=== PATIENT | female | born 1975 | race Caucasian/White ===

== ENCOUNTER 2019-11-21 20:00 | Emergency (ER) | payer SELFPAY ==
[2019-11-21 20:05] VITALS: BP 121/94; PULSE 134; RESP 18; TEMP 36.9; O2SAT 95; BMI 20.7
== END 2019-11-22 00:15 | disposition left against medical advice (07) ==
PROVIDERS: Emergency Provider Nurse Practitioner Family; PCP Family Medicine
DX: Z53.21 Procedure and treatment not carried out due to patient leaving prior to being seen by health care provider (principal)
CPT/HCPCS: 99281

== ENCOUNTER 2019-11-25 12:57 | Emergency (ER) | payer SELFPAY ==
[2019-11-25 13:01] VITALS: BP 118/94; PULSE 113; RESP 20; TEMP 36.5; O2SAT 97; BMI 21.9
--- NOTE | 2019-11-25 13:22 | PC.NURSE ---
Patient reports that Monday night she began to get pain. Patient states that she is having some pain under her left arm. Patient reports that she has had some tingling and pain down to her hands. Patient states she is having similar symptoms in her right arm but no as bad.
--- NOTE | 2019-11-25 13:31 | ED_ITS ---
HPI - Extremity Problem General: Chief complaint: Extremity Problem,Nontraumatic Stated complaint: Arm and hand pain Time Seen by Provider: 11/25/19 13:24 History of Present Illness: HPI Narrative: Patient comes in today for complaints of left arm tightness and pain. Patient has had previous episodes with the last episode being about 2 years ago. At that time patient had a very low potassium and she is concerned about that today. Patient also reports some swelling in the trapezius area as compared to the opposite, right, side. Review of Systems General: Reports: 10 or more systems reviewed and unremarkable except in HPI and below Musc: Reports: muscle cramps PFSH ED PFSH: Statuses (acute, chronic, etc) shown below reflect problem list status as previously entered and may not be historically accurate Social History Smoking and tobacco status: former smoker Physical Exam Const: COMMON NORMALS: no apparent distress and oriented x3 GENERAL APPEARANCE: cooperative HENMT: COMMON NORMALS: normocephalic, external ears normal, EAC's normal, TM's normal bilaterally and external nose normal HEAD & SCALP: normal to inspect ion and normocephalic FACE & SINUS: normal facial exam NOSE: external nose normal GENERAL EAR: hearing not grossly impaired EXTERNAL EAR: Yes external ears normal EXTERNAL AUDITORY CANAL: EAC's normal TYMPANIC MEMBRANE: TM's normal bilaterally MOUTH: oral and palatal mucosa normal THROAT: posterior oropharynx normal Eye: COMMON NORMALS: PERRL and EOMs intact bilaterally PUPIL: Yes PERRL Neck/C-Spine: COMMON NORMALS: full ROM and no lymphadenopathy Lymph: LYMPHATIC: no lymphedema noted Chest: COMMONS NORMALS: inspection of chest normal and palpation of chest normal Resp: COMMON NORMALS: normal respiratory effort and clear to auscultation bilaterally AUSCULTATION: clear to auscultation bilaterally Cardio: COMMON NORMALS: regular rate and regular rhythm RATE: regular rate RHYTHM: regular rhythm GI: COMMON NORMALS: normal to inspection, nondistended, normoactive bowel sounds and non-tender : COMMON NORMALS: Yes no CVA tenderness BLADDER/KIDNEY EXAM: Yes no CVA tenderness Back/Pelvis: COMMON NORMALS: no CVA tenderness and thoracic and lumbar spine normal to inspection Extremity: COMMON NORMALS: normal to inspection GENERAL: No edema Neuro: COMMON NORMALS: oriented x3, moves all extremities and no focal motor deficits Psych: COMMON NORMALS: mental status grossly normal and cooperative Skin: COMMON NORMALS: no rashes or lesions noted GENERAL SKIN EXAM: no rashes or lesions noted Course Vital Signs: Vital signs: Vital Signs Temperature 97.7 F 11/25/19 13:01 Pulse Rate 113 H 11/25/19 13:01 Respiratory Rate 20 H 11/25/19 13:01 Blood Pressure 118/94 11/25/19 13:01 Pulse Oximetry 97 11/25/19 13:01 MDM - Extremity (Nontraumatic) MDM Narrative: Medical decision making narrative: Patient comes in today for complaints of tenderness and tightness to the right shoulder radiating down to her arm and hand. Patient reports that she had problems with this for the last 2 years but is worsened over the last 2 weeks. Patient appears well. Exam notes no swelling or redness to lower extremities. Pulses are intact. Vital signs are stable. Differential diagnosis includes thoracic outlet syndrome, myofascial strain, cervical radiculopathy. Reviewed exam with patient recommended treatment with Tylenol and ibuprofen and muscle relaxer. Patient was recommended to follow-up with primary care for referral for physical therapy. Patient reported understanding of care plan. Lab Data: Labs: Lab Results 11/25/19 Range/Units 13:48 Sodium 137 (136-145) mmol/L Potassium 4.3 (3.5-5.1) mmol/L Chloride 99 (98-107) mmol/L Carbon Dioxide 26 (22-29) mmol/L Anion Gap 16.3 (5-19) BUN 8 (6-20) mg/dL Creatinine 0.5 (0.5-0.9) mg/dL GFR Calculation 134.0 H (90-130) mL/min Glucose 104 (74-109) mg/dL Calcium 10.3 H (8.6-10.0) mg/Dl Discharge Plan Discharge Patient Disposition: Home, Self-Care Clinical Impression: Myofascial pain on left side Condition: Stable Prescriptions: New tizanidine 4 mg tablet 2 mg PO Q6H PRN (Reason: muscle spasticity and pain) Qty: 14 RF: 0 Discharge Orders: Discharge Order (Routine); Ordered 11/25/19 Ordered By: Ran Diaz Referrals: Ramin Hodges DO [Primary Care Provider] - Discharge Diet: Usual diet Discharge Activity: Resume usual activity Patient Instructions: Thoracic Outlet Syndrome (ED) Activity Restrictions/Additional Instructions: Activity as tolerated Gentle stretching and range of motion exercise Follow-up with primary care for further treatment and referral to PT Coding Level of Care Code ED Electrical Contacts Adjuster for Jazmyn Jc Exam Problem Focused
[2019-11-25 14:15] LABS: Anion Gap 16.3 (5-19); Blood Urea Nitrogen 8 mg/dL (6-20); Calcium 10.3 mg/Dl (8.6-10.0); Carbon Dioxide 26 mmol/L (22-29); Chloride 99 mmol/L (98-107); Glucose 104 mg/dL (74-109); Potassium 4.3 mmol/L (3.5-5.1); Sodium 137 mmol/L (136-145)
[2019-11-25 14:34] VITALS: BP 118/93; PULSE 100; RESP 18; O2SAT 96
== END 2019-11-25 14:35 | disposition home or self-care (01) ==
PROVIDERS: Emergency Provider Nurse Practitioner Family; PCP Family Medicine
DX: M79.18 Myalgia, other site (principal); Z87.891 Personal history of nicotine dependence
CPT/HCPCS: 36415; 80048; 99281

== ENCOUNTER 2019-12-28 17:30 | Emergency (ER) | payer SELFPAY ==
[2019-12-28 17:51] VITALS: BP 105/63; PULSE 127; RESP 20; TEMP 36.8; O2SAT 97; BMI 20.7
[2019-12-28 18:31] LABS: Basophils # 0.2 10^3/uL (0.0-0.1); Basophils % 1.6 %; Eosinophils # 0.2 10^3/uL (0.0-0.8); Eosinophils % 1.5 %; Hematocrit 48.9 % (37.0-47.0); Lymphocytes # 2.4 10^3/uL (0.8-4.8); Lymphocytes % 23.9 %; Mean Corpuscular HGB Conc 32.7 g/dL (30.0-36.0); Mean Corpuscular Hemoglobin 35.2 pg (28.0-34.0); Mean Corpuscular Volume 107.7 fL (81-99); Mean Platelet Volume 9.8 fL (7.4-10.4); Monocytes # 0.7 10^3/uL (0.2-0.9); Monocytes % 7.4 %; Neutrophils # 6.5 10^3/uL (1.8-7.7); Neutrophils % 65.3 %; Nucleated Red Blood Cells % 0 %; Platelet Count 344 10^3/cmm (130-400); Red Blood Count 4.54 10^6/uL (4.1-5.3); Red Cell Distribution Width 11.7 % (12.1-15.1); White Blood Count 9.9 10^3/uL (4.0-10.0)
[2019-12-28 18:43] LABS: Alanine Aminotransferase 28 U/L (0-33); Albumin Level 4.1 g/dL (3.5-5.2); Alkaline Phosphatase 148 IU/L (35-105); Anion Gap 18.7 (5-19); Aspartate Amino Transferase 60 U/L (0-32); Blood Urea Nitrogen 7 mg/dL (6-20); Calcium 10.1 mg/dL (8.5-10.5); Carbon Dioxide 28 mmol/L (22-29); Chloride 99 mmol/L (98-107); Globulin 3.8 g/dL (1.3-4.6); Glucose 111 mg/dL (65-115); Lipase 38 U/L (13-60); Potassium 3.7 mmol/L (3.5-5.1); Sodium 142 mmol/L (136-145); Total Bilirubin 0.4 mg/dL (0.15-1.2); Total Protein 7.9 g/dL (6.6-8.7)
[2019-12-28 19:32] VITALS: BP 111/62; PULSE 122; RESP 20; TEMP 36.9; O2SAT 96
--- NOTE | 2019-12-28 19:36 | ED_ITS ---
HPI - General Adult General: Chief complaint: Abdominal Pain Stated complaint: FEVER, N/V Time Seen by Provider: 12/28/19 19:13 History of Present Illness: HPI narrative: Patient complains about nausea and vomiting for 1 day 1/2 days. Also complains about sinus pressure. Does not have any abdominal pain. Patient has sinus problems also. MD complaint: .ge Onset (ago): day(s) Associated symptoms: Reports nausea, vomiting and other (Sinus pressure); Deny chest pain, dyspnea, headache(s) or rash Review of Systems Const: Denies: fever, chills or body aches Eyes: Denies: change in vision or blurry vision ENMT: Reports: nasal congestion; Denies: throat pain Card: Denies: chest pain or shortness of breath on exertion Resp: Denies: shortness of breath, productive cough or non-productive cough GI: Reports: nausea and vomiting Musc: Denies: extremity pain Skin/Breast: Denies: rash Neuro: Denies: headache Psych: Denies: anxiety or depression [place]/Lymph: Denies: easy bruising PFSH ED PFSH: Social History Smoking and tobacco status: current some day smoker Physical Exam Const: COMMON NORMALS: no apparent distress, average body habitus and oriented x3 HENMT: COMMON NORMALS: normocephalic HEAD & SCALP: normal to inspection and normocephalic FACE & SINUS: normal facial exam Eye: COMMON NORMALS: conjunctivae normal GENERAL EYE: normal appearance of both eyes CONJUNCTIVA: Yes conjunctivae normal Neck/C-Spine: COMMON NORMALS: no JVD Chest: COMMONS NORMALS: inspection of chest normal Resp: COMMON NORMALS: normal respiratory effort and clear to auscultation bilaterally AUSCULTATION: clear to auscultation bilaterally Cardio: COMMON NORMALS: no JVD, regular rate and regular rhythm RATE: regular rate RHYTHM: regular rhythm GI: COMMON NORMALS: normal to inspection, nondistended, normoactive bowel sounds Extremity: COMMON NORMALS: normal to inspection and full ROM Neuro: COMMON NORMALS: oriented x3 Course Vital Signs: Vital signs: Vital Signs Temperature 98.5 F 12/28/19 19:32 Pulse Rate 122 H 12/28/19 19:32 Respiratory Rate 20 H 12/28/19 19:32 Blood Pressure 111/62 12/28/19 19:32 Pulse Oximetry 96 12/28/19 19:32 MDM - General Adult MDM Narrative: Medical decision making narrative: States she never did have abdominal pain just had some nausea and vomiting which has improved now. Says her sinuses are what is bothering her now. Lab Data: Labs: Lab Results 12/28/19 12/28/19 12/28/19 Range/Units 18:23 18:23 19:15 WBC 9.9 (4.0-10.0) 10^3/ uL RBC 4.54 (4.1-5.3) 10^6/u L Hgb 16.0 H (11.5-15.3) g/dL Hct 48.9 H (37.0-47.0) % MCV 107.7 H (81-99) fL MCH 35.2 H (28.0-34.0) pg MCHC 32.7 (30.0-36.0) g/dL RDW 11.7 L (12.1-15.1) % Plt Count 344 (130-400) 10^3/c mm MPV 9.8 (7.4-10.4) fL Neut % (Auto) 65.3 % Lymph % (Auto) 23.9 % Phelps % (Auto) 7.4 % Eos % (Auto) 1.5 % Baso % (Auto) 1.6 % Neut # (Auto) 6.5 (1.8-7.7) 10^3/u L Lymph # (Auto) 2.4 (0.8-4.8) 10^3/u L Phelps # (Auto) 0.7 (0.2-0.9) 10^3/u L Eos # (Auto) 0.2 (0.0-0.8) 10^3/u L Baso # (Auto) 0.2 H (0.0-0.1) 10^3/u L Nucleated RBC % (a uto) 0 % Nucleated RBCs # 0.0 /100WBC Sodium 142 (136-145) mmol/L Potassium 3.7 (3.5-5.1) mmol/L Chloride 99 (98-107) mmol/L Carbon Dioxide 28 (22-29) mmol/L Anion Gap 18.7 (5-19) BUN 7 (6-20) mg/dL Creatinine 0.5 (0.5-0.9) mg/dL GFR Calculation 134.0 H (90-130) mL/min Glucose 111 (65-115) mg/dL Calcium 10.1 (8.5-10.5) mg/dL Total Bilirubin 0.4 (0.15-1.2) mg/dL AST 60 H (0-32) U/L ALT 28 (0-33) U/L Alkaline Phosphata se 148 H (35-105) IU/L Total Protein 7.9 (6.6-8.7) g/dL Albumin 4.1 (3.5-5.2) g/dL Globulin 3.8 (1.3-4.6) g/dL Lipase 38 (13-60) U/L Urine Color (Yellow) Urine Appearance (CLEAR) Urine pH (5-7) Ur Specific Gravit y (1.005-1.030) Urine Protein (Negative) Urine Glucose (UA) (Normal) Urine Ketones (Negative) Urine Occult Blood (Negative) Urine Nitrate (Negative) Urine Bilirubin (NEGATIVE) Urine Urobilinogen (Negative) mg/dL Ur Leukocyte Lisa ase (Negative) Urine RBC (0-2) /hpf Urine WBC (0-5) /hpf Ur Squamous Epith Cells (0-5) Urine Bacteria (NONE) Urine Mucus Influenza Type A A g Negative (Negative) POC Influenza B Ag Negative (Negative) Group A Strep Rapi d (Negative) 12/28/19 12/28/19 Range/Units 19:15 19:25 WBC (4.0-10.0) 10^3/ uL RBC (4.1-5.3) 10^6/u L Hgb (11.5-15.3) g/dL Hct (37.0-47.0) % MCV (81-99) fL MCH (28.0-34.0) pg MCHC (30.0-36.0) g/dL RDW (12.1-15.1) % Plt Count (130-400) 10^3/c mm MPV (7.4-10.4) fL Neut % (Auto) % Lymph % (Auto) % Phelps % (Auto) % Eos % (Auto) % Baso % (Auto) % Neut # (Auto) (1.8-7.7) 10^3/u L Lymph # (Auto) (0.8-4.8) 10^3/u L Phelps # (Auto) (0.2-0.9) 10^3/u L Eos # (Auto) (0.0-0.8) 10^3/u L Baso # (Auto) (0.0-0.1) 10^3/u L Nucleated RBC % (a uto) % Nucleated RBCs # /100WBC Sodium (136-145) mmol/L Potassium (3.5-5.1) mmol/L Chloride (98-107) mmol/L Carbon Dioxide (22-29) mmol/L Anion Gap (5-19) BUN (6-20) mg/dL Creatinine (0.5-0.9) mg/dL GFR Calculation (90-130) mL/min Glucose (65-115) mg/dL Calcium (8.5-10.5) mg/dL Total Bilirubin (0.15-1.2) mg/dL AST (0-32) U/L ALT (0-33) U/L Alkaline Phosphata se (35-105) IU/L Total Protein (6.6-8.7) g/dL Albumin (3.5-5.2) g/dL Globulin (1.3-4.6) g/dL Lipase (13-60) U/L Urine Color Yellow (Yellow) Urine Appearance Sl hazy (CLEAR) Urine pH 7 (5-7) Ur Specific Gravit y 1.005 (1.005-1.030) Urine Protein Neg (Negative) Urine Glucose (UA) Norm (Normal) Urine Ketones Negative (Negative) Urine Occult Blood Neg (Negative) Urine Nitrate Negative (Negative) Urine Bilirubin 1+ H (NEGATIVE) Urine Urobilinogen 4 H (Negative) mg/dL Ur Leukocyte Lisa ase Negative (Negative) Urine RBC Rare (0-2) /hpf Urine WBC 0-4 H (0-5) /hpf Ur Squamous Epith Cells 5-10 H (0-5) Urine Bacteria Trace (NONE) Urine Mucus 1+ Influenza Type A A g (Negative) POC Influenza B Ag (Negative) Group A Strep Rapi d Negative (Negative) Discharge Plan Discharge Patient Disposition: Home, Self-Care Clinical Impression: Gastroenteritis Sinusitis Qualifiers: Sinusitis location: maxillary Chronicity: acute Recurrence: non-recurrent Qualified Code(s): J01.00 - Acute maxillary sinusitis, unspecified Condition: Stable Prescriptions: New amoxicillin 500 mg tablet 500 mg PO TID 10 Days Qty: 30 RF: 0 Zofran 4 mg tablet 4 mg PO Q8H PRN (Reason: nausea and vomiting) 2 Days Qty: 7 RF: 0 No Action tizanidine 4 mg tablet 2 mg PO Q6H PRN (Reason: muscle spasticity and pain) Qty: 14 RF: 0 Discharge Orders: Discharge Order (Routine); Ordered 12/28/19 Ordered By: Nicolás Dominique Referrals: Ramin Hodges DO [Primary Care Provider] - Discharge Diet: Advance as tolerated Discharge Activity: Increase activity as tolerated Patient Instructions: Gastroenteritis (ED) Activity Restrictions/Additional Instructions: Follow-up with medical provider as directed. Take medications as prescribed. Return to the ER or your medical provider if condition worsens. Please read and understand discharge instructions. If any questions ask please. Lindsey fritz. Coding Level of Care Code ED Packing House Supervisor for Jazmyn Fwfransisco Exam Comprehensive
[2019-12-28 19:55] LABS: Rapid Strep A Test Negative (Negative)
[2019-12-28 19:58] LABS: Blood Urine Neg (Negative); Glucose Urine UA Norm (Normal); Ketones Urine Negative (Negative); Protein Urine Neg (Negative); Specific Gravity, Urine 1.005 (1.005-1.030); Urine Appearance SL Hazy (CLEAR); Urine Color Yellow (Yellow); pH Urine 7 (5-7)
[2019-12-28 19:59] LABS: Add Urine Microscopic? YES; Bilirubin Urine 1+ (NEGATIVE); Leukocyte Esterase Urine Negative (Negative); Nitrate Urine Negative (Negative); Urobilinogen Urine 4 mg/dL (Negative)
[2019-12-28 20:01] LABS: Bacteria Urine TRACE; Mucus Urine 1+; RBC Urine RARE /hpf (0-2); WBC Urine 0-4 /hpf (0-5)
[2019-12-28 20:02] LABS: Add Urine Culture? No
[2019-12-28 20:07] LABS: Influenza A by IFA Negative (Negative); Influenza B by IFA Negative (Negative)
[2019-12-28] MEDS: amoxicillin 500 mg Capsule PO (20:28)
[2019-12-28] MEDS: ondansetron 4 MG Tablet PO (20:29)
[2019-12-28 20:31] VITALS: BP 105/63; PULSE 130; RESP 16; TEMP 36.7; O2SAT 97
== END 2019-12-28 20:31 | disposition home or self-care (01) ==
PROVIDERS: Emergency Provider Nurse Practitioner Family; PCP Family Medicine
DX: K52.9 Noninfective gastroenteritis and colitis, unspecified (principal); J32.9 Chronic sinusitis, unspecified; F17.200 Nicotine dependence, unspecified, uncomplicated
CPT/HCPCS: 80053; 81001; 83690; 85025; 87081; 87804; 87880; 99283; Q0162

== ENCOUNTER 2020-03-07 18:07 | Emergency (ER) | payer SELFPAY ==
[2020-03-07 18:12] VITALS: BP 137/112; PULSE 124; RESP 17; TEMP 36.2; O2SAT 98; BMI 21.9
--- NOTE | 2020-03-07 18:12 | W.ED.ANIMALB ---
HPI - Animal Bite General: Chief Complaint: Animal Bite Stated Complaint: dog bite Time Seen by Provider: 03/07/20 18:12 Source: patient Mode of arrival: ambulatory Limitations: no limitations History of Present Illness: HPI narrative: Patient comes in today with injuries from being bitten by a dog last night. Patient has an abrasion to the left abdominal wall and an abrasion to her left thumb. Patient appears well. Patient appears in no acute distress. Patient states that she had gone to her neighbor's house who owns the dog and was going to give them some close that she had wanted to donate to them due to them being poor. When the door open the dog jumped at her and bit her. Patient was not wanting to report to the police but told her that we would have to notify the police just by law it was recommended. Patient reported understanding. Patient cannot recall her last tetanus shot. Dog is a healthy well care for dog that will be able to be monitored for 10 days. Review of Systems General: Reports: 10 or more systems reviewed and unremarkable except in HPI and below Skin/Breast: Reports: other (abrasions) PFS ED PFSH: Social History Smoking and tobacco status: current some day smoker Alcohol intake: current Alcohol intake frequency: few times a month History of recent travel: No Physical Exam Const: COMMON NORMALS: no apparent distress and oriented x3 GENERAL APPEARANCE: cooperative HENMT: COMMON NORMALS: normocephalic, TM's normal bilaterally and external nose normal HEAD & SCALP: normal to inspection and normocephalic NOSE: external nose normal TYMPANIC MEMBRANE: TM's normal bilaterally MOUTH: oral and palatal mucosa normal THROAT: posterior oropharynx normal Eye: GENERAL EYE: normal appearance of both eyes Neck/C-Spine: COMMON NORMALS: full ROM Lymph: LYMPHATIC: no lymphadenopathy noted Chest: COMMONS NORMALS: inspection of chest normal Resp: COMMON NORMALS: normal respiratory effort EFFORT & INSPECTION: Yes able to speak in complete sentences Cardio: COMMON NORMALS: regular rate and regular rhythm RATE: regular rate RHYTHM: regular rhythm GI: COMMON NORMALS: non-tender : COMMON NORMALS: Yes no CVA tenderness BLADDER/KIDNEY EXAM: Yes no CVA tenderness Back/Pelvis: COMMON NORMALS: no CVA tenderness and thoracic and lumbar spine normal to inspection Extremity: COMMON NORMALS: normal to inspection Neuro: COMMON NORMALS: oriented x3 and moves all extremities Psych: COMMON NORMALS: mental status grossly normal and cooperative Skin: COMMON NORMALS: no rashes or lesions noted NARRATIVE SKIN EXAM: Abrasion to the left thumb distal part. And the left flank area. Minimal ecchymosis is noted. No deep lacerations were noted. GENERAL SKIN EXAM: no rashes or lesions noted Course Vital Signs: Vital signs: Vital Signs Temperature 97.1 F L 03/07/20 18:12 Pulse Rate 124 H 03/07/20 18:12 Respiratory Rate 17 03/07/20 18:12 Blood Pressure 137/112 03/07/20 18:12 Pulse Oximetry 98 03/07/20 18:12 MDM - Animal Bite MDM Narrative: Medical decision making narrative: Patient comes in for evaluation of a dog bite that occurred last evening. Exam noted a ecchymotic abrasion to the left flank that was approximately 3 cm diameter. Patient also had a distal thumb injury with a small blood-filled vesicle. Patient had normal range of motion of extremities. No signs of serious injury or illness was noted. Vital signs were normal. Reviewed exam with patient recommended treatment with antibiotic and tetanus shot for immunization. Patient reported understanding of care plan and need for follow-up. I had talked to Dr. Montoya the advertising statistical clerk at [facility] regarding this patient, and he did not know the dog that had attacked her as he had been contacted earlier regarding another incident and could not share any further information regarding the past. Patient was informed that law enforcement would have to be contacted regarding the animal patient was very upset regarding this due to concern for the animal. I reassured reassured patient that the dog should be fine as it would just need to be monitored to ensure it did not have rabies. Patient reported understanding. Discharge Plan Discharge Patient Disposition: Home, Self-Care Clinical Impression: Bite by animal Condition: Stable Prescriptions: New Augmentin 875-125 mg tablet 1 tab PO BID Qty: 14 RF: 0 No Action diclofenac potassium 25 mg capsule 25 mg PO .Bedtime Qty: 30 RF: 1 tizanidine 4 mg tablet 2 mg PO Q6H PRN (Reason: muscle spasticity and pain) Qty: 14 RF: 0 Discharge Orders: Discharge Order (Routine); Ordered 03/07/20 Ordered By: Ran Diaz Referrals: Whit Painter FNP [Primary Care Provider] - Discharge Diet: Usual diet Discharge Activity: Increase activity as tolerated Patient Instructions: Animal Bite (ED) Activity Restrictions/Additional Instructions: Call the neighbor by phone and instruct them to monitor the dog for 10 days. If the dog is to become ill it should be taken to the vet for further monitoring and testing as needed. Take antibiotics as directed. Drink plenty of fluids with antibiotic. Use Tylenol and ibuprofen as needed for pain. Follow-up with primary care in 1 week. Return to the ER for worsening symptoms or high fever. Coding Level of Care Code ED Earth Auger Operator for Olegg Fwd Exam Comprehensive
[2020-03-07] MEDS: amoxicillin-clav 875-125 mg Tablet 1 TAB PO (18:42)
[2020-03-07] MEDS: tetanus-dipt-pertussis 0.5 mL SDV IM (18:43)
[2020-03-07 18:57] VITALS: PULSE 110; RESP 20; O2SAT 98
== END 2020-03-07 18:58 | disposition home or self-care (01) ==
PROVIDERS: Emergency Provider Nurse Practitioner Family; PCP Nurse Practitioner
DX: S30.871A Other superficial bite of abdominal wall, initial encounter (principal); S60.372A Other superficial bite of left thumb, initial encounter; W54.0XXA Bitten by dog, initial encounter; F17.210 Nicotine dependence, cigarettes, uncomplicated; Z23 Encounter for immunization
CPT/HCPCS: 12345; 90471; 90715; 99281; 99283

== ENCOUNTER 2020-06-11 19:25 | Emergency (ER) | payer SELFPAY ==
[2020-06-11 19:34] VITALS: BP 115/60; PULSE 105; RESP 18; TEMP 36.6; O2SAT 97; BMI 20.7
--- NOTE | 2020-06-11 19:38 | XRR_ITS ---
PROCEDURE INFORMATION: Exam: XR Chest, 1 View Exam date and time: 06/11/2020 9:04 PM Age: 45 years old Clinical indication: Chest pain; Type not specified; Additional info: [id number] TECHNIQUE: Imaging protocol: XR of the chest Views: 1 view. COMPARISON: CR Chest 1 [place] [id number] 09/20/2019 2:19 AM FINDINGS: Lungs: Unremarkable. No consolidation. Pleural space: Unremarkable. No pleural effusion. No pneumothorax. Heart/Mediastinum: Unremarkable. No cardiomegaly. Bones/joints: Unremarkable. XR/XR chest 1V portable [id number] IMPRESSION: No acute findings.
--- NOTE | 2020-06-11 19:39 | ECG_ITS ---
[facility] Test Date: 2020-06-11 Pat Name: Kalpana Godwin Department: Room: Gender: Female Instructor Bridge: : 1975 Requested By: Armando Bernard Order Number: [id number] Lauri MD: Bridger Valentino M.D. Measurements Intervals [place] Rate: 94 P: 52 [place]: 166 QRS: 20 QRSD: 68 T: 25 QT: 355 QTc: 445 Interpretive Statements SINUS RHYTHM LOW QRS VOLTAGE IN PRECORDIAL LEADS [QRS DEFLECTION < 1.0 mV IN CHEST LEADS] Compared to ECG 09/20/2019 02:24:31 Sinus tachycardia no longer present Electronically Signed On 06-12-2020 16:02:58 CDT by Bridger Valentino M.D. [id number]
[2020-06-11 20:03] LABS: Basophils # 0.2 10^3/uL (0.0-0.1); Eosinophils # 0.3 10^3/uL (0.0-0.8); Eosinophils % 3.7 %; Hematocrit 41.6 % (37.0-47.0); Hemoglobin 13.6 g/dL (11.5-15.3); Lymphocytes # 3.4 10^3/uL (0.8-4.8); Mean Corpuscular HGB Conc 32.7 g/dL (30.0-36.0); Mean Corpuscular Hemoglobin 35.5 pg (28.0-34.0); Mean Corpuscular Volume 108.6 fL (81-99); Mean Platelet Volume 9.9 fL (7.4-10.4); Monocytes # 0.8 10^3/uL (0.2-0.9); Monocytes % 9.3 %; Neutrophils # 4.22 10^3/uL (1.8-7.7); Neutrophils % 46.8 %; Nucleated Red Blood Cells % 0 %; Platelet Count 196 10^3/cmm (130-400); Red Blood Count 3.83 10^6/uL (4.1-5.3); Red Cell Distribution Width 11.4 % (12.1-15.1)
[2020-06-11 20:22] LABS: Troponin(5th) Baseline 6 ng/L (0-10)
[2020-06-11 20:28] LABS: Alanine Aminotransferase 74 U/L (0-33); Albumin Level 4.5 g/dL (3.5-5.2); Alkaline Phosphatase 180 IU/L (35-105); Aspartate Amino Transferase 237 U/L (0-32); Blood Urea Nitrogen 4 mg/dL (6-20); Calcium 9.3 mg/dL (8.5-10.5); Carbon Dioxide 25 mmol/L (22-29); Chloride 105 mmol/L (98-107); Globulin 2.6 g/dL (1.3-4.6); Glomerular Filtration Rate 133.4 mL/min (90-130); Glucose 98 mg/dL (65-115); NT Pro B Type Natriuretic Pept 37 pg/mL (0-125); Osmolality Calculated 292 mOsm/kg (285-295); Sodium 143 mmol/L (136-145); Total Bilirubin 0.4 mg/dL (0.15-1.2); Total Protein 7.1 g/dL (6.6-8.7)
[2020-06-11 21:29] LABS: Alcohol Level 267 mg/dL (0-10)
[2020-06-11] MEDS: acetaminophen 500 mg Tablet 1000 MG PO (21:43)
[2020-06-11] MEDS: ibuprofen 600 mg Tablet PO (21:43)
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
[2020-06-11 21:45] VITALS: BP 122/86; PULSE 96; RESP 18; O2SAT 98
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
--- NOTE | 2020-06-11 21:51 | PC.NURSE ---
PT BREATHING IS NONLABORED. RATE AND RYTHYM ARE WNL.
== END 2020-06-11 22:27 | disposition home or self-care (01) ==
PROVIDERS: Emergency Medicine; Emergency Provider Emergency Medicine; PCP Nurse Practitioner
DX: S22.39XA Fracture of one rib, unspecified side, initial encounter for closed fracture (principal); X58.XXXA Exposure to other specified factors, initial encounter; F17.210 Nicotine dependence, cigarettes, uncomplicated
CPT/HCPCS: 12345; 71045; 80053; 80307; 83880; 84484; 85025; 93005; 99281; 99284

== ENCOUNTER 2020-06-21 16:57 | Emergency (ER) | payer SELFPAY ==
--- NOTE | 2020-06-21 17:00 | XRR_ITS ---
PROCEDURE INFORMATION: Exam: XR Chest, 2 Views Exam date and time: 06/21/2020 5:33 PM Age: 45 years old Clinical indication: Patient HX: PT states left sided pain/swelling; Additional info: Cp TECHNIQUE: Imaging protocol: XR of the chest Views: 2 views. COMPARISON: CR XR chest 1V portable [id number] 06/11/2020 8:52 PM FINDINGS: Lungs: Unremarkable. No consolidation. Pleural space: Unremarkable. No pleural effusion. No pneumothorax. Heart/Mediastinum: Unremarkable. No cardiomegaly. Bones/joints: Unremarkable. XR/XR chest 2V* [id number] IMPRESSION: No acute findings.
[2020-06-21 17:35] VITALS: BP 122/84; PULSE 107; RESP 14; TEMP 37.1; O2SAT 96; BMI 20.1
== END 2020-06-21 20:24 | disposition left against medical advice (07) ==
PROVIDERS: Emergency Provider Emergency Medicine; PCP Nurse Practitioner
DX: Z53.21 Procedure and treatment not carried out due to patient leaving prior to being seen by health care provider (principal)
CPT/HCPCS: 71046; 99281

== ENCOUNTER 2020-06-21 21:25 | Emergency (ER) | payer SELFPAY ==
[2020-06-21 21:37] VITALS: BP 124/72; PULSE 112; RESP 14; TEMP 36.2; O2SAT 96; BMI 20.7
[2020-06-21] MEDS: methylPREDNISolone (DEPO) 80 MG/ML INJ 1 mL IM (22:01)
[2020-06-21 22:06] VITALS: BP 118/72; PULSE 72; RESP 16; TEMP 36.3; O2SAT 100
--- NOTE | 2020-06-21 22:07 | PC.NURSE ---
Patient's CC of Left sided rib pain. Patient ambulatory by self, with no devices.
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
== END 2020-06-21 22:11 | disposition home or self-care (01) ==
PROVIDERS: Emergency Provider Nurse Practitioner Family; PCP Nurse Practitioner
DX: S23.41XA Sprain of ribs, initial encounter (principal); F17.210 Nicotine dependence, cigarettes, uncomplicated; X58.XXXA Exposure to other specified factors, initial encounter
CPT/HCPCS: 12345; 96372; 99281; 99283; J1040

== ENCOUNTER 2020-07-14 15:43 | Emergency (ER) | payer SELFPAY ==
[2020-07-14 15:50] VITALS: BP 125/85; PULSE 120; RESP 18; TEMP 37.1; O2SAT 94; BMI 20.7
--- NOTE | 2020-07-14 17:12 | XRR_ITS ---
PROCEDURE INFORMATION: Exam: XR Nasal Bones, Minimum of 3 Views, Complete Exam date and time: 07/14/2020 5:36 PM Age: 45 years old Clinical indication: Injury or trauma; Initial encounter; Blunt trauma (contusions or hematomas); Injury date: 07/11/20; Patient HX: Fall; Dog pushed over. C/O pain and bruising nose TECHNIQUE: Imaging protocol: XR of the nasal bones, minimum of 3 views. Complete exam. COMPARISON: No relevant prior studies available. FINDINGS: Sinuses: Well aerated. No opacification. Bones/joints: No fracture. Soft tissues: Unremarkable. XR/XR nasal bones min 3V [id number] IMPRESSION: Unremarkable.
--- NOTE | 2020-07-14 17:12 | XRR_ITS ---
PROCEDURE INFORMATION: Exam: XR Chest, 1 View Exam date and time: 07/14/2020 5:32 PM Age: 45 years old Clinical indication: Dyspnea; Patient HX: C/O nose injury , fever, cough and sore throat. PT is concerned about being exposed to covid. Bruised nose from dog hitting her in face. TECHNIQUE: Imaging protocol: XR of the chest Views: 1 view. COMPARISON: CR XR chest 2V* [id number] 06/21/2020 5:30 PM FINDINGS: Lungs: Unremarkable. No consolidation. Lordotic positioning. Pleural space: Unremarkable. No pleural effusion. No pneumothorax. Heart/Mediastinum: Unremarkable. No cardiomegaly. Bones/joints: Unremarkable. XR/XR chest 1V portable [id number] IMPRESSION: No acute findings.
--- NOTE | 2020-07-14 17:36 | W.ED.GENADLT ---
HPI - General Adult General: Chief complaint: General Medical Stated complaint: covid symptoms Time Seen by Provider: 07/14/20 17:04 Source: patient Mode of arrival: ambulatory Limitations: no limitations History of Present Illness: HPI narrative: Kalpana is a nice 45-year-old female who comes in complaining of nose injury, fever, cough and sore throat. The patient is specifically concerned about being exposed to COVID-19. She states she is been around 2 people that have had the infection and she wants to be tested. Patient also states her dog hit her in the face and she has a bruised nose. She is requesting x-rays of this as well. Associated symptoms: Reports dyspnea; Deny chest pain, headache(s), nausea, rash, palpitations, syncope or vomiting Review of Systems Const: Denies: fever(s) Eyes: Denies: change in vision or blurry vision ENMT: Denies: throat pain or hoarseness Card: Denies: chest pain, palpitations, syncope, pre-syncope or dyspnea on exertion Resp: Reports: dyspnea and non-productive cough; Denies: productive cough GI: Denies: abdominal pain, nausea, vomiting or diarrhea : Denies: flank pain, dysuria, urinary frequency or urinary urgency Musc: Denies: neck pain, back pain or extremity pain Skin/Breast: Denies: rash or pruritus Neuro: Denies: headache(s), numbness in extremities, weakness in extremities or dizziness [facility] ED PFSH: Medical History Gastroenteritis Social History Smoking and tobacco status: current some day smoker Alcohol intake: current Alcohol intake frequency: 3 or more drinks per day Substance/Drug Use: never History of recent travel: No Physical Exam Const: COMMON NORMALS: no acute distress, patient oriented x3, no limitations, healthy appearing and well nourished GENERAL APPEARANCE: cooperative, well kempt and well developed HENMT: COMMON NORMALS: normocephalic, atraumatic, external ears normal, EAC's normal and Normal external nose present HEAD & SCALP: normal to inspection, normocephalic and atraumatic FACE & SINUS: normal facial exam and face symmetric NOSE: Normal external nose present and Normal nares present EXTERNAL EAR: Yes external ears normal EXTERNAL AUDITORY CANAL: EAC's normal MOUTH: Normal oral and palatal mucosa present, lip normal and tongue normal Eye: COMMON NORMALS: Equal, round and reactive pupils present and conjunctivae normal GENERAL EYE: appearance normal, both eyes and all related structures ALIGNMENT: Yes alignment normal PERIORBITAL: periorbital findings normal EYELID: eyelids normal CONJUNCTIVA: Yes conjunctivae normal SCLERA: sclerae normal PUPIL: Yes Equal, round and reactive pupils present Neck/C-Spine: COMMON NORMALS: full ROM, no lymphadenopathy, supple, no meningeal signs and no JVD GENERAL: Yes normal visual inspection and Yes trachea midline Chest: COMMONS NORMALS: normal inspection of the chest and normal palpation of entire chest wall Resp: COMMON NORMALS: normal respiratory effort, No retractions, No use of accessory muscles and clear to auscultation bilaterally EFFORT & INSPECTION: Yes able to speak in complete sentences and Yes symmetric chest movement AUSCULTATION: clear to auscultation bilaterally, no crackles, no rales, no rhonchi and no wheezes Cardio: COMMON NORMALS: no JVD, regular rate, regular rhythm, S1 normal heart sound present and S2 normal heart sound present RATE: regular rate RHYTHM: regular rhythm HEART SOUNDS: S1 normal heart sound present, S2 normal heart sound present, no click, no gallops, no murmurs, no rubs and abnormal split S2 GI: COMMON NORMALS: Soft to palpation and No hepatosplenomegaly present PALPATION: Yes Soft to palpation, No Tenderness to palpation present (GI), No Guarding due to palpation present (GI), No Rigid due to palpation, Yes No hepatosplenomegaly present, No Hernia present, No Palpable mass present and No Pulsatile mass present : COMMON NORMALS: Yes no CVA tenderness BLADDER/KIDNEY EXAM: Yes no CVA tenderness EXTERNAL FEMALE EXAM: No Hernia present Back/Pelvis: COMMON NORMALS: no CVA tenderness, thoracic and lumbar spine normal to inspection, no thoracic nor lumbar tenderness and thoraco-lumbar ROM normal Extremity: COMMON NORMALS: normal to inspection, full ROM, capillary refill normal, no joint enlargement, no clubbing, cyanosis or edema and no calf tenderness Neuro: COMMON NORMALS: patient oriented x3, CN's II-XII intact bilaterally, moves all extremities, no focal motor deficits and no sensory deficits noted MENINGEAL SIGNS: Yes no meningeal signs SPEECH: speech normal Psych: COMMON NORMALS: mental status grossly normal, Normal thought process present, cooperative, normal affect, speech normal and activity/motor behavior normal APPEARANCE: Yes well kempt SPEECH: Yes normal speech THOUGHT PROCESS: Normal thought process present Skin: COMMON NORMALS: no rashes or lesions noted, turgor normal, no jaundice, no petechiae and no mottling GENERAL SKIN EXAM: no rashes or lesions noted and turgor normal Course Vital Signs: Vital signs: Vital Signs Temperature 98.7 F 07/14/20 15:50 Pulse Rate 99 07/14/20 19:34 Respiratory Rate 14 07/14/20 19:34 Blood Pressure 125/85 07/14/20 15:50 Pulse Oximetry 99 07/14/20 19:34 MDM - General Adult MDM Narrative: Medical decision making narrative: Kalpana is a nice 45-year-old female who comes in with multiple complaints. Chest x-ray and facial bone x-rays are unremarkable. Patient is changed her mind about wanting any further work-up done except for her COVID test. We have informed her will take approximately 2 days to get the results. She is aware. Her heart rate is improved. She denies any chest pain or shortness of breath. Patient understands she is leaving against my advice but at this time she would like to be discharged. The patient is intoxicated by lab but clinically she shows no sign of impairment. She clearly has the capacity to make decision to leave without the results of all her lab work. 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 Lab Data: Labs: Lab Results 07/14/20 07/14/20 07/14/20 Range/Units 18:28 18:28 18:28 WBC 6.3 (4.0-10.0) 10^3/ uL RBC 4.14 (4.1-5.3) 10^6/u L Hgb 15.0 (11.5-15.3) g/dL Hct 44.8 (37.0-47.0) % MCV 108.2 H (81-99) fL MCH 36.2 H (28.0-34.0) pg MCHC 33.5 (30.0-36.0) g/dL RDW 12.2 (12.1-15.1) % Plt Count 176 (130-400) 10^3/c mm MPV 9.6 (7.4-10.4) fL Neut % (Auto) 56.1 % Lymph % (Auto) 32.3 % Lynn % (Auto) 8.6 % Eos % (Auto) 0.6 % Baso % (Auto) 2.1 % Neut # (Auto) 3.54 (1.8-7.7) 10^3/u L Lymph # (Auto) 2.0 (0.8-4.8) 10^3/u L Lynn # (Auto) 0.5 (0.2-0.9) 10^3/u L Eos # (Auto) 0.0 (0.0-0.8) 10^3/u L Baso # (Auto) 0.1 (0.0-0.1) 10^3/u L Nucleated RBC % (a uto) 0 % Nucleated RBCs # 0.0 /100WBC Sodium 140 (136-145) mmol/L Potassium 5.2 H (3.5-5.1) mmol/L Chloride 100 (98-107) mmol/L Carbon Dioxide 28 (22-29) mmol/L Anion Gap 17.2 (5-19) BUN 4 L (6-20) mg/dL Creatinine 0.5 (0.5-0.9) mg/dL GFR Calculation 133.4 H (90-130) mL/min Glucose 90 (65-115) mg/dL Calculated Osmolal ity 285 (285-295) mOsm/k g Calcium 9.6 (8.5-10.5) mg/dL Magnesium 1.9 (1.7-2.3) mg/dL Total Bilirubin 1.0 (0.15-1.2) mg/dL AST 471 H (0-32) U/L ALT 103 H (0-33) U/L Alkaline Phosphata se 279 H (35-105) IU/L Total Protein 7.9 (6.6-8.7) g/dL Albumin 4.6 (3.5-5.2) g/dL Globulin 3.3 (1.3-4.6) g/dL Lipase 78 H (13-60) U/L HCG, Qual Negative (Negative) Ethyl Alcohol 262 H (0-10) mg/dL Imaging Data^: CXR: Attestation: I personally reviewed and interpreted this imaging study as follows: My impression: No acute cardiopulmonary findings. Nasal bones: Attestation: I personally reviewed and interpreted this imaging study as follows: My impression: No acute fractures or dislocations. Discharge Plan Discharge Patient Disposition: Home Clinical Impression: Acute viral syndrome Condition: Stable Prescriptions: No Action diclofenac potassium 25 mg capsule 25 mg PO .Bedtime Qty: 30 RF: 1 Augmentin 875-125 mg tablet 1 tab PO BID Qty: 14 RF: 0 tizanidine 4 mg tablet 2 mg PO Q6H PRN (Reason: muscle spasticity and pain) Qty: 14 RF: 0 Daypro 600 mg tablet 649 mg PO BID Qty: 14 RF: 0 Discharge Orders: Discharge Order (Routine); Ordered 07/14/20 Ordered By: Hailee Martinez Referrals: Whit Painter FNP [Primary Care Provider] - 1-3 days Discharge Diet: Advance as tolerated Discharge Activity: Increase activity as tolerated Patient Instructions: Upper Respiratory Infection (ED), Contusion in Adults (ED), Viral Syndrome (ED) Activity Restrictions/Additional Instructions: Please return to the ER immediately for any of the signs or symptoms listed on your discharge instruction sheets, worsening/changing of your symptoms, you are not getting better as quickly as expected, or for ANY other cause or concerns. If you change your mind and want further evaluation and care performed here please return to the ER at any time for recheck. We will notify you of your covert test results as soon as they are available. You're leaving AGAINST MEDICAL ADVICE and are at risk for or severe permanent disability by doing so. You are more than welcome to return at any time for recheck and for further evaluation and care suture change you change your mind. Stand Alone Forms: Against Medical Advice Discharge Date/Time: 07/14/20 19:37 Coding Level of Care Code ED Rim Turning Machine Operator for Jazmyn Fwfransisco Exam Comprehensive
[2020-07-14 18:36] LABS: Basophils # 0.1 10^3/uL (0.0-0.1); Basophils % 2.1 %; Eosinophils % 0.6 %; Hematocrit 44.8 % (37.0-47.0); Lymphocytes % 32.3 %; Mean Corpuscular HGB Conc 33.5 g/dL (30.0-36.0); Mean Corpuscular Hemoglobin 36.2 pg (28.0-34.0); Mean Corpuscular Volume 108.2 fL (81-99); Mean Platelet Volume 9.6 fL (7.4-10.4); Monocytes # 0.5 10^3/uL (0.2-0.9); Monocytes % 8.6 %; Neutrophils # 3.54 10^3/uL (1.8-7.7); Neutrophils % 56.1 %; Nucleated Red Blood Cells % 0 %; Platelet Count 176 10^3/cmm (130-400); Red Blood Count 4.14 10^6/uL (4.1-5.3); Red Cell Distribution Width 12.2 % (12.1-15.1); White Blood Count 6.3 10^3/uL (4.0-10.0)
[2020-07-14 18:53] LABS: Alanine Aminotransferase 103 U/L (0-33); Albumin Level 4.6 g/dL (3.5-5.2); Alcohol Level 262 mg/dL (0-10); Alkaline Phosphatase 279 IU/L (35-105); Anion Gap 17.2 (5-19); Aspartate Amino Transferase 471 U/L (0-32); Blood Urea Nitrogen 4 mg/dL (6-20); Calcium 9.6 mg/dL (8.5-10.5); Carbon Dioxide 28 mmol/L (22-29); Chloride 100 mmol/L (98-107); Globulin 3.3 g/dL (1.3-4.6); Glomerular Filtration Rate 133.4 mL/min (90-130); Glucose 90 mg/dL (65-115); Lipase 78 U/L (13-60); Magnesium 1.9 mg/dL (1.7-2.3); Osmolality Calculated 285 mOsm/kg (285-295); Potassium 5.2 mmol/L (3.5-5.1); Sodium 140 mmol/L (136-145); Total Protein 7.9 g/dL (6.6-8.7)
[2020-07-14 18:56] LABS: HCG, Serum Qual Negative (Negative)
[2020-07-14 19:34] VITALS: PULSE 99; RESP 14; O2SAT 99
[2020-07-16 15:47] LABS: Quest SARS-CoV-2 RNA NOT DETECTED (NOT DETECTED)
--- NOTE | 2020-07-16 16:11 | PC.NURSE ---
Pt contacted and notified of negative COVID test.
== END 2020-07-14 19:37 | disposition home or self-care (01) ==
PROVIDERS: Emergency Provider Emergency Medicine; PCP Nurse Practitioner
DX: B34.9 Viral infection, unspecified (principal); F17.210 Nicotine dependence, cigarettes, uncomplicated
CPT/HCPCS: 12345; 70160; 71045; 80053; 80307; 83690; 83735; 84703; 85025; 87040; 87077; 87635; 99281; 99283

== ENCOUNTER 2020-09-07 11:29 | Outpatient (RCR) | payer SELFPAY | END 2020-09-12 23:59 | disposition home or self-care (01) | LOC: SPT 11:29 | PROVIDERS: PCP Family Medicine Adult Medicine; Visit Provider Family Medicine Adult Medicine | DX: S33.5XXD Sprain of ligaments of lumbar spine, subsequent encounter (principal); X58.XXXD Exposure to other specified factors, subsequent encounter; G56.03 Carpal tunnel syndrome, bilateral upper limbs; M62.838 Other muscle spasm | CPT/HCPCS: 97110; 97162 ==

== ENCOUNTER 2020-09-13 06:00 | Outpatient (RCR) | payer SELFPAY | END 2020-10-12 23:59 | disposition home or self-care (01) | LOC: SPT 06:00 | PROVIDERS: PCP Family Medicine Adult Medicine; Visit Provider Family Medicine Adult Medicine | DX: S33.5XXD Sprain of ligaments of lumbar spine, subsequent encounter (principal); X58.XXXD Exposure to other specified factors, subsequent encounter; M62.838 Other muscle spasm; G56.03 Carpal tunnel syndrome, bilateral upper limbs | CPT/HCPCS: 97110 ==

== ENCOUNTER 2020-10-15 19:24 | Inpatient (IN) | payer SELFPAY ==
[2020-10-15 19:48] VITALS: BP 116/84; PULSE 106; RESP 18; TEMP 36.4; O2SAT 94; BMI 20.1
--- NOTE | 2020-10-15 19:56 | ECG_ITS ---
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 Measurements Intervals Jackson Rate: 97 P: 48 LA: 140 QRS: 14 QRSD: 83 T: 23 QT: 365 QTc: 466 Interpretive Statements SINUS RHYTHM LOW QRS VOLTAGE IN PRECORDIAL LEADS [QRS DEFLECTION < 1.0 mV IN CHEST LEADS] Compared to ECG 06/11/2020 20:45:14 No significant changes Electronically Signed On 10-16-2020 19:12:33 [employer] MIDDLEWARE DEVELOPER by Charla Meyer M.D. [id number]
--- NOTE | 2020-10-15 20:21 | ED_ITS ---
HPI - Psych General: Chief Complaint: Psychiatric Symptoms Stated Complaint: wants psych assesment Time Seen by Provider: 10/15/20 19:56 Source: patient Mode of arrival: ambulatory Limitations: no limitations History of Present Illness: HPI Narrative: Kalpana is a very nice 45-year-old female who comes in with a complaints of suicidal ideation. Patient appears intoxicated. She states that she will kill herself anyway she has to and she is considered multiple ways. Her who is with her states that she has a history of suicide attempt in the past. States the patient can get like this sometimes when she is had too much to drink. Patient denies any attempts at suicide up to this point. Review of Systems General: Reports: ROS unobtainable due to medical condition (Patient not cooperative) PFSH ED PFSH: Medical History Alcoholism /alcohol abuse Anxiety and depression Breast abscess Elevated ETOH level Elevated liver enzymes Gastroenteritis History of tibial fracture Left ankle pain Lumbar back sprain Family History Other CAD (coronary artery disease) Cancer Social History Smoking and tobacco status: current every day smoker cigarettes Packs smoked per day: 0.10 Alcohol intake: current Alcohol intake frequency: 3 or more drinks per day Alcohol type: wine Current occupational status: unemployed and student History of recent travel: No Physical Exam Const: COMMON NORMALS: no acute distress, patient oriented x3, no limitations and alert GENERAL APPEARANCE: cooperative HENMT: COMMON NORMALS: normocephalic, atraumatic, external ears normal, EAC's normal and Normal external nose present HEAD & SCALP: normal to inspection, normocephalic and atraumatic FACE & SINUS: normal facial exam and face symmetric NOSE: Normal external nose present and Normal nares present EXTERNAL EAR: Yes external ears normal EXTERNAL AUDITORY CANAL: EAC's normal MOUTH: Normal oral and palatal mucosa present, lip normal and tongue normal Eye: COMMON NORMALS: Equal, round and reactive pupils present and conjunctivae normal GENERAL EYE: appearance normal, both eyes and all related structures ALIGNMENT: Yes alignment normal PERIORBITAL: periorbital findings normal EYELID: eyelids normal CONJUNCTIVA: Yes conjunctivae normal SCLERA: sclerae normal PUPIL: Yes Equal, round and reactive pupils present Neck/C-Spine: COMMON NORMALS: full ROM, no lymphadenopathy, supple, no meningeal signs and no JVD GENERAL: Yes normal visual inspection and Yes trachea midline Chest: COMMONS NORMALS: normal inspection of the chest and normal palpation of entire chest wall Resp: COMMON NORMALS: normal respiratory effort, No retractions, No use of accessory muscles and clear to auscultation bilaterally EFFORT & INSPECTION: Yes able to speak in complete sentences and Yes symmetric chest movement AUSCULTATION: clear to auscultation bilaterally, no crackles, no rales, no rhonchi and no wheezes Cardio: COMMON NORMALS: no JVD, regular rate, regular rhythm, S1 normal heart sound present and S2 normal heart sound present RATE: regular rate RHYTHM: regular rhythm HEART SOUNDS: S1 normal heart sound present, S2 normal heart sound present, no click, no gallops, no murmurs and no rubs GI: COMMON NORMALS: Soft to palpation and No hepatosplenomegaly present PALPATION: Yes Soft to palpation, No Tenderness to palpation present (GI), No Guarding due to palpation present (GI), No Rigid due to palpation, Yes No hepatosplenomegaly present, No Hernia present, No Palpable mass present and No Pulsatile mass present : COMMON NORMALS: Yes no CVA tenderness BLADDER/KIDNEY EXAM: Yes no CVA tenderness EXTERNAL FEMALE EXAM: No Hernia present Back/Pelvis: COMMON NORMALS: no CVA tenderness, thoracic and lumbar spine normal to inspection, no thoracic nor lumbar tenderness and thoraco-lumbar ROM normal Extremity: COMMON NORMALS: normal to inspection, full ROM, capillary refill normal, no joint enlargement, no clubbing, cyanosis or edema and no calf tenderness Neuro: COMMON NORMALS: patient oriented x3, CN's II-XII intact bilaterally, moves all extremities, no focal motor deficits and no sensory deficits noted SENSORIUM/ORIENTATION: Yes alert MENINGEAL SIGNS: Yes no meningeal signs SPEECH: speech normal Psych: APPEARANCE: Yes disheveled ATTITUDE: Yes Belligerent attititude/behavior present and Yes agitated ACTIVITY/MOTOR BEHAVIOR: Yes fidgeting SPEECH: Yes slurred MOOD & AFFECT: Yes apathetic and Yes tearful THOUGHT CONTENT: Yes Suicidality present Skin: COMMON NORMALS: no rashes or lesions noted, turgor normal, no jaundice, no petechiae and no mottling GENERAL SKIN EXAM: no rashes or lesions noted and turgor normal MDM - Psych MDM Narrative: Medical decision making narrative: 2024 -the case was reviewed with Dr. Meng who agrees to accept the patient in the neuropsychiatric unit. 2127 -patient's blood alcohol level is 422 but even after 2 mg of Haldol she is ambulatory and can walk to and from the bathroom without any ataxia or sign of impairment. Lab Data: Attestation: I reviewed the patient's lab results. Labs: Lab Results 10/15/20 10/15/20 10/15/20 Range/Units 20:14 20:14 20:14 WBC 6.5 (4.0-10.0) 10^3/ uL RBC 3.94 L (4.1-5.3) 10^6/u L Hgb 13.8 (11.5-15.3) g/dL Hct 41.4 (37.0-47.0) % MCV 105.1 H (81-99) fL MCH 35.0 H (28.0-34.0) pg MCHC 33.3 (30.0-36.0) g/dL RDW 12.9 (12.1-15.1) % Plt Count 280 (130-400) 10^3/c mm MPV 10.1 (7.4-10.4) fL Neut % (Auto) 47.7 % Lymph % (Auto) 35.0 % Addison % (Auto) 12.2 % Eos % (Auto) 1.5 % Baso % (Auto) 3.3 % Neut # (Auto) 3.08 (1.8-7.7) 10^3/u L Lymph # (Auto) 2.3 (0.8-4.8) 10^3/u L Addison # (Auto) 0.8 (0.2-0.9) 10^3/u L Eos # (Auto) 0.1 (0.0-0.8) 10^3/u L Baso # (Auto) 0.2 H (0.0-0.1) 10^3/u L Nucleated RBC % (a uto) 0 % Nucleated RBCs # 0.0 /100WBC Sodium 145 (136-145) mmol/L Potassium 3.6 (3.5-5.1) mmol/L Chloride 104 (98-107) mmol/L Carbon Dioxide 30 H (22-29) mmol/L Anion Gap 14.6 (5-19) BUN 7 (6-20) mg/dL Creatinine 0.5 (0.5-0.9) mg/dL GFR Calculation 133.4 H (90-130) mL/min Glucose 119 H (65-115) mg/dL Calculated Osmolal ity 299 H (285-295) mOsm/k g Calcium 9.1 (8.5-10.5) mg/dL Total Bilirubin 0.3 (0.15-1.2) mg/dL AST 206 H (0-32) U/L ALT 67 H (0-33) U/L Alkaline Phosphata se 188 H (35-105) IU/L Total Protein 7.0 (6.6-8.7) g/dL Albumin 4.5 (3.5-5.2) g/dL Globulin 2.5 (1.3-4.6) g/dL TSH 0.82 (0.27-4.20) uIU/ mL HCG, Qual (Negative) Salicylates < 0.3 L (3-10) mg/dL Acetaminophen < 5.0 L (10-30) ug/mL Phenytoin 0.8 L (10-20) ug/mL Carbamazepine 2.0 L (4.0-12.0) ug/mL Appleby 0.1 L (0.6-1.2) mmol/L Ethyl Alcohol 422 H* (0-10) mg/dL 10/15/20 Range/Units 20:14 WBC (4.0-10.0) 10^3/ uL RBC (4.1-5.3) 10^6/u L Hgb (11.5-15.3) g/dL Hct (37.0-47.0) % MCV (81-99) fL MCH (28.0-34.0) pg MCHC (30.0-36.0) g/dL RDW (12.1-15.1) % Plt Count (130-400) 10^3/c mm MPV (7.4-10.4) fL Neut % (Auto) % Lymph % (Auto) % Addison % (Auto) % Eos % (Auto) % Baso % (Auto) % Neut # (Auto) (1.8-7.7) 10^3/u L Lymph # (Auto) (0.8-4.8) 10^3/u L Addison # (Auto) (0.2-0.9) 10^3/u L Eos # (Auto) (0.0-0.8) 10^3/u L Baso # (Auto) (0.0-0.1) 10^3/u L Nucleated RBC % (a uto) % Nucleated RBCs # /100WBC Sodium (136-145) mmol/L Potassium (3.5-5.1) mmol/L Chloride (98-107) mmol/L Carbon Dioxide (22-29) mmol/L Anion Gap (5-19) BUN (6-20) mg/dL Creatinine (0.5-0.9) mg/dL GFR Calculation (90-130) mL/min Glucose (65-115) mg/dL Calculated Osmolal ity (285-295) mOsm/k g Calcium (8.5-10.5) mg/dL Total Bilirubin (0.15-1.2) mg/dL AST (0-32) U/L ALT (0-33) U/L Alkaline Phosphata se (35-105) IU/L Total Protein (6.6-8.7) g/dL Albumin (3.5-5.2) g/dL Globulin (1.3-4.6) g/dL TSH (0.27-4.20) uIU/ mL HCG, Qual Negative (Negative) Salicylates (3-10) mg/dL Acetaminophen (10-30) ug/mL Phenytoin (10-20) ug/mL Carbamazepine (4.0-12.0) ug/mL Appleby (0.6-1.2) mmol/L Ethyl Alcohol (0-10) mg/dL EKG Data^: EKG 1: Attestation: I personally reviewed and interpreted this EKG as follows: EKG interpretation date: 10/15/20 EKG interpretation time: 20:26 Interpretation: Normal sinus rhythm at 97 beats a minute, no blocks, normal intervals, no acute ST-T wave changes. Discharge Plan Discharge Patient Disposition: Admitted As Inpatient Admit Provider: Aman Meng Clinical Impression: Suicidal ideation Condition: Stable Coding Level of Care Code ED Industrial Maintenance Instructor for Chg Fwd Exam Comprehensive
[2020-10-15] MEDS: haloperidol inj 5 mg/mL INJ 1 mL 2 MG IM (20:24)
[2020-10-15 20:30] VITALS: RESP 19
[2020-10-15 20:35] LABS: HCG, Serum Qual Negative (Negative)
[2020-10-15 20:43] LABS: Lithium 0.1 mmol/L (0.6-1.2); Phenytoin Dilantin 0.8 ug/mL (10-20)
[2020-10-15 20:56] LABS: Alanine Aminotransferase 67 U/L (0-33); Albumin Level 4.5 g/dL (3.5-5.2); Alkaline Phosphatase 188 IU/L (35-105); Anion Gap 14.6 (5-19); Aspartate Amino Transferase 206 U/L (0-32); Blood Urea Nitrogen 7 mg/dL (6-20); Calcium 9.1 mg/dL (8.5-10.5); Carbon Dioxide 30 mmol/L (22-29); Chloride 104 mmol/L (98-107); Globulin 2.5 g/dL (1.3-4.6); Glomerular Filtration Rate 133.4 mL/min (90-130); Glucose 119 mg/dL (65-115); Osmolality Calculated 299 mOsm/kg (285-295); Potassium 3.6 mmol/L (3.5-5.1); Sodium 145 mmol/L (136-145); Thyroid Stimulating Hormone 0.82 uIU/mL (0.27-4.20); Total Bilirubin 0.3 mg/dL (0.15-1.2)
[2020-10-15 20:59] LABS: Add Urine Microscopic? NO
[2020-10-15 21:02] LABS: Acetaminophen < 5.0 ug/mL (10-30); Basophils # 0.2 10^3/uL (0.0-0.1); Basophils % 3.3 %; Eosinophils # 0.1 10^3/uL (0.0-0.8); Eosinophils % 1.5 %; Hematocrit 41.4 % (37.0-47.0); Hemoglobin 13.8 g/dL (11.5-15.3); Lymphocytes # 2.3 10^3/uL (0.8-4.8); Mean Corpuscular HGB Conc 33.3 g/dL (30.0-36.0); Mean Corpuscular Volume 105.1 fL (81-99); Mean Platelet Volume 10.1 fL (7.4-10.4); Monocytes # 0.8 10^3/uL (0.2-0.9); Monocytes % 12.2 %; Neutrophils # 3.08 10^3/uL (1.8-7.7); Neutrophils % 47.7 %; Nucleated Red Blood Cells % 0 %; Platelet Count 280 10^3/cmm (130-400); Red Blood Count 3.94 10^6/uL (4.1-5.3); Red Cell Distribution Width 12.9 % (12.1-15.1); Salicylate < 0.3 mg/dL (3-10); White Blood Count 6.5 10^3/uL (4.0-10.0)
[2020-10-15 21:03] LABS: Alcohol Level 422 mg/dL (0-10)
[2020-10-15 21:13] LABS: Bilirubin Urine Neg (Negative); Blood Urine Neg (Negative); Glucose Urine UA Norm (Normal); Ketones Urine Negative (Negative); Leukocyte Esterase Urine Negative (Negative); Nitrate Urine Negative (Negative); Protein Urine Neg (Negative); Sulfosalicylic Acid Urine Negative (Negative); Urine Appearance Clear (CLEAR); Urine Color Yellow (Yellow); Urobilinogen Urine Norm (Negative); pH Urine 8 (5-7)
[2020-10-15 21:57] VITALS: BP 87/56; PULSE 95; RESP 14; O2SAT 93
[2020-10-15 22:11] VITALS: BP 95/68; PULSE 114; RESP 16; TEMP 37.1; O2SAT 95
[2020-10-15 23:14] LABS: Amphetamines Screen Urine Negative (Negative); Barbiturates Screen Urine Negative (Negative); Benzodiazepines Screen Urine Negative (Negative); Cocaine Screen Urine Negative (Negative); Opiate Screen Urine Negative (Negative); PCP Screen Urine Negative (Negative); THC Screen Urine Negative (Negative)
--- NOTE | 2020-10-15 23:16 | PC.NURSE ---
admission assessment Pt is calm on admit. She received 2mg PO haldol in the ED. Pt BAL 422 and physician called. Placed on CIWA. Pt denies SI/HI, Denies AH/VH. Pt reports drinking since age 22 and continues to drink daily approximately 2 bottles of white wine. She becomes angry and aggressive when she drinks. Pt says she has tried to stop and did go to [facility] once 6 years ago. Pt is in bed resting. She reports feeling anxious and having chronic insomnia which is the reason she gives for her drinking.
[2020-10-15] MEDS: trazodone 50 mg Tablet PO (23:30)
[2020-10-15] MEDS: hyDROXYzine 25 mg Capsule 50 MG PO (23:30)
[2020-10-16 06:00] VITALS: BP 90/66; PULSE 80; RESP 16; TEMP 36.4; O2SAT 97
[2020-10-16] MEDS: multivitamin therapeutic Tablet 1 TAB PO (08:05)
[2020-10-16] MEDS: folic acid 1 mg Tablet PO (08:05)
[2020-10-16] MEDS: thiamine 100 mg Tablet PO (08:05)
[2020-10-16] MEDS: ondansetron 4 MG Tablet PO (13:18)
[2020-10-16] MEDS: LORazepam 2 mg Tablet PO (13:21)
[2020-10-16 14:00] VITALS: BP 118/83; PULSE 88; RESP 20; TEMP 37.7; O2SAT 94
--- NOTE | 2020-10-16 16:50 | PC.RESP ---
Smoking Cessation information sent to patient.
--- NOTE | 2020-10-16 19:29 | PC.NURSE ---
CiWA 7 Pt sleeping now. Reports mild headache, no perspiration, moderately sensitive to light and sound, reports feeling tremor but not visible to development writer.
--- NOTE | 2020-10-16 19:46 | PC.NURSE ---
PM assessment Pt is resting in her room. She has some mild withdrawl s/s. CIWA scored at the beginning of shift of 7. She continues to rest in her room.
--- NOTE | 2020-10-16 20:05 | PM.NHP ---
Providers/Chief Complaint Admitting Physician: Aman Meng MD Primary Care Provider: Gavin Yadav MD Chief Complaint: wants psych assesment HPI NPU History of Present Illness Kalpana Godwin is a 45 year old female who presented to the emergency department with the following report: Chief Complaint: Psychiatric Symptoms Stated Complaint: wants psych assesment Time Seen by Provider: 10/15/20 19:56 Source: patient Mode of arrival: ambulatory Limitations: no limitations History of Present Illness: HPI Narrative: Kalpana is a very nice 45-year-old female who comes in with a complaints of suicidal ideation. Patient appears intoxicated. She states that she will kill herself anyway she has to and she is considered multiple ways. Her who is with her states that she has a history of suicide attempt in the past. States the patient can get like this sometimes when she is had too much to drink. Patient denies any attempts at suicide up to this point. She was admitted to the neuropsychiatric unit for definitive treatment of those issues. Today she presents quite tired per her report and struggling with her withdrawal. She presents with a blood alcohol level of 422 as a limited historian. In my exploration of her notes here identified that her first hospitalization was in 2010 and her blood alcohol was 487. She acknowledges that part of her reason for being here is alcohol but the other reason is for being depressed and tired of living this way. We reviewed her 11/18/2015 [facility] outpatient evaluation and she identified that it did represent sound historical information regarding her life. Given her limited ability to provide historical data today, an excerpt is included below. She was unwilling to have a discussion of possible medication interventions today. Per her 11/18/2015 [facility] outpatient eval: [facility] Psychiatric Evaluation Time in: 1110 Time out: 12:00 Identifying Data/Chief Complaint: I need something to help me go to sleep at night and something to get me up in the morning. History of Present Illness: Kalpana is a 40-year-old female. She states she had a miscarriage this past summer. The baby would have been due in February. She states her boyfriend wanted to get in February but she could not him because of the memory of the anniversary of when the baby was to be born. She reports she is drinking multiple nights out of the week. She is drinking to excess. She is adamant and repeats multiple times she does not utilize any street drugs. She has misused hydrocodone she had available secondary to it being prescription during her miscarriage. She states she is working on a daily basis at their [employer] business. She complains of feeling worthless, not sleeping, no ambition. She states she cries easily and is easily fatigued. She is having bad dreams and difficulty concentrating. She has a sense of being anxious, a sense of inferiority, difficulty with work. She complains of frequent nausea Past Psychiatric History: She reports no previous psychiatric treatment and/or signs or symptoms. She is a poor historian. She denies suicide attempts or gestures. Medications: Currently none Substance Abuse History: Drinking alcohol to excess three nights a week and denies other substance abuse. Some misuse of the pain medication recently Medical History: Recent miscarriage. Allergies: No known drug allergies Family History: Positive for cancer and dementia. Positive for multi-substance abuse. Negative for suicide Psychosocial History: She states she grew up with her mother and a stepfather. She has two brothers and one stepbrother. She states she gets along well with her parents. They are in a family business together. She states her stepfather is a retired [employer]. She describes her household as stable. Education: Attended trade school. Performance at grade level. High school diploma. 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 HEENT: Patient denies any vision changes, or difficulty swallowing. Cardiovascular: The patient denies chest pain, irregular heartbeat, or shortness of breath. Respirations: patient denies having a cough or difficulty breathing. She smokes approximately a pack of cigarettes a day Gastrointestinal: The patient denies abdominal pain, nausea, or vomiting. Musculoskeletal: The patient denies any musculoskeletal pain or difficulty with strength. Neurological: Patient denies seizures, dizziness, fainting, Endocrine: Denies any difficulty with heat or cold intolerance. Skin: The patient denies any rashes or easy bruising. Physical Exam: Vital signs are within normal limits. Weight 236 pounds Adequate grooming. Patient's appearance is consistent with age. Muscle strength and tone are normal. Gait and station are steady. Pupils are equal and reactive to light and accommodation. Respirations are nonlabored. Skin color is pallor Mental Status Exam The patient is alert and oriented to time, place, and person. Hygiene is good. Sensorium is clear. Speech is of a regular rate, rhythm, and volume. It is positive for push. Eye contact is appropriate. No psychomotor difficulties, Mood is observed as labile. She moved from tears to laughter to whispering. Many sentences are started and the thought is not completed Thought process is circular and ruminating. She gets stuck on trying to make sure I believe she has never done any street drugs. She returns to this theme numerous times. This evidently represents bad versus okay. She states she has never done street drugs. Visual hallucinations are denied. Auditory hallucinations are denied. No current delusional thinking is evident. Denies suicidal or homicidal thoughts. Passive wishes for are occasionally present Memory is intact for recent and remote events. Comportment is one of immediate intimacy Fund of knowledge is adequate. Insight and judgment are limited. Mood is self described as so upset and I am drinking too much. This is seen as atypical of normal self. Does not believe people are following her or trying to hurt her Does not have a sense of special power, such as an ability to read others minds. Radio's are are not reporting or referring to her Does believe she worries excessively about things in her life. Does find it hard to control her worrying. Specific objects, places, sensations are not identified as needing to be avoided because of precipitating severe, and/or anxiety She interrupts frequently. She does not complete thoughts. She has a poorly developed sense of self. She is excessively self-critical. She moved towards intense intimacy and trust almost immediately during the interview. She shows a great deal of emotional lability with frequent mood changes. She is highly anxious and worries about the potential for future negative possibilities. She has a sense of being hopeless and has difficulty recovering from such moods. She is pessimistic about the future. She has a pervasive sense of shame. She states she has not made a suicide attempt or gesture. Her history was done so incompletely I do not place a great deal of trust in the initial assessment. Personality: difficulty in interpersonal relationships. Often unsure of own self image, personal goals, Need to receive frequent recognition, attention and approval. Meds NPU Home Medications Medication Instructions Recorded Confirmed Last Taken Type No Known Home Medications 10/15/20 10/15/20 Unknown History Allergies Allergy/AdvReac Type Severity Reaction Status Date / Time No Known Allergies Allergy Verified 10/15/20 20:15 PFSH NPU PFSH: Medical History Alcoholism /alcohol abuse Anxiety and depression Breast abscess Elevated ETOH level Elevated liver enzymes Gastroenteritis History of tibial fracture Left ankle pain Lumbar back sprain Family History Other CAD (coronary artery disease) Cancer Social History Smoking and tobacco status: current every day smoker cigarettes Packs smoked per day: 0.10 Alcohol intake: current Alcohol intake frequency: 3 or more drinks per day Alcohol type: wine Current occupational status: unemployed and student History of recent travel: No Mental Status Exam MSE Comments: This is an underweight white female in hospital scrubs with limited grooming and eye contact. No abnormal movements except for significant psychomotor retardation. Mostly uncooperative with exam in mild distress. Speech was limited and decreased rate and volume. Mood described as depressed, affect subdued. Thought process organized. Thought content: Patient denied homicidal ideation but did endorse suicidal ideation, there were no delusions reported or noted, she denied any auditory or visual hallucinations. Attention and concentration were impaired and memory was limited but none were formally tested. She was not alert, but arousable and oriented x3. Insight and judgment are impaired, impulse control is impaired. Vitals/I&O/Wt Last Vital Signs Temp 99.5 F 10/16/20 20:08 Pulse 74 10/16/20 20:08 Resp 15 10/16/20 20:08 BP 118/81 10/16/20 20:08 Pulse Ox 92 10/16/20 20:08 Weight last 48 hrs Weight 49.895 kg Data NPU : 10/15/20 20:14 10/15/20 20:14 A&P Assessment and plan (1) Suicidal ideation: Status: Acute (2) Anxiety and depression: Status: Acute (3) Left ankle pain: Status: Acute (4) Alcoholism /alcohol abuse: Status: Acute (5) Lumbar back sprain: Status: Acute (6) Breast abscess: Status: Acute (7) Other muscle spasm: Status: Acute (8) Carpal tunnel syndrome, bilateral: Status: Acute Additional A&P Information This is a 45-year-old white female with a long history of mental health and addiction issues who presents with active addiction specifically alcohol intoxication and withdrawal currently in active withdrawal. 1. Continue current medication. We will consider medication options in the morning. 2. Continue every 15 minute checks for safety. 3. Continue CIWA protocol. 4. Encourage individual, group and milieu therapy. 5. We will encourage sober living treatments at the highest level of care to which she is willing to commit. Involuntary Hold Information 96 Hour Hold: 96 Hour Involuntary Admission: Yes 96 Hour Hold Ending Date: 10/21/20 96 Hour Hold Ending Time: 20:42 Attestations NPU Medical Necessity Statement*: Inpatient hospitalization is medically necessary and the clinically appropriate intervention at this time. We will monitor medications and make changes as indicated. She will be in the hospital for over 2 midnights. Likely length of stay 4 to 6 days. Coding Level of Care Code Acute Methods Examiner for [facility] Diagnoses Suicidal ideation R45.851 Anxiety and depression F41.9; F32.9 Left ankle pain M25.572 Alcoholism /alcohol abuse F10.20 Lumbar back sprain S33.5XXA Breast abscess N61.1 Other muscle spasm M62.838 Carpal tunnel syndrome, bilateral G56.03
[2020-10-16 20:08] VITALS: BP 118/81; PULSE 74; RESP 15; TEMP 37.5; O2SAT 92
--- NOTE | 2020-10-17 01:04 | PC.NURSE ---
Slept all shift Pt has been sleeping all shift. She is aroused easily by touch. She continues to sleep without complaint. She did not get up for snack. Will continue to monitor this patient as she was admitted yesterday with a BAL of 422.
[2020-10-17 06:00] VITALS: BP 125/86; PULSE 80; RESP 18; TEMP 36.8; O2SAT 91
[2020-10-17] MEDS: hyDROXYzine 25 mg Capsule 50 MG PO ×3 (06:27→19:22)
--- NOTE | 2020-10-17 06:28 | PC.NURSE ---
PRN VISTARIL ADMINISTERED VISTARIL 50 MG PO PER PT C/O INCREASING ANXIETY. WILL MONITOR FOR MEDICATION EFFECTIVENESS.
[2020-10-17] MEDS: multivitamin therapeutic Tablet 1 TAB PO (08:23)
[2020-10-17] MEDS: thiamine 100 mg Tablet PO (08:24)
[2020-10-17] MEDS: folic acid 1 mg Tablet PO (08:24)
--- NOTE | 2020-10-17 12:14 | P.PN_ITS ---
Subjective NPU Subjective: Interval history: Kalpana presents today being interactive for the first time by this science writer's take. She actually was up and got a shower. She does not seem to be interested in rehab but more having the attitude that she has gone through this before and that she knows what to do. That she just needs to get a plan that involves sobriety and stick with it. She seemed resistant to the idea of rehab and when discussing possible medication interventions the only thing that she could to come up with was Xanax. She identifies that she is sleeping too much but at this point she is eating a little better. Mental Status Exam MSE Comments: This is an underweight white female in hospital scrubs with limited grooming and eye contact. No abnormal movements except for improving significant psychomotor retardation. Mostly uncooperative with exam in no acute distress. Speech was more spontaneous, but decreased rate and volume. Mood described as a little better, affect brighter. Thought process organized. Thought content: Patient denied homicidal ideation but did endorse resolving suicidal ideation, there were no delusions reported or noted, she denied any auditory or visual hallucinations. Attention and concentration were improving and memory was improving but none were formally tested. She was alert and oriented x3. Insight and judgment are limited, impulse control is impaired. Vitals/I&O/Wt Last Vital Signs Temp 98.1 F 10/17/20 19:30 Pulse 121 H 10/17/20 19:30 Resp 17 10/17/20 19:30 BP 109/78 10/17/20 19:30 Pulse Ox 95 10/17/20 19:30 Data NPU : 10/15/20 20:14 10/15/20 20:14 A&P Additional A&P Information (1) Suicidal ideation: (2) Anxiety and depression: (3) Left ankle pain: (4) Alcoholism /alcohol abuse: (5) Lumbar back sprain: (6) Breast abscess: (7) Other muscle spasm: (8) Carpal tunnel syndrome, bilateral: This is a 45-year-old white female with a long history of mental health and addiction issues who presents with active addiction specifically alcohol intoxication and withdrawal currently in active withdrawal. 1. Continue current medication. At this point not seeming to be open to nonhabit-forming medications 2. Continue every 15 minute checks for safety. 3. Continue CIWA protocol. 4. Encourage individual, group and milieu therapy. 5. We will encourage sober living treatments at the highest level of care to which she is willing to commit. Involuntary Hold Information 96 Hour Hold: 96 Hour Involuntary Admission: Yes 96 Hour Hold Ending Date: 10/21/20 96 Hour Hold Ending Time: 20:42 Attestations NPU Medical Necessity Statement*: Inpatient hospitalization is medically necessary and the clinically appropriate intervention at this time. We will monitor medications and make changes as indicated. Likely length of stay 3-5 days. Coding Level of Care Code Acute Clinical Rehabilitation Liaison for Jazmyn Jc
[2020-10-17] MEDS: nicotine 2 mg Gum BUCCAL ×2 (12:37→17:26)
[2020-10-17] MEDS: loperamide 2 mg Capsule PO (13:08)
[2020-10-17 13:47] VITALS: BP 118/90; PULSE 129; RESP 18; TEMP 36.3; O2SAT 97
[2020-10-17] MEDS: blistex lip oint 7 gm Tube 1 APPLIC TOPICAL (19:22)
[2020-10-17] MEDS: ondansetron 4 MG Tablet PO (19:22)
[2020-10-17 19:30] VITALS: BP 109/78; PULSE 121; RESP 17; TEMP 36.7; O2SAT 95
--- NOTE | 2020-10-17 19:42 | PC.NURSE ---
PRN ZOFRAN & VISTARIL ADMINISTERED VISTARIL 50MG PO FOR PT C/O OF INCREASING ANXIETY & ZOFRAN 4 MG FOR PT C/O NAUSEA. WILL MONITOR FOR MEDICATION EFFECTIVENESS.
[2020-10-17] MEDS: trazodone 50 mg Tablet PO (20:15)
--- NOTE | 2020-10-17 20:21 | PC.NURSE ---
PRN TRAZODONE ADMINISTERED TRAZODONE 50MG PO PER PT REQUEST FOR SLEEP AID. WILL MONITOR FOR MEDICATION EFFECTIVENESS.
[2020-10-17] MEDS: LORazepam 2 mg Tablet PO (22:12)
--- NOTE | 2020-10-17 22:22 | PC.NURSE ---
CIWA ADMINISTERED ATIVAN 2 MG PO PER CIWA PROTOCOL. CIWA SCORE 11. WILL MONITOR FOR MEDICATION EFFECTIVENESS.
[2020-10-18 06:00] VITALS: BP 97/68; PULSE 94; RESP 15; TEMP 36.5; O2SAT 90
[2020-10-18] MEDS: hyDROXYzine 25 mg Capsule 50 MG PO ×3 (09:00→20:40)
[2020-10-18] MEDS: thiamine 100 mg Tablet PO (09:00)
--- NOTE | 2020-10-18 09:00 | PC.NURSE ---
vistaril/anxiety Patient reports on rounds increased anxiety. PRN Vistaril given at this time. Will monitor for effectiveness of this medication.
[2020-10-18] MEDS: folic acid 1 mg Tablet PO (09:01)
[2020-10-18] MEDS: multivitamin therapeutic Tablet 1 TAB PO (09:01)
--- NOTE | 2020-10-18 10:00 | PC.NURSE ---
Anxiety/Vistaril follow up Patient resting in bed with eyes closed. No visible signs of distress or anxiety.
[2020-10-18] MEDS: OLANZapine 5 mg ODT PO (11:59)
--- NOTE | 2020-10-18 12:01 | PC.NURSE ---
Anxiety/Zyprexa Patient to nurses station and reports increased anxiety and slight agitation. Slight tremors noted to her hands. Patient give Zyprexa Zydis 5mg at this time. Will monitor for effectiveness of this medication.
[2020-10-18] MEDS: nicotine 21 mg Patch 1 PATCH TRANSDERMA (12:12)
[2020-10-18 14:00] VITALS: BP 105/79; PULSE 84; RESP 18; TEMP 36.9
--- NOTE | 2020-10-18 16:23 | PM.NPN ---
Subjective NPU Subjective: Interval history: Kalpana is presenting today reporting that she slept a bit better. She was engaging for the first conversation and really giving some collateral information about her circumstances. She endorses that she has struggled with anxiety and some depression. She reports that Xanax has been an effective agent for her in the past but we discussed the risks inherent in Xanax in an individual with her proclivities. She discussed her home life and some of the struggles that her and her have had which have challenged her anxiety. She reports being in school and the stress that has been coming with that. We discussed the risk benefits and alternatives of initiating BuSpar and she understood and agreed to proceed as documented in this note Mental Status Exam MSE Comments: This is an underweight white female in hospital scrubs with appropriate grooming and eye contact. No abnormal movements. Cooperative with exam in no acute distress. Speech was more spontaneous, but decreased rate and normal volume. Mood described as anxious but better, affect brighter. Thought process organized. Thought content: Patient denied suicidal or homicidal ideation, there were no delusions reported or noted, she denied any auditory or visual hallucinations. Attention and concentration were improving and memory was intact but none were formally tested. She was alert and oriented x3. Insight and judgment are fair, impulse control is impaired. Vitals/I&O/Wt Last Vital Signs Temp 98.4 F 10/18/20 14:00 Pulse 84 10/18/20 14:00 Resp 18 10/18/20 14:00 BP 105/79 10/18/20 14:00 Pulse Ox 90 10/18/20 06:00 Weight last 48 hrs Weight 49.895 kg Data NPU : 10/15/20 20:14 10/15/20 20:14 A&P Additional A&P Information (1) Suicidal ideation: (2) Anxiety and depression: (3) Left ankle pain: (4) Alcoholism /alcohol abuse: (5) Lumbar back sprain: (6) Breast abscess: (7) Other muscle spasm: (8) Carpal tunnel syndrome, bilateral: This is a 45-year-old white female with a long history of mental health and addiction issues who presents with active addiction specifically alcohol intoxication and withdrawal currently in active withdrawal. 1. Continue current medication. We will start BuSpar 15 mg p.o. twice daily and continue as needed sleep medications 2. Continue every 15 minute checks for safety. 3. Continue CIWA protocol. 4. Encourage individual, group and milieu therapy. 5. We will encourage sober living treatments at the highest level of care to which she is willing to commit. We will work with treatment team tomorrow to explore availability with possible discharge tomorrow. Involuntary Hold Information 96 Hour Hold: 96 Hour Involuntary Admission: Yes 96 Hour Hold Ending Date: 10/21/20 96 Hour Hold Ending Time: 20:42 Attestations NPU Medical Necessity Statement*: Inpatient hospitalization is medically necessary and the clinically appropriate intervention at this time. We will monitor medications and make changes as indicated. Likely length of stay 1-4 days. Coding Level of Care Code Acute Medical Coordinator Pesticide Use for Jazmyn Jc
[2020-10-18 19:52] VITALS: BP 122/88; PULSE 88; RESP 17; TEMP 38.1; O2SAT 94
[2020-10-18] MEDS: trazodone 50 mg Tablet PO (20:39)
[2020-10-18] MEDS: acetaminophen 325 mg Tablet 650 MG PO (20:39)
[2020-10-18] MEDS: ondansetron 4 MG Tablet PO (20:58)
--- NOTE | 2020-10-18 22:35 | PC.NURSE ---
PM ASSESSMENT-- HAS DONE WELL, UP AD YEIMI, SAYS SOME NAUSEA. TOOK PM MEDS WITH NO PROBLEMS.
[2020-10-19 06:00] VITALS: BP 95/71; PULSE 81; RESP 14; TEMP 36.2; O2SAT 94
[2020-10-19] MEDS: hyDROXYzine 25 mg Capsule 50 MG PO ×2 (06:26→12:49)
[2020-10-19] MEDS: thiamine 100 mg Tablet PO (08:40)
[2020-10-19] MEDS: multivitamin therapeutic Tablet 1 TAB PO (08:40)
[2020-10-19] MEDS: folic acid 1 mg Tablet PO (08:40)
[2020-10-19] MEDS: nicotine 21 mg Patch 1 PATCH TRANSDERMA (12:17)
--- NOTE | 2020-10-19 12:48 | PM.NDC ---
Diagnoses at Discharge Discharge Diagnosis (1) Suicidal ideation: Status: Resolved (2) Anxiety and depression: Status: Acute (3) Left ankle pain: Status: Acute (4) Alcoholism /alcohol abuse: Status: Acute (5) Lumbar back sprain: Status: Acute (6) Breast abscess: Status: Acute (7) Other muscle spasm: Status: Acute (8) Carpal tunnel syndrome, bilateral: Status: Acute Reason for Visit Reason for Visit: wants psych assesment Brief History: History of Present Illness Kalpana Godwin is a 45 year old female who presented to the emergency department with the following report: Chief Complaint: Psychiatric Symptoms Stated Complaint: wants psych assesment Time Seen by Provider: 10/15/20 19:56 Source: patient Mode of arrival: ambulatory Limitations: no limitations History of Present Illness: HPI Narrative: Kalpana is a very nice 45-year-old female who comes in with a complaints of suicidal ideation. Patient appears intoxicated. She states that she will kill herself anyway she has to and she is considered multiple ways. Her who is with her states that she has a history of suicide attempt in the past. States the patient can get like this sometimes when she is had too much to drink. Patient denies any attempts at suicide up to this point. She was admitted to the neuropsychiatric unit for definitive treatment of those issues. Today she presents quite tired per her report and struggling with her withdrawal. She presents with a blood alcohol level of 422 as a limited historian. In my exploration of her notes here identified that her first hospitalization was in 2010 and her blood alcohol was 487. She acknowledges that part of her reason for being here is alcohol but the other reason is for being depressed and tired of living this way. We reviewed her 11/18/2015 [facility] outpatient evaluation and she identified that it did represent sound historical information regarding her life. Given her limited ability to provide historical data today, an excerpt is included below. She was unwilling to have a discussion of possible medication interventions today. Per her 11/18/2015 [facility] outpatient eval: [facility] Psychiatric Evaluation Time in: 1110 Time out: 12:00 Identifying Data/Chief Complaint: I need something to help me go to sleep at night and something to get me up in the morning. History of Present Illness: Kalpana is a 40-year-old female. She states she had a miscarriage this past summer. The baby would have been due in February. She states her boyfriend wanted to get in February but she could not him because of the memory of the anniversary of when the baby was to be born. She reports she is drinking multiple nights out of the week. She is drinking to excess. She is adamant and repeats multiple times she does not utilize any street drugs. She has misused hydrocodone she had available secondary to it being prescription during her miscarriage. She states she is working on a daily basis at their [employer]. She complains of feeling worthless, not sleeping, no ambition. She states she cries easily and is easily fatigued. She is having bad dreams and difficulty concentrating. She has a sense of being anxious, a sense of inferiority, difficulty with work. She complains of frequent nausea Past Psychiatric History: She reports no previous psychiatric treatment and/or signs or symptoms. She is a poor historian. She denies suicide attempts or gestures. Medications: Currently none Substance Abuse History: Drinking alcohol to excess three nights a week and denies other substance abuse. Some misuse of the pain medication recently Medical History: Recent miscarriage. Allergies: No known drug allergies Family History: Positive for cancer and dementia. Positive for multi-substance abuse. Negative for suicide Psychosocial History: She states she grew up with her mother and a stepfather. She has two brothers and one stepbrother. She states she gets along well with her parents. They are in a family business together. She states her stepfather is a retired [place] [employer]. She describes her household as stable. Education: Attended trade school. Performance at grade level. High school diploma. 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 HEENT: Patient denies any vision changes, or difficulty swallowing. Cardiovascular: The patient denies chest pain, irregular heartbeat, or shortness of breath. Respirations: patient denies having a cough or difficulty breathing. She smokes approximately a pack of cigarettes a day Gastrointestinal: The patient denies abdominal pain, nausea, or vomiting. Musculoskeletal: The patient denies any musculoskeletal pain or difficulty with strength. Neurological: Patient denies seizures, dizziness, fainting, Endocrine: Denies any difficulty with heat or cold intolerance. Skin: The patient denies any rashes or easy bruising. Physical Exam: Vital signs are within normal limits. Weight 236 pounds Adequate grooming. Patient's appearance is consistent with age. Muscle strength and tone are normal. Gait and station are steady. Pupils are equal and reactive to light and accommodation. Respirations are nonlabored. Skin color is pallor Mental Status Exam The patient is alert and oriented to time, place, and person. Hygiene is good. Sensorium is clear. Speech is of a regular rate, rhythm, and volume. It is positive for push. Eye contact is appropriate. No psychomotor difficulties, Mood is observed as labile. She moved from tears to laughter to whispering. Many sentences are started and the thought is not completed Thought process is circular and ruminating. She gets stuck on trying to make sure I believe she has never done any street drugs. She returns to this theme numerous times. This evidently represents bad versus okay. She states she has never done street drugs. Visual hallucinations are denied. Auditory hallucinations are denied. No current delusional thinking is evident. Denies suicidal or homicidal thoughts. Passive wishes for are occasionally present Memory is intact for recent and remote events. Comportment is one of immediate intimacy Fund of knowledge is adequate. Insight and judgment are limited. Mood is self described as so upset and I am drinking too much. This is seen as atypical of normal self. Does not believe people are following her or trying to hurt her Does not have a sense of special power, such as an ability to read others minds. Radio's are are not reporting or referring to her Does believe she worries excessively about things in her life. Does find it hard to control her worrying. Specific objects, places, sensations are not identified as needing to be avoided because of precipitating severe, and/or anxiety She interrupts frequently. She does not complete thoughts. She has a poorly developed sense of self. She is excessively self-critical. She moved towards intense intimacy and trust almost immediately during the interview. She shows a great deal of emotional lability with frequent mood changes. She is highly anxious and worries about the potential for future negative possibilities. She has a sense of being hopeless and has difficulty recovering from such moods. She is pessimistic about the future. She has a pervasive sense of shame. She states she has not made a suicide attempt or gesture. Her history was done so incompletely I do not place a great deal of trust in the initial assessment. Personality: difficulty in interpersonal relationships. Often unsure of own self image, personal goals, Need to receive frequent recognition, attention and approval. Hospital Course Hospital Course When he presented to the emergency room with intoxication and significant difficulties with alcohol. She was endorsing lethality and an inability to contract for safety. She was admitted to the neuropsychiatric unit for definitive treatment of those issues. On the unit she slowly acclimated to the individual, group and milieu therapies provided. We started her on BuSpar for anxiety as well as assisted in her withdrawal. She was able to contract for safety prior to discharge. During The hospitalization, the patient had routine laboratory studies which were within normal limits except for a few outliers. Additionally there was a general medical evaluation, which was also within normal limits revealed no processes. Discharge summary: At the time of discharge the patient was absent lethality, there was no psychosis reported or noted. Mood and anxiety were well managed. The patient endorsed the plan to avoid all drugs of abuse and follow-up with the recommendations of the treatment team. The patient was evaluated and deemed to be absent credible lethality, and had achieved the maximum benefit from an inpatient hospitalization, so she was discharged. Involuntary Hold Information 96 Hour Hold: 96 Hour Involuntary Admission: Yes 96 Hour Hold Ending Date: 10/21/20 96 Hour Hold Ending Time: 20:42 Mental Status Exam MSE Comments: This is an underweight white female in hospital scrubs with appropriate grooming and eye contact. No abnormal movements. Cooperative with exam in no acute distress. Speech was more spontaneous, but decreased rate and normal volume. Mood described as anxious but better, affect brighter. Thought process organized. Thought content: Patient denied suicidal or homicidal ideation, there were no delusions reported or noted, she denied any auditory or visual hallucinations. Attention and concentration were improving and memory was intact but none were formally tested. She was alert and oriented x3. Insight and judgment are fair, impulse control is impaired. Discharge Data Vitals: Last Vital Signs Temp 97.2 F L 10/19/20 06:00 Pulse 81 10/19/20 06:00 Resp 14 10/19/20 06:00 BP 95/71 10/19/20 06:00 Pulse Ox 94 10/19/20 06:00 Discharge Plan Discharge Patient Disposition: Home Condition: Stable Prescriptions: New trazodone 50 mg Tablet 50 mg PO BEDTIME PRN (Reason: Sleep) 30 Days Qty: 30 RF: 1 folic acid 1 mg Tablet 1 mg PO DAILY 30 Days Qty: 30 RF: 1 buspirone 15 mg Tablet 15 mg PO BID 30 Days Qty: 60 RF: 1 Vitamin B-1 (mononitrate) 100 mg Tablet 100 mg PO DAILY 30 Days Qty: 30 RF: 1 hydroxyzine pamoate 25 mg Capsule 50 mg PO Q6H PRN (Reason: Anxiety) 30 Days Qty: 180 RF: 1 Continued No Known Home Medications RF: 0 Discharge Orders: Discharge Order (Routine); Ordered 10/19/20 Ordered By: Aman Meng Referrals: [facility] [Outside] (Follow up for an initial assessment. ) [facility] [Outside] - 4-7 days (If interested, [facility] is a resource for inpatient and outpatient substance abuse treatment.) Gavin Yadav MD [Primary Care Provider] - Discharge Diet: Regular Discharge Activity: Resume usual activity Patient Instructions: Buspirone (By mouth), Trazodone (By mouth), Thiamine (Vitamin B-1) (By mouth), Folic Acid (By mouth), Hydroxyzine Pamoate (By mouth), Anxiety (DC) Discharge Attestations NPU Time Spent in Discharge Care*: less than 30 min Specific Discharge Activities: Specific discharge activities: educating patient, discussing with disability case manager/social workers/dc planners, documenting/other paperwork and evaluating patient/reviewing data Coding Level of Care Code Acute [employer] for [facility] Fwd Diagnoses Suicidal ideation R45.851 Anxiety and depression F41.9; F32.9 Left ankle pain M25.572 Alcoholism /alcohol abuse F10.20 Lumbar back sprain S33.5XXA Breast abscess N61.1 Other muscle spasm M62.838 Carpal tunnel syndrome, bilateral G56.03
[2020-10-19 13:04] VITALS: BP 95/71; PULSE 81; RESP 14; TEMP 36.2; O2SAT 94
== END 2020-10-19 14:00 | disposition home or self-care (01) | DRG 880 ==
LOC: ER 20:39 → NP 21:19
PROVIDERS: Admitting Provider Psychiatry & Neurology Psychiatry; Emergency Provider Emergency Medicine; PCP Family Medicine Adult Medicine; Visit Provider Psychiatry & Neurology Psychiatry
DX: F41.8 Other specified anxiety disorders (principal); R45.851 Suicidal ideations; G56.03 Carpal tunnel syndrome, bilateral upper limbs; N61.1 Abscess of the breast and nipple; S33.5XXA Sprain of ligaments of lumbar spine, initial encounter; X58.XXXA Exposure to other specified factors, initial encounter; M25.572 Pain in left ankle and joints of left foot
CPT/HCPCS: 12345; 36415; 80053; 80156; 80178; 80185; 80306; 80307; 81003; 84443; 84703; 85025; 93005; 99284; J1630; Q0162

== ENCOUNTER 2020-11-17 12:47 | Outpatient (CLI) | payer SELFPAY ==
--- NOTE | 2020-11-17 13:00 | MM_ITS ---
WS: [id number] DIAGNOSTIC BILATERAL DIGITAL MAMMOGRAM WITH CAD LEFT breast ultrasound, limited HISTORY: Breast Abscess LT Breast COMPARISON: 02/19/2018 TECHNIQUE: Bilateral craniocaudad, mediolateral oblique, and mediolateral views are submitted. Spot c ompression LEFT CC. Computer aided detection utilized. Breast composition: There are scattered areas of fibroglandular density. No masses or distortion. The re is no abnormality in the LEFT subareolar region. LEFT breast ultrasound, limited. Hypoechoic soft tissue mass posterior to the nipple corresponds to the palpable abnormality. This mas s measures 0.8 x 1.0 x 0.4 cm. There is some peripheral increased vascularity. Margins are very sligh tly lobulated. MM/[place] [id number] IMPRESSION: BI-RADS: 4-Suspicious Finding-Biopsy Should Be Considered FOLLOW UP: Biopsy Recommended Ultrasound-guided biopsy recommended of the mass posterior to the LEFT nipple. Patient did provide additional history of a prior nipple piercing. This may be a granulomatous mastitis. Nevertheless, biopsy should be obtained to exclude ne oplasm.
--- NOTE | 2020-11-17 13:22 | US_ITS ---
WS: [id number] DIAGNOSTIC BILATERAL DIGITAL MAMMOGRAM WITH CAD LEFT breast ultrasound, limited HISTORY: Breast Abscess LT Breast COMPARISON: 02/19/2018 TECHNIQUE: Bilateral craniocaudad, mediolateral oblique, and mediolateral views are submitted. Spot c ompression LEFT CC. Computer aided detection utilized. Breast composition: There are scattered areas of fibroglandular density. No masses or distortion. The re is no abnormality in the LEFT subareolar region. LEFT breast ultrasound, limited. Hypoechoic soft tissue mass posterior to the nipple corresponds to the palpable abnormality. This mas s measures 0.8 x 1.0 x 0.4 cm. There is some peripheral increased vascularity. Margins are very sligh tly lobulated. US/US breast LT limited* [id number] IMPRESSION: BI-RADS: 4-Suspicious Finding-Biopsy Should Be Considered FOLLOW UP: Biopsy Recommended Ultrasound-guided biopsy recommended of the mass posterior to the LEFT nipple. Patient did provide additional history of a prior nipple piercing. This may be a granulomatous mastitis. Nevertheless, biopsy should be obtained to exclude ne oplasm.
== END 2020-11-17 12:48 | disposition home or self-care (01) ==
LOC: RADSHAW 12:49
PROVIDERS: PCP Family Medicine Adult Medicine; Visit Provider Family Medicine Adult Medicine
DX: N61.1 Abscess of the breast and nipple (principal)
CPT/HCPCS: 76642; 77066; 77067

== ENCOUNTER 2020-11-27 12:16 | Outpatient (CLI) | payer SELFPAY ==
--- NOTE | 2020-11-27 13:00 | US_ITS ---
WS: [id number] ULTRASOUND-GUIDED LEFT BREAST BIOPSY CLINICAL INFORMATION: R92.8 - Other abnormal and inconclusive findings on diagnostic imaging of breas t COMPARISON: None. FINDINGS: The procedure including risks, benefits, and complications were discussed with the patient who agreed to proceed. Using sterile technique patient was prepped and draped in the usual sterile fashion. Aft er 1% lidocaine utilizing real-time ultrasound guidance 5 14-gauge cores were obtained of the left br east lesion posterior to the nipple. Subsequently a titanium clip was placed in the biopsy cavity. No immediate complications. PATHOLOGY DEMONSTRATES : -Acute mastitis with mixed dense inflammatory infiltrate, predominantly neutrophils in breast tissue. -Duct ectasia surrounded by chronic inflammatory infiltrates, predominantly plasma cells. -No malignancy identified. US/[place] [id number] IMPRESSION: 1. Uncomplicated ultrasound-guided left breast biopsy. 2. The pathology demonstrates mastitis and inflammatory changes. No malignancy identified. BI-RADS: 2-Benign FOLLOW UP: 6 Month Follow-up RECOMMEND 6 MONTH LEFT BREAST DIAGNOSTIC MAMMOGRAPHY WITH ULTRASOUND POSTBIOPSY
== END 2020-11-27 12:17 | disposition home or self-care (01) ==
PROVIDERS: PCP Family Medicine Adult Medicine; Visit Provider Family Medicine
DX: R92.8 Other abnormal and inconclusive findings on diagnostic imaging of breast (principal); N61.0 Mastitis without abscess; N60.42 Mammary duct ectasia of left breast
CPT/HCPCS: 19083; 88305

== ENCOUNTER 2021-03-19 19:17 | Inpatient (IN) | payer SELFPAY ==
[2021-03-19] VITALS (9 sets, daily range): BP systolic 83–109; BP diastolic 41–78; PULSE 82–106; RESP 16–18; TEMP 38.1; O2SAT 94–100; BMI 21.1
[2021-03-19] MEDS: HYDROmorphone 1 mg/mL INJ 1 mL IVP (19:59)
[2021-03-19] MEDS: LORazepam 2 mg/mL INJ 1 mL 0.5 MG IVP (20:00)
[2021-03-19 20:18] LABS: Basophils # 0.2 10^3/uL (0.0-0.1); Basophils % 1.7 %; Eosinophils # 0.3 10^3/uL (0.0-0.8); Hemoglobin 13.2 g/dL (11.5-15.3); Lymphocytes # 2.6 10^3/uL (0.8-4.8); Lymphocytes % 28.5 %; Mean Corpuscular HGB Conc 33.8 g/dL (30.0-36.0); Mean Corpuscular Hemoglobin 36.2 pg (28.0-34.0); Mean Corpuscular Volume 106.8 fL (81-99); Mean Platelet Volume 10.1 fL (7.4-10.4); Monocytes # 0.9 10^3/uL (0.2-0.9); Monocytes % 9.7 %; Neutrophils # 5.22 10^3/uL (1.8-7.7); Neutrophils % 56.9 %; Nucleated Red Blood Cells % 0 %; Platelet Count 303 10^3/cmm (130-400); Red Blood Count 3.65 10^6/uL (4.1-5.3); Red Cell Distribution Width 11.2 % (12.1-15.1); White Blood Count 9.2 10^3/uL (4.0-10.0)
[2021-03-19] MEDS: sodium chloride 0.9% 1,000 ML 999 ML IV (20:26)
[2021-03-19] MEDS: vancomycin 1,000 MG in sodium chloride 0.9% 250 ML 250 MG IV (20:26)
[2021-03-19 20:27] LABS: HCG, Serum Qual Negative (Negative)
[2021-03-19 20:32] LABS: Lactate (Lactic Acid level) 2.3 mmol/L (0.5-2.2)
[2021-03-19 20:33] LABS: Add Urine Microscopic? NO; Charge for UA Resulting for Rev
[2021-03-19 20:33] LABS: Alanine Aminotransferase 13 U/L (0-33); Alkaline Phosphatase 212 IU/L (35-105); Anion Gap 19.3 (5-19); Aspartate Amino Transferase 75 U/L (0-32); Blood Urea Nitrogen 2 mg/dL (6-20); Calcium 8.8 mg/dL (8.5-10.5); Carbon Dioxide 22 mmol/L (22-29); Chloride 96 mmol/L (98-107); Glomerular Filtration Rate 172.6 mL/min (90-130); Glucose 85 mg/dL (65-115); Osmolality Calculated 271 mOsm/kg (285-295); Potassium 4.3 mmol/L (3.5-5.1); Sodium 133 mmol/L (136-145); Total Bilirubin 0.5 mg/dL (0.15-1.2)
[2021-03-19 20:36] LABS: Bilirubin Urine Neg (Negative); Blood Urine Neg (Negative); Glucose Urine UA Norm (Normal); Ketones Urine Negative (Negative); Leukocyte Esterase Urine Negative (Negative); Nitrate Urine Negative (Negative); Protein Urine Neg (Negative); Specific Gravity, Urine 1.005 (1.005-1.030); Urine Appearance Clear (CLEAR); Urine Color Straw (Yellow); Urobilinogen Urine Norm (Negative); pH Urine 5 (5-7)
[2021-03-19] MEDS: acetaminophen 500 mg Tablet 1000 MG PO (20:45)
--- NOTE | 2021-03-19 20:46 | CTR_ITS ---
PROCEDURE INFORMATION: Exam: CT Chest With Contrast; Diagnostic Exam date and time: 03/19/2021 8:50 PM Age: 45 years old Clinical indication: Pain; Other: Left breast; Additional info: Left breast abscess TECHNIQUE: Imaging protocol: Diagnostic computed tomography of the chest with contrast. Radiation optimization: All CT scans at this facility use at least one of these dose optimization techniques: automated exposure control; mA and/or kV adjustment per patient size (includes targeted exams where dose is matched to clinical indication); or iterative reconstruction. Contrast material: OMNI 300; Contrast volume: 75 ml; Contrast route: INTRAVENOUS (IV); COMPARISON: CR XR chest 1V portable [id number] 07/14/2020 5:17 PM RADIATION DOSE METRICS: Total DLP (mGy-cm): 318.6 FINDINGS: Lungs: Unremarkable. No consolidation. No masses. Pleural spaces: Unremarkable. No pneumothorax. No pleural effusion. Heart: Unremarkable. No cardiomegaly. No pericardial effusion. Mediastinal space: Large hiatal hernia. Aorta: Unremarkable. No aortic aneurysm. Lymph nodes: Unremarkable. No enlarged lymph nodes. Liver: Hepatic steatosis. Bones/joints: Unremarkable. No acute fracture. Soft tissues: Focal ulceration in the skin of the left breast adjacent to the nipple. Skin thickening changes and subcutaneous soft tissue edema changes are present. No peripherally enhancing soft tissue fluid collection. CT/CT chest w con* [id number] IMPRESSION: 1. Soft tissue inflammatory changes with skin thickening and a focal skin defect/ulceration in the left breast. Nonspecific findings. Infection or malignancy could have this appearance. 2. No acute intrathoracic findings. 3. Large hiatal hernia. 4. Hepatic steatosis. Radiation Dose CTDIVOL = (mGy): DLP = 318.6 (mGy-cm)
--- NOTE | 2021-03-19 20:55 | PC.NURSE ---
patient to ct
[2021-03-19] MEDS: iohexol 300 mg/mL 100 mL Btl IV (21:03)
--- NOTE | 2021-03-19 22:31 | ED_ITS ---
HPI - Skin/Abscess/Foreign Bdy General: Chief complaint: Skin/Abscess/Foreign Body Stated complaint: POST OP/POSS LEFT BREAST INFECTION Time Seen by Provider: 03/19/21 19:35 History of Present Illness: HPI narrative: The patient is a 45-year-old female who comes to the ER complaining of left breast tenderness. She has been suffering from this for over a week now and 5 days ago she presented to the ER with erythema and an abscess was drained in her left nipple with a wick placed. She was started on Bactrim twice a day then. 3 days later she visited a primary care physician's office and again it was drained and packed. She says it was severely tender and she was screaming in pain during the entire procedure and that she does not believe lidocaine works. She says the wick has become dry and is no longer draining. She is febrile on arrival 100.6 and tachycardic. MD complaint: abscess/boil Onset (ago): day(s) (7) Severity: moderate Severity scale (1-10): 10 Quality: sharp Relieving factors: none Exacerbating factors: palpation Context: recent antibiotic Associated symptoms: Reports fever(s) Review of Systems General: Reports: 10 or more systems reviewed and unremarkable except in HPI and below Const: Reports: fever(s) Eyes: Denies: change in vision, blurry vision or eye redness ENMT: Denies: throat pain, swelling of lips/tongue, ear or mastoid pain or nasal congestion Card: Denies: chest pain, palpitations, irregular heart rhythm, edema, dyspnea on exertion or orthopnea Resp: Denies: dyspnea, productive cough or non-productive cough GI: Denies: abdominal pain, diarrhea or GI cramping : Denies: flank pain, difficulty voiding, urinary frequency or urinary urgency Musc: Denies: neck pain, back pain, extremity pain, joint pain, joint redness, limited range of motion or muscle weakness Skin/Breast: Reports: erythema; Denies: rash, pruritus, skin pain or skin tenderness Neuro: Denies: headache(s), numbness in extremities, weakness in extremities, sensory changes, difficulty walking, dizziness, confusion or Slurred speech present Psych: Denies: anxiety or depression Endo: Denies: polyuria All/Imm: Denies: urticaria, throat swelling or tongue swelling PFSH ED PFSH: Medical History (Updated 03/19/21 @ 22:53 by Raphael Moy MD) Alcoholism /alcohol abuse Anxiety and depression Breast abscess Elevated ETOH level Elevated liver enzymes Gastroenteritis History of tibial fracture Left ankle pain Lumbar back sprain Surgical History (Updated 03/17/21 @ 15:58 by Gavin Yadav MD) Status post incision and drainage Family History Other CAD (coronary artery disease) Cancer Social History Smoking and tobacco status: current every day smoker cigarettes Packs smoked per day: 0.10 Alcohol intake: current Alcohol intake frequency: 3 or more drinks per day Alcohol type: wine Current occupational status: unemployed and student History of recent travel: No Physical Exam Const: COMMON NORMALS: no acute distress, average body habitus, patient oriented x3, alert and well nourished GENERAL APPEARANCE: cooperative, well kempt, well developed, in distress (From pain) and anxious ORIENTATION/CONSCIOUSNESS: Yes awake, Yes oriented to person, Yes oriented to place and Yes oriented to time OTHER: She is febrile 100.6 HENMT: COMMON NORMALS: normocephalic, external ears normal and Normal external nose present HEAD & SCALP: normal to inspection and normocephalic NOSE: Normal external nose present EXTERNAL EAR: Yes external ears normal MOUTH: Normal oral and palatal mucosa present THROAT: posterior oropharynx normal Eye: COMMON NORMALS: Equal, round and reactive pupils present and EOMs intact bilaterally GENERAL EYE: appearance normal, both eyes and all related structures PUPIL: Yes Equal, round and reactive pupils present Neck/C-Spine: COMMON NORMALS: full ROM, no lymphadenopathy, no meningeal signs and no JVD GENERAL: Yes normal visual inspection Lymph: LYMPHATIC: no lymphadenopathy noted Chest: COMMONS NORMALS: normal inspection of the chest and normal palpation of entire chest wall Resp: COMMON NORMALS: normal respiratory effort, No retractions, No use of accessory muscles, clear to auscultation bilaterally and percussion normal EFFORT & INSPECTION: Yes able to speak in complete sentences AUSCULTATION: clear to auscultation bilaterally PERCUSSION: percussion normal Cardio: COMMON NORMALS: no JVD, regular rate, regular rhythm, S1 normal heart sound present, S2 normal heart sound present and Peripheral pulses 2+ throughout RATE: regular rate RHYTHM: regular rhythm HEART SOUNDS: S1 normal heart sound present and S2 normal heart sound present PERIPHERAL PULSES: Peripheral pulses 2+ throughout GI: COMMON NORMALS: Normal to inspection, nondistended, normoactive bowel sounds present, Soft to palpation, non-tender and no masses INSPECTION: Yes normal to inspection PALPATION: Yes Soft to palpation : COMMON NORMALS: Yes no CVA tenderness BLADDER/KIDNEY EXAM: Yes no CVA tenderness Back/Pelvis: COMMON NORMALS: no CVA tenderness, thoracic and lumbar spine normal to inspection, no thoracic nor lumbar tenderness and thoraco-lumbar ROM normal Extremity: COMMON NORMALS: normal to inspection, full ROM, capillary refill normal, no joint enlargement and no pedal edema GENERAL: Yes normal exam except as noted Neuro: COMMON NORMALS: patient oriented x3, CN's II-XII intact bilaterally, moves all extremities, no focal motor deficits, no sensory deficits noted and gait normal SENSORIUM/ORIENTATION: Yes alert, Yes oriented to person, Yes oriented to place and Yes oriented to time MENINGEAL SIGNS: Yes no meningeal signs Psych: COMMON NORMALS: mental status grossly normal, Normal thought process present, cooperative, normal affect and speech normal APPEARANCE: Yes well kempt ATTITUDE: Yes calm SPEECH: Yes normal speech THOUGHT PROCESS: Normal thought process present Skin: COMMON NORMALS: no rashes or lesions noted NARRATIVE SKIN EXAM: 10 cm area of cellulitis to her left breast with area that has been drained and packed multiple times. I removed the packing and there is purulent drainage there. No significant fluctuance felt however her tenderness is severe which limits the exam. GENERAL SKIN EXAM: no rashes or lesions noted Course Vital Signs: Vital signs: Vital Signs Temperature 100.6 F H 03/19/21 19:20 Pulse Rate 91 03/19/21 22:07 Respiratory Rate 16 03/19/21 22:07 Blood Pressure 104/74 03/19/21 22:07 Pulse Oximetry 97 03/19/21 22:07 MDM - Skin/Abscess/Foreign Bdy MDM Narrative: Medical decision making narrative: The patient came in febrile, tachycardic and continues to have a cellulitis of the left breast. She gets a diagnosis of sepsis for this. She was started on IV vancomycin and given a liter of fluids as well as pain control. She has failed having it drained twice. CT shows no abscess collection. Will admit for IV antibiotics. Dr. Hooker accepts for admission. Lab Data: Labs: Lab Results 03/19/21 03/19/21 03/19/21 Range/Units 20:03 20:03 20:03 WBC 9.2 (4.0-10.0) 10^3/ uL RBC 3.65 L (4.1-5.3) 10^6/u L Hgb 13.2 (11.5-15.3) g/dL Hct 39.0 (37.0-47.0) % MCV 106.8 H (81-99) fL MCH 36.2 H (28.0-34.0) pg MCHC 33.8 (30.0-36.0) g/dL RDW 11.2 L (12.1-15.1) % Plt Count 303 (130-400) 10^3/c mm MPV 10.1 (7.4-10.4) fL Neut % (Auto) 56.9 % Lymph % (Auto) 28.5 % [place] % (Auto) 9.7 % Eos % (Auto) 3.0 % Baso % (Auto) 1.7 % Neut # (Auto) 5.22 (1.8-7.7) 10^3/u L Lymph # (Auto) 2.6 (0.8-4.8) 10^3/u L [place] # (Auto) 0.9 (0.2-0.9) 10^3/u L Eos # (Auto) 0.3 (0.0-0.8) 10^3/u L Baso # (Auto) 0.2 H (0.0-0.1) 10^3/u L Nucleated RBC % (a uto) 0 % Nucleated RBCs # 0.0 /100WBC Sodium 133 L (136-145) mmol/L Potassium 4.3 (3.5-5.1) mmol/L Chloride 96 L (98-107) mmol/L Carbon Dioxide 22 (22-29) mmol/L Anion Gap 19.3 H (5-19) BUN 2 L (6-20) mg/dL Creatinine 0.4 L (0.5-0.9) mg/dL GFR Calculation 172.6 H (90-130) mL/min Glucose 85 (65-115) mg/dL Calculated Osmolal ity 271 L (285-295) mOsm/k g Lactate 2.3 H (0.5-2.2) mmol/L Calcium 8.8 (8.5-10.5) mg/dL Total Bilirubin 0.5 (0.15-1.2) mg/dL AST 75 H (0-32) U/L ALT 13 (0-33) U/L Alkaline Phosphata se 212 H (35-105) IU/L Total Protein 7.0 (6.6-8.7) g/dL Albumin 4.0 (3.5-5.2) g/dL Globulin 3.0 (1.3-4.6) g/dL HCG, Qual (Negative) Urine Color (Yellow) Urine Appearance (CLEAR) Urine pH (5-7) Ur Specific Gravit y (1.005-1.030) Urine Protein (Negative) Urine Glucose (UA) (Normal) Urine Ketones (Negative) Urine Blood (Negative) Urine Nitrate (Negative) Urine Bilirubin (Negative) Urine Urobilinogen (Negative) mg/dL Ur Leukocyte Lisa ase (Negative) 03/19/21 03/19/21 Range/Units 20:03 20:21 WBC (4.0-10.0) 10^3/ uL RBC (4.1-5.3) 10^6/u L Hgb (11.5-15.3) g/dL Hct (37.0-47.0) % MCV (81-99) fL MCH (28.0-34.0) pg MCHC (30.0-36.0) g/dL RDW (12.1-15.1) % Plt Count (130-400) 10^3/c mm MPV (7.4-10.4) fL Neut % (Auto) % Lymph % (Auto) % [place] % (Auto) % Eos % (Auto) % Baso % (Auto) % Neut # (Auto) (1.8-7.7) 10^3/u L Lymph # (Auto) (0.8-4.8) 10^3/u L [place] # (Auto) (0.2-0.9) 10^3/u L Eos # (Auto) (0.0-0.8) 10^3/u L Baso # (Auto) (0.0-0.1) 10^3/u L Nucleated RBC % (a uto) % Nucleated RBCs # /100WBC Sodium (136-145) mmol/L Potassium (3.5-5.1) mmol/L Chloride (98-107) mmol/L Carbon Dioxide (22-29) mmol/L Anion Gap (5-19) BUN (6-20) mg/dL Creatinine (0.5-0.9) mg/dL GFR Calculation (90-130) mL/min Glucose (65-115) mg/dL Calculated Osmolal ity (285-295) mOsm/k g Lactate (0.5-2.2) mmol/L Calcium (8.5-10.5) mg/dL Total Bilirubin (0.15-1.2) mg/dL AST (0-32) U/L ALT (0-33) U/L Alkaline Phosphata se (35-105) IU/L Total Protein (6.6-8.7) g/dL Albumin (3.5-5.2) g/dL Globulin (1.3-4.6) g/dL HCG, Qual Negative (Negative) Urine Color Straw (Yellow) Urine Appearance Clear (CLEAR) Urine pH 5 (5-7) Ur Specific Gravit y 1.005 (1.005-1.030) Urine Protein Neg (Negative) Urine Glucose (UA) Norm (Normal) Urine Ketones Negative (Negative) Urine Blood Neg (Negative) Urine Nitrate Negative (Negative) Urine Bilirubin Neg (Negative) Urine Urobilinogen Norm (Negative) mg/dL Ur Leukocyte Lisa ase Negative (Negative) Discharge Plan Discharge Patient Disposition: Admitted As Inpatient Clinical Impression: Sepsis, Cellulitis Condition: Stable Coding Level of Care Code ED Armature [employer] Winder for Jazmyn Jc
--- NOTE | 2021-03-19 22:53 | PM.HP ---
Providers/Chief Complaint Primary Care Provider: Gavin Yadav MD Chief Complaint: POST OP/POSS LEFT BREAST INFECTION History of Present Illness Kalpana Godwin is a 45 year old female who presented today with chief complaint of left breast pain. Patient is stating that since last August she has been dealing with left breast nodule. In October 2020 she had biopsy done as well which was benign, she was in her usual state of health until Monday when she started noticing redness with pain, she was seen at urgent care, initially was prescribed Bactrim on Monday, on Monday she went back to urgent care because of worsening of her symptoms, abscess was found which was drained, a dry dressing was left in the wound, pus was drained. She has not noticed any purulent drainage since then. Today she presented to the hospital because of worsening of pain and redness. She is stating that this morning she was experiencing excruciating pain and skin color was purple which has changed to red by the time she arrived in the ER. Diagnostics in the ER revealed sepsis with tachypnea and tachycardia and high lactic acid, she was given vancomycin in the ER along fluids blood cultures have been requested I have requested wound culture as well, low-grade temperature 100.6 CT chest did not reveal any abscess or local fluid collection it showed ulceration and cellulitis of left breast, patient does endorse to drinking beer sometimes more than 6 in a day, never had any withdrawal symptoms Review of Systems Const: Reports: fever(s), chills, body aches and fatigue Eyes: Denies: change in vision ENMT: Denies: throat pain Card: Denies: chest pain Resp: Denies: dyspnea GI: Denies: abdominal pain : Denies: flank pain Musc: Denies: neck pain Skin/Breast: Reports: rash, erythema, skin pain, skin tenderness, skin swelling, new lesions, surgical incision, breast tenderness and breast pain; Denies: changing lesions Neuro: Denies: headache(s) Psych: Denies: anxiety Endo: Denies: polyuria [place]/Lymph: Denies: easy bruising All/Imm: Denies: urticaria Medications/Allergies Home Medications Medication Instructions Recorded Confirmed Last Taken Type sulfamethoxazole 800 1 tab PO BID 7 Days #14 tab 03/14/21 03/19/21 03/19/21 Rx mg-trimethoprim 160 mg tablet tramadol 50 mg tablet 50 mg PO Q6H PRN #20 tab 03/17/21 03/19/21 03/19/21 Rx Allergies Allergy/AdvReac Type Severity Reaction Status Date / Time No Known Allergies Allergy Verified 03/17/21 13:52 PFSH Acute PFSH: Medical History Alcoholism /alcohol abuse Anxiety and depression Breast abscess Elevated ETOH level Elevated liver enzymes Gastroenteritis History of tibial fracture Left ankle pain Lumbar back sprain Surgical History Status post incision and drainage Family History Other CAD (coronary artery disease) Cancer Social History Smoking and tobacco status: current every day smoker cigarettes Packs smoked per day: 0.10 Alcohol intake: current Alcohol intake frequency: 3 or more drinks per day Alcohol type: wine Current occupational status: unemployed and student History of recent travel: No Vitals/I&O/Wt Last Vital Signs Temp 100.6 F H 03/19/21 19:20 Pulse 91 03/19/21 22:07 Resp 16 03/19/21 22:07 BP 104/74 03/19/21 22:07 Pulse Ox 97 03/19/21 22:07 03/19/21 03/19/21 03/19/21 06:59 14:59 22:59 Intake Total 250 / 250 Balance 250 / 250 Weight last 48 hrs Weight 50.802 kg Physical Exam Narrative: EXAM NARRATIVE: Young female Mother is at the bedside Low-grade temperature, soft systolic blood pressure 97 mmHg S1, S2 sinus rhythm Abdomen soft Low symmetry no edema gangrene ulcer Left breast redness around the nipple, tender, indurated, bloody discharge at the incision site no active purulent drainage Axillary lymph node nontender Patient does appear very anxious Bilateral conjunctival hyperemia Lower extremity no edema gangrene ulcer No neurological deficits EOMI, PERRLA Data : 03/19/21 20:03 03/19/21 20:03 Micro: Microbiology 03/19/21 22:15 Blood Culture - Preliminary Blood SPECIMEN COLLECTED 03/19/21 20:03 Blood Culture - Preliminary Blood SPECIMEN COLLECTED A&P Assessment and plan (1) Sepsis: Status: Acute (2) Cellulitis: Status: Acute (3) Status post incision and drainage: Status: Acute (4) Mastalgia in female: Status: Acute (5) Anxiety and depression: Status: Acute (6) Alcoholism /alcohol abuse: Status: Acute Additional A&P Information Sepsis secondary to cellulitis of left breast Status post incision and drainage of breast abscess on Monday Low-grade fever, tachypnea tachycardia and high lactic acid met sepsis criteria We will start her on vancomycin and Zosyn request blood culture, wound culture start her on maintenance fluid Would use morphine with senna S CT scan did not show localized fluid collection or recurrent abscess formation Patient is stating previous biopsy that was done in October 2020 was benign Alcohol abuse: Continue on thiamine and folic acid, check drug screen Denying IV drug abuse No active withdrawal Full code Cardiac diet DVT prophylaxis Lovenox Attestations Medical Necessity Statement*: Anticipating stay in the hospital cross more than 2 midnights for management of sepsis, left breast cellulitis recent drainage of abscess Time Spent in Patient Care: (>than 50% of time spent in counselling and/or direct pt care on unit). 40mins Coding Level of Care Code Acute Composition Molder for g Fwd Diagnoses Sepsis A41.9 Cellulitis L03.90 Status post incision and drainage Z98.890 Mastalgia in female N64.4 Anxiety and depression F41.9; F32.9 Alcoholism /alcohol abuse F10.20
[2021-03-20] VITALS (13 sets, daily range): BP systolic 87–103; BP diastolic 57–72; PULSE 75–95; RESP 16–23; TEMP 36.4–37.4; O2SAT 92–96
[2021-03-20] MEDS: sodium chloride 0.9% 1,000 ML 75 ML IV ×2 (01:19→14:38)
[2021-03-20] MEDS: morphine IR 15 mg Tablet PO ×2 (01:20→08:55)
[2021-03-20] MEDS: LORazepam 0.5 mg Tablet PO ×2 (01:20→12:43)
[2021-03-20] MEDS: piperacillin-tazobactam 3.375 GM in sodium chloride 0.9% (plus) 50 ML IV ×3 (02:38→17:33)
[2021-03-20 05:54] LABS: Basophils # 0.1 10^3/uL (0.0-0.1); Basophils % 2.2 %; Eosinophils # 0.2 10^3/uL (0.0-0.8); Eosinophils % 4.8 %; Hematocrit 35.2 % (37.0-47.0); Hemoglobin 11.4 g/dL (11.5-15.3); Lymphocytes # 1.6 10^3/uL (0.8-4.8); Lymphocytes % 31.7 %; Mean Corpuscular HGB Conc 32.4 g/dL (30.0-36.0); Mean Corpuscular Hemoglobin 35.7 pg (28.0-34.0); Mean Corpuscular Volume 110.3 fL (81-99); Monocytes # 0.7 10^3/uL (0.2-0.9); Monocytes % 13.9 %; Neutrophils # 2.38 10^3/uL (1.8-7.7); Neutrophils % 47.2 %; Nucleated Red Blood Cells % 0 %; Platelet Count 250 10^3/cmm (130-400); Red Blood Count 3.19 10^6/uL (4.1-5.3); Red Cell Distribution Width 11.3 % (12.1-15.1)
[2021-03-20] MEDS: vancomycin 1,000 MG in sodium chloride 0.9% 250 ML 250 MG IV ×2 (05:57→12:44)
[2021-03-20 06:19] LABS: Anion Gap 12.9 (5-19); Blood Urea Nitrogen 3 mg/dL (6-20); Calcium 7.8 mg/dL (8.5-10.5); Carbon Dioxide 23 mmol/L (22-29); Chloride 105 mmol/L (98-107); Glomerular Filtration Rate 172.6 mL/min (90-130); Glucose 73 mg/dL (65-115); Osmolality Calculated 279 mOsm/kg (285-295); Potassium 3.9 mmol/L (3.5-5.1); Sodium 137 mmol/L (136-145)
[2021-03-20] MEDS: folic acid 1 mg Tablet PO (08:54)
[2021-03-20] MEDS: sennosides-docusate Tablet 1 TAB PO (08:54)
[2021-03-20] MEDS: thiamine 100 mg Tablet PO (08:56)
--- NOTE | 2021-03-20 09:00 | USR_ITS ---
PROCEDURE INFORMATION: Exam: US Left Breast Limited; Cellulitis or Abscess Evaluation Exam date and time: 03/20/2021 11:44 AM Age: 45 years old Clinical indication: Mass, lump, or swelling; Patient HX: Post incision and drainage of left breast abscess on 03-17-2021 TECHNIQUE: Imaging protocol: Left breast ultrasound. Exam limited to the quadrant(s) of clinical concern. Exam focused on the evaluation of cellulitis or abscess. Exam is an emergent request and a non-BIRADS study. COMPARISON: [place] [id number] 11/27/2020 1:06 PM FINDINGS: Breasts: There is mild subcutaneous edema in the periareolar and retroareolar region. No discrete localized fluid collection or abscess cavity is identified. US/US breast LT complete [id number] IMPRESSION: There is subcutaneous edema in the periareolar and retroareolar region but no discrete fluid collection or abscess cavity is seen.
[2021-03-20 09:53] LABS: Alcohol Level 12 mg/dL (0-10); C Reactive Protein 18.7 mg/L (0.0-4.9)
--- NOTE | 2021-03-20 10:50 | PC.CHAP ---
Pastoral Care Encounter/Spiritual Assessment Type of Contact [] Declined general repair mechanic visit [] Patient/Family/Request visit [] Outpatient visit [] Follow-up visit [] Physician referral [] Code/Alert [XX] Routine visit [] Staff referral [] Actively dying [XX] Patient sleeping [] Family support [] [] Out of room [] Palliative care [] [] Receiving care in room [] Pre-surgical visit [] Trauma [] Long length of stay [] ICU visit [] Other: Relational/Emotional Strength [] Patient feels connected with others/family/visitors/staff [] Distress [] Loneliness/isolation [] Abandonment Spirituality of Patient [] Person of [place] [] Attends Yazidi of their [place] [] Believes in Prayer [] Reads Bible or Muslim materials [] There are Spiritual issues to be addressed Fine Unhairer Interventions [] Prayer [] Active listening [] Non-anxious presence [] Spiritual/emotional support [] Crisis/trauma care [] Spiritual counseling [] Bereavement support [] Provided bereavement packet [] Provided Bible/devotional materials [] Provided toy/stuffed animal, coloring book to patient or family member [] Provided Communion [] Anointing/Wishram [] Salvation [] Completed spiritual assessment [] Other: Impact on Illness or Injury [] Angry [] Fearful [] Anxious [] Often cries [] Exhaustion [] Unable to work [] Unable to attend adventist [] Unable to walk/stand [] Unable to read [] Unable to drive [] Unable to eat/drink [] Unable to sleep [] Unable to be with family [] Patient intubated [] Other: Summary: Fine Unhairer attempted two visits but pt sleeping both times. Time spent with patient
[2021-03-20 10:55] LABS: Erythrocyte Sedimentation Rate 21 mm/hr (0-15)
--- NOTE | 2021-03-20 12:18 | PM.PN ---
Subjective Subjective: Interval history: Patient was seen this morning, she tells me that she had some fevers overnight, but she is feeling better, no nausea, no vomiting, no new rashes, she is tells me that she has had frequent areas of abscesses infections in the left breast, she recently had a mammogram with suspicious findings, requiring a biopsy which showed a benign, but since Monday she had an abscess, which was draining continue to have drainage from the site, resulting in surrounding tenderness and pain, and fevers Vitals/I&O/Wt Last Vital Signs Temp 98.8 F 03/20/21 11:50 Pulse 89 03/20/21 11:50 Resp 18 03/20/21 11:50 BP 99/68 03/20/21 11:50 Pulse Ox 95 03/20/21 11:50 03/19/21 03/20/21 03/20/21 22:59 06:59 14:59 Intake Total 250 / 250 1150 / 1400 730 / 730 Balance 250 / 250 1150 / 1400 730 / 730 Weight last 48 hrs Weight 50.802 kg Physical Exam Const: COMMON NORMALS: no acute distress and patient oriented x3 Neck/C-Spine: COMMON NORMALS: no JVD Resp: COMMON NORMALS: normal respiratory effort, No retractions, No use of accessory muscles and clear to auscultation bilaterally AUSCULTATION: clear to auscultation bilaterally Cardio: COMMON NORMALS: no JVD, regular rate, regular rhythm, S1 normal heart sound present and S2 normal heart sound present RATE: regular rate RHYTHM: regular rhythm HEART SOUNDS: S1 normal heart sound present and S2 normal heart sound present GI: COMMON NORMALS: Normal to inspection, nondistended, normoactive bowel sounds present, Soft to palpation, non-tender and No hepatosplenomegaly present PALPATION: Yes Soft to palpation and Yes No hepatosplenomegaly present Extremity: COMMON NORMALS: no pedal edema Neuro: COMMON NORMALS: patient oriented x3 Psych: COMMON NORMALS: mental status grossly normal Skin: NARRATIVE SKIN EXAM: Left breast, area of erythema around 2:00 to 7 o'clock position, extending laterally, with tenderness, no active discharge Data : 03/20/21 04:50 03/20/21 04:50 Micro: Microbiology 03/20/21 06:00 Gram Stain - Final Breast - #1 03/19/21 22:15 Blood Culture - Preliminary Blood SPECIMEN COLLECTED 03/19/21 20:03 Blood Culture - Preliminary Blood SPECIMEN COLLECTED A&P Assessment and plan (1) Sepsis: Status: Acute (2) Cellulitis: Status: Acute (3) Status post incision and drainage: Status: Acute (4) Mastalgia in female: Status: Acute (5) Anxiety and depression: Status: Acute (6) Alcoholism /alcohol abuse: Status: Acute Additional A&P Information Sepsis secondary to cellulitis of left breast Status post incision and drainage of breast abscess on Monday Low-grade fever, tachypnea tachycardia and high lactic acid met sepsis criteria Pro-Barrett, CRP, ESR relatively unremarkable Continue vancomycin and Zosyn, follow cultures, continue fluids Morphine for pain CT scan did not show localized fluid collection or recurrent abscess formation But will order breast ultrasound Patient is stating previous biopsy that was done in October 2020 was benign Alcohol abuse: Alcohol levels 12 Continue on thiamine and folic acid, check drug screen Denying IV drug abuse No active withdrawal Full code Cardiac diet DVT prophylaxis Lovenox Attestations Medical Necessity Statement*: Patient requires hospitalization for sepsis, with cellulitis of left breast, abscess, requiring IV antibiotics Coding Level of Care Code Acute Reconciliation Accountant for [facility] Diagnoses Sepsis A41.9 Cellulitis L03.90 Status post incision and drainage Z98.890 Mastalgia in female N64.4 Anxiety and depression F41.9; F32.9 Alcoholism /alcohol abuse F10.20
[2021-03-20] MEDS: morphine 4 mg/mL SDV 1 mL 1 MG IVP ×2 (12:43→17:33)
[2021-03-20 20:51] LABS: Vancomycin Trough 21.3 ug/mL (10-15)
[2021-03-20] MEDS: ketorolac 30 mg/mL INJ 15 MG IVP (20:53)
[2021-03-20] MEDS: ibuprofen 200 mg Tablet 400 MG PO (20:54)
[2021-03-20] MEDS: enoxaparin 40 mg/0.4 mL Syringe SUBCUT (23:45)
[2021-03-21] MEDS: ketorolac 30 mg/mL INJ 15 MG IVP ×2 (02:01→09:52)
[2021-03-21] MEDS: vancomycin 1,000 MG in sodium chloride 0.9% 250 ML 250 MG IV (02:01)
[2021-03-21] MEDS: sodium chloride 0.9% 1,000 ML 75 ML IV (02:04)
[2021-03-21] MEDS: piperacillin-tazobactam 3.375 GM in sodium chloride 0.9% (plus) 50 ML IV ×2 (03:25→10:00)
[2021-03-21 04:15] VITALS: BP 134/87; PULSE 64; RESP 20; TEMP 36.7; O2SAT 93
[2021-03-21 04:43] LABS: Basophils # 0.1 10^3/uL (0.0-0.1); Basophils % 1.9 %; Eosinophils # 0.3 10^3/uL (0.0-0.8); Eosinophils % 6.2 %; Hematocrit 37.9 % (37.0-47.0); Hemoglobin 12.3 g/dL (11.5-15.3); Lymphocytes # 1.6 10^3/uL (0.8-4.8); Lymphocytes % 31.7 %; Mean Corpuscular HGB Conc 32.5 g/dL (30.0-36.0); Mean Corpuscular Hemoglobin 36.1 pg (28.0-34.0); Mean Corpuscular Volume 111.1 fL (81-99); Mean Platelet Volume 9.7 fL (7.4-10.4); Monocytes # 0.6 10^3/uL (0.2-0.9); Monocytes % 12.1 %; Neutrophils # 2.46 10^3/uL (1.8-7.7); Neutrophils % 47.9 %; Nucleated Red Blood Cells % 0 %; Platelet Count 215 10^3/cmm (130-400); Red Blood Count 3.41 10^6/uL (4.1-5.3); Red Cell Distribution Width 11.2 % (12.1-15.1); White Blood Count 5.1 10^3/uL (4.0-10.0)
[2021-03-21 05:18] LABS: Alanine Aminotransferase 18 U/L (0-33); Albumin Level 3.1 g/dL (3.5-5.2); Alkaline Phosphatase 192 IU/L (35-105); Anion Gap 12.6 (5-19); Aspartate Amino Transferase 65 U/L (0-32); Blood Urea Nitrogen 4 mg/dL (6-20); Calcium 8.1 mg/dL (8.5-10.5); Carbon Dioxide 23 mmol/L (22-29); Chloride 109 mmol/L (98-107); Globulin 2.6 g/dL (1.3-4.6); Glomerular Filtration Rate 240.6 mL/min (90-130); Glucose 85 mg/dL (65-115); Magnesium 1.6 mg/dL (1.7-2.3); Osmolality Calculated 288 mOsm/kg (285-295); Phosphorus 3.3 mg/dL (2.5-4.5); Potassium 3.6 mmol/L (3.5-5.1); Sodium 141 mmol/L (136-145); Total Bilirubin 0.8 mg/dL (0.15-1.2); Total Protein 5.7 g/dL (6.6-8.7)
[2021-03-21 07:21] VITALS: BP 114/72; PULSE 81; RESP 12; TEMP 36.9; O2SAT 95
[2021-03-21] MEDS: folic acid 1 mg Tablet PO (09:51)
[2021-03-21] MEDS: thiamine 100 mg Tablet PO (09:51)
[2021-03-21] MEDS: sennosides-docusate Tablet 1 TAB PO (09:51)
--- NOTE | 2021-03-21 09:51 | DCPLANNER ---
Per Rounding, pt to be d/c'd today with p.o. meds.
--- NOTE | 2021-03-21 10:55 | P.DS_ITS ---
Discharge Providers Date of Admission: 03/19/21 23:31 Date of Discharge: March 21, 2021 Attending Provider at Admission: Justin Hooker MD Attending Provider at Discharge: Boubacar Alvarez MD Primary Care Provider: Gavin Yadav MD Diagnoses at Discharge Discharge Diagnosis (1) Sepsis: Status: Acute (2) Cellulitis: Status: Acute (3) Status post incision and drainage: Status: Acute (4) Mastalgia in female: Status: Acute (5) Anxiety and depression: Status: Acute (6) Alcoholism /alcohol abuse: Status: Acute Reason for Visit Reason for Visit: POST OP/POSS LEFT BREAST INFECTION Hospital Course Hospital Course This is a 45-year-old female with a past medical history of alcoholism, history of left breast nodule status post biopsy with benign findings, who presents to [facility] for left breast pain and redness, status post incision and drainage of an abscess, with failure of antibiotic treatment Patient was admitted to [facility], for sepsis secondary to cellulitis of left breast, received broad-spectrum antibiotic therapy, and clinically monitored, ultrasound of the breast and CT scan of the breast did not show clinically significant underlying abscess, patient clinically improved, remained afebrile, area of cellulitis significantly improved. Discharged on 2 weeks of doxycycline and Augmentin, with topical clindamycin to be used as needed, patient was advised to keep the area clean and dry, change dressing tw ice daily, daily cleaning, follow-up with general surgery in 2 weeks if she continues to develop an abscess in that location. For pain control discharged on Ultram to be used sparingly for pain, do not mix with alcohol, advised of the adverse side effects. For alcohol abuse, she was monitored with [facility] as inpatient, no significant episodes of alcohol withdrawal, advised abstain from alcohol and discharge Physical Exam Const: COMMON NORMALS: no acute distress and patient oriented x3 GENERAL APPEARANCE: cooperative and comfortable Eye: COMMON NORMALS: Equal, round and reactive pupils present and EOMs intact bilaterally GENERAL EYE: appearance normal, both eyes and all related structures PUPIL: Yes Equal, round and reactive pupils present Neck/C-Spine: COMMON NORMALS: full ROM, no JVD and Thyroid normal THYROID: Thyroid normal Lymph: LYMPHATIC: no lymphadenopathy noted Resp: COMMON NORMALS: normal respiratory effort, No retractions, No use of accessory muscles and clear to auscultation bilaterally AUSCULTATION: clear to auscultation bilaterally Cardio: COMMON NORMALS: no JVD, regular rate, regular rhythm, S1 normal heart sound present, S2 normal heart sound present, No gallops present (Cardio), No clicks present (Cardio) and No murmurs present (Cardio) RATE: regular rate RHYTHM: regular rhythm HEART SOUNDS: S1 normal heart sound present and S2 normal heart sound present GI: COMMON NORMALS: Normal to inspection, nondistended, normoactive bowel sounds present, Soft to palpation, non-tender and No hepatosplenomegaly present PALPATION: Yes Soft to palpation and Yes No hepatosplenomegaly present Extremity: COMMON NORMALS: no pedal edema Neuro: COMMON NORMALS: patient oriented x3, CN's II-XII intact bilaterally, moves all extremities and no focal motor deficits Psych: COMMON NORMALS: mental status grossly normal, Normal thought process present and cooperative THOUGHT PROCESS: Normal thought process present Skin: NARRATIVE SKIN EXAM: Left breast, area of erythema, swelling, tender significant improved, no significant drainage Discharge Data Data Completed and Pending: Completed Studies During Hospitalization Category Date Time Status CT chest w con* [id number] Urgent Cat Scan 03/19/21 20:46 Completed [place] breast [place] comp lete [id number] Routine Ultrasound 03/20/21 09:00 Completed Pending at discharge Category Date Time Status Blood Culture Sta t Lab 03/19/21 22:15 Results Complete Blood Co unt w/Auto AM LABS Lab 03/22/21 04:00 Ordered Complete Blood Co unt w/Auto AM LABS Lab 03/23/21 04:00 Ordered Comprehensive Met abolic Panel AM LA BS Lab 03/22/21 04:00 Ordered Comprehensive Met abolic Panel AM LA BS Lab 03/23/21 04:00 Ordered Magnesium AM LABS Lab 03/22/21 04:00 Ordered Magnesium AM LABS Lab 03/23/21 04:00 Ordered Phosphorus AM LAB S Lab 03/22/21 04:00 Ordered Phosphorus AM LAB S Lab 03/23/21 04:00 Ordered Wound Culture and Gram Stain Stat Lab 03/20/21 06:00 Results Labs from last 24 hours 03/21/21 03/21/21 03/20/21 04:26 04:26 20:11 WBC 5.1 RBC 3.41 L Hgb 12.3 Hct 37.9 MCV 111.1 H MCH 36.1 H MCHC 32.5 RDW 11.2 L Plt Count 215 MPV 9.7 Neut % (Auto) 47.9 Lymph % (Auto) 31.7 [place] % (Auto) 12.1 Eos % (Auto) 6.2 Baso % (Auto) 1.9 Neut # (Auto) 2.46 Lymph # (Auto) 1.6 [place] # (Auto) 0.6 Eos # (Auto) 0.3 Baso # (Auto) 0.1 Nucleated RBC % (a uto) 0 Nucleated RBCs # 0.0 ESR Sodium 141 Potassium 3.6 Chloride 109 H Carbon Dioxide 23 Anion Gap 12.6 BUN 4 L Creatinine 0.3 L GFR Calculation 240.6 H Glucose 85 Calculated Osmolal ity 288 Lactate Calcium 8.1 L Phosphorus 3.3 Magnesium 1.6 L Total Bilirubin 0.8 AST 65 H ALT 18 Alkaline Phosphata se 192 H Total Protein 5.7 L Albumin 3.1 L Globulin 2.6 Vancomycin Trough 21.3 H 03/20/21 03/20/21 10:38 04:50 WBC RBC Hgb Hct MCV MCH MCHC RDW Plt Count MPV Neut % (Auto) Lymph % (Auto) [place] % (Auto) Eos % (Auto) Baso % (Auto) Neut # (Auto) Lymph # (Auto) [place] # (Auto) Eos # (Auto) Baso # (Auto) Nucleated RBC % (a uto) Nucleated RBCs # ESR 21 H Sodium Potassium Chloride Carbon Dioxide Anion Gap BUN Creatinine GFR Calculation Glucose Calculated Osmolal ity Lactate 2.0 Calcium Phosphorus Magnesium Total Bilirubin AST ALT Alkaline Phosphata se Total Protein Albumin Globulin Vancomycin Trough Vitals: Last Vital Signs Temp 98.5 F 03/21/21 07:21 Pulse 81 03/21/21 07:21 Resp 12 03/21/21 07:21 BP 114/72 03/21/21 07:21 Pulse Ox 95 03/21/21 07:21 Discharge Plan Discharge Patient Disposition: Home Condition: Stable Prescriptions: New doxycycline hyclate 100 mg capsule 100 mg PO Q12H 13 Days Qty: 26 RF: 0 Augmentin 875-125 mg tablet 1 tab PO BID 13 Days Qty: 26 RF: 0 tramadol 50 mg tablet 50 mg PO Q12H 7 Days Qty: 14 RF: 0 clindamycin phosphate 1 % lotion 1 applic topical DAILY PRN (Reason: cellulitis) 14 Days Qty: 60 RF: 0 folic acid 1 mg Tablet 1 mg PO DAILY 30 Days Qty: 30 RF: 0 Vitamin B-1 (mononitrate) 100 mg Tablet 100 mg PO DAILY 30 Days Qty: 30 RF: 0 Discontinued sulfamethoxazole-trimethoprim [Bactrim DS] 800-160 mg tablet 1 tab PO BID 7 Days Qty: 14 RF: 0 tramadol 50 mg tablet 50 mg PO Q6H PRN (Reason: pain) Qty: 20 RF: 0 Discharge Orders: Discharge Order (Routine); Ordered 03/21/21 Ordered By: Boubacar Alvarez Referrals: Gavin Yadav MD [Primary Care Provider] - Marcelo Ralph MD [Physician] - 2 weeks Discharge Diet: Advance as tolerated Discharge Activity: Resume usual activity Patient Instructions: Cellulitis (DC), Sepsis (DC), Opioid Safety Activity Restrictions/Additional Instructions: -Please take antibiotics for the next 13 days -Follow-up with general surgery in 2 weeks -If of recurrent fevers, or redness around breast go the emergency room -Please abstain from alcohol consumption -Do not use tramadol and alcohol together, as mixing these medications is associate with increased risk of adverse side effects, including but not limited to increased risk of , significant morbidity and mortality, respiratory depression, do not drive or operate heavy machinery while taking tramadol Discharge Attestations Time Spent in Discharge Care*: less than 30 min Quality Metrics Clinical Quality Measures During this hospital stay, did patient experience: None Coding Level of Care Code Acute Chg FW DC note Diagnoses Sepsis A41.9 Cellulitis L03.90 Status post incision and drainage Z98.890 Mastalgia in female N64.4 Anxiety and depression F41.9; F32.9 Alcoholism /alcohol abuse F10.20
[2021-03-21 10:56] VITALS: BP 114/72; PULSE 81; RESP 12; TEMP 36.9; O2SAT 95
[2021-03-21 11:16] VITALS: BP 103/68; PULSE 78; RESP 12; TEMP 36.8; O2SAT 96
== END 2021-03-21 12:55 | disposition home or self-care (01) | DRG 872 ==
LOC: ER 22:53 → MEDSURG 03-20 00:45
PROVIDERS: Admitting Provider Internal Medicine; Emergency Provider Family Medicine; PCP Family Medicine Adult Medicine; Visit Provider Family Medicine
DX: A41.9 Sepsis, unspecified organism (principal); N61.1 Abscess of the breast and nipple; Z98.890 Other specified postprocedural states; N64.4 Mastodynia; F41.8 Other specified anxiety disorders; F10.20 Alcohol dependence, uncomplicated; F17.210 Nicotine dependence, cigarettes, uncomplicated
CPT/HCPCS: 36415; 71260; 76641; 80048; 80053; 80202; 80307; 81003; 83605; 83735; 84100; 84145; 84703; 85025; 85651; 86140; 87040; 87070; 87075; 87205; 96365; 96372; 96375; 99285; J1170; J1650; J1885; J2060; J2270; J2543; J3370; J7030; J7050; Q9967

== ENCOUNTER 2021-03-21 18:29 | Emergency (ER) | payer SELFPAY ==
[2021-03-21 18:36] VITALS: BP 123/84; PULSE 110; RESP 18; TEMP 37.1; O2SAT 95
--- NOTE | 2021-03-21 20:11 | W.ED.WOUNDLC ---
HPI - Wound/Laceration General: Chief Complaint: Wound/Laceration Stated Complaint: wound leaking Time Seen by Provider: 03/21/21 19:29 History of Present Illness: HPI narrative: 45-year-old female with a history of a left breast abscess that was drained, treated for cellulitis as an inpatient, and discharged earlier today. She removed her bandage upon her arrival home, and found it to be draining a bit of serosanguineous fluid. Her breast was also still red when she took her bandage off, and there was some hardness there. This worried her, so she came back to the emergency department. No continued fever she did fill her antibiotics today. She says that she has pain. 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 Onset (ago): day(s) Location: other (breast) Place: home Patient tetanus UTD: Yes Associated symptoms: Reports pain; Denies fever(s), nausea, numbness or vomiting Review of Systems Const: Denies: fever(s) Card: Denies: chest pain Resp: Denies: dyspnea GI: Denies: nausea or vomiting [facility] ED PFSH: Medical History Alcoholism /alcohol abuse Anxiety and depression Breast abscess Elevated ETOH level Elevated liver enzymes Gastroenteritis History of tibial fracture Left ankle pain Lumbar back sprain Surgical History Status post incision and drainage Family History Other CAD (coronary artery disease) Cancer Social History Smoking and tobacco status: current every day smoker cigarettes Packs smoked per day: 0.10 Alcohol intake: current Alcohol intake frequency: 3 or more drinks per day Alcohol type: wine Current occupational status: unemployed and student History of recent travel: No Physical Exam Const: GENERAL APPEARANCE: not ill appearing ORIENTATION/CONSCIOUSNESS: Yes oriented to person, Yes oriented to place and Yes oriented to time HENMT: COMMON NORMALS: normocephalic HEAD & SCALP: normocephalic FACE & SINUS: normal facial exam NOSE: No nasal discharge present Eye: COMMON NORMALS: Equal, round and reactive pupils present, EOMs intact bilaterally and conjunctivae normal EYELID: eyelids normal CONJUNCTIVA: Yes conjunctivae normal PUPIL: Yes Equal, round and reactive pupils present Neck/C-Spine: GENERAL: No tracheal deviation Chest: COMMONS NORMALS: normal inspection of the chest Resp: EFFORT & INSPECTION: No tachypneic, No respiratory distress and No retractions AUSCULTATION: no rhonchi, no wheezes and lung sounds not diminished Cardio: PERIPHERAL PULSES: radial pulses present GI: INSPECTION: No abdominal distension Neuro: SENSORIUM/ORIENTATION: Yes oriented to person, Yes oriented to place and Yes oriented to time Skin: NARRATIVE SKIN EXAM: Exam of the left breast reveals a small incision at about the 1 o'clock position superior to the areola. There is minimal drainage there is mild erythema surrounding. There is mild induration. There is no streaking. There is no axillary lymphadenopathy palpable. It is not overly warm to touch. It is tender to touch. Course Vital Signs: Vital signs: Vital Signs Temperature 98.7 F 03/21/21 18:36 Pulse Rate 110 H 03/21/21 18:36 Respiratory Rate 18 03/21/21 18:36 Blood Pressure 123/84 03/21/21 18:36 Pulse Oximetry 95 03/21/21 18:36 MDM - Wound/Laceration MDM Narrative: Medical decision making narrative: 45-year-old patient worried because she had some serious sanguinous drainage from an I&D site. She was counseled and told that this will continue to happen and is not a bad thing. She was also counseled that the hardness she was feeling is induration and not abscess. There is no fluctuance. She will continue doxycycline and amoxicillin. She asks for something else for pain. She will be given a topical anti-inflammatory. Discharge Plan Discharge Patient Disposition: Home Clinical Impression: Cellulitis Qualifiers: Site of cellulitis: trunk Site of cellulitis of trunk: unspecified site Qualified Code(s): L03.319 - Cellulitis of trunk, unspecified Condition: Stable Prescriptions: New Voltaren 1 % gel 2 g topical QID Qty: 100 RF: 0 No Action doxycycline hyclate 100 mg capsule 100 mg PO Q12H 13 Days Qty: 26 RF: 0 Augmentin 875-125 mg tablet 1 tab PO BID 13 Days Qty: 26 RF: 0 tramadol 50 mg tablet 50 mg PO Q12H 7 Days Qty: 14 RF: 0 clindamycin phosphate 1 % lotion 1 applic topical DAILY PRN (Reason: cellulitis) 14 Days Qty: 60 RF: 0 folic acid 1 mg Tablet 1 mg PO DAILY 30 Days Qty: 30 RF: 0 Vitamin B-1 (mononitrate) 100 mg Tablet 100 mg PO DAILY 30 Days Qty: 30 RF: 0 Discharge Orders: Discharge ED (Routine); Ordered 03/21/21 Ordered By: Osvaldo Lazo Referrals: Gavin Yadav MD [Primary Care Provider] - 1-3 days (As scheduled) Patient Instructions: Cellulitis (ED) Activity Restrictions/Additional Instructions: Return for worsening redness with streaking despite 2-3 doses of antibiotics, fever greater than 100 despite 2-3 doses of antibiotics, any other concerning symptoms. Use the topical pain reliever as needed. Do not cover the incision site with it. Stand Alone Forms: Work/School Release Coding Level of Care Code ED Major Sales Associate for Chg Fwd Exam Comprehensive
--- NOTE | 2021-03-21 20:15 | PC.NURSE ---
Patient wound on left breast covered with a telfa dressing and taped to secure.
[2021-03-21 20:53] VITALS: BP 128/76; PULSE 98; RESP 18; TEMP 37.1; O2SAT 95
--- NOTE | 2021-03-22 09:39 | PC.RESP ---
SMOKING CESSATION INFORMATION SENT TO PATIENT'
== END 2021-03-21 20:53 | disposition home or self-care (01) ==
PROVIDERS: Emergency Provider Emergency Medicine; PCP Family Medicine Adult Medicine
DX: L03.319 Cellulitis of trunk, unspecified (principal); F17.210 Nicotine dependence, cigarettes, uncomplicated
CPT/HCPCS: 99282

== ENCOUNTER 2021-04-09 22:36 | Emergency (ER) | payer MEDICAID, SELFPAY ==
[2021-04-09 22:42] VITALS: BP 141/105; PULSE 114; RESP 18; TEMP 37.1; O2SAT 96; BMI 20.8
--- NOTE | 2021-04-10 01:33 | ED_ITS ---
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 She complains that she has a vein that is now visible in the left breast and she has a lump underneath the nipple area areola area and that there is some redness. Onset (ago): hour(s) Location: other (Left breast) Associated symptoms: Reports no associated symptoms; Denies chills, fever(s), nausea or vomiting Review of Systems Const: Denies: fever(s), chills or body aches Eyes: Denies: change in vision or blurry vision ENMT: Denies: throat pain or nasal congestion Card: Denies: chest pain or dyspnea on exertion Resp: Denies: dyspnea, productive cough or non-productive cough GI: Denies: abdominal pain, nausea or vomiting Musc: Denies: extremity pain Skin/Breast: Reports: other (Redness and tenderness to the left breast times hours to 1 or 2 days.); Denies: rash Neuro: Denies: headache(s) Psych: Denies: anxiety or depression [place]/Lymph: Denies: easy bruising PFSH ED PFSH: Medical History (Updated 04/09/21 @ 22:57 by HOUSTON Velez) Adjustment insomnia Alcoholism /alcohol abuse Anxiety and depression Breast abscess Elevated ETOH level Elevated liver enzymes Gastroenteritis History of tibial fracture Left ankle pain Lumbar back sprain Surgical History (Updated 03/22/21 @ 00:01 by ) Status post incision and drainage Family History Other CAD (coronary artery disease) Cancer Social History Smoking and tobacco status: current every day smoker cigarettes Packs smoked per day: 0.10 Alcohol intake: current Alcohol intake frequency: 3 or more drinks per day Alc ohol type: wine Current occupational status: unemployed and student History of recent travel: No Physical Exam Const: COMMON NORMALS: no acute distress Psych: COMMON NORMALS: mental status grossly normal Skin: OTHER: Mother is in the room with me as I did the exam. Patient's left breast has an area of firmness under the bedside half dollar underneath the areola consistent with last provider's description of the area. She has mild redness to the surface of the skin above the nipple. Consistent with skin irritation. She does have mammillary veins that are consistent with normal type veins. There is no deep erythema drainage or drainage from the nipple noted. No lymphadenopathy noted to the area in either arm. Course Vital Signs: Vital signs: Vital Signs Temperature 98.7 F 04/09/21 22:42 Pulse Rate 114 H 04/09/21 22:42 Respiratory Rate 18 04/09/21 22:42 Blood Pressure 141/105 04/09/21 22:42 Pulse Oximetry 96 04/09/21 22:42 MDM - Wound/Laceration MDM Narrative: Medical decision making narrative: She was instructed to use moist heat to help dissipate the area of firmness in her nipple.. She can take creams and medication that she has at home. She is to follow-up with her primary care provider. Discharge Plan Discharge Patient Disposition: Home Clinical Impression: Breast tenderness in female Condition: Stable Prescriptions: No Action trazodone 100 mg tablet 100 mg PO .hs Qty: 30 RF: 0 folic acid 1 mg Tablet 1 mg PO DAILY 30 Days Qty: 30 RF: 0 Vitamin B-1 (mononitrate) 100 mg Tablet 100 mg PO DAILY 30 Days Qty: 30 RF: 0 Voltaren 1 % gel 2 g topical QID Qty: 100 RF: 0 Discharge Orders: Discharge ED (Routine); Ordered 04/09/21 Ordered By: Curtis Dominique Referrals: Gavin Yadav MD [Primary Care Provider] - Discharge Diet: Usual diet Discharge Activity: Resume usual activity Activity Restrictions/Additional Instructions: Follow-up your primary care provider as needed. Can apply moist heat to area that is tender. 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
== END 2021-04-09 23:06 | disposition home or self-care (01) ==
PROVIDERS: Emergency Provider Nurse Practitioner Family; PCP Family Medicine Adult Medicine
DX: N64.4 Mastodynia (principal); F17.210 Nicotine dependence, cigarettes, uncomplicated
CPT/HCPCS: 99282

== ENCOUNTER 2021-10-05 12:01 | Emergency (ER) | payer MEDICAID, SELFPAY ==
[2021-10-05 12:13] VITALS: BP 120/66; PULSE 113; RESP 18; TEMP 36.4; O2SAT 94; BMI 21.9
[2021-10-05 12:25] VITALS: BP 120/56; PULSE 104; RESP 16; O2SAT 97
--- NOTE | 2021-10-05 12:46 | ED_ITS ---
HPI - Epistaxis General: Chief complaint: Epistaxis Stated complaint: BLOODY NOSE Time Seen by Provider: 10/05/21 12:36 Source: patient Mode of arrival: ambulatory Limitations: no limitations History of Present Illness: HPI Narrative: Patient is a 46-year-old female presents to ED today with a complaint of a nosebleed. Patient tells me she has had sinus congestion over the past 2 to 3 days. She states she was working today and lifting. She states when she bent over she had a gush of blood from her nares thus prompting her ED visit. Nosebleed upon arrival has subsided. No recent injury/trauma. MD complaint: epistaxis Location: bilateral nostril Onset (ago): minute(s) Duration: now resolved Associated symptoms: Reports no associated symptoms; Deny fever(s), headache(s), sinus pain or vomiting Treatment prior to arrival: nose pinching Review of Systems Const: Denies: fever(s), chills, body aches, fatigue or malaise Eyes: Denies: change in vision, blurry vision, photophobia, floaters or seeing flashes ENMT: Reports: nasal congestion; Denies: throat pain, odynophagia, ear or mastoid pain, ear discharge, post nasal drip or sinus pain Card: Denies: chest pain Resp: Denies: dyspnea GI: Denies: nausea or vomiting Musc: Denies: neck pain Skin/Breast: Denies: rash Neuro: Denies: headache(s) PFS ED PFSH: Medical History (Updated 10/05/21 @ 13:31 by ALESSIO Montgomery) Abnormal mammogram of left breast Adjustment insomnia Alcoholism /alcohol abuse Anxiety and depression Breast abscess Cyclical mastalgia Elevated ETOH level Elevated liver enzymes Gastroenteritis History of actinic keratosis History of psoriasis History of tibial fracture Left ankle pain Lumbar back sprain Psychiatric care Surgical History Status post incision and drainage Family History Other CAD (coronary artery disease) Cancer Social History Smoking and tobacco status: current some day smoker cigarettes Packs smoked per day: 0.10 Alcohol intake: current Alcohol intake frequency: 3 or more drinks per day Alcohol type: wine Current occupational status: unemployed and student History of recent travel: No Physical Exam Const: COMMON NORMALS: no acute distress, average body habitus, patient oriented x3, no limitations, healthy appearing, alert and well nourished HENMT: COMMON NORMALS: normocephalic, atraumatic, hearing grossly normal bilaterally, external ears normal, EAC's normal, TM's normal bilaterally, Normal external nose present, Normal nasal mucous membranes and turbinates present, moist oral mucous membranes, oropharynx normal and gingiva normal HEAD & SCALP: normal to inspection, normocephalic and atraumatic FACE & SINUS: normal facial exam NOSE: Normal external nose present, Normal nasal mucous membranes and turbinates present and Other nasal findings present (clot to R nare-removed; dried blood to bilateral nares) EXTERNAL EAR: Yes external ears normal EXTERNAL AUDITORY CANAL: EAC's normal TYMPANIC MEMBRANE: TM's normal bilaterally Eye: GENERAL EYE: appearance normal, both eyes and all related structures Neck/C-Spine: COMMON NORMALS: full ROM, no lymphadenopathy and no meningeal signs Neuro: COMMON NORMALS: patient oriented x3 SENSORIUM/ORIENTATION: Yes alert MENINGEAL SIGNS: Yes no meningeal signs Course Vital Signs: Vital signs: Vital Signs Temperature 97.6 F 10/05/21 12:13 Pulse Rate 104 H 10/05/21 12:25 Respiratory Rate 16 10/05/21 12:25 Blood Pressure 120/56 10/05/21 12:25 Pulse Oximetry 97 10/05/21 12:25 MDM - Epistaxis MDM Narrative: Medical decision making narrative: Afrin applied to bilateral nares and patient monitored for 15-20 mins without any return of bleeding. She will be allowed discharge with return to ED precautions. Discharge Plan Discharge Patient Disposition: Home Clinical Impression: Acute posterior epistaxis Condition: Stable Prescriptions: No Action triamcinolone acetonide 0.025 % cream 1 applic topical DAILY Qty: 80 RF: 0 trazodone 100 mg tablet 100 mg PO .hs Qty: 30 RF: 0 cefadroxil 1 gram tablet 1,000 mg PO BID 7 Days Qty: 14 RF: 3 Voltaren 1 % gel 2 g topical QID Qty: 100 RF: 0 Discharge Orders: Discharge ED (Routine); Ordered 10/05/21 Ordered By: Sachi Guadalupe Referrals: Gavin Yadav MD [Primary Care Provider] - Patient Instructions: Epistaxis - Adult Coding Level of Care Code ED Folder Seamer Automatic for Jazmyn Jc
[2021-10-05] MEDS: oxymetazoline 0.05% Nasal Spray 15 mL 2 SPRAY NOSTRIL-B (13:01)
== END 2021-10-05 13:38 | disposition home or self-care (01) ==
PROVIDERS: Emergency Provider Physician Assistant; PCP Family Medicine Adult Medicine
DX: R04.0 Epistaxis (principal); F17.210 Nicotine dependence, cigarettes, uncomplicated
CPT/HCPCS: 99283

== ENCOUNTER 2021-10-27 12:50 | Outpatient (CLI) | payer MEDICAID, SELFPAY ==
--- NOTE | 2021-10-27 13:00 | MM_ITS ---
WS: [id number] BILATERAL DIGITAL DIAGNOSTIC MAMMOGRAM MAMMOGRAPHY WITH CAD CLINICAL INFORMATION: R92.8 - Other abnormal and inconclusive findings on diagn... HISTORY: History of mastitis and abscess COMPARISON: 03/20/2021 and 11/17/2020. TECHNIQUE: Bilateral CC, MLO, and ML views. 8 FINDINGS: Scattered fibroglandular densities bilaterally. Biopsy marker subareolar left breast. Breast parenchy ma otherwise unchanged. No suspicious focal mass, asymmetry, calcifications, or architectural distortion. ULTRASOUND BREAST LEFT TECHNIQUE: Ultrasound left breast focused area of concern. CLINICAL INFORMATION: R92.8 - Other abnormal and inconclusive findings on diagn... FINDINGS: Ultrasound left breast at the nipple. No evidence of underlying drainable abscess or fluid collection today. Underlying dense parenchymal tissue. No other significant findings. MM/[place] [id number] IMPRESSION: BI-RADS: 2-Benign FOLLOW UP: 1 Year Follow-up Recommend return to annual screening mammography.
--- NOTE | 2021-10-27 13:30 | US_ITS ---
WS: [id number] BILATERAL DIGITAL DIAGNOSTIC MAMMOGRAM MAMMOGRAPHY WITH CAD CLINICAL INFORMATION: R92.8 - Other abnormal and inconclusive findings on diagn... HISTORY: History of mastitis and abscess COMPARISON: 03/20/2021 and 11/17/2020. TECHNIQUE: Bilateral CC, MLO, and ML views. 8 FINDINGS: Scattered fibroglandular densities bilaterally. Biopsy marker subareolar left breast. Breast parenchy ma otherwise unchanged. No suspicious focal mass, asymmetry, calcifications, or architectural distortion. ULTRASOUND BREAST LEFT TECHNIQUE: Ultrasound left breast focused area of concern. CLINICAL INFORMATION: R92.8 - Other abnormal and inconclusive findings on diagn... FINDINGS: Ultrasound left breast at the nipple. No evidence of underlying drainable abscess or fluid collection today. Underlying dense parenchymal tissue. No other significant findings. US/US breast LT limited* [id number] IMPRESSION: BI-RADS: 2-Benign FOLLOW UP: 1 Year Follow-up Recommend return to annual screening mammography.
== END 2021-10-27 12:51 | disposition home or self-care (01) ==
LOC: RADSHAW 12:53
PROVIDERS: PCP Family Medicine Adult Medicine; Visit Provider Surgery
DX: R92.8 Other abnormal and inconclusive findings on diagnostic imaging of breast (principal)
CPT/HCPCS: 76642; 77066

== ENCOUNTER → 2021-12-29 13:24 | Outpatient (BNVA) | payer MEDICAID, SELFPAY | PROVIDERS: PCP Family Medicine Adult Medicine; Visit Provider Nurse Practitioner Psychiatric/Mental Health | DX: F31.81 Bipolar II disorder (principal); Z03.89 Encounter for observation for other suspected diseases and conditions ruled out; F10.20 Alcohol dependence, uncomplicated; F17.210 Nicotine dependence, cigarettes, uncomplicated | CPT/HCPCS: 90792 ==

== ENCOUNTER → 2022-01-04 11:26 | Outpatient (BNVA) | payer MEDICAID, SELFPAY | PROVIDERS: PCP Family Medicine Adult Medicine; Visit Provider Nurse Practitioner Psychiatric/Mental Health | DX: Z03.89 Encounter for observation for other suspected diseases and conditions ruled out (principal) | CPT/HCPCS: 80053 ==

== ENCOUNTER 2022-01-19 06:00 | Outpatient (RCR) | payer MEDICAID, SELFPAY | END 2022-02-10 23:59 | disposition home or self-care (01) | LOC: SPT 06:00 | PROVIDERS: PCP Family Medicine Adult Medicine; Referring Provider Nurse Practitioner; Visit Provider Nurse Practitioner | DX: M25.511 Pain in right shoulder (principal); M25.512 Pain in left shoulder; G89.29 Other chronic pain | CPT/HCPCS: 97161 ==

== ENCOUNTER 2022-01-21 11:44 | Emergency (ER) | payer MEDICAID, SELFPAY ==
[2022-01-21 11:58] VITALS: BP 110/75; PULSE 88; RESP 17; TEMP 37.2; O2SAT 98; BMI 19.8
--- NOTE | 2022-01-21 12:00 | CT_ITS ---
WS: [id number] CT HEAD NONCONTRAST HISTORY: fall TECHNIQUE: Contiguous axial imaging performed through the brain in 2.5 mm imaging. Bone and soft tiss ue windows. Sagittal and coronal reformats reviewed. All CT scans at [facility] use at least one of these dose optimization techniques: automated exposure control; mA and/or kV adjustment per pa tient size (includes targeted exams where dose is matched to clinical indication); or iterative recon struction. DLP: 627.92 mGy.cm COMPARISON: None available. No acute intracranial hemorrhage, midline shift or mass effect. No atrophy or prior infarcts or herniation. Minimal small vessel ischemic disease and mild atrophy of the frontal lobes. Ventricles: Normal size with no hydrocephalus. Mild asymmetry of the ventricles is a normal variant. Similar to the prior study. Paranasal sinuses: As visualized are clear. Mastoid air cells: Well pneumatized. Calvarium and scalp: Skull is intact with no soft tissue edema or swelling. CT/CT head wo con* [id number] IMPRESSION: 1. No acute intracranial hemorrhage or edema. 2. No fracture. 3. Mild atrophy and chronic microvascular ischemic disease.
--- NOTE | 2022-01-21 12:00 | ECG_ITS ---
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 Measurements Intervals [place] Rate: 89 P: 49 NC: 157 QRS: 24 QRSD: 76 T: 12 QT: 360 QTc: 439 Interpretive Statements SINUS RHYTHM LOW QRS VOLTAGE IN PRECORDIAL LEADS [QRS DEFLECTION < 1.0 mV IN CHEST LEADS] Compared to ECG 10/15/2020 20:26:30 No significant changes Electronically Signed On 01-23-2022 15:49:15 CDT by Venkat Benedict M.D. [email or web address]
--- NOTE | 2022-01-21 12:00 | CT_ITS ---
WS: [id number] CT FACIAL BONES HISTORY: fall TECHNIQUE: Images obtained from the supraorbital location through the mandible. Soft tissue and bone windows are reviewed. Coronal and sagittal reformats have also been submitted. DLP: 1820.[address] scans at [facility] use at least one of these dose optimization techniques: automated e xposure control; mA and/or kV adjustment per patient size (includes targeted exams where dose is matc hed to clinical indication); or iterative reconstruction. COMPARISON: 09/20/2019 Study limited by motion artifact. No zygomatic fracture or nasal bone fracture identified. Subtle fra ctures with be missed with this amount of motion. No air-fluid levels within the sinuses. The mandibl e and maxilla appear intact. Pterygoid plates are normal. Visualized upper cervical spine is normal. Mandibular condyles are intact. CT/CT facial bones wo con* [id number] IMPRESSION: 1. Quality of this examination is compromised by patient motion. 2. No facial bone fractures are identified.
--- NOTE | 2022-01-21 12:00 | CT_ITS ---
WS: [id number] CT CERVICAL SPINE HISTORY: fall TECHNIQUE: Contiguous 2.5 mm axial imaging performed through the entire cervical spine. Sagittal and coronal reformats also performed. All CT scans at [facility] use at least one of these dose o ptimization techniques: automated exposure control; mA and/or kV adjustment per patient size (include s targeted exams where dose is matched to clinical indication); or iterative reconstruction. DLP: 238.19 mGy.cm COMPARISON: 03/09/2018 Straightening and reversal the normal cervical lordosis centered in the mid to lower cervical spine. Moderate degenerative disc space narrowing and osteophytosis at C5-6 and C6-7. Facet joints are yan lly aligned. The lateral masses are aligned and the odontoid is intact. Craniocervical junction is no rmal. No fractures are identified. Mild foraminal narrowing at C4-5, C5-6 and C6-7. Visualized soft t issues are negative. Lung apices are clear. CT/CT cervical spin wo con* [id number] IMPRESSION: 1. No acute cervical spine fracture. 2. Degenerative reversal the normal lordosis. Similar to the prior study with disc space narrowing.
--- NOTE | 2022-01-21 12:23 | W.ED.GENADLT ---
HPI - General Adult General: Chief complaint: Fall Stated complaint: ETOH/ FALL/ AMS Time Seen by Provider: 01/21/22 11:47 History of Present Illness: Patient is a 46-year-old female who reports to drinking alcohol yesterday night and woke up this AM at 5:00 and had a mechanical fall while walking around the house. Earlier this morning around 5am, patient tells me that she was asleep on the ground when her woke her up and brought her to the emergency room. Patient has a cut on her lips but denies on arrival if that she has a cut in the back of her head patient is GCS 15 AOx3 daily disinhibited. Patient reports mild midline cervical nekc tenderness to palpation. Patient has no other focal complaints including chest pain, shortness breath, palpitation or lightheadedness prior to the episode of fall. Onset:5 am Duration:once Location:home Severity:moderate Associated symptoms: Reports rash (+R lower chin cut); Deny chest pain, dyspnea, nausea, palpitations or vomiting Review of Systems Const: Denies: fever(s) or chills Eyes: Denies: change in vision ENMT: Denies: mouth pain Card: Denies: chest pain or palpitations Resp: Denies: dyspnea or non-productive cough GI: Denies: abdominal pain, nausea, vomiting or diarrhea : Denies: dysuria Musc: Denies: extremity pain Skin/Breast: Reports: rash (+R lower chin cut) Neuro: Reports: other (+headache); Denies: weakness in extremities Psych: Reports: other (Normal mood) [place]/Lymph: Denies: easy bruising PFSH ED PFSH: Medical History Abnormal mammogram of left breast Alcohol use disorder, severe, dependence Anxiety and depression Bipolar II disorder Mixed episodes with anxious distress Breast abscess Elevated ETOH level Elevated liver enzymes Gastroenteritis History of actinic keratosis History of psoriasis History of tibial fracture Left ankle pain Lumbar back sprain Neck and shoulder pain Nicotine dependence, cigarettes, uncomplicated Psychiatric care Surgical History Status post incision and drainage Family History Other CAD (coronary artery disease) Cancer Social History Smoking and tobacco status: never smoked Alcohol intake: current Alcohol intake frequency: 3 or more drinks per day Alcohol type: wine Current occupational status: unemployed and student History of recent travel: No Physical Exam Const: COMMON NORMALS: alert HENMT: COMMON NORMALS: atraumatic HEAD & SCALP: atraumatic MOUTH: moist mucous membranes not abnormal Eye: COMMON NORMALS: EOMs intact bilaterally and conjunctivae normal CONJUNCTIVA: Yes conjunctivae normal Neck/C-Spine: COMMON NORMALS: full ROM and supple Resp: COMMON NORMALS: normal respiratory effort and clear to auscultation bilaterally AUSCULTATION: clear to auscultation bilaterally Cardio: COMMON NORMALS: regular rate RATE: regular rate GI: COMMON NORMALS: Soft to palpation and non-tender PALPATION: Yes Soft to palpation Extremity: COMMON NORMALS: full ROM Neuro: SENSORIUM/ORIENTATION: Yes alert MOTOR EXAM: No Abnormal motor strength present and Other motor observations present (no focal motor deficits) OTHER: GCS 15, moving all extremities, answering questions appropriately Psych: COMMON NORMALS: speech normal SPEECH: Yes normal speech MOOD & AFFECT: Yes euthymic mood Skin: NARRATIVE SKIN EXAM: +R chin laceration measuring 0.5cm in diameter Procedures Laceration Laceration 1: Site: face Side (If applicable): right Size (cm): 0.5 Description: linear and clean Depth: simple, single layer Skin layer closed with: other (dermabond) Course Vital Signs: Vital signs: Vital Signs Temperature 98.9 F 01/21/22 11:58 Pulse Rate 88 01/21/22 11:58 Respiratory Rate 17 01/21/22 11:58 Blood Pressure 110/75 01/21/22 11:58 Pulse Oximetry 98 01/21/22 11:58 MDM - General Adult Medical Decision Making 86-year-old female who presents the emergency room after episode mechanical fall. On arrival, she is slightly disinhibited but is AAO x3 answering all questions appropriately. Patient has a mild 0.5 cm chin laceration. Laceration was cleaned and closed with Dermabond. Patient received tetanus. CT brain CT head, CT chest negative for any acute finding. Patient denied having any chest pain shortness of breath or palpitation or lightheadedness prior to the episode of fall. Do suspect ACS, PE, acute bleeding, or other causes of the fall. Troponin/EKG wnl. I have given patient follow up with our case managers to be seen by PCP for management of headache and fall. Patient aware of a call from our case managers to schedule for appointment(s) and verbalizes understanding of the importance of following up. Rx: tylenol PRN pain Disposition: Discharge. Patient counseled regarding diagnostic impression, treatment plan. Patient given ED strict return precautions to return for continuation, worsening, or development of new symptoms. Instructed to f/u w/ PCP regarding symptoms today. Patient verbalized understanding. Lab Data : 01/21/22 12:11 01/21/22 12:11 Radiology Impressions Cervical Spine CT 01/21/22 12:00 IMPRESSION: 1. No acute cervical spine fracture. 2. Degenerative reversal the normal lordosis. Similar to the prior study with disc space narrowing. Face CT 01/21/22 12:00 IMPRESSION: 1. Quality of this examination is compromised by patient motion. 2. No facial bone fractures are identified. Head CT 01/21/22 12:00 IMPRESSION: 1. No acute intracranial hemorrhage or edema. 2. No fracture. 3. Mild atrophy and chronic microvascular ischemic disease. Laboratory Results WBC 8.3 10^3/uL (4.0-10.0) 01/21/22 12:11 RBC 4.64 10^6/uL (4.1-5.3) 01/21/22 12:11 Hgb 14.2 g/dL (11.5-15.3) 01/21/22 12:11 Hct 44.6 % (37.0-47.0) 01/21/22 12:11 MCV 96.1 fl (81-99) 01/21/22 12:11 MCH 30.6 pg (28.0-34.0) 01/21/22 12:11 MCHC 31.8 g/dL (30.0-36.0) 01/21/22 12:11 RDW 13.0 % (12.1-15.1) 01/21/22 12:11 Plt Count 409 10^3/cmm (130-400) H 01/21/22 12:11 MPV 10.4 fL (7.4-10.4) 01/21/22 12:11 Neut % (Auto) 43.6 % 01/21/22 12:11 Lymph % (Auto) 45.4 % 01/21/22 12:11 [place] % (Auto) 7.6 % 01/21/22 12:11 Eos % (Auto) 1.4 % 01/21/22 12:11 Baso % (Auto) 1.9 % 01/21/22 12:11 Neut # (Auto) 3.62 10^3/uL (1.8-7.7) 01/21/22 12:11 Lymph # (Auto) 3.8 10^3/uL (0.8-4.8) 01/21/22 12:11 [place] # (Auto) 0.6 10^3/uL (0.2-0.9) 01/21/22 12:11 Eos # (Auto) 0.1 10^3/uL (0.0-0.8) 01/21/22 12:11 Baso # (Auto) 0.2 10^3/uL (0.0-0.1) H 01/21/22 12:11 Nucleated RBC % (auto) 0 % 01/21/22 12:11 Nucleated RBCs # 0.0 /100WBC 01/21/22 12:11 Sodium 150 mmol/L (136-145) H 01/21/22 12:11 Potassium 3.8 mmol/L (3.5-5.1) 01/21/22 12:11 Chloride 108 mmol/L (98-107) H 01/21/22 12:11 Carbon Dioxide 28 mmol/L (22-29) 01/21/22 12:11 Anion Gap 17.8 (5-19) 01/21/22 12:11 BUN 12 mg/dL (6-20) 01/21/22 12:11 Creatinine 0.5 mg/dL (0.5-0.9) 01/21/22 12:11 GFR Calculation 132.8 mL/min (90-130) H 01/21/22 12:11 Glucose 107 mg/dL (65-115) 01/21/22 12:11 Calculated Osmolality 310 mOsm/kg (285-295) H 01/21/22 12:11 Calcium 9.7 mg/dL (8.5-10.5) 01/21/22 12:11 Troponin T Baseline 6 ng/L (0-10) 01/21/22 12:11 Imaging Data Other Imaging: Radiologist's impression: [address] [place] [address] CT Scan Report Signed Patient: Kalpana Godwin Unit #: [id number] : 1975 Age/Sex: 46 / F ADM Date: 01/21/22 Loc: ER Room/Bed: Attending Dr: Ordering Provider/Ordering MD: Mary Dejesus MD Date of Service: 01/21/22 Procedure(s): CT head wo con* [id number] Accession Number(s): [id number] Report Number: [id number] WS: [id number] CT HEAD NONCONTRAST HISTORY: fall TECHNIQUE: Contiguous axial imaging performed through the brain in 2.5 mm imaging. Bone and soft tissue windows. Sagittal and coronal reformats reviewed.? All CT scans at [facility] use at least one of these dose optimization techniques: automated exposure control; mA and/or kV adjustment per patient size (includes targeted exams where dose is matched to clinical indication); or iterative reconstruction. DLP: 627.92 mGy.cm COMPARISON: None available. No acute intracranial hemorrhage, midline shift or mass effect. No atrophy or prior infarcts or herniation. ? Minimal small vessel ischemic disease and mild atrophy of the frontal lobes. Ventricles:? Normal size with no hydrocephalus. Mild asymmetry of the ventricles is a normal variant. Similar to the prior study. Paranasal sinuses: As visualized are clear. Mastoid air cells: Well pneumatized. Calvarium and scalp: Skull is intact with no soft tissue edema or swelling. CT/CT head wo con* [id number] IMPRESSION: ? 1.? No acute intracranial hemorrhage or edema. 2.? No fracture. 3.? Mild atrophy and chronic microvascular ischemic disease. ? Dictated By: Karla Chapman DO Signed By: Karla Chapman DO Signed Date/Time: 01/21/22 1254 DD/ [address] [place] [address] CT Scan Report Signed Patient: Kalpana Godwin Unit #: [id number] : 1975 Age/Sex: 46 / F ADM Date: 01/21/22 Loc: ER Room/Bed: Attending Dr: Ordering Provider/Ordering MD: Mary Dejesus MD Date of Service: 01/21/22 Procedure(s): CT facial bones wo con* [id number] Accession Number(s): [id number] Report Number: [id number] WS: [id number] CT FACIAL BONES HISTORY: fall TECHNIQUE: Images obtained from the supraorbital location through the mandible. Soft tissue and bone windows are reviewed. Coronal and sagittal reformats have also been submitted. DLP: 1820.[address] scans at [facility] use at least one of these dose optimization techniques: automated exposure control; mA and/or kV adjustment per patient size (includes targeted exams where dose is matched to clinical indication); or iterative reconstruction. COMPARISON: 09/20/2019 Study limited by motion artifact. No zygomatic fracture or nasal bone fracture identified. Subtle fractures with be missed with this amount of motion. No air-fluid levels within the sinuses. The mandible and maxilla appear intact. Pterygoid plates are normal. Visualized upper cervical spine is normal. Mandibular condyles are intact. CT/CT facial bones wo con* [id number] IMPRESSION: ? 1.? Quality of this examination is compromised by patient motion. 2.? No facial bone fractures are identified. ? ? ? Dictated By: Karla Chapman DO Signed By: Karla Chapman DO Signed Date/Time: 01/21/22 1313 DD/ [address] [address] [address] Scan Report Signed Patient: Kalpana Godwin Unit #: [id number] : 1975 Age/Sex: 46 / F ADM Date: 01/21/22 Loc: ER Room/Bed: Attending Dr: Ordering Provider/Ordering MD: Mary Dejesus MD Date of Service: 01/21/22 Procedure(s): CT cervical spin wo con* [id number] Accession Number(s): [id number] Report Number: [id number] WS: [id number] CT CERVICAL SPINE HISTORY: fall TECHNIQUE: Contiguous 2.5 mm axial imaging performed through the entire cervical spine. Sagittal and coronal reformats also performed.? All CT scans at [facility] use at least one of these dose optimization techniques: automated exposure control; mA and/or kV adjustment per patient size (includes targeted exams where dose is matched to clinical indication); or iterative reconstruction. DLP: 238.19 mGy.cm COMPARISON: 03/09/2018 Straightening and reversal the normal cervical lordosis centered in the mid to lower cervical spine. Moderate degenerative disc space narrowing and osteophytosis at C5-6 and C6-7. Facet joints are normally aligned. The lateral masses are aligned and the odontoid is intact. Craniocervical junction is normal. No fractures are identified. Mild foraminal narrowing at C4-5, C5-6 and C6-7. Visualized soft tissues are negative. Lung apices are clear. CT/CT cervical spin wo con* [id number] IMPRESSION: ? 1.? No acute cervical spine fracture. 2.? Degenerative reversal the normal lordosis. Similar to the prior study with disc space narrowing. ? Dictated By: Karla Chapman DO Signed By: Karla Chapman DO Signed Date/Time: 01/21/22 1304 DD/ 1254 Discharge Plan Discharge Patient Disposition: Home Clinical Impression: Fall, Headache, Concussion Condition: Stable Prescriptions: New acetaminophen 500 mg tablet 500 mg PO Q6H PRN (Reason: pain) 5 Days Qty: 20 0RF No Action Otezla 30 mg tablet 30 mg PO BID 0RF bupropion HCl [Wellbutrin SR] 150 mg tablet sustained-release 12 hr 150 mg PO QAM Qty: 30 2RF Tylenol Ex Str Rapid Release 500 mg Tablet 1,000 mg PO Q6H PRN (Reason: Pain) 0RF naltrexone 50 mg tablet 50 mg PO QAM 0RF Discharge Orders: Discharge ED (Routine); Ordered 01/21/22 Ordered By: Mary Dejesus Referrals: Gavin Yadav MD [Primary Care Provider] - Discharge Diet: Advance as tolerated Discharge Activity: Increase activity as tolerated Patient Instructions: Concussion (ED), Abuse of Alcohol (ED), Fall Prevention (ED) Activity Restrictions/Additional Instructions: Please come back to the emergency room if you need help, have any hallucinations, or you have any depression or have thoughts about hurting yourself or other people. Come back to the emergency room you have new or concerning complaints. Coding Level of Care Code ED Title Manager for Jazmyn Fwfransisco Exam Comprehensive
[2022-01-21] MEDS: acetaminophen 500 mg Tablet 1000 MG PO (12:43)
[2022-01-21] MEDS: tetanus-dipt-pertussis 0.5 mL SDV IM (13:28)
[2022-01-21 14:13] LABS: Basophils # 0.2 10^3/uL (0.0-0.1); Basophils % 1.9 %; Eosinophils # 0.1 10^3/uL (0.0-0.8); Eosinophils % 1.4 %; Hematocrit 44.6 % (37.0-47.0); Hemoglobin 14.2 g/dL (11.5-15.3); Lymphocytes # 3.8 10^3/uL (0.8-4.8); Lymphocytes % 45.4 %; Mean Corpuscular HGB Conc 31.8 g/dL (30.0-36.0); Mean Corpuscular Hemoglobin 30.6 pg (28.0-34.0); Mean Corpuscular Volume 96.1 fl (81-99); Mean Platelet Volume 10.4 fL (7.4-10.4); Monocytes # 0.6 10^3/uL (0.2-0.9); Monocytes % 7.6 %; Neutrophils # 3.62 10^3/uL (1.8-7.7); Neutrophils % 43.6 %; Nucleated Red Blood Cells % 0 %; Platelet Count 409 10^3/cmm (130-400); Red Blood Count 4.64 10^6/uL (4.1-5.3); White Blood Count 8.3 10^3/uL (4.0-10.0)
[2022-01-21 14:33] LABS: Anion Gap 17.8 (5-19); Blood Urea Nitrogen 12 mg/dL (6-20); Calcium 9.7 mg/dL (8.5-10.5); Carbon Dioxide 28 mmol/L (22-29); Chloride 108 mmol/L (98-107); Glomerular Filtration Rate 132.8 mL/min (90-130); Glucose 107 mg/dL (65-115); Osmolality Calculated 310 mOsm/kg (285-295); Potassium 3.8 mmol/L (3.5-5.1); Sodium 150 mmol/L (136-145)
[2022-01-21 14:34] LABS: Troponin(5th) Baseline 6 ng/L (0-10)
--- NOTE | 2022-02-02 12:47 | DCPLANNER ---
mortgage operations manager had message to speak with patient about getting established with a primary care physician. mortgage operations manager unable to speak with patient or leave a voicemail at this time.
== END 2022-01-21 14:50 | disposition home or self-care (01) ==
PROVIDERS: Emergency Provider Emergency Medicine; PCP Family Medicine Adult Medicine
DX: S06.0X9A Concussion with loss of consciousness of unspecified duration, initial encounter (principal); S01.81XA Laceration without foreign body of other part of head, initial encounter; W19.XXXA Unspecified fall, initial encounter; F10.20 Alcohol dependence, uncomplicated
CPT/HCPCS: 12011; 70450; 70486; 72125; 80048; 84484; 85025; 90471; 90715; 93005; 99283

== ENCOUNTER → 2022-02-02 07:43 | Outpatient (BNVA) | payer MEDICAID, SELFPAY | PROVIDERS: PCP Family Medicine Adult Medicine; Visit Provider Nurse Practitioner Psychiatric/Mental Health | DX: F31.81 Bipolar II disorder (principal); F17.210 Nicotine dependence, cigarettes, uncomplicated; F10.20 Alcohol dependence, uncomplicated | CPT/HCPCS: 99214 ==

== ENCOUNTER 2022-02-28 15:17 | Emergency (ER) | payer MEDICAID, SELFPAY ==
[2022-02-28 15:46] VITALS: BP 107/76; PULSE 101; RESP 18; TEMP 37.3; O2SAT 98; BMI 17.9
--- NOTE | 2022-02-28 17:09 | ED_ITS ---
HPI - General Adult General: Chief complaint: General Medical Stated complaint: issue with left breast Time Seen by Provider: 02/28/22 16:02 History of Present Illness: 46-year-old female comes in today with an area of left breast tenderness. Patient reports that this episode started last week and she had taken a short course of cefadroxil that was prescribed by infectious disease Dr. Burton. Patient had ran out of the antibiotic last week and had recurrence of the tenderness in area of redness to the breast. Patient was unable to get a refill over the weekend due to the holiday. Patient was able to get it filled today and took 1 dose prior to coming to the ER. Patient has a history of recurrent cellulitis to the breast, alcohol use disorder, bipolar disorder. Patient had a biopsy of this breast in the past which showed chronic inflammation of the ducts of the breast, and cellulitis. Patient reports her last episode occurred about 6 months ago. Patient denies any nausea or vomiting. Patient reports a history of sepsis. Associated symptoms: Deny chest pain or dyspnea Review of Systems General: Reports: 10 or more systems reviewed and unremarkable except in HPI and below Const: Reports: fever(s) Card: Denies: chest pain Resp: Denies: dyspnea Skin/Breast: Reports: erythema PFSH ED PFSH: Medical History Abnormal mammogram of left breast Alcohol use disorder, severe, dependence Anxiety and depression Bipolar II disorder Mixed episodes with anxious distress Breast abscess Elevated ETOH level Elevated liver enzymes Gastroenteritis History of actinic keratosis History of psoriasis History of tibial fracture Left ankle pain Lumbar back sprain Neck and shoulder pain Nicotine dependence, cigarettes, uncomplicated Psychiatric care Surgical History Status post incision and drainage Family History Other CAD (coronary artery disease) Cancer Social History Smoking and tobacco status: never smoked Alcohol intake: current Alcohol intake frequency: 3 or more drinks per day Alcohol type: wine Current occupational status: unemployed and student History of recent travel: No Physical Exam Const: COMMON NORMALS: alert HENMT: COMMON NORMALS: atraumatic HEAD & SCALP: atraumatic Neck/C-Spine: COMMON NORMALS: full ROM Chest: BREAST/AXILLA PALPATION: Yes normal palpation of the axillae and Yes abnormal palpation of the breast (Urinalysis at the 2 o'clock position in the areola left breast) NIPPLE/AREOLA: Yes areola abnormal (1 cm nodule 2 o'clock position left breast) Areola abnormal details: tenderness Resp: COMMON NORMALS: normal respiratory effort Cardio: COMMON NORMALS: regular rate RATE: regular rate Extremity: COMMON NORMALS: normal to inspection Neuro: SENSORIUM/ORIENTATION: Yes alert Skin: GENERAL SKIN EXAM: erythema (3 cm area of redness to the left breast at the areola) Course 2 Vital Signs: Vital signs: Vital Signs Temperature 98 F 02/28/22 17:18 Pulse Rate 95 02/28/22 17:18 Respiratory Rate 16 02/28/22 17:18 Blood Pressure 107/76 02/28/22 15:46 Pulse Oximetry 97 02/28/22 17:18 MDM - General Adult Medical Decision Making Patient comes in today for concerns of redness to the left breast. Patient has a history of recurrent cellulitis to this breast. On exam abdomen soft nontender. Vital signs are normal. Patient does have a 3 cm area of erythema at the 2 o'clock position of the left breast, minimal induration, 1 cm nodule palpated. Differential diagnosis includes mastitis, cellulitis, occlusion of the breast duct. Patient had taken 1 dose of cefadroxil. We will go ahead and give 1 g of Rocephin IM. Patient is scheduled to follow-up with Dr. Yadav in the morning. I encourage patient use Tylenol and ibuprofen for pain and fever. No signs of serious illness was noted. Patient agreed with plan. Discharge Plan Discharge Patient Disposition: Home Clinical Impression: Mastitis, left, acute, Occlusion, breast duct Condition: Stable Prescriptions: No Action Otezla 30 mg tablet 30 mg PO BID 0RF cephalexin 750 mg capsule See Rx Instructions .ROUTE .COMPLEX Qty: 28 0RF Dose Instruction: TAKE 1 CAPSULE BY MOUTH TWICE DAILY FOR 14 DAYS Rx Instructions: TAKE 1 CAPSULE BY MOUTH TWICE DAILY FOR 14 DAYS Tylenol Ex Str Rapid Release 500 mg Tablet 1,000 mg PO Q6H PRN (Reason: Pain) 0RF Discharge Orders: Discharge ED (Routine); Ordered 02/28/22 Ordered By: Ran Diaz Referrals: Gavin Yadav MD [Primary Care Provider] - Discharge Diet: Usual diet Discharge Activity: Increase activity as tolerated Patient Instructions: Mastitis (ED) Activity Restrictions/Additional Instructions: Continue with antibiotic as directed. Drink plenty of water with antibiotic. Keep appointment with Dr. Yadav for tomorrow at 10:00. Use acetaminophen and ibuprofen for pain and fever. Return to ER for worsening symptoms. Coding Level of Care Code ED Estimator Lumber for Jazmyn Jc
[2022-02-28 17:18] VITALS: PULSE 95; RESP 16; TEMP 36.6; O2SAT 97
[2022-02-28] MEDS: cefTRIAXone 1,000 MG in lidocaine 1% 2.1 ML 2.1 MG IM (17:29)
[2022-02-28 17:40] VITALS: BP 97/69; PULSE 94; RESP 16; TEMP 36.6; O2SAT 98
== END 2022-02-28 17:41 | disposition home or self-care (01) ==
PROVIDERS: Emergency Provider Nurse Practitioner Family; PCP Family Medicine Adult Medicine
DX: N61.0 Mastitis without abscess (principal); N64.89 Other specified disorders of breast
CPT/HCPCS: 96372; 99283; J0696

== ENCOUNTER → 2022-03-08 07:23 | Outpatient (BNVA) | payer MEDICAID, SELFPAY | PROVIDERS: PCP Family Medicine Adult Medicine; Visit Provider Nurse Practitioner Psychiatric/Mental Health | DX: F31.81 Bipolar II disorder (principal); F17.210 Nicotine dependence, cigarettes, uncomplicated; F10.20 Alcohol dependence, uncomplicated | CPT/HCPCS: 99214 ==

== ENCOUNTER → 2022-03-21 09:27 | Outpatient (BNVA) | payer MEDICAID, SELFPAY | PROVIDERS: PCP Family Medicine Adult Medicine; Visit Provider Surgery | DX: N61.0 Mastitis without abscess (principal); N60.19 Diffuse cystic mastopathy of unspecified breast | CPT/HCPCS: 99213 ==

== ENCOUNTER → 2022-04-12 07:22 | Outpatient (BNVA) | payer MEDICAID, SELFPAY | PROVIDERS: PCP Family Medicine Adult Medicine; Visit Provider Nurse Practitioner Psychiatric/Mental Health | DX: F31.81 Bipolar II disorder (principal); F10.20 Alcohol dependence, uncomplicated; F17.210 Nicotine dependence, cigarettes, uncomplicated | CPT/HCPCS: 99214 ==

== ENCOUNTER 2022-04-20 10:06 | Outpatient (CLI) | payer MEDICAID, SELFPAY ==
--- NOTE | 2022-04-20 10:31 | US_ITS ---
WS: [email or web address] ULTRASOUND BREAST LEFT TECHNIQUE: Ultrasound left breast focused area of concern. CLINICAL INFORMATION: breast infection COMPARISON: October 27, 2021 FINDINGS: Ultrasound LEFT breast at the 2:00 position 1 cm from the nipple in the area of concern. There is a s mall sliver of fluid in the area of concern just deep to the skin. This does not appear drainable. Sm all amount of internal debris. Small fluid collection measures 2.0 x 0.1 x 1.3 CM. US/US breast LT limited* [id number] IMPRESSION: Small sliver of subcutaneous fluid just deep to the skin in the area of concern measuring 2.0 x 0.1 x 1.3 cm. This does not appear drainable. Recommend interval follow-up after antibiotic treatment to ensure resolution an d exclude developing abscess.
--- NOTE | 2022-04-20 10:31 | MM_ITS ---
WS: [email or web address] VIEWS: MLO, CC, and ML views both breasts. 3D digital tomosynthesis is also included in this exam. Comparison made with prior exam of 12/27/2016, 02/19/2018, 11/17/2020, 10/27/2021,. Findings: There was no sign of mass, architectural distortion or suspicious calcification in either breast. Sc attered fibroglandular densities MM/[place] [id number] Impression: BI-RADS: 2-Benign FOLLOW-UP: 1 Year Follow-up This mammogram was also analyzed by the Computer Aided Detection System R2 Imag e Oil Dispatcher.
== END 2022-04-20 10:07 | disposition home or self-care (01) ==
PROVIDERS: PCP Family Medicine Adult Medicine; Visit Provider Surgery
DX: N61.0 Mastitis without abscess (principal)
CPT/HCPCS: 76642; 77062

== ENCOUNTER → 2022-05-31 07:44 | Outpatient (BNVA) | payer MEDICAID, SELFPAY | PROVIDERS: PCP Family Medicine Adult Medicine; Visit Provider Specialist | DX: G56.03 Carpal tunnel syndrome, bilateral upper limbs (principal) | CPT/HCPCS: 95910; 95912 ==

== ENCOUNTER 2022-07-14 12:37 | Observation (INO) | payer MEDICAID, SELFPAY ==
[2022-07-14] VITALS (39 sets, daily range): BP systolic 88–141; BP diastolic 56–97; PULSE 80–121; RESP 12–28; TEMP 36.5–36.9; O2SAT 92–100
--- NOTE | 2022-07-14 13:00 | PC.NURSE ---
PT PLACED ON CONTINUOUS NIBP, SPO2, AND CM
[2022-07-14 13:07] LABS: Glucose Point of Care 95 mg/dL (70-110)
--- NOTE | 2022-07-14 13:08 | CT_ITS ---
WS: [id number] CT HEAD NONCONTRAST HISTORY: ams TECHNIQUE: Contiguous axial imaging performed through the brain in 2.5 mm imaging. Bone and soft tiss ue windows. Sagittal and coronal reformats reviewed. All CT scans at [facility] use at least one of these dose optimization techniques: automated exposure control; mA and/or kV adjustment per pa tient size (includes targeted exams where dose is matched to clinical indication); or iterative recon struction. DLP: 731.78 mGy.cm COMPARISON: 10/31/2017 and 01/21/2021 No acute intracranial hemorrhage, midline shift or mass effect. Very mild atrophy and small vessel ischemic disease. No interval change. Ventricles: Normal size with no hydrocephalus. Paranasal sinuses: As visualized are clear. Mastoid air cells: Well pneumatized. Calvarium and scalp: Skull is intact with no soft tissue edema or swelling. CT/CT head wo con* [id number] IMPRESSION: Stable noncontrast head CT. No acute intracranial hemorrhage or edema.
--- NOTE | 2022-07-14 13:08 | XR_ITS ---
WS: [id number] Exam: XR chest 1V portable [id number] Date/Time of Exam: 07/14/2022 1:22 PM Reason For Exam: ams Comparison 07/14/2020. The lungs are clear and hyperinflated. Normal cardiomediastinal silhouette. No pleural effusions. Mod erate-sized hiatal hernia noted. Bony structures are intact. Old single right rib fracture noted. XR/XR chest 1V portable [id number] IMPRESSION: 1. No acute cardiopulmonary finding. Pulmonary hyperinflation. 2. Moderate size hiatal hernia.
[2022-07-14] MEDS: midazolam 1 mg/mL INJ 2 mL 2 MG IVP (13:31)
[2022-07-14] MEDS: sodium chloride 0.9% 1,000 ML 999 ML IV ×2 (13:41→22:26)
[2022-07-14 13:49] LABS: Basophils # 0.1 10^3/uL (0.0-0.1); Basophils % 1.3 %; Eosinophils # 0.2 10^3/uL (0.0-0.8); Eosinophils % 2.2 %; Hematocrit 41.4 % (37.0-47.0); Hemoglobin 13.7 g/dL (11.5-15.3); Lymphocytes # 1.6 10^3/uL (0.8-4.8); Lymphocytes % 23.7 %; Mean Corpuscular HGB Conc 33.1 g/dL (30.0-36.0); Mean Corpuscular Hemoglobin 31.8 pg (28.0-34.0); Mean Corpuscular Volume 96.1 fl (81-99); Mean Platelet Volume 10.2 fL (7.4-10.4); Monocytes # 0.6 10^3/uL (0.2-0.9); Monocytes % 9.1 %; Neutrophils % 63.6 %; Nucleated Red Blood Cells % 0 %; Platelet Count 246 10^3/cmm (130-400); Red Blood Count 4.31 10^6/uL (4.1-5.3); Red Cell Distribution Width 11.2 % (12.1-15.1); White Blood Count 6.9 10^3/uL (4.0-10.0)
--- NOTE | 2022-07-14 13:51 | PC.NURSE ---
PT FAMILY STATES SHE STARTED ACTING DIFFERENT AT ABOUT 9:00 THIS MORNING. STATES PT HAD A FALL AND HIT HER HEAD ON THE DRESSER. STATES PT IS A RECOVERING ALCOHOLIC. PT HAS GARBLED AND SLURRED SPEECH WITH FLIGHT OF IDEAS. PT IS ABLE TO STATE PLACE BUT CANNOT STATE MONTH OR YEAR. STATES PT HAS BEEN ON MANY DIFFERENT MEDICATIONS FROM [facility] THROUGHOUT THE PAST FEW MONTHS.
--- NOTE | 2022-07-14 13:51 | PC.NURSE ---
ORDER FOR 500MG THIAMINE VERIFIED WITH DR. MCKEON
--- NOTE | 2022-07-14 13:59 | W.ED.GENADLT ---
HPI - General Adult General: Chief complaint: Altered Mental Status Stated complaint: AMS Time Seen by Provider: 07/14/22 13:07 History of Present Illness: Patient is a 47-year-old female with a history of prior alcohol abuse, bipolar 2 disorder, anxiety who presents emergency room acute onset altered mental status, auditory hallucination and visual hallucinations since 9:00am. Patient was seen normal this morning by family. However shortly around 9:00 patient became confused and altered. Patient was yelling incoherent statements since stating that she is hearing voices and seeing things. Family became concerned and patient was brought to the emergency room. On arrival, patient is agitated and moving all extremities. Patient required 4 mg of IM Versed for sedation to calm down. Patient continues to have pressured speech. Rest of history limited. Per family, patient has not had any recent alcohol intake. Family does not think patient acutely OD on any medicine. Per medication reconciliation, patient has had multiple buprenorphine scripts filled recently on 06/20, 06/27, 07/11, and 07/12. Family denies any cough, fever, runny nose, sore throat, chest pain, shortness rectal abdominal pain, diarrhea melena or hematochezia. Patient also denies any complaints recently from the patient. Onset: 9am Duration:ongoing Location:home Severity:moderate/severe Associated symptoms: Deny chest pain, dyspnea, nausea, rash, palpitations or vomiting Review of Systems Const: Denies: fever(s) or chills Eyes: Denies: change in vision ENMT: Denies: mouth pain Card: Denies: chest pain or palpitations Resp: Denies: dyspnea or non-productive cough GI: Denies: abdominal pain, nausea, vomiting or diarrhea : Denies: dysuria Musc: Denies: extremity pain Skin/Breast: Denies: rash or new lesions Neuro: Reports: other (+altered mental status, confusion) Psych: Reports: mood swings, visual hallucinations and auditory hallucinations Israel/Lymph: Denies: easy bruising PFSH ED PFSH: Medical History Abnormal mammogram of left breast Alcohol use disorder, severe, dependence Anxiety and depression Bipolar II disorder Mixed episodes with anxious distress Breast abscess Cellulitis of left breast Elevated ETOH level Elevated liver enzymes Gastroenteritis History of actinic keratosis History of psoriasis History of tibial fracture Left ankle pain Lumbar back sprain Neck and shoulder pain Psychiatric care Upper and lower extremity pain Surgical History Status post incision and drainage Family History Other CAD (coronary artery disease) Cancer Social History Smoking and tobacco status: never smoked Alcohol intake: current Alcohol intake frequency: 3 or more drinks per day Alcohol type: wine Current occupational status: unemployed and student History of recent travel: No Physical Exam Const: COMMON NORMALS: alert HENMT: COMMON NORMALS: atraumatic HEAD & SCALP: atraumatic MOUTH: moist mucous membranes not abnormal Eye: COMMON NORMALS: EOMs intact bilaterally and conjunctivae normal CONJUNCTIVA: Yes conjunctivae normal OTHER: +nystagmus b/l Neck/C-Spine: COMMON NORMALS: full ROM and supple Resp: COMMON NORMALS: normal respiratory effort and clear to auscultation bilaterally AUSCULTATION: clear to auscultation bilaterally Cardio: RATE: tachycardic GI: COMMON NORMALS: Soft to palpation and non-tender PALPATION: Yes Soft to palpation OTHER: No focal TTP. NO guarding rebound, guarding, rigidity. No CVA tenderness to percussion. Neg Parker/Neg McBurney's point tenderness, no suprabupic tenderness to palpation. Extremity: COMMON NORMALS: full ROM OTHER: +No clonus in extremities +No rigidity with passive range of motion in all extremities Neuro: SENSORIUM/ORIENTATION: Yes alert OTHER: + Moving all extremities, sensation intact in all extremities, patient is unable to follow command, intermittent blurting and yelling, patient is agitated, neuro exam limited Psych: MOOD & AFFECT: Yes irritable and Yes Labile affect present Course Vital Signs: Vital signs: Vital Signs Temperature 98.5 F 07/14/22 12:53 Pulse Rate 115 H 07/14/22 12:53 Respiratory Rate 16 07/14/22 12:53 Blood Pressure 137/91 07/14/22 12:53 Pulse Oximetry 100 07/14/22 12:53 Oxygen Delivery Me thod 07/14/22 12:53 [facility] - General Adult Medical Decision Making Patient is a 47-year-old female with a history of prior alcohol abuse, bipolar 2 disorder, anxiety who presents emergency room acute onset altered mental status, auditory hallucination and visual hallucinations since 9:00am. Physical exam, patient is noted be tachycardic to the low 100s. Patient is also found to have bilateral nystagmus. Patient has no signs of lipid rigidity or clonus in the lower extremity. Patient does not appear to be flushed. Patient received IM Versed and shortly after became more cooperative and calm. Patient continues to have intermittent episodes of yelling and agitation. Patient reports hearing voices and seeing things. CT head is negative for any acute finding. Rest of labs unremarkable. Salicylate 1.3 today. EKG did not show any signs of sodium channel blockade QTC prolongation, or QRS widening. CT head is clear. Patient received vancomycin, cefepime and acyclovir. Patient has had multiple ibuprofen refills this month but I suspect that the patient may have bupropion toxicity. Patient does not exhibit acute seizure hypotension currently. At the present time, I have considered herpes encephalitis for auditory hallucination. However at this time, symptoms as well as recent medication changes are likely medication related. We will continue patient on acyclovir. Per discussion with Dr. House, he will order MRI tomorrow for further evaluation of temporal lobe enhancement. In addition, I discussed it with Dr. Donohue who recommended observing patient under medicine team first prior to transfer patient to the inpatient psych unit. Disposition: admission Lab Data : 07/14/22 13:42 07/14/22 13:42 Radiology Impressions Chest X-Ray 07/14/22 13:08 IMPRESSION: 1. No acute cardiopulmonary finding. Pulmonary hyperinflation. 2. Moderate size hiatal hernia. Head CT 07/14/22 13:08 IMPRESSION: Stable noncontrast head CT. No acute intracranial hemorrhage or edema. Laboratory Results WBC 6.9 10^3/uL (4.0-10.0) 07/14/22 13:42 RBC 4.31 10^6/uL (4.1-5.3) 07/14/22 13:42 Hgb 13.7 g/dL (11.5-15.3) 07/14/22 13:42 Hct 41.4 % (37.0-47.0) 07/14/22 13:42 MCV 96.1 fl (81-99) 07/14/22 13:42 MCH 31.8 pg (28.0-34.0) 07/14/22 13:42 MCHC 33.1 g/dL (30.0-36.0) 07/14/22 13:42 RDW 11.2 % (12.1-15.1) L 07/14/22 13:42 Plt Count 246 10^3/cmm (130-400) 07/14/22 13:42 MPV 10.2 fL (7.4-10.4) 07/14/22 13:42 Neut % (Auto) 63.6 % 07/14/22 13:42 Lymph % (Auto) 23.7 % 07/14/22 13:42 Sandoval % (Auto) 9.1 % 07/14/22 13:42 Eos % (Auto) 2.2 % 07/14/22 13:42 Baso % (Auto) 1.3 % 07/14/22 13:42 Neut # (Auto) 4.40 10^3/uL (1.8-7.7) 07/14/22 13:42 Lymph # (Auto) 1.6 10^3/uL (0.8-4.8) 07/14/22 13:42 Sandoval # (Auto) 0.6 10^3/uL (0.2-0.9) 07/14/22 13:42 Eos # (Auto) 0.2 10^3/uL (0.0-0.8) 07/14/22 13:42 Baso # (Auto) 0.1 10^3/uL (0.0-0.1) 07/14/22 13:42 Nucleated RBC % (auto) 0 % 07/14/22 13:42 Nucleated RBCs # 0.0 /100WBC 07/14/22 13:42 Sodium 135 mmol/L (136-145) L 07/14/22 13:42 Potassium 4.0 mmol/L (3.5-5.1) 07/14/22 13:42 Chloride 99 mmol/L (98-107) 07/14/22 13:42 Carbon Dioxide 25 mmol/L (22-29) 07/14/22 13:42 Anion Gap 15.0 (5-19) 07/14/22 13:42 BUN 10 mg/dL (6-20) 07/14/22 13:42 Creatinine 0.7 mg/dL (0.5-0.9) 07/14/22 13:42 GFR Calculation 89.7 mL/min (90-130) L 07/14/22 13:42 Glucose 84 mg/dL (65-115) 07/14/22 13:42 POC Glucose 95 mg/dL (70-110) 07/14/22 13:04 Calculated Osmolality 278 mOsm/kg (285-295) L 07/14/22 13:42 Lactate 0.9 mmol/L (0.5-2.2) 07/14/22 13:42 Calcium 10.2 mg/dL (8.5-10.5) 07/14/22 13:42 Total Bilirubin 0.4 mg/dL (0.15-1.2) 07/14/22 13:42 AST 44 U/L (0-32) H 07/14/22 13:42 ALT 58 U/L (0-33) H 07/14/22 13:42 Alkaline Phosphatase 108 U/L (35-105) H 07/14/22 13:42 Troponin T Baseline 6 ng/L (0-10) 07/14/22 13:42 Total Protein 6.9 g/dL (6.6-8.7) 07/14/22 13:42 Albumin 4.3 g/dL (3.5-5.2) 07/14/22 13:42 Globulin 2.6 g/dL (1.3-4.6) 07/14/22 13:42 Lipase 21 U/L (13-60) 07/14/22 13:42 TSH 1.98 uIU/mL (0.27-4.20) 07/14/22 13:42 Free T4 1.08 ng/dL (0.82-1.77) 07/14/22 13:42 HCG, Qual Negative (Negative) 07/14/22 13:42 Salicylates 1.3 mg/dL (3-10) L 07/14/22 13:42 Acetaminophen < 5.0 ug/mL (10-30) L 07/14/22 13:42 Imaging Data Other Imaging: Radiologist's impression: [address] [address] [address] Scan Report Signed Patient: Kalpana Godwin Unit #: [id number] : 1975 Age/Sex: 47 / F ADM Date: 07/14/22 Loc: ER Room/Bed: Attending Dr: Ordering Provider/Ordering MD: Mary Dejesus MD Date of Service: 07/14/22 Procedure(s): CT head wo con* [id number] Accession Number(s): [id number] Report Number: [id number] WS: [id number] CT HEAD NONCONTRAST HISTORY: ams TECHNIQUE: Contiguous axial imaging performed through the brain in 2.5 mm imaging. Bone and soft tissue windows. Sagittal and coronal reformats reviewed.? All CT scans at [facility] use at least one of these dose optimization techniques: automated exposure control; mA and/or kV adjustment per patient size (includes targeted exams where dose is matched to clinical indication); or iterative reconstruction. DLP: 731.78 mGy.cm COMPARISON: 10/31/2017 and 01/21/2021 No acute intracranial hemorrhage, midline shift or mass effect. Very mild atrophy and small vessel ischemic disease. No interval change. Ventricles:? Normal size with no hydrocephalus. Paranasal sinuses: As visualized are clear. Mastoid air cells: Well pneumatized. Calvarium and scalp: Skull is intact with no soft tissue edema or swelling. CT/CT head wo con* [id number] IMPRESSION: ? Stable noncontrast head CT. No acute intracranial hemorrhage or edema. ? Dictated By: Karla Chapman DO Signed By: Karla Chapman DO Signed Date/Time: 07/14/22 1430 DD/ 1419 [facility] [address] [facility] [place] [address] XRay Report Signed Patient: Kalpana Godwin Unit #: [id number] : 1975 Age/Sex: 47 / F ADM Date: 07/14/22 Loc: ER Room/Bed: Attending Dr: Ordering Provider/Ordering MD: Mary Dejesus MD Date of Service: 07/14/22 Procedure(s): XR chest 1V portable [id number] Accession Number(s): [id number] Report Number: [id number] WS: [id number] Exam: XR chest 1V portable [id number] Date/Time of Exam: 07/14/2022 1:22 PM Reason For Exam: ams Comparison 07/14/2020. The lungs are clear and hyperinflated. Normal cardiomediastinal silhouette. No pleural effusions. Moderate-sized hiatal hernia noted. Bony structures are intact. Old single right rib fracture noted. XR/XR chest 1V portable [id number] IMPRESSION: 1. No acute cardiopulmonary finding. Pulmonary hyperinflation. 2. Moderate size hiatal hernia. ? Dictated By: Mitch Duran DO Signed By: Mitch Duran DO Signed Date/Time: 07/14/221427 DD/ 25 Discharge Plan Discharge Patient Disposition: Admitted As Inpatient Admit Provider: Alex Patterson Clinical Impression: Altered mental status, Auditory hallucinations, Hallucination, visual Condition: Stable Coding Level of Care Code ED Group Director for Chg Fwd Exam Comprehensive
[2022-07-14 14:02] LABS: HCG, Serum Qual Negative (Negative)
[2022-07-14 14:07] LABS: Lactate (Lactic Acid level) 0.9 mmol/L (0.5-2.2)
[2022-07-14 14:16] LABS: Troponin(5th) Baseline 6 ng/L (0-10)
[2022-07-14 14:26] LABS: Alanine Aminotransferase 58 U/L (0-33); Albumin Level 4.3 g/dL (3.5-5.2); Alkaline Phosphatase 108 U/L (35-105); Aspartate Amino Transferase 44 U/L (0-32); Blood Urea Nitrogen 10 mg/dL (6-20); Calcium 10.2 mg/dL (8.5-10.5); Carbon Dioxide 25 mmol/L (22-29); Chloride 99 mmol/L (98-107); Free T4 Free Thyroxine 1.08 ng/dL (0.82-1.77); Globulin 2.6 g/dL (1.3-4.6); Glomerular Filtration Rate 89.7 mL/min (90-130); Glucose 84 mg/dL (65-115); Lipase 21 U/L (13-60); Osmolality Calculated 278 mOsm/kg (285-295); Salicylate 1.3 mg/dL (3-10); Sodium 135 mmol/L (136-145); Thyroid Stimulating Hormone 1.98 uIU/mL (0.27-4.20); Total Bilirubin 0.4 mg/dL (0.15-1.2); Total Protein 6.9 g/dL (6.6-8.7)
[2022-07-14 14:27] LABS: Acetaminophen < 5.0 ug/mL (10-30)
--- NOTE | 2022-07-14 14:29 | ECG_ITS ---
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 Measurements Intervals [place] Rate: 102 P: 47 MI: 179 QRS: -1 QRSD: 82 T: -4 QT: 339 QTc: 442 Interpretive Statements SINUS TACHYCARDIA LOW QRS VOLTAGE IN PRECORDIAL LEADS [QRS DEFLECTION < 1.0 mV IN CHEST LEADS] PROBABLE ANTERIOR MYOCARDIAL INFARCTION , PROBABLY OLD [35 ms Q WAVE IN V3/V4] INFERIOR MYOCARDIAL INFARCTION , OF INDETERMINATE AGE [40+ ms Q WAVE AND/OR ST/T ABNORMALITY IN II/aVF] Compared to ECG 01/21/2022 11:54:05 Myocardial infarct finding now present Sinus rhythm no longer present Electronically Signed On 07-15-2022 15:36:42 CDT by Charla Meyer M.D. [id number]
[2022-07-14] MEDS: acyclovir 1,000 MG in sodium chloride 0.9% (100 ml) 100 ML 120 MG IV (14:45)
--- NOTE | 2022-07-14 14:50 | PC.PHAR ---
PT AND FAMILY UNABLE TO VERIFY WHAT MEDICATIONS LAST TAKEN AND WHEN- CONTACTED PT PHARMACY [facility] [place] TO VERIFY LAST FILLED AND PICKED UP- PT PRESCRIBED BUPROPION XL 300MG 30DS 07/12/22, BUPROPION SR 150MG 30DS 07/11/22, BUPROPION XL 150MG 30DS 06/27/22 AND BUPROPION SR 200MG BID(WAS CLOSED OUT/ CANCELLED BUT ALREADY PICKED UP BY PT) 30DS 06/20/22 ALL HAVE BEEN FILLED AND PICKED UP ACCORDING TO MIKAYLA MOORE AT [facility] IN [place] -
[2022-07-14] MEDS: cefepime 1,000 MG in sodium chloride 0.9% (plus) 50 ML 100 MG IV (15:51)
[2022-07-14] MEDS: vancomycin 1,000 MG in sodium chloride 0.9% 250 ML 250 MG IV (16:36)
[2022-07-14 16:40] LABS: Alcohol Level < 10 mg/dL (0-10)
[2022-07-14 16:43] LABS: Troponin 5 2HR Delta 0 ABS# (0-10)
--- NOTE | 2022-07-14 16:50 | P.HP_ITS ---
Providers/Chief Complaint Admitting Physician: Alex Patterson Primary Care Provider: Gavin Yadav MD Chief Complaint: AMS History of Present Illness 47-year-old lady with history of anxiety, bipolar disorder, remote history of alcohol use disorder, has not drinking alcohol for 8 months, for past 7 months on naltrexone, he is also on Wellbutrin and 1 more medication she cannot recall. Her Wellbutrin dose has recently been changed several times. She has been having somewhat more anxiety recently, like while at the dentist had had felt very anxious felt like she could not swallow and felt it was due to a panic attack. She otherwise has been doing well, and woke up well this morning, then around 9:00 became confused, restless, anxious, difficulty expressing herself. Reportedly having auditory and visual hallucinations. In ER she required Versed to help her settle down. CT of the head without acute change. Chest x-ray with moderate sized hiatal hernia, pulmonary hyperinflation. She is noted with sinus tachycardia. Afebrile, without leukocytosis. Received a bolus of fluid. Received empirically cefepime, vancomycin, acyclovir empirically. She is currently awake and alert, answers brief questions without trouble, but when starts speaking in longer sentences has some difficulty expressing herself, speaks quickly, also with intermittent abnormal spontaneous movements with jerks or getting up in bed. Denies pain or discomfort. Denies headache. Has had no fever or chills. Denies any rashes recently. Denies history of herpes, also corroborated by her mother who had arrived at her bedside. She appears to try to tell me that she may have taken 1 extra of her medications but does not remember which one. She denies any depression recently, denies any attempt of self-harm, corroborated by her mother. She denies any recreational drug use, and has not had any relapse with alcohol. Did not have hallucination during my interview but at one point during interview she jerked her leg away and screamed out because she thought that the string on the side of her pants was a worm. Review of Systems 2 Const: Reports: other (Jittery, restless, sometimes spontaneous jerky m ovements); Denies: fever(s), chills, body aches or malaise Eyes: Denies: change in vision, eye discomfort or eye redness ENMT: Denies: throat pain, oral sores or ear or mastoid pain Card: Denies: chest pain, edema, pre-syncope or dyspnea on exertion Resp: Denies: dyspnea, productive cough, change in phlegm color or hemoptysis GI: Denies: abdominal pain, nausea, vomiting, diarrhea, constipation, hematochezia or melena : Denies: flank pain, urinary frequency or hematuria Musc: Denies: back pain, joint swelling or joint redness Skin/Breast: Denies: rash or new lesions Neuro: Reports: lack of coordination, confusion, behavioral changes, difficulty communicating thoughts and involuntary movements; Denies: headache(s), numbness in extremities, weakness in extremities, dizziness or seizure-like activity Psych: Reports: anxiety, visual hallucinations and auditory hallucinations; Denies: suicidal ideation Endo: Denies: polyuria or polydipsia Israel/Lymph: Denies: easy bleeding or tender lymph nodes All/Imm: Denies: urticaria or tongue swelling Medications/Allergies Home Medications Medication Instructions Recorded Confirmed Last Taken Type gabapentin 300 mg capsule 300 mg PO TID neuropathy #90 caps 07/07/22 07/14/22 Unknown Rx naltrexone 50 mg tablet 50 mg PO .morning #30 tabs 07/08/22 07/14/22 Unknown Rx bupropion HCl 300 mg 24 hr tablet, 300 mg PO QAM #30 tabs 07/12/22 07/14/22 Unknown Rx extended release (Wellbutrin XL) bupropion HCl 150 mg 24 hr tablet, 150 mg PO DAILY 07/14/22 07/14/22 Unknown History extended release bupropion HCl 150 mg tablet,12 hr 150 mg PO DAILY 07/14/22 07/14/22 Unknown His tory sustained-release bupropion HCl 200 mg tablet,12 hr 200 mg PO BID 07/14/22 07/14/22 Unknown History sustained-release diclofenac potassium 50 mg tablet 50 mg PO BID 07/14/22 07/14/22 Unknown History fluoxetine 20 mg capsule 20 mg PO DAILY 07/14/22 07/14/22 Unknown History hydroxyzine HCl 25 mg tablet 25 mg PO BID PRN Anxiety 07/14/22 07/14/22 Unknown History Allergies Allergy/AdvReac Type Severity Reaction Status Date / Time No Known Allergies Allergy Verified 07/14/22 14:29 PFSH Acute PFSH: Medical History Abnormal mammogram of left breast Alcohol use disorder, severe, dependence Anxiety and depression Bipolar II disorder Mixed episodes with anxious distress Breast abscess Cellulitis of left breast Elevated ETOH level Elevated liver enzymes Gastroenteritis History of actinic keratosis History of psoriasis History of tibial fracture Left ankle pain Lumbar back sprain Neck and shoulder pain Psychiatric care Upper and lower extremity pain Surgical History Status post incision and drainage Family History Other CAD (coronary artery disease) Cancer Social History Smoking and tobacco status: never smoked Alcohol intake: current Alcohol intake frequency: 3 or more drinks per day Alcohol type: wine Current occupational status: unemployed and student History of recent travel: No Vitals/I&O/Wt Last Vital Signs Temp 98.5 F 07/14/22 12:53 Pulse 115 H 07/14/22 12:53 Resp 16 07/14/22 12:53 BP 137/91 07/14/22 12:53 Pulse Ox 100 07/14/22 12:53 O2 Del Method 07/14/22 12:53 07/14/22 07/14/22 07/14/22 06:59 14:59 22:59 Intake Total 120 / 120 Balance 120 / 120 Physical Exam Const: COMMON NORMALS: patient oriented x3 and alert GENERAL APPEARANCE: cooperative ORIENTATION/CONSCIOUSNESS: Yes awake HENMT: COMMON NORMALS: oropharynx normal Neck/C-Spine: COMMON NORMALS: no JVD Resp: COMMON NORMALS: normal respiratory effort and clear to auscultation bilaterally AUSCULTATION: clear to auscultation bilaterally Cardio: COMMON NORMALS: no JVD, regular rhythm, S1 normal heart sound present, S2 normal heart sound present and No murmurs present (Cardio) RHYTHM: regular rhythm HEART SOUNDS: S1 normal heart sound present and S2 normal heart sound present GI: COMMON NORMALS: Normal to inspection, nondistended, normoactive bowel sounds present, Soft to palpation and non-tender PALPATION: Yes Soft to palpation Extremity: COMMON NORMALS: no joint enlargement and no pedal edema Neuro: COMMON NORMALS: patient oriented x3 and moves all extremities SENSORIUM/ORIENTATION: Yes alert MENINGEAL SIGNS: Yes no meningeal signs SPEECH: abnormal speech and receptive aphasia MOTOR EXAM: Pronator motor function not present OTHER: She is awake alert, following directions. Oriented x3. Myoclonus, ataxia. Mild dysmetria on FNF. Some bilateral horizontal nystagmus. Visual anderson full to confrontation. Skin: COMMON NORMALS: no rashes or lesions noted GENERAL SKIN EXAM: no rashes or lesions noted Data : 07/14/22 13:42 07/14/22 13:42 Micro: Microbiology 07/14/22 14:25 Blood Culture - Preliminary Blood SPECIMEN COLLECTED 07/14/22 14:22 Blood Culture - Preliminary Blood SPECIMEN COLLECTED A&P Assessment and plan (1) Acute encephalopathy: Acute encephalopathy, not entirely clear cause at this time, with acute changes in behavior, anxiety, hallucinations, ataxia, some involuntary jerky movements/asterixis. Cause could be metabolic encephalopathy or toxic encephalopathy secondary to her medications. Does not appear to have acute inf ection at this time, however, cannot entirely exclude herpes encephalopathy, but does not appear to have any headache, no fever, no leukocytosis, no history of herpes, no recent rashes. Most likely less likely herpes encephalopathy. Does not appear to have other focal abnormalities, CVA probably less likely. Possibly secondary to Wellbutrin with recent medication dose changes. She has previously been on naltrexone for 7 months without issues. Is also on another medication she does not remember, possibly fluoxetine on her medication list. Hold antidepressants for now. For now continue empiric antibiotic, antiviral. We will additionally assess with MRI of the brain. Consideration of lumbar puncture. Telemetry monitoring. Follow-up CK. If no other explanation, otherwise possibly secondary to psychiatric illness, although does have other likely causes as above. For now clear liquid, bedside swallow evaluation, ST evaluation. Status: Acute (2) Altered mental status: Status: Acute (3) Hallucination, visual: Status: Acute (4) Auditory hallucinations: Status: Acute (5) Ataxia: Status: Acute (6) Aphasia: Status: Acute Attestations Medical Necessity Statement*: Place in observation for additional assessment of management of acute encephalopathy, psychosis of unclear etiology. 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
[2022-07-14] MEDS: cefTRIAXone 2,000 MG in sodium chloride 0.9% (plus) 50 ML 100 MG IV (18:21)
[2022-07-14 21:11] LABS: Add Urine Microscopic? NO; Charge for UA Resulting for Rev
[2022-07-14 21:12] LABS: Bilirubin Urine Neg (Negative); Blood Urine Neg (Negative); Glucose Urine UA Norm (Normal); Ketones Urine Negative (Negative); Leukocyte Esterase Urine Negative (Negative); Nitrate Urine Negative (Negative); Protein Urine Neg (Negative); Specific Gravity, Urine 1.015 (1.005-1.030); Urine Appearance Clear (CLEAR); Urine Color Yellow (Yellow); Urobilinogen Urine Norm (Negative); pH Urine 6.5 (5-7)
[2022-07-14 21:21] LABS: Amphetamines Screen Urine Negative (Negative); Barbiturates Screen Urine Negative (Negative); Benzodiazepines Screen Urine Negative (Negative); Cocaine Screen Urine Negative (Negative); Opiate Screen Urine Negative (Negative); PCP Screen Urine Negative (Negative); THC Screen Urine Negative (Negative)
[2022-07-15] VITALS (56 sets, daily range): BP systolic 77–131; BP diastolic 51–91; PULSE 76–104; RESP 13–29; TEMP 36.8–37.1; O2SAT 92–99
[2022-07-15 03:24] LABS: Basophils # 0.1 10^3/uL (0.0-0.1); Basophils % 1.5 %; Eosinophils # 0.2 10^3/uL (0.0-0.8); Eosinophils % 3.2 %; Hematocrit 40.3 % (37.0-47.0); Hemoglobin 13.3 g/dL (11.5-15.3); Lymphocytes # 2.1 10^3/uL (0.8-4.8); Mean Corpuscular Hemoglobin 32.1 pg (28.0-34.0); Mean Corpuscular Volume 97.3 fl (81-99); Mean Platelet Volume 10.7 fL (7.4-10.4); Monocytes # 0.8 10^3/uL (0.2-0.9); Monocytes % 13.5 %; Neutrophils # 2.81 10^3/uL (1.8-7.7); Neutrophils % 46.8 %; Nucleated Red Blood Cells % 0 %; Platelet Count 243 10^3/cmm (130-400); Red Blood Count 4.14 10^6/uL (4.1-5.3); Red Cell Distribution Width 11.5 % (12.1-15.1)
[2022-07-15 03:43] LABS: Alanine Aminotransferase 42 U/L (0-33); Albumin Level 3.6 g/dL (3.5-5.2); Alkaline Phosphatase 98 U/L (35-105); Anion Gap 11.9 (5-19); Aspartate Amino Transferase 39 U/L (0-32); Blood Urea Nitrogen 9 mg/dL (6-20); Calcium 8.9 mg/dL (8.5-10.5); Carbon Dioxide 28 mmol/L (22-29); Chloride 108 mmol/L (98-107); Creatine Phosphokinase 79 U/L (26-192); Globulin 2.3 g/dL (1.3-4.6); Glomerular Filtration Rate 107.2 mL/min (90-130); Glucose 87 mg/dL (65-115); Magnesium 1.7 mg/dL (1.7-2.3); Osmolality Calculated 296 mOsm/kg (285-295); Potassium 3.9 mmol/L (3.5-5.1); Sodium 144 mmol/L (136-145); Total Bilirubin 0.2 mg/dL (0.15-1.2); Total Protein 5.9 g/dL (6.6-8.7)
[2022-07-15] MEDS: cefTRIAXone 2,000 MG in sodium chloride 0.9% (plus) 50 ML 100 MG IV (05:59)
[2022-07-15] MEDS: vancomycin 750 MG in sodium chloride 0.9% 250 ML 250 MG IV (05:59)
--- NOTE | 2022-07-15 08:00 | MR_ITS ---
WS: [id number] MRI BRAIN WITHOUT CONTRAST HISTORY: aphasia COMPARISON: Noncontrast head CT 07/14/2022 TECHNIQUE: Diffusion imaging, multiplanar T1, T2 and FLAIR imaging obtained. No evidence for acute infarct or hemorrhage. Miramontes-white matter differentiation is normal. No remote or acute infarcts are volume loss. Ventricles and extra-axial spaces are normal. No inferior displacement of cerebellar tonsils. The sella turcica and pituitary gland are unremarkabl e. Dural venous sinuses and [place] of [place] demonstrate no abnormality on this unenhanced studies. Paranasal sinuses: Very tiny amount of mucus in the RIGHT maxillary sinus. Mastoid air cells: No effusions. Calvarium and scalp: Intact. MR/MR head wo con* [id number] IMPRESSION: 1. Unremarkable noncontrast MRI brain. 2. No signal abnormalities or acute infarcts.
--- NOTE | 2022-07-15 10:22 | PC.CHAP ---
Pastoral Care Encounter/Spiritual Assessment Type of Contact [] Declined asphalt blender visit [] Patient/Family/Request visit [] Outpatient visit [] Follow-up visit [] Physician referral [] Code/Alert [x] Routine visit [] Staff referral [] Actively dying [x] Patient sleeping [] Family support [] [] Out of room [] Palliative care [] [] Receiving care in room [] Pre-surgical visit [] Trauma [] Long length of stay [x] ICU visit [] Other: Relational/Emotional Strength [] Patient feels connected with others/family/visitors/staff [] Distress [] Loneliness/isolation [] Abandonment Spirituality of Patient [] Person of [place] [] Attends Latter-[employer] of their [place] [] Believes in Prayer [] Reads Bible or Christian materials [] There are Spiritual issues to be addressed Medical Technicians Interventions [x] Prayer [] Active listening [] Non-anxious presence [] Spiritual/emotional support [] Crisis/trauma care [] Spiritual counseling [] Bereavement support [] Provided bereavement packet [] Provided Bible/devotional materials [] Provided toy/stuffed animal, coloring book to patient or family member [] Provided Communion [] Anointing/[place] [] Salvation [x] Completed spiritual assessment [] Other: Impact on Illness or Injury [] Angry [] Fearful [] Anxious [] Often cries [] Exhaustion [] Unable to work [] Unable to attend mu-ism [] Unable to walk/stand [] Unable to read [] Unable to drive [] Unable to eat/drink [] Unable to sleep [] Unable to be with family [] Patient intubated [] Other: Summary Time spent with patient
--- NOTE | 2022-07-15 10:25 | PC.NURSE ---
to MRI with staff
--- NOTE | 2022-07-15 10:50 | PC.NURSE ---
back from MRI.
--- NOTE | 2022-07-15 12:40 | P.PN_ITS ---
Subjective Subjective: Overnight hypotensive, required fluid bolus, transiently required pressor support. Weaned off. This morning she is feeling better. She is having easier time communicating with aphasia now mild, tremors, jerky involuntary movements have resolved. He does not have any visual or auditory hallucinations. She again denies any recent depression or any thoughts of self- harm. Denies any recreational drug use. Does not recall if she may have taken extra medication, but would not have intended to. Reports recently her bupropion dose has changed a number of times. Vitals/I&O/Wt Last Vital Signs Temp 98.2 F 07/15/22 08:00 Pulse 89 07/15/22 12:00 Resp 29 H 07/15/22 12:00 BP 113/80 07/15/22 12:00 Pulse Ox 95 07/15/22 12:00 O2 Del Method 07/15/22 12:00 07/14/22 07/15/22 07/15/22 22:59 06:59 14:59 Intake Total 1470 / 1470 1091.884 / 2561.884 579.116 / 579.116 Output Total 250 / 250 1050 / 1300 Balance 1220 / 1220 41.884 / 1261.884 579.116 / 579.116 Weight last 48 hrs Weight 50.122 kg Physical Exam Const: COMMON NORMALS: patient oriented x3 and alert GENERAL APPEARANCE: cooperative ORIENTATION/CONSCIOUSNESS: Yes awake HENMT: COMMON NORMALS: oropharynx normal Neck/C-Spine: COMMON NORMALS: no meningeal signs and no JVD Resp: COMMON NORMALS: normal respiratory effort and clear to auscultation bilaterally AUSCULTATION: clear to auscultation bilaterally Cardio: COMMON NORMALS: no JVD, regular rhythm, S1 normal heart sound present, S2 normal heart sound present and No murmurs present (Cardio) RHYTHM: regular rhythm HEART SOUNDS: S1 normal heart sound present and S2 normal heart sound present GI: COMMON NORMALS: Normal to inspection, nondistended, normoactive bowel sounds present, Soft to palpation and non-tender PALPATION: Yes Soft to palpation Extremity: COMMON NORMALS: no joint enlargement and no pedal edema Neuro: COMMON NORMALS: patient oriented x3 and moves all extremities SENSORIUM/ORIENTATION: Yes alert MENINGEAL SIGNS: Yes no meningeal signs SPEECH: abnormal speech and receptive aphasia MOTOR EXAM: Pronator motor function not present OTHER: She is awake alert, following directions. Oriented x3. Myoclonus, ataxia. Mild dysmetria on FNF. Some bilateral horizontal nystagmus. Visual anderson full to confrontation. Skin: COMMON NORMALS: no rashes or lesions noted GENERAL SKIN EXAM: no rashes or lesions noted Data : 07/15/22 02:43 07/15/22 02:43 Micro: Microbiology 07/14/22 14:25 Blood Culture - Preliminary Blood SPECIMEN COLLECTED 07/14/22 14:22 Blood Culture - Preliminary Blood SPECIMEN COLLECTED A&P Assessment and plan (1) Acute encephalopathy: Overnight she was hypotensive. Today she is doing much better, with hypotension improved, mostly resolution of involuntary movements, asterixis, ataxia, improvement in ability to communicate, with aphasia now mild. Has no headache, has remained afebrile, without leukocytosis. MRI obtained without suggestion of temporal lobe edema. Suspect bupropion toxicity likely with autonomic symptoms also with hypotension, had sinus tachycardia on presentation which now also has resolved. CK normal. Mild transaminitis improving. Will hold off on further acyclovir, stop antibiotics, will monitor condition. Monitor blood pressure. Due to hypotension overnight hold off on gabapentin for now. We will restart her naltrexone. Appreciate psychiatry assistance with timing and dose of resumption of her other medications. Status: Acute (2) Hypotension: Overnight required bolus, transient support with Levophed. Weaned off. Blood pressures doing better. Bupropion on hold. Hold off on restarting gabapentin for now. Status: Acute (3) Altered mental status: Status: Acute (4) Hallucination, visual: Status: Acute (5) Auditory hallucinations: Status: Acute (6) Ataxia: Status: Acute (7) Aphasia: Status: Acute Attestations Medical Necessity Statement*: Continue observation for reassessment after episode of hypotension, after acute encephalopathy which is gradually improving likely secondary to medication toxicity. Coding Level of Care Code Acute Collaborating Supervising Physician for Jazmyn Jc Diagnoses Acute encephalopathy G93.40 Hypotension I95.9 Altered mental status R41.82 Hallucination, visual R44.1 Auditory hallucinations R44.0 Ataxia R27.0 Aphasia R47.01
[2022-07-15] MEDS: acetaminophen 325 mg Tablet 650 MG PO (13:53)
--- NOTE | 2022-07-15 15:20 | PC.NURSE ---
report given to Med surg floor. will transfer pt to [facility] unit via wheelchair.
--- NOTE | 2022-07-15 15:32 | PC.NURSE ---
pt transferred to [facility] via wheelchair
--- NOTE | 2022-07-15 18:37 | W.PM.NPUH&PS ---
Providers/Chief Complaint Admitting Physician: Alex Patterson Primary Care Provider: Gavin Yadav MD Chief Complaint: AMS HPI NPU History of Present Illness Kalpana Godwin is a 47 year old female with a past history of bipolar 2 disorder and alcohol dependence recently seen behavioral health clinic on 07/08/2022 for a follow-up medication visit. Patient had been admitted to the ICU after having auditory and visual hallucinations that appear to occur approximately at 9 AM with increased confusion and restlessness some evidence of aphasia. She was seen in the ICU today and appeared much more conversant and alert and had stated that she did not recall the auditory or visual hallucinations but reports that she had been concerned by what others have told her regarding her hospitalization here. She reports no use of alcohol in over 8 months. She had reported that she had not taken any new medications inappropriately other than some reports that she may have taken an additional Wellbutrin. She denied any interview any thoughts of hurting herself or others. She did not endorse any auditory or visual hallucinations. She had reported a history of psoriasis and states that she had been prescribed Otezla but had recently discontinued that approximately 1 week ago. She is also acknowledged having continue to take naltrexone for treating cravings and withdrawal symptoms associated with alcohol. Past psychiatric Hx: inpatient hospitalization x1 at [facility] outpatient treatment: [facility] in [place]-alcohol dependence and bipolar2 disorder. Medications: Gabapentin,Naltrexone, Wellbutrin XL, Hydroxyzine. Med hx: psoriasis, carpal tunnel, Allergies: nkda Meds NPU Home Medications Medication Instructions Recorded Confirmed Last Taken Type gabapentin 300 mg capsule 300 mg PO TID neuropathy #90 caps 07/07/22 07/14/22 Unknown Rx naltrexone 50 mg tablet 50 mg PO .morning #30 tabs 07/08/22 07/14/22 Unknown Rx bupropion HCl 300 mg 24 hr tablet, 300 mg PO QAM #30 tabs 07/12/22 07/14/22 Unknown Rx extended release (Wellbutrin XL) bupropion HCl 150 mg 24 hr tablet, 150 mg PO DAILY 07/14/22 07/14/22 Unknown History extended release bupropion HCl 150 mg tablet,12 hr 150 mg PO DAILY 07/14/22 07/14/22 Unknown History sustained-release bupropion HCl 200 mg tablet,12 hr 200 mg PO BID 07/14/22 07/14/22 Unknown History sustained-release diclofenac potassium 50 mg tablet 50 mg PO BID 07/14/22 07/14/22 Unknown History fluoxetine 20 mg capsule 20 mg PO DAILY 07/14/22 07/14/22 Unknown History hydroxyzine HCl 25 mg tablet 25 mg PO BID PRN Anxiety 07/14/22 07/14/22 Unknown History Allergies Allergy/AdvReac Type Severity Reaction Status Date / Time No Known Allergies Allergy Verified 07/14/22 14:29 PFSH NPU PFSH: Medical History (Updated 07/15/22 @ 13:38 by Gavin Yadav MD) Abnormal mammogram of left breast Alcohol use disorder, severe, dependence Alterations of sensations Anxiety and depression Bipolar II disorder Mixed episodes with anxious distress Breast abscess Cellulitis of left breast Elevated ETOH level Elevated liver enzymes Gastroenteritis History of actinic keratosis History of psoriasis History of tibial fracture Left ankle pain Lumbar back sprain Neck and shoulder pain Psychiatric care Upper and lower extremity pain Surgical History Status post incision and drainage Family History Other CAD (coronary artery disease) Cancer Social History Smoking and tobacco status: never smoked Alcohol intake: current Alcohol intake frequency: 3 or more drinks per day Alcohol type: wine Current occupational status: unemployed and student History of recent travel: No Mental Status Exam MSE Comments: She is a casually dressed white female who appeared pleasant and cooperative on interview. She was alert and oriented to person place time and situation. She appeared in no acute distress. She did not appear to be responding to internal stimuli. Her mood was described as good. Her affect appeared bright and mood congruent her insight appeared fair judgment appeared fair impulse control appeared adequate she denied any homicidal or suicidal ideation. Vitals/I&O/Wt Last Vital Signs Temp 98.2 F 07/15/22 16:00 Pulse 87 07/15/22 16:00 Resp 16 07/15/22 16:00 BP 102/70 07/15/22 16:00 Pulse Ox 97 07/15/22 16:00 O2 Del Method Trach Collar 07/15/22 16:00 07/15/22 07/15/22 07/15/22 06:59 14:59 22:59 Intake Total 1091.884 / 2561.884 579.116 / 579.116 240 / 819.116 Output Total 1050 / 1300 Balance 41.884 / 1261.884 579.116 / 579.116 240 / 819.116 Weight last 48 hrs Weight 50.122 kg Data NPU : 07/15/22 02:43 07/15/22 02:43 Micro: Microbiology 07/14/22 14:25 Blood Culture - Preliminary Blood NEGATIVE TO DATE 07/14/22 14:22 Blood Culture - Preliminary Blood NEGATIVE TO DATE Microbiology 07/14/22 14:25 Blood Blood Culture - Preliminary NEGATIVE TO DATE 07/14/22 14:22 Blood Blood Culture - Preliminary NEGATIVE TO DATE A&P Assessment and plan (1) Alterations of sensations: Status: Acute (2) Aphasia: Status: Acute (3) Acute encephalopathy: Status: Acute (4) Bipolar II disorder: Status: Suspected (5) Alcohol use disorder, severe, dependence: Status: Chronic Plan Kalpana is a 47-year-old white female with alcohol dependence and bipolar 2 disorder who appeared to have altered mental status leading to presence of auditory hallucinations. She appears to be much better today, I will recommend restarting Prozac at 20mg in am, and wellbutrin xl 150mg in am and see patient tommorow. Involuntary Hold Information 96 Hour Hold: 96 Hour Involuntary Admission: Yes 96 Hour Hold Ending Date: 10/21/20 96 Hour Hold Ending Time: 20:42 Attestations NPU Medical Necessity Statement*: defer Coding Level of Care Code New Pt Acute Cotton Machine Operator for Chg Fwd Patient Type New History Problem Focused Exam Problem Focused Medical Decision Making Straight Forward Diagnoses Alterations of sensations R20.9 Aphasia R47.01 Acute encephalopathy G93.40 Bipolar II disorder F31.81 Alcohol use disorder, severe, dependence F10.20
[2022-07-16] VITALS: BP 97/63; PULSE 76; RESP 17; TEMP 36.7; O2SAT 96
[2022-07-16 04:00] VITALS: BP 101/68; PULSE 101; RESP 19; TEMP 36.7; O2SAT 96
[2022-07-16 04:29] LABS: Basophils # 0.1 10^3/uL (0.0-0.1); Eosinophils # 0.2 10^3/uL (0.0-0.8); Eosinophils % 3.2 %; Hematocrit 41.8 % (37.0-47.0); Lymphocytes # 2.2 10^3/uL (0.8-4.8); Lymphocytes % 35.8 %; Mean Corpuscular HGB Conc 33.5 g/dL (30.0-36.0); Mean Corpuscular Hemoglobin 31.5 pg (28.0-34.0); Mean Corpuscular Volume 94.1 fl (81-99); Mean Platelet Volume 10.2 fL (7.4-10.4); Monocytes # 0.6 10^3/uL (0.2-0.9); Monocytes % 9.6 %; Neutrophils # 3.13 10^3/uL (1.8-7.7); Neutrophils % 50.2 %; Nucleated Red Blood Cells % 0 %; Platelet Count 228 10^3/cmm (130-400); Red Blood Count 4.44 10^6/uL (4.1-5.3); Red Cell Distribution Width 11.3 % (12.1-15.1); White Blood Count 6.2 10^3/uL (4.0-10.0)
[2022-07-16 04:45] LABS: Vancomycin Trough < 4.0 ug/mL (10-15)
[2022-07-16 04:48] LABS: Alanine Aminotransferase 50 U/L (0-33); Albumin Level 4.3 g/dL (3.5-5.2); Alkaline Phosphatase 105 U/L (35-105); Anion Gap 14.1 (5-19); Aspartate Amino Transferase 33 U/L (0-32); Blood Urea Nitrogen 16 mg/dL (6-20); Calcium 9.5 mg/dL (8.5-10.5); Carbon Dioxide 25 mmol/L (22-29); Chloride 104 mmol/L (98-107); Globulin 2.4 g/dL (1.3-4.6); Glomerular Filtration Rate 107.2 mL/min (90-130); Glucose 91 mg/dL (65-115); Osmolality Calculated 289 mOsm/kg (285-295); Potassium 4.1 mmol/L (3.5-5.1); Sodium 139 mmol/L (136-145); Total Bilirubin 0.2 mg/dL (0.15-1.2); Total Protein 6.7 g/dL (6.6-8.7)
[2022-07-16 07:48] VITALS: BP 107/63; PULSE 83; RESP 15; TEMP 36.6; O2SAT 97
[2022-07-16] MEDS: naltrexone hcl 50 mg Tablet PO (08:01)
[2022-07-16 11:32] VITALS: BP 100/58; PULSE 111; RESP 15; TEMP 36.6; O2SAT 95
--- NOTE | 2022-07-16 12:28 | W.PM.NPUPNS ---
Subjective NPU Subjective: Patient is a 47 old white female with alcohol dependence currently in remission for greater than 8 months along with a history of bipolar 2 disorder admitted to the ICU for altered mental status with a rule out of acute encephalopathy currently on the med surge floor. The patient today reported feeling ready to go home. She denied any auditory or visual hallucinations. She reports being uncertain as to whether she may have taken an extra pill but could not identify which pill it was. She did corroborate the information that I had read in the chart that it indicated that the patient had not been taking her Prozac on a previous virtual visit with her nurse just 1 week ago. She reports that she has been compliant with her gabapentin and states that it has been helpful for her anxiety and pain. She reported no insomnia last night. She was agreeable to following up with her outpatient psychiatrist next week. Mental Status Exam MSE Comments: She is a casually dressed white female who appeared pleasant and cooperative on interview. She was alert and oriented to person place time and situation. She appeared in no acute distress. She did not appear to be responding to internal stimuli. No evidence of delusional thinking. Her mood was described as good. Her affect appeared bright and mood congruent. her insight appeared fair judgment appeared fair. impulse control appeared adequate. she denied any homicidal or suicidal ideation. Vitals/I&O/Wt Last Vital Signs Temp 97.8 F 07/16/22 11:32 Pulse 111 H 07/16/22 11:32 Resp 15 07/16/22 11:32 BP 100/58 07/16/22 11:32 Pulse Ox 95 07/16/22 11:32 O2 Del Method 07/16/22 11:32 07/15/22 07/16/22 07/16/22 22:59 06:59 14:59 Intake Total 600 / 1179.116 950 / 2129.116 240 / 240 Balance 600 / 1179.116 950 / 2129.116 240 / 240 Weight last 48 hrs Weight 50.122 kg Data NPU : 07/16/22 04:02 07/16/22 04:02 Micro: Microbiology 07/14/22 14:25 Blood Culture - Preliminary Blood NEGATIVE TO DATE 07/14/22 14:22 Blood Culture - Preliminary Blood NEGATIVE TO DATE Microbiology 07/14/22 14:25 Blood Blood Culture - Preliminary NEGATIVE TO DATE 07/14/22 14:22 Blood Blood Culture - Preliminary NEGATIVE TO DATE A&P Assessment and plan (1) Alterations of sensations: Status: Acute (2) Aphasia: Status: Acute (3) Acute encephalopathy: Status: Acute (4) Bipolar II disorder: Status: Suspected (5) Alcohol use disorder, severe, dependence: Status: Chronic Plan Kalpana is a 47-year-old white female with alcohol dependence and bipolar 2 disorder who appeared to have altered mental status leading to presence of auditory hallucinations. She appears back to baseline and will follow up with [facility] this week. Previous visit last week showed that Prozac was discontinued but the dose of wellbutrin per chart or patient was uncertain and I would cautiously recommend continuing that at Wellbutrin 150mg xr in am on discharge. I informed patient not to take fluoxetine at home. Involuntary Hold Information 96 Hour Hold: 96 Hour Involuntary Admission: Yes 96 Hour Hold Ending Date: 10/21/20 96 Hour Hold Ending Time: 20:42 Attestations NPU Medical Necessity Statement*: d/c today Coding Level of Care Code Established Pt Acute Corncob Pipe Manufacturing Supervisor for Jazmyn Jc Patient Type Established History Problem Focused Exam Problem Focused Medical Decision Making Straight Forward Diagnoses Alterations of sensations R20.9 Aphasia R47.01 Acute encephalopathy G93.40 Bipolar II disorder F31.81 Alcohol use disorder, severe, dependence F10.20
[2022-07-16 13:15] VITALS: BP 100/58; PULSE 111; RESP 15; TEMP 36.6; O2SAT 95
--- NOTE | 2022-07-16 13:25 | PM.DCS ---
Discharge Providers Date of Admission: 07/14/22 15:56 Date of Discharge: July 16, 2022 Attending Provider at Admission: Alex Patterson Attending Provider at Discharge: Alex Patterson Primary Care Provider: Gavin aYdav MD Diagnoses at Discharge Discharge Diagnosis (1) Alterations of sensations: Status: Acute (2) Aphasia: Status: Acute (3) Acute encephalopathy: Status: Acute (4) Bipolar II disorder: Status: Suspected Permanent problem details: Mixed episodes with anxious distress (5) Alcohol use disorder, severe, dependence: Status: Chronic Reason for Visit Reason for Visit: AMS Brief History: 47-year-old lady with history of anxiety, bipolar disorder, remote history of alcohol use disorder, has not drinking alcohol for 8 months, for past 7 months on naltrexone, he is also on Wellbutrin and 1 more medication she cannot recall.? Her Wellbutrin dose has recently been changed several times.? Gabapentin dose was recently increased as well. She has been having somewhat more anxiety recently, like while at the dentist had had felt very anxious felt like she could not swallow and felt it was due to a panic attack.? She otherwise has been doing well, and woke up well morning of admission, then after about 9:00 became confused, restless, anxious, difficulty expressing herself.? Reportedly having auditory and visual hallucinations.? In ER she required Versed to help her settle down.? CT of the head without acute change.? Chest x-ray with moderate sized hiatal hernia, pulmonary hyperinflation.? She is noted with sinus tachycardia.? Afebrile, without leukocytosis.? Received a bolus of fluid.? Received empirically cefepime, vancomycin, acyclovir empirically.? She was awake and alert, no trouble giving one-word answers, oriented x3, but when starts speaking in longer sentences head moderate to severe aphasia, speaks quickly, also with intermittent abnormal spontaneous movements with jerks or getting up in bed.? Denies pain or discomfort.? Denies headache.? Has had no fever or chills.? Denies any rashes recently.? Denies history of herpes, also corroborated by her mother who had arrived at her bedside. Noted sinus tachycardia on exam. She appears to try to tell me that she may have taken 1 extra of her medications but does not remember which one.? She has denied any depression recently, denies any attempt of self-harm, corroborated by her mother.? She denies any recreational drug use, and has not had any relapse with alcohol. Hospital Course Hospital Course She was additionally monitored initially in intensive care unit, with noted episode of hypotension overnight after admission, required bolus, transient pressor support, suspected autonomic instability, without recurrence of hypotension. States that her blood pressure normally runs also on the softer side. Uses gabapentin initially was withheld, and currently dose is decreased down to 200 mg twice daily. Has remained afebrile, without leukocytosis, and her symptoms were noted significantly improved by the morning of 07/15 empiric antibiotics were discontinued. She also underwent assessment by noncontrast MRI of the brain which was unremarkable, with history and imaging not suggestive of herpes encephalitis Acyclovir was discontinued as well. Mild transaminitis is improving. It is still not entirely clear what the transient confusion, and suspected metabolic encephalopathy was from, however, likely it was secondary to bupropion toxicity dose of which has been changed several times recently. Today she is feeling well, she is awake, alert, oriented x3, lucid, without any noted aphasia, with resolution of ataxia, asterixis, etc. She has been resumed on naltrexone which she has been taking uneventfully for the past 7 months. Appreciate also recommendations from psychiatry with regards to her other medications, with recommendation currently to cautiously continue bupropion on the reduced dose at 150 mg daily, and not to take fluoxetine. She is otherwise feeling well, and feels ready to return home. Please reassess her at the next visit, reassess again for any residual or recurrent symptoms. In case of recurrent events, would discontinue Wellbutrin. In case of recurrent events despite being off Wellbutrin would seek further evaluation for other causes, consider referral to neurology as well. Continue follow-up with [facility] [place]. Please reassess for resolution of transaminitis. Physical Exam Const: COMMON NORMALS: patient oriented x3 and alert GENERAL APPEARANCE: cooperative ORIENTATION/CONSCIOUSNESS: Yes awake HENMT: COMMON NORMALS: oropharynx normal Neck/C-Spine: COMMON NORMALS: no meningeal signs and no JVD Resp: COMMON NORMALS: normal respiratory effort and clear to auscultation bilaterally AUSCULTATION: clear to auscultation bilaterally Cardio: COMMON NORMALS: no JVD, regular rhythm, S1 normal heart sound present, S2 normal heart sound present and No murmurs present (Cardio) RHYTHM: regular rhythm HEART SOUNDS: S1 normal heart sound present and S2 normal heart sound present GI: COMMON NORMALS: Normal to inspection, nondistended, normoactive bowel sounds present, Soft to palpation and non-tender PALPATION: Yes Soft to palpation Extremity: COMMON NORMALS: no joint enlargement and no pedal edema Neuro: COMMON NORMALS: patient oriented x3 and moves all extremities SENSORIUM/ORIENTATION: Yes alert MENINGEAL SIGNS: Yes no meningeal signs SPEECH: abnormal speech and receptive aphasia MOTOR EXAM: Pronator motor function not present OTHER: She is awake alert, following directions. Oriented x3. Myoclonus, ataxia resolved. Mild dysmetria resolved. Horizontal nystagmus resolved. Skin: COMMON NORMALS: no rashes or lesions noted GENERAL SKIN EXAM: no rashes or lesions noted Discharge Data Studies Completed and Pending Completed Studies During Hospitalization Category Date Time Status CT head wo con* [id number] Stat Cat Scan 07/14/22 13:08 Completed XR chest 1V portable [id number] Stat Exams 07/14/22 13:08 Completed MR head wo con* [id number] Routine MRI 07/15/22 08:00 Completed Pending at discharge Category Date Time Status Blood Culture Stat Lab 07/14/22 14:25 Results Complete Blood Count w/Auto AM LABS Lab 07/17/22 04:00 Ordered Complete Blood Count w/Auto AM LABS Lab 07/18/22 04:00 Ordered Comprehensive Metabolic Panel AM LABS Lab 07/17/22 04:00 Ordered Comprehensive Metabolic Panel AM LABS Lab 07/18/22 04:00 Ordered Radiology Impressions Chest X-Ray 07/14/22 13:08 IMPRESSION: 1. No acute cardiopulmonary finding. Pulmonary hyperinflation. 2. Moderate size hiatal hernia. Head CT 07/14/22 13:08 IMPRESSION: Stable noncontrast head CT. No acute intracranial hemorrhage or edema. Head MRI 07/15/22 08:00 IMPRESSION: 1. Unremarkable noncontrast MRI brain. 2. No signal abnormalities or acute infarcts. Laboratory Results WBC 6.2 10^3/uL (4.0-10.0) 07/16/22 04:02 RBC 4.44 10^6/uL (4.1-5.3) 07/16/22 04:02 Hgb 14.0 g/dL (11.5-15.3) 07/16/22 04:02 Hct 41.8 % (37.0-47.0) 07/16/22 04:02 MCV 94.1 fl (81-99) 07/16/22 04:02 MCH 31.5 pg (28.0-34.0) 07/16/22 04:02 MCHC 33.5 g/dL (30.0-36.0) 07/16/22 04:02 RDW 11.3 % (12.1-15.1) L 07/16/22 04:02 Plt Count 228 10^3/cmm (130-400) 07/16/22 04:02 MPV 10.2 fL (7.4-10.4) 07/16/22 04:02 Neut % (Auto) 50.2 % 07/16/22 04:02 Lymph % (Auto) 35.8 % 07/16/22 04:02 [place] % (Auto) 9.6 % 07/16/22 04:02 Eos % (Auto) 3.2 % 07/16/22 04:02 Baso % (Auto) 1.0 % 07/16/22 04:02 Neut # (Auto) 3.13 10^3/uL (1.8-7.7) 07/16/22 04:02 Lymph # (Auto) 2.2 10^3/uL (0.8-4.8) 07/16/22 04:02 [place] # (Auto) 0.6 10^3/uL (0.2-0.9) 07/16/22 04:02 Eos # (Auto) 0.2 10^3/uL (0.0-0.8) 07/16/22 04:02 Baso # (Auto) 0.1 10^3/uL (0.0-0.1) 07/16/22 04:02 Nucleated RBC % (auto) 0 % 07/16/22 04:02 Nucleated RBCs # 0.0 /100WBC 07/16/22 04:02 Sodium 139 mmol/L (136-145) 07/16/22 04:02 Potassium 4.1 mmol/L (3.5-5.1) 07/16/22 04:02 Chloride 104 mmol/L (98-107) 07/16/22 04:02 Carbon Dioxide 25 mmol/L (22-29) 07/16/22 04:02 Anion Gap 14.1 (5-19) 07/16/22 04:02 BUN 16 mg/dL (6-20) 07/16/22 04:02 Creatinine 0.6 mg/dL (0.5-0.9) 07/16/22 04:02 GFR Calculation 107.2 mL/min (90-130) 07/16/22 04:02 Glucose 91 mg/dL (65-115) 07/16/22 04:02 POC Glucose 95 mg/dL (70-110) 07/14/22 13:04 Calculated Osmolality 289 mOsm/kg (285-295) 07/16/22 04:02 Lactate 0.9 mmol/L (0.5-2.2) 07/14/22 13:42 Calcium 9.5 mg/dL (8.5-10.5) 07/16/22 04:02 Magnesium 1.7 mg/dL (1.7-2.3) 07/15/22 02:43 Total Bilirubin 0.2 mg/dL (0.15-1.2) 07/16/22 04:02 AST 33 U/L (0-32) H 07/16/22 04:02 ALT 50 U/L (0-33) H 07/16/22 04:02 Alkaline Phosphatase 105 U/L (35-105) 07/16/22 04:02 Creatine Kinase 79 U/L (26-192) 07/15/22 02:43 Troponin T Baseline 6 ng/L (0-10) 07/14/22 13:42 Troponin T 120 Minute 6.00 ng/L (0-10) 07/14/22 15:51 Delta Troponin T 0 ABS# (0-10) 07/14/22 15:51 Total Protein 6.7 g/dL (6.6-8.7) 07/16/22 04:02 Albumin 4.3 g/dL (3.5-5.2) 07/16/22 04:02 Globulin 2.4 g/dL (1.3-4.6) 07/16/22 04:02 Lipase 21 U/L (13-60) 07/14/22 13:42 TSH 1.98 uIU/mL (0.27-4.20) 07/14/22 13:42 Free T4 1.08 ng/dL (0.82-1.77) 07/14/22 13:42 HCG, Qual Negative (Negative) 07/14/22 13:42 Urine Color Yellow (Yellow) 07/14/22 16:08 Urine Appearance Clear (CLEAR) 07/14/22 16:08 Urine pH 6.5 (5-7) 07/14/22 16:08 Ur Specific [place] 1.015 (1.005-1.030) 07/14/22 16:08 Urine Protein Neg (Negative) 07/14/22 16:08 Urine Glucose (UA) Norm (Normal) 07/14/22 16:08 Urine Ketones Negative (Negative) 07/14/22 16:08 Urine Blood Neg (Negative) 07/14/22 16:08 Urine Nitrate Negative (Negative) 07/14/22 16:08 Urine Bilirubin Neg (Negative) 07/14/22 16:08 Urine Urobilinogen Norm mg/dL (Negative) 07/14/22 16:08 Ur Leukocyte Esterase Negative (Negative) 07/14/22 16:08 Vancomycin Trough < 4.0 ug/mL (10-15) L 07/16/22 04:02 Salicylates 1.3 mg/dL (3-10) L 07/14/22 13:42 Urine Opiates Screen Negative ng/mL (Negative) 07/14/22 16:08 Acetaminophen < 5.0 ug/mL (10-30) L 07/14/22 13:42 Ur Barbiturates Screen Negative ng/mL (Negative) 07/14/22 16:08 Ur Phencyclidine Scrn Negative ng/mL (Negative) 07/14/22 16:08 Ur Amphetamines Screen Negative ng/mL (Negative) 07/14/22 16:08 U Benzodiazepines Scrn Negative ng/mL (Negative) 07/14/22 16:08 Urine Cocaine Screen Negative ng/mL (Negative) 07/14/22 16:08 U Marijuana (THC) Screen Negative ng/mL (Negative) 07/14/22 16:08 Ethyl Alcohol < 10 mg/dL (0-10) 07/14/22 15:51 Vitals Last Vital Signs Temp 97.8 F 07/16/22 13:15 Pulse 111 H 07/16/22 13:15 Resp 15 07/16/22 13:15 BP 100/58 07/16/22 13:15 Pulse Ox 95 07/16/22 13:15 O2 Del Method 07/16/22 11:32 Discharge Plan Discharge Patient Disposition: Home Condition: Stable Prescriptions: New gabapentin 100 mg capsule 200 mg PO BID Qty: 180 0RF Continued naltrexone 50 mg tablet 50 mg PO .morning Qty: 30 3RF Rx Instructions: Take one tablet every morning diclofenac potassium 50 mg tablet 50 mg PO BID hydroxyzine HCl 25 mg tablet 25 mg PO BID PRN (Reason: Anxiety) bupropion HCl 150 mg tablet extended release 24 hr 150 mg PO DAILY Discontinued gabapentin 300 mg capsule 300 mg PO TID Qty: 90 3RF bupropion HCl [Wellbutrin XL] 300 mg tablet extended release 24 hr 300 mg PO QAM Qty: 30 1RF Rx Instructions: Take one tablet every morning bupropion HCl 150 mg tablet sustained-release 12 hr 150 mg PO DAILY fluoxetine 20 mg capsule 20 mg PO DAILY bupropion HCl 200 mg tablet sustained-release 12 hr 200 mg PO BID Discharge Orders: Discharge Order (Routine); Ordered 07/16/22 Ordered By: Alex Patterson Referrals: [facility] [place] [facility] [Provider Group] - 1 week (Please follow up with [facility] [place] within 1 week. Call Monday to schedule an appointment. ) Gavin Yadav MD [Primary Care Provider] - 4-7 days (Please call Monday to schedule a hospital follow up appointment with Dr. Yadav within 1 week. ) Discharge Activity: Increase activity as tolerated Patient Instructions: Bupropion (By mouth), Fluoxetine (By mouth), Gabapentin (By mouth), Hypotension (GEN) Activity Restrictions/Additional Instructions: Please discuss with your primary provider as well as your behavioral health provider regarding episode of altered mental status with confusion, fast heart rate, involuntary jerking movements, likely toxicity from Wellbutrin. Please decrease Wellbutrin dose as instructed. Please also discuss low blood pressure with your primary doctor, decrease gabapentin dose to 200 mg twice a day to avoid low blood pressure. Measure blood pressures twice a day, record values to bring to your appointment. Discharge Attestations Time Spent in Discharge Care*: greater than 30 min Quality Metrics Clinical Quality Measures [ No reported AMI, CVA or VTE this stay] Coding Level of Care Code Acute Chg FW DC note Diagnoses Alterations of sensations R20.9 Aphasia R47.01 Acute encephalopathy G93.40 Bipolar II disorder F31.81 Alcohol use disorder, severe, dependence F10.20
--- NOTE | 2022-07-16 13:35 | PC.NURSE ---
Pt discharge instructions reviewed, patient verbalizes understanding of follow up visits and medication administration per d/c education.
== END 2022-07-16 14:16 | disposition home or self-care (01) ==
LOC: ER 15:58 → ICU 16:34 → MEDSURG 07-15 15:35
PROVIDERS: Admitting Provider Internal Medicine; Emergency Provider Emergency Medicine; PCP Family Medicine Adult Medicine; Visit Provider Internal Medicine
DX: G93.40 Encephalopathy, unspecified (principal); R41.82 Altered mental status, unspecified; R20.9 Unspecified disturbances of skin sensation; R44.0 Auditory hallucinations; R44.1 Visual hallucinations; F31.81 Bipolar II disorder; R27.0 Ataxia, unspecified; R47.01 Aphasia; I95.9 Hypotension, unspecified; F10.20 Alcohol dependence, uncomplicated
CPT/HCPCS: 36415; 36416; 70450; 70551; 71045; 80053; 80202; 80306; 80307; 81003; 82550; 82962; 83605; 83690; 83735; 84439; 84443; 84484; 84703; 85025; 87040; 92523; 92610; 93005; 96365; 96367; 96375; 99285; G0378; J0133; J0692; J0696; J2250; J3370; J3411; J7030; J7050

== ENCOUNTER → 2022-07-20 13:58 | Outpatient (BNVA) | payer MEDICAID, SELFPAY | PROVIDERS: PCP Family Medicine Adult Medicine; Visit Provider Specialist | DX: G56.03 Carpal tunnel syndrome, bilateral upper limbs (principal) | CPT/HCPCS: 73110 ==

== ENCOUNTER 2022-08-05 09:11 | Day surgery (SDC) | payer MEDICAID, SELFPAY ==
[2022-08-04 12:16] VITALS: BMI 19.2
[2022-08-05 09:25] VITALS: BP 103/76; PULSE 82; RESP 18; TEMP 36.6; O2SAT 99
[2022-08-05] MEDS: acetaminophen 1,000 MG/100 ML PIGGYBACK 400 MG IV (09:45)
[2022-08-05] MEDS: CELEcoxib 200 mg Capsule 400 MG PO (10:02)
[2022-08-05] MEDS: sodium chloride 0.9% 1,000 ML 30 ML IV (10:02)
--- NOTE | 2022-08-05 10:13 | ANES.PREANE2 ---
Pre-Anesthetic Assessment Height/Weight: Height 1.57 m Weight 47.627 kg Temp Pulse Resp BP Pulse Ox O2 Del Method 97.8 F 82 18 103/76 99 08/05/22 09:25 08/05/22 09:25 08/05/22 09:25 08/05/22 09:25 08/05/22 09:25 08/05/22 09:26 Preop Diagnosis: Right carpal tunnel syndrome Operation Date: 08/05/22 10:50 Proposed Procedures p RIGHT CARPAL TUNNEL RELEASE [id number],G56.00(Right) - Emily Gutierrez MD Familial anesthetic complications: None Was Beta Mariann taken within 24 hours: N/A Was Clonidine taken within 24 hours: N/A Last intake: Intake Last Liquid Date 08/04/22 Last Liquid Time 19:00 Last Solid Date 08/04/22 Last Solid Time 19:00 Social No alcohol and No tobacco Exam alert, oriented x 3, clear to auscultation bilaterally and regular rate & rhythm Airway Mallampati: Class II Dentition: full Neuropsych Bipolar and Neuropathy Anesthetic Plan ASA status: 2 Anesthesia: General Risk of > 500 ml blood loss (7ml/kg in children): No Medications/Allergies Allergies Allergy/AdvReac Type Severity Reaction Status Date / Time No Known Allergies Allergy Verified 07/20/22 14:12 Current Medications Generic Name Dose Route Start Last Admin Trade Name Freq PRN Reason Stop Dose Admin Sodium Chloride 1,000 mls @ 30 mls/hr 08/05/22 09:30 08/05/22 10:02 Sodium Chloride 0.9% IV 08/06/22 09:29 30 mls/hr .Q24H NESS Administration PFSH Anesthesia Medical History Abnormal mammogram of left breast Alcohol use disorder, severe, dependence Alterations of sensations Anxiety and depression Bipolar II disorder Mixed episodes with anxious distress Breast abscess Cellulitis of left breast Elevated ETOH level Elevated liver enzymes Gastroenteritis History of actinic keratosis History of psoriasis History of tibial fracture Left ankle pain Lumbar back sprain Neck and shoulder pain Psychiatric care Upper and lower extremity pain Surgical History Status post incision and drainage Family History Other CAD (coronary artery disease) Cancer Social History Smoking and tobacco status: never smoked Alcohol intake: current Alcohol intake frequency: 3 or more drinks per day Alcohol type: wine Current occupational status: unemployed and student History of recent travel: No Data Anesthesia Cardiac Studies: No Data to Display
--- NOTE | 2022-08-05 11:52 | P.HPUD_ITS ---
Surgery/Procedure H&P Update DATE OF PROCEDURE: August 05, 2022 DATE H&P PERFORMED: 07/20/22 H&P UPDATE INFORMATION: I have reviewed H&P completed within last 30 days, I have examined patient prior to procedure, No changes to prior documentation and [place] [facility] [place] indicated PREOP DIAGNOSIS: Right carpal tunnel syndrome PLANNED PROCEDURE: Operation Date: 08/05/22 10:50 Proposed Procedures p RIGHT CARPAL TUNNEL RELEASE [id number],G56.00(Right) - Emily Gutierrez MD Related Problem List Diagnoses (1) Carpal tunnel syndrome on right:
[2022-08-05] MEDS: ceFAZolin 2,000 MG in sodium chloride 0.9% (plus) 50 ML 100 MG IV (11:57)
[2022-08-05 12:51] VITALS: BP 107/81; PULSE 72; RESP 10; TEMP 37; O2SAT 97
[2022-08-05 12:56] VITALS: BP 111/78; PULSE 76; RESP 19; O2SAT 98
[2022-08-05 13:04] VITALS: BP 106/86; PULSE 74; RESP 18; TEMP 37.1; O2SAT 96
--- NOTE | 2022-08-05 13:16 | P.OP_ITS ---
Operative Report Date of procedure: August 05, 2022 Pre-op diagnosis: Right carpal tunnel syndrome Post-op diagnosis: Right carpal tunnel syndrome Post-op findings: Very tight carpal canal with compression on the nerve. Procedure done: Right carpal tunnel release Implants: None Pathology: none sent Surgeon: Emily Gutierrez Steel Rule Inspector: None Anesthesia: General (With LMA, ASA 2) Estimated blood loss (mL): 2 Tourniquet time (min): 23 (At 225 mmHg) IV fluids (mL): 800 Urine output (mL): 0 (No Carrillo) Complications: None Findings: Carpal canal compression with significant fibrous tissue Condition: stable Disposition: PACU (Then to same-day surgery for discharge to home) Brief History: Kalpana Godwin is a 47 year old female patient who is here today for release of her right carpal canal secondary to carpal tunnel syndrome. She presented to my office with bilateral carpal tunnel syndrome documented by EMG nerve conduction studies. After discussion, she wished to proceed with carpal tunnel release beginning with the right wrist. Patient denies any previous treatments.? Patient denies use of anti-inflammatories.? Patient had a NCS/EMG with Dr. Shaffer on 05/31/22. Questions were answered and consents were signed preoperatively. Procedure: The patient was brought to the operating theater. The patient had general anesthesia per LMA, ASA 2. The tourniquet was elevated to 250 mmHg for a total tourniquet time of 23 minutes. The patient was also given Ancef 2 g preoperatively. The arm was then prepped and draped with DuraPrep in usual [facility] ion with the arm draped free. A surgical pause was performed. At the time, the surgical pause, we confirmed the site and side of surgery. We also confirmed the patient's identity, appropriate and timely administration of preoperative antibiotics and preoperative surgical markings. An incision was then made along the thenar crease. The incision crossed the wrist joint in a curvilinear fashion. Dissection continued through skin and soft tissues using a scalpel. The palmaris longus was identified along with the transverse carpal ligament. Each of these was released carefully to avoid injury to the median nerve. We were able to dissect gently into the carpal canal which was noted to be quite tight with significant compression across the median nerve. The nerve was visualized and was an hourglass shape.? Release of fibrous tissues within the canal was also accomplished.? The canal was subsequently palpated to assure there was no bony encroachment upon the canal.? The canal was then palpated distally and proximally to assure that my small finger was passed easily without impingement. Finding this to be so, attention was directed to closure. The wound was irrigated with ropivacaine plain. It was then closed with 3-0 nylon in an interrupted mattress fashion. Sterile dressing was then placed consisting of Dermabond, OpSite, fluffed fluffs, sterile soft roll, and an Fernando wrap. The tourniquet was released after 23 minutes. There were no complications. There were no specimens. The procedure was well tolerated. Plan is the patient will be discharged home. Related Problem List Diagnoses (1) Carpal tunnel syndrome on right:
[2022-08-05 13:17] VITALS: BP 109/83; PULSE 72; RESP 18; O2SAT 97
--- NOTE | 2022-08-05 13:39 | ANE.PACU2 ---
Inpatient post-anesthesia follow up: Airway intact: Yes Vital signs: Temperature 98.7 F Pulse Rate 72 Respiratory Rate 18 Blood Pressure 109/83 Pulse Oximetry 97 Oxygen Delivery Me thod Room Air Oxygen Flow Rate Fraction of Inspir ed Oxygen Hydration adequate: Yes Nausea and vomiting: No Pain level: 1 Mental status: Baseline
[2022-08-05 13:46] VITALS: BP 107/86; PULSE 76; RESP 18; TEMP 36.9; O2SAT 96
== END 2022-08-05 14:00 | disposition home or self-care (01) ==
PROVIDERS: PCP Family Medicine Adult Medicine; Visit Provider Specialist
PROC: (CPT 64721; principal; 2022-08-05 10:50)
DX: G56.01 Carpal tunnel syndrome, right upper limb (principal)
CPT/HCPCS: 64721; J1100; J2405; J2704; J3490; J7030

== ENCOUNTER 2022-09-09 15:56 | Outpatient (CLI) | payer MEDICAID, SELFPAY ==
--- NOTE | 2022-09-09 16:04 | US_ITS ---
WS: [id number] ULTRASOUND SOFT TISSUES RIGHT wrist. HISTORY: post op COMPARISON: None available. TECHNIQUE: 2-D and color Doppler imaging is submitted. Ultrasound is directed along the volar aspect of the wrist. No mass or fluid collection is identified . No os ultrasound abnormality. US/US soft tissue/extremity [id number] IMPRESSION: No ultrasound abnormality noted along the volar aspect of the RIGHT wrist.
== END 2022-09-09 15:57 | disposition home or self-care (01) ==
PROVIDERS: PCP Family Medicine Adult Medicine; Visit Provider Nurse Practitioner Family
DX: Z98.890 Other specified postprocedural states (principal)
CPT/HCPCS: 76882

== ENCOUNTER 2022-11-08 13:52 | Outpatient (CLI) | payer MEDICAID, SELFPAY ==
--- NOTE | 2022-11-08 13:45 | MR_ITS ---
WS: [id number] MRI RIGHT WRIST without CONTRAST. COMPARISON: Radiograph 07/20/2022 and ultrasound 09/09/2022 Multiplanar, multisequence imaging is performed without contrast. History: Carpal tunnel surgery 3-5 months ago. Quality of this examination is suboptimal due to difficulty positioning the patient. Only a few seque nces are adequate to evaluate the carpal tunnel. Intermediate signal within the median nerve proximal and into the carpal tunnel. There is fluid surro unding the median nerve consistent with an acute inflammatory process. The normal bowing of the flexo r retinaculum is lost. This may be the result of scarring from the recent surgery. There is a more fl attened concave appearance of the flexor retinaculum. Typically volar eventration of the carpal tunne l is seen after carpal tunnel surgery. Other than increased fluid surrounding the median nerve no add itional fluid in the carpal tunnel. IMPRESSION: 1. Very limited evaluation of the carpal tunnel due to difficulty positioning the patient and poor q uality MRI sequences. 2. Intermediate increased signal within the median nerve proximal and into the carpal tunnel with in creased fluid surrounding the nerve suggesting acute inflammatory process/pneumonitis. 3. Soft tissue scarring and no significant volar eventration of the carpal tunnel which is typically seen after carpal tunnel surgery. Mild entrapment with compression of the median nerve should be con sidered.
== END 2022-11-08 13:53 | disposition home or self-care (01) ==
LOC: RAD 13:53
PROVIDERS: PCP Family Medicine Adult Medicine; Visit Provider Specialist
DX: G56.01 Carpal tunnel syndrome, right upper limb (principal); Z98.890 Other specified postprocedural states
CPT/HCPCS: 73221

== ENCOUNTER 2022-11-20 02:41 | Emergency (ER) | payer MEDICAID, SELFPAY ==
[2022-11-20 02:47] VITALS: BP 114/74; PULSE 112; RESP 20; TEMP 36.5; O2SAT 97; BMI 19.5
[2022-11-20 03:29] LABS: Basophils # 0.1 10^3/uL (0.0-0.1); Basophils % 1.9 %; Eosinophils # 0.1 10^3/uL (0.0-0.8); Eosinophils % 1.7 %; Lymphocytes # 3.9 10^3/uL (0.8-4.8); Lymphocytes % 52.5 %; Mean Corpuscular HGB Conc 32.6 g/dL (30.0-36.0); Mean Corpuscular Hemoglobin 32.1 pg (28.0-34.0); Mean Corpuscular Volume 98.6 fl (81-99); Mean Platelet Volume 10.1 fL (7.4-10.4); Monocytes # 0.8 10^3/uL (0.2-0.9); Neutrophils # 2.52 10^3/uL (1.8-7.7); Neutrophils % 33.8 %; Nucleated Red Blood Cells % 0 %; Platelet Count 311 10^3/cmm (130-400); Red Blood Count 4.36 10^6/uL (4.1-5.3); Red Cell Distribution Width 11.8 % (12.1-15.1); White Blood Count 7.5 10^3/uL (4.0-10.0)
[2022-11-20] MEDS: sodium chloride 0.9% 1,000 ML 999 ML IV (03:31)
[2022-11-20 03:39] LABS: HCG, Serum Qual Negative (Negative)
[2022-11-20 03:59] LABS: Carbon Dioxide 24 mmol/L (22-29); Glomerular Filtration Rate 107.2 mL/min (90-130)
[2022-11-20 04:01] LABS: Acetaminophen < 5.0 ug/mL (10-30); Salicylate < 0.3 mg/dL (3-10)
[2022-11-20 04:21] LABS: Anion Gap 16.8 (5-19); Blood Urea Nitrogen 11 mg/dL (6-20); Calcium 9.1 mg/dL (8.5-10.5); Chloride 106 mmol/L (98-107); Glucose 100 mg/dL (65-115); Osmolality Calculated 295 mOsm/kg (285-295); Potassium 3.8 mmol/L (3.5-5.1); Sodium 143 mmol/L (136-145); Total Bilirubin 0.2 mg/dL (0.15-1.2)
[2022-11-20 04:22] LABS: Alanine Aminotransferase 33 U/L (0-33); Albumin Level 4.8 g/dL (3.5-5.2); Alcohol Level 225 mg/dL (0-10); Alkaline Phosphatase 101 U/L (35-105); Aspartate Amino Transferase 46 U/L (0-32); Globulin 2.7 g/dL (1.3-4.6); Total Protein 7.5 g/dL (6.6-8.7)
[2022-11-20 04:43] LABS: Add Urine Microscopic? NO; Charge for UA Resulting for Rev
[2022-11-20 04:51] LABS: Bilirubin Urine Neg (Negative); Blood Urine Neg (Negative); Glucose Urine UA Norm (Normal); Ketones Urine Negative (Negative); Leukocyte Esterase Urine Negative (Negative); Nitrate Urine Negative (Negative); Protein Urine Neg (Negative); Urine Appearance Clear (CLEAR); Urine Color Colorless (Yellow); Urobilinogen Urine Neg (Negative); pH Urine 7 (5-7)
[2022-11-20 04:55] LABS: Amphetamines Screen Urine Negative (Negative); Barbiturates Screen Urine Negative (Negative); Benzodiazepines Screen Urine Negative (Negative); Cocaine Screen Urine Negative (Negative); Opiate Screen Urine Negative (Negative); PCP Screen Urine Negative (Negative); THC Screen Urine Negative (Negative)
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
== END 2022-11-20 05:52 | disposition home or self-care (01) ==
PROVIDERS: Emergency Provider Emergency Medicine; PCP Family Medicine Adult Medicine
DX: R41.82 Altered mental status, unspecified (principal); F10.129 Alcohol abuse with intoxication, unspecified; Y90.7 Blood alcohol level of 200-239 mg/100 ml
CPT/HCPCS: 80053; 80306; 80307; 81003; 84703; 85025; 96360; 99284; J7030

== ENCOUNTER 2023-02-03 12:31 | Emergency (ER) | payer MEDICAID, SELFPAY ==
[2023-02-03 12:41] VITALS: BP 135/90; PULSE 89; RESP 16; TEMP 36.6; O2SAT 96
--- NOTE | 2023-02-03 12:46 | W.ED.AMS ---
HPI - Altered Mental Status General: Chief Complaint: Psychiatric Symptoms Stated Complaint: Confusion, Sent from [facility] Time Seen by Provider: 02/03/23 12:38 History of Present Illness: Ms Godwin is a 47-year-old lady with history of substance abuse, bipolar disorder presenting to the emergency department for confusion. She is accompanied by her mother. Apparently she had a somewhat acute change in mental status shortly after 10 AM primarily with repetitive questioning and fixation on statements regarding being able to hear and talk that did not make sense. It does not sound like there were any associated focal neurologic deficits. She presented to behavioral health and referred to the emergency department for further evaluation. The patient is unsure of her medications recently. She reports no difficulty with sleep or appetite, denies other psychiatric symptoms. She seems to be transiently aware of the soreness of her questioning. She also endorses fixation on thoughts regarding something that she saw while watching a movie. No other specific changes in health, exacerbating, or alleviating factors identified. Onset (ago): minute(s) Severity: moderate Consistency of symptoms: Constant Associated symptoms: Reports other Review of Systems General: Reports: 10 or more systems reviewed and unremarkable except in HPI and below [facility] ED PFSH: Medical History Alcohol use disorder, severe, in early remission, dependence last use 11/20/22 Alterations of sensations Anxiety and depression Bipolar II disorder Mixed episodes with anxious distress Cellulitis of left breast Elevated liver enzymes History of actinic keratosis History of psoriasis Left ankle pain Psychiatric care Surgical History Status post incision and drainage Family History Other CAD (coronary artery disease) Cancer Social History Smoking and tobacco status: never smoked Alcohol intake: current Alcohol intake frequency: 3 or more drinks per day Alcohol type: wine Desire information about alcohol rehabilitation?: No Desire information about substance/drug rehabilitation?: No Current occupational status: unemployed and student Physical Exam Const: COMMON NORMALS: patient oriented x3 and alert GENERAL APPEARANCE: cooperative and well developed HENMT: COMMON NORMALS: normocephalic and atraumatic HEAD & SCALP: normocephalic and atraumatic Eye: COMMON NORMALS: conjunctivae normal CONJUNCTIVA: Yes conjunctivae normal SCLERA: sclerae normal Neck/C-Spine: COMMON NORMALS: supple GENERAL: Yes trachea midline Resp: COMMON NORMALS: clear to auscultation bilaterally EFFORT & INSPECTION: Yes able to speak in complete sentences AUSCULTATION: clear to auscultation bilaterally Cardio: COMMON NORMALS: regular rate and regular rhythm RATE: regular rate RHYTHM: regular rhythm GI: COMMON NORMALS: Soft to palpation PALPATION: Yes Soft to palpation and No Tenderness to palpation present (GI) Extremity: GENERAL: Yes normal exam except as noted and No edema Neuro: COMMON NORMALS: patient oriented x3, CN's II-XII intact bilaterally, moves all extremities, no focal motor deficits and no sensory deficits noted SENSORIUM/ORIENTATION: Yes alert and No Orientation impaired Psych: ATTITUDE: Yes bizarre THOUGHT PROCESS: Perseverating thought process present Course Vital Signs: Vital signs: Vital Signs Temperature 97.9 F 02/03/23 12:41 Pulse Rate 87 02/03/23 15:01 Respiratory Rate 16 02/03/23 12:41 Blood Pressure 141/82 02/03/23 15:01 Pulse Oximetry 97 02/03/23 15:01 Oxygen Delivery Me thod 02/03/23 12:41 MDM - Altered Mental Status Medical Decision Making 47-year-old lady with history of psychiatric disorder presenting to the emergency department for mental status change. No focal neurologic deficits on exam and patient is nontoxic. Affect is somewhat bizarre with some perseveration. EKG notable for sinus rhythm with normal axis and intervals, no STEMI. Labs with no significant hematologic or metabolic abnormalities to explain symptoms. hCG is negative. Possible UTI. Toxic ingestions are negative CT head negative for acute pathology to explain symptoms. Upon reassessment patient has improvement in mental status. She reports similar episodes in the past. I recommended admission which the patient declined. No history of suicide attempts, reports history of similar episodes, adamantly denies suicidal or homicidal ideation. Ultimately I believe that patient has capacity to make medical decisions and I cannot hold her against her will. Most likely etiology of patient's symptoms is unclear. We will plan to treat for UTI. The results of ED evaluation were discussed with the patient including prescriptions and/or symptomatic cares (if applicable) including appropriate and responsible use, followup plan, and return precautions. The patient verbalized understanding and felt safe for discharge. Medical Records I reviewed the patient's medical records. Lab Data I reviewed the patient's lab results. 02/03/23 13:24 02/03/23 13:[address] 02/03/23 12:47 IMPRESSION: No acute intracranial abnormality. Laboratory Results WBC 7.6 10^3/uL (4.0-10.0) 02/03/23 13:24 RBC 4.19 10^6/uL (4.1-5.3) 02/03/23 13:24 Hgb 13.6 g/dL (11.5-15.3) 02/03/23 13:24 Hct 41.5 % (37.0-47.0) 02/03/23 13:24 MCV 99.0 fl (81-99) 02/03/23 13:24 MCH 32.5 pg (28.0-34.0) 02/03/23 13:24 MCHC 32.8 g/dL (30.0-36.0) 02/03/23 13:24 RDW 11.9 % (12.1-15.1) L 02/03/23 13:24 Plt Count 218 10^3/cmm (130-400) 02/03/23 13:24 MPV 9.9 fL (7.4-10.4) 02/03/23 13:24 Neut % (Auto) 61.8 % 02/03/23 13:24 Lymph % (Auto) 26.7 % 02/03/23 13:24 [place] % (Auto) 7.9 % 02/03/23 13:24 Eos % (Auto) 2.4 % 02/03/23 13:24 Baso % (Auto) 1.1 % 02/03/23 13:24 Neut # (Auto) 4.67 10^3/uL (1.8-7.7) 02/03/23 13:24 Lymph # (Auto) 2.0 10^3/uL (0.8-4.8) 02/03/23 13:24 [place] # (Auto) 0.6 10^3/uL (0.2-0.9) 02/03/23 13:24 Eos # (Auto) 0.2 10^3/uL (0.0-0.8) 02/03/23 13:24 Baso # (Auto) 0.1 10^3/uL (0.0-0.1) 02/03/23 13:24 Nucleated RBC % (auto) 0 % 02/03/23 13:24 Nucleated RBCs # 0.0 /100WBC 02/03/23 13:24 Sodium 141 mmol/L (136-145) 02/03/23 13:24 Potassium 4.0 mmol/L (3.5-5.1) 02/03/23 13:24 Chloride 103 mmol/L (98-107) 02/03/23 13:24 Carbon Dioxide 25 mmol/L (22-29) 02/03/23 13:24 Anion Gap 17.0 (5-19) 02/03/23 13:24 BUN 13 mg/dL (6-20) 02/03/23 13:24 Creatinine 0.7 mg/dL (0.5-0.9) 02/03/23 13:24 GFR Calculation 89.7 mL/min (90-130) L 02/03/23 13:24 Glucose 96 mg/dL (65-115) 02/03/23 13:24 Calculated Osmolality 292 mOsm/kg (285-295) 02/03/23 13:24 Calcium 9.7 mg/dL (8.5-10.5) 02/03/23 13:24 Total Bilirubin 0.6 mg/dL (0.15-1.2) 02/03/23 13:24 AST 24 U/L (0-32) 02/03/23 13:24 ALT 27 U/L (0-33) 02/03/23 13:24 Alkaline Phosphatase 92 U/L (35-105) 02/03/23 13:24 C-Reactive Protein 3.0 mg/L (0.0-4.9) 02/03/23 13:24 Total Protein 7.1 g/dL (6.6-8.7) 02/03/23 13:24 Albumin 4.5 g/dL (3.5-5.2) 02/03/23 13:24 Globulin 2.6 g/dL (1.3-4.6) 02/03/23 13:24 TSH 1.50 uIU/mL (0.27-4.20) 02/03/23 13:24 HCG, Qual Negative (Negative) 02/03/23 13:54 Urine Color Yellow (Yellow) 02/03/23 13:54 Urine Appearance Clear (CLEAR) 02/03/23 13:54 Urine pH 7 (5-7) 02/03/23 13:54 Ur Specific [place] 1.020 (1.005-1.030) 02/03/23 13:54 Urine Protein Trace (Negative) 02/03/23 13:54 Urine Glucose (UA) Norm (Normal) 02/03/23 13:54 Urine Ketones Negative (Negative) 02/03/23 13:54 Urine Blood 2+ (Negative) H 02/03/23 13:54 Urine Nitrate Positive (Negative) H 02/03/23 13:54 Urine Bilirubin Neg (Negative) 02/03/23 13:54 Urine Urobilinogen Norm mg/dL (Negative) 02/03/23 13:54 Ur Leukocyte Esterase 1+ (Negative) H 02/03/23 13:54 Urine RBC 0-4 /hpf (0-2) H 02/03/23 13:54 Urine WBC 0-4 /hpf (0-5) H 02/03/23 13:54 Ur Squamous Epith Cells 0-4 /hpf (0-5) H 02/03/23 13:54 Amorphous Sediment Not Reportable 02/03/23 13:54 Urine Bacteria 1+ /hpf (NONE) H 02/03/23 13:54 Salicylates 0.5 mg/dL (3-10) L 02/03/23 13:24 Urine Opiates Screen Negative ng/mL (Negative) 02/03/23 13:54 Acetaminophen < 5.0 ug/mL (10-30) L 02/03/23 13:24 Ur Barbiturates Screen Negative ng/mL (Negative) 02/03/23 13:54 Ur Phencyclidine Scrn Negative ng/mL (Negative) 02/03/23 13:54 Ur Amphetamines Screen Negative ng/mL (Negative) 02/03/23 13:54 U Benzodiazepines Scrn Negative ng/mL (Negative) 02/03/23 13:54 Urine Cocaine Screen Negative ng/mL (Negative) 02/03/23 13:54 U Marijuana (THC) Screen Negative ng/mL (Negative) 02/03/23 13:54 Ethyl Alcohol < 10 mg/dL (0-10) 02/03/23 13:24 Discharge Plan Discharge Patient Disposition: Home Clinical Impression: Altered mental status, unspecified, UTI (urinary tract infection) Condition: Stable Prescriptions: No Action bupropion HCl 75 mg tablet 75 mg PO BID@08,16 Qty: 60 2RF Rx Instructions: Take one tablet at 8 am and 4 pm with 100 mg tab; administer 6 hours apart bupropion HCl 100 mg tablet 100 mg PO BID@08,16 Qty: 60 2RF Rx Instructions: Take one tablet at 8 am and 4 pm with 75 mg tablet, must take 6 hours apart. naltrexone 50 mg tablet 50 mg PO .morning Qty: 30 3RF Rx Instructions: Take one tablet every morning gabapentin 100 mg capsule 100 mg PO TID Qty: 90 2RF Discharge Orders: Discharge ED (Routine); Ordered 02/03/23 Ordered By: Paramjit Mckinley Referrals: Gavin Yadav MD [Primary Care Provider] - Discharge Diet: Usual diet Discharge Activity: Increase activity as tolerated Patient Instructions: Urinary Tract Infection in Women (ED), Altered Mental Status (ED) Activity Restrictions/Additional Instructions: Thank you for visiting the emergency department. You were seen antibiotic for mental status change. The exact cause your symptoms is unclear however we are pleased that you have had improvement. I recommended admission which you are declining at this time. You may return to the emergency department for any reason at any time. I will prescribe antibiotics for possible urinary tract infection. Please follow-up with your primary care provider and psychiatric care provider. Return to the emergency department for anything that you are concerned about and feel needs emergency department evaluation. Coding Level of Care Code ED Business Solutions Consultant for Jazmyn Jc
--- NOTE | 2023-02-03 12:47 | ECG_ITS ---
[facility] Test Date: 2023-02-03 Pat Name: Kalpana Godwin Department: Room: Gender: Female Eight Section Blower: : 1975 Requested By: Paramjit Mckinley Order Number: [id number] Lauri MD: Charla Meyer M.D. Measurements Intervals [place] Rate: 90 P: 64 TX: 169 QRS: 36 QRSD: 82 T: 46 QT: 346 QTc: 425 Interpretive Statements SINUS RHYTHM LOW QRS VOLTAGE IN PRECORDIAL LEADS [QRS DEFLECTION < 1.0 mV IN CHEST LEADS] Compared to ECG 07/14/2022 14:29:42 Sinus tachycardia no longer present Myocardial infarct finding no longer present Electronically Signed On 02-03-2023 23:02:41 CDT by Charla Meyer M.D. [id number]
--- NOTE | 2023-02-03 12:47 | CTR_ITS ---
PROCEDURE INFORMATION: Exam: CT Head Without Contrast Exam date and time: 02/03/2023 12:52 PM Age: 47 years old Clinical indication: Altered mental status/memory loss. TECHNIQUE: Imaging protocol: Computed tomography of the head without contrast. Radiation optimization: All CT scans at this facility use at least one of these dose optimization techniques: automated exposure control; mA and/or kV adjustment per patient size (includes targeted exams where dose is matched to clinical indication); or iterative reconstruction. REPORTING DATA: Count of CT and Cardiac NM exams in prior 12 months: This patient has received [address] and 0 known cardiac nuclear medicine studies in the 12 months prior to the current study. COMPARISON: 1. CT head wo con* [id number] 07/14/2022 2:10 PM 2. MR head wo con* [id number] 07/15/2022 10:21 AM RADIATION DOSE METRICS: Total DLP (mGy-cm): 1078.38 FINDINGS: Brain: No acute appearing brain parenchymal abnormality. No intracranial hemorrhage. No extraaxial fluid collections. There is mild diffuse cerebral atrophy. Cerebral ventricles: No hydrocephalus. Paranasal sinuses: Right maxillary sinus mucous retention cyst. Mastoid air cells: The mastoid air cells are aerated. Orbital cavities: Suspect old right orbital medial wall fracture. Bones/joints: No calvarial fracture. Soft tissues: No acute soft tissue abnormality. CT/CT head wo con* [id number] IMPRESSION: No acute intracranial abnormality.
--- NOTE | 2023-02-03 13:22 | PC.PHAR ---
rx filled 01/10/23 30d/s bupropion 100mg bid-bupropion sr 200mg bid dced 01/10/23-pt states she is not taking naltrexone 50mg qam-states mara keeps filling the medication ext med history shows last filled 01/10/23 30d/s
[2023-02-03 13:53] LABS: Basophils # 0.1 10^3/uL (0.0-0.1); Basophils % 1.1 %; Eosinophils # 0.2 10^3/uL (0.0-0.8); Eosinophils % 2.4 %; Hematocrit 41.5 % (37.0-47.0); Hemoglobin 13.6 g/dL (11.5-15.3); Lymphocytes % 26.7 %; Mean Corpuscular HGB Conc 32.8 g/dL (30.0-36.0); Mean Corpuscular Hemoglobin 32.5 pg (28.0-34.0); Mean Platelet Volume 9.9 fL (7.4-10.4); Monocytes # 0.6 10^3/uL (0.2-0.9); Monocytes % 7.9 %; Neutrophils # 4.67 10^3/uL (1.8-7.7); Neutrophils % 61.8 %; Nucleated Red Blood Cells % 0 %; Platelet Count 218 10^3/cmm (130-400); Red Blood Count 4.19 10^6/uL (4.1-5.3); Red Cell Distribution Width 11.9 % (12.1-15.1); White Blood Count 7.6 10^3/uL (4.0-10.0)
[2023-02-03 14:29] LABS: Alanine Aminotransferase 27 U/L (0-33); Albumin Level 4.5 g/dL (3.5-5.2); Alkaline Phosphatase 92 U/L (35-105); Aspartate Amino Transferase 24 U/L (0-32); Blood Urea Nitrogen 13 mg/dL (6-20); Calcium 9.7 mg/dL (8.5-10.5); Carbon Dioxide 25 mmol/L (22-29); Chloride 103 mmol/L (98-107); Globulin 2.6 g/dL (1.3-4.6); Glomerular Filtration Rate 89.7 mL/min (90-130); Glucose 96 mg/dL (65-115); Osmolality Calculated 292 mOsm/kg (285-295); Salicylate 0.5 mg/dL (3-10); Sodium 141 mmol/L (136-145); Total Bilirubin 0.6 mg/dL (0.15-1.2); Total Protein 7.1 g/dL (6.6-8.7)
[2023-02-03 14:30] LABS: Acetaminophen < 5.0 ug/mL (10-30)
[2023-02-03 14:31] LABS: Alcohol Level < 10 mg/dL (0-10)
[2023-02-03 14:36] LABS: Add Urine Microscopic? YES; Bilirubin Urine Neg (Negative); Blood Urine 2+ (Negative); Glucose Urine UA Norm (Normal); Ketones Urine Negative (Negative); Leukocyte Esterase Urine 1+ (Negative); Nitrate Urine Positive (Negative); Protein Urine Trace (Negative); Urine Appearance Clear (CLEAR); Urine Color Yellow (Yellow); Urobilinogen Urine Norm (Negative); pH Urine 7 (5-7)
[2023-02-03 14:37] LABS: Bacteria Urine 1+ /hpf; RBC Urine 0-4 /hpf (0-2); Squamous Epithelial Cell Urine 0-4 /hpf (0-5); WBC Urine 0-4 /hpf (0-5)
[2023-02-03 14:38] LABS: Amphetamines Screen Urine Negative (Negative); Barbiturates Screen Urine Negative (Negative); Benzodiazepines Screen Urine Negative (Negative); Cocaine Screen Urine Negative (Negative); Opiate Screen Urine Negative (Negative); PCP Screen Urine Negative (Negative); THC Screen Urine Negative (Negative)
[2023-02-03 14:48] LABS: HCG Qualitative Urine. Negative (Negative)
[2023-02-03 15:01] VITALS: BP 141/82; PULSE 87; O2SAT 97
== END 2023-02-03 15:03 | disposition home or self-care (01) ==
PROVIDERS: Emergency Provider Emergency Medicine; PCP Family Medicine Adult Medicine
DX: R41.82 Altered mental status, unspecified (principal); N39.0 Urinary tract infection, site not specified
CPT/HCPCS: 36415; 70450; 80053; 80306; 80307; 81001; 81025; 84443; 85025; 86140; 93005; 99285

== ENCOUNTER 2023-03-31 12:12 | Emergency (ER) | payer OTHER, MEDICAID, SELFPAY ==
[2023-03-31 12:37] VITALS: BP 123/88; PULSE 89; RESP 16; TEMP 36.7; O2SAT 100; BMI 21.9
--- NOTE | 2023-03-31 13:07 | W.ED.AMS ---
HPI - Altered Mental Status General: Chief Complaint: Altered Mental Status Stated Complaint: AMS Time Seen by Provider: 03/31/23 12:56 Limitations: other (Patient participation) History of Present Illness: Ms. Godwin is a 47-year-old lady with history of psychiatric disorder presenting to the emergency department for mental status change. She has had 3-day history of intermittent episodes of confusion and alteration and perception. She has also had paranoia. At times she may be having visual hallucinations. She herself provides very limited history and supplemental history is provided by the patient's mother at bedside. She does have history similar symptoms with urinary tract infection though denies urinary symptoms or any other medical complaints at this time. No other specific changes in health, exacerbating, or alleviating factors identified. Onset (ago): day(s) Timing confirmed by: family member Consistency of symptoms: Waxing and Waning Review of Systems General: Reports: 10 or more systems reviewed and unremarkable except in HPI and below PFSH ED PFSH: Medical History Alcohol use disorder, severe, in early remission, dependence last documented use 11/20/22 Alterations of sensations Anxiety and depression Bipolar II disorder Mixed episodes with anxious distress Cellulitis of left breast Elevated liver enzymes History of actinic keratosis History of psoriasis Left ankle pain Psychiatric care Surgical History Status post incision and drainage Family History Other CAD (coronary artery disease) Cancer Social History Smoking and tobacco status: never smoked Alcohol intake: current Alcohol intake frequency: 3 or more drinks per day Alcohol type: wine Desire information about alcohol rehabilitation?: No Substance/Drug Use: never Desire information about substance/drug rehabilitation?: No Current occupational status: unemployed and student Physical Exam Const: COMMON NORMALS: alert GENERAL APPEARANCE: cooperative and well developed HENMT: COMMON NORMALS: normocephalic and atraumatic HEAD & SCALP: normocephalic and atraumatic Eye: COMMON NORMALS: conjunctivae normal CONJUNCTIVA: Yes conjunctivae normal SCLERA: sclerae normal Neck/C-Spine: COMMON NORMALS: supple GENERAL: Yes trachea midline Resp: COMMON NORMALS: clear to auscultation bilaterally EFFORT & INSPECTION: Yes able to speak in complete sentences AUSCULTATION: clear to auscultation bilaterally Cardio: COMMON NORMALS: regular rate and regular rhythm RATE: regular rate RHYTHM: regular rhythm GI: COMMON NORMALS: Soft to palpation PALPATION: Yes Soft to palpation and No Tenderness to palpation present (GI) Extremity: GENERAL: Yes normal exam except as noted and No edema Neuro: COMMON NORMALS: moves all extremities SENSORIUM/ORIENTATION: Yes alert and No Orientation impaired Psych: COMMON NORMALS: mental status grossly normal and Normal thought process present THOUGHT PROCESS: Normal thought process present Course Vital Signs: Vital signs: Vital Signs Temperature 98.1 F 03/31/23 12:37 Pulse Rate 90 03/31/23 15:09 Respiratory Rate 16 03/31/23 15:09 Blood Pressure 100/76 03/31/23 15:09 Pulse Oximetry 95 03/31/23 15:09 Oxygen Delivery Me thod Room Air 03/31/23 12:37 MDM - Altered Mental Status Medical Decision Making 48-year-old lady with psychiatric history presenting to the emergency department for evaluation of mental status change. No focal neurologic deficits on exam, affect is quite odd. Patient adamantly denies suicidal or homicidal ideation. Labs with no acute hematologic or metabolic abnormalities to explain symptoms. No evidence of urinary tract infection. Toxic ingestions are negative. Given no clear explanation of symptoms on laboratory studies it is appropriate to obtain CT scan. CT head is negative for acute pathology to explain symptoms. Exact etiology of patient's symptoms is unclear. I recommended admission for further management. The patient adamantly declined admission and again adamantly denied suicidal or homicidal ideation. I do not believe that I can hold the patient against her will on a psychiatric hold. The results of ED evaluation were discussed with the patient including prescriptions and/or symptomatic cares (if applicable) including appropriate and responsible use, followup plan, and return precautions. The patient verbalized understanding and felt safe for discharge. She understands she may return to the emergency department for any reason at any time. I also recommended that she go directly to the crisis stabilization center for further assessment. Medical Records I reviewed the patient's medical records. Lab Data I reviewed the patient's lab results. 03/31/23 13:27 03/31/23 13:[address] 03/31/23 14:00 IMPRESSION: No acute intracranial abnormality. Laboratory Results WBC 7.2 10^3/uL (4.0-10.0) 03/31/23 13: RBC 4.30 10^6/uL (4.1-5.3) 03/31/23 13:27 Hgb 14.0 g/dL (11.5-15.3) 03/31/23 13:27 Hct 42.0 % (37.0-47.0) 03/31/23 13:27 MCV 97.7 fl (81-99) 03/31/23 13:27 MCH 32.6 pg (28.0-34.0) 03/31/23 13: MCHC 33.3 g/dL (30.0-36.0) 03/31/23 13: RDW 11.5 % (12.1-15.1) L 03/31/23 13: Plt Count 289 10^3/cmm (130-400) 03/31/23 13: MPV 10.0 fL (7.4-10.4) 03/31/23 13:27 Neut % (Auto) 59.9 % 03/31/23 13:27 Lymph % (Auto) 27.9 % 03/31/23 13:27 [place] % (Auto) 7.9 % 03/31/23 13:27 Eos % (Auto) 2.5 % 03/31/23 13:27 Baso % (Auto) 1.5 % 03/31/23 13:27 Neut # (Auto) 4.29 10^3/uL (1.8-7.7) 03/31/23 13:27 Lymph # (Auto) 2.0 10^3/uL (0.8-4.8) 03/31/23 13:27 [place] # (Auto) 0.6 10^3/uL (0.2-0.9) 03/31/23 13:27 Eos # (Auto) 0.2 10^3/uL (0.0-0.8) 03/31/23 13:27 Baso # (Auto) 0.1 10^3/uL (0.0-0.1) 03/31/23 13:27 Nucleated RBC % (auto) 0 % 03/31/23 13:27 Nucleated RBCs # 0.0 /100WBC 03/31/23 13:27 Sodium 140 mmol/L (136-145) 03/31/23 13:27 Potassium 3.9 mmol/L (3.5-5.1) 03/31/23 13:27 Chloride 104 mmol/L (98-107) 03/31/23 13:27 Carbon Dioxide 25 mmol/L (22-29) 03/31/23 13:27 Anion Gap 14.9 (5-19) 03/31/23 13:27 BUN 11 mg/dL (6-20) 03/31/23 13:27 Creatinine 0.7 mg/dL (0.5-0.9) 03/31/23 13:27 GFR Calculation 89.7 mL/min (90-130) L 03/31/23 13:27 Glucose 93 mg/dL (65-115) 03/31/23 13:27 Calculated Osmolality 289 mOsm/kg (285-295) 03/31/23 13:27 Calcium 9.6 mg/dL (8.5-10.5) 03/31/23 13:27 Total Bilirubin 0.9 mg/dL (0.15-1.2) 03/31/23 13:27 AST 28 U/L (0-32) 03/31/23 13:27 ALT 23 U/L (0-33) 03/31/23 13:27 Alkaline Phosphatase 98 U/L (35-105) 03/31/23 13:27 Total Protein 7.3 g/dL (6.6-8.7) 03/31/23 13:27 Albumin 4.7 g/dL (3.5-5.2) 03/31/23 13:27 Globulin 2.6 g/dL (1.3-4.6) 03/31/23 13:27 TSH 1.17 uIU/mL (0.27-4.20) 03/31/23 13:27 HCG, Qual Negative (Negative) 03/31/23 13:12 Urine Color Yellow (Yellow) 03/31/23 13:27 Urine Appearance Clear (CLEAR) 03/31/23 13:27 Urine pH 7 (5-7) 03/31/23 13:27 Ur Specific [place] 1.010 (1.005-1.030) 03/31/23 13:27 Urine Protein Neg (Negative) 03/31/23 13:27 Urine Glucose (UA) Norm (Normal) 03/31/23 13:27 Urine Ketones Negative (Negative) 03/31/23 13:27 Urine Blood Neg (Negative) 03/31/23 13:27 Urine Nitrate Negative (Negative) 03/31/23 13:27 Urine Bilirubin Neg (Negative) 03/31/23 13:27 Urine Urobilinogen Neg mg/dL (Negative) 03/31/23 13:27 Ur Leukocyte Esterase Negative (Negative) 03/31/23 13:27 Salicylates < 0.3 mg/dL (3-10) L 03/31/23 13:27 Urine Opiates Screen Negative ng/mL (Negative) 03/31/23 13:12 Acetaminophen < 5.0 ug/mL (10-30) L 03/31/23 13:27 Ur Barbiturates Screen Negative ng/mL (Negative) 03/31/23 13:12 Ur Phencyclidine Scrn Negative ng/mL (Negative) 03/31/23 13:12 Ur Amphetamines Screen Negative ng/mL (Negative) 03/31/23 13:12 U Benzodiazepines Scrn Negative ng/mL (Negative) 03/31/23 13:12 Urine Cocaine Screen Negative ng/mL (Negative) 03/31/23 13:12 U Marijuana (THC) Screen Negative ng/mL (Negative) 03/31/23 13:12 Ethyl Alcohol < 10 mg/dL (0-10) 03/31/23 13:27 Discharge Plan Discharge Patient Disposition: Home Clinical Impression: Altered mental status, Psychiatric disturbance, Derealization Condition: Stable Prescriptions: No Action bupropion HCl 100 mg tablet 200 mg PO BID@08,16 Rx Instructions: Take two tablets at 8 am and two tablets at 4 pm- must take 6 hours apart. gabapentin 100 mg capsule 100 mg PO TID PRN (Reason: Pain) Discharge Orders: Discharge ED (Routine); Ordered 03/31/23 Ordered By: Paramjit Mckinley Referrals: Gavin Yadav MD [Primary Care Provider] - Discharge Diet: Usual diet Discharge Activity: Resume usual activity Patient Instructions: Altered Mental Status (ED) Activity Restrictions/Additional Instructions: Thank you for visiting the emergency department. You were seen and evaluated for mental status change with derealization. The exact cause of your symptoms is unclear. I do not see a laboratory or imaging abnormality to explain your symptoms. I offered admission which you are declining at this time. You may return to the emergency department at any time for any reason. [facility] [phone] If you or someone you care for is experiencing a psychiatric emergency, please call the crisis hotline ([employer]) 24-hours a day, 7 days a week at [phone]. The crisis stabilization center is located on [address] of the hospital campus they have walk-in hours daily from 11 AM to 9 PM. I recommend going directly there for evaluation of medication needs/adjustments. Return to the emergency department for anything that you are concerned about and feel needs emergency department evaluation. Coding Level of Care Code ED Drafter Landscape for Jazmyn Jc
[2023-03-31 13:33] LABS: Add Urine Microscopic? NO; Charge for UA Resulting for Rev
[2023-03-31 13:35] LABS: Basophils # 0.1 10^3/uL (0.0-0.1); Basophils % 1.5 %; Eosinophils # 0.2 10^3/uL (0.0-0.8); Eosinophils % 2.5 %; Lymphocytes % 27.9 %; Mean Corpuscular HGB Conc 33.3 g/dL (30.0-36.0); Mean Corpuscular Hemoglobin 32.6 pg (28.0-34.0); Mean Corpuscular Volume 97.7 fl (81-99); Monocytes # 0.6 10^3/uL (0.2-0.9); Monocytes % 7.9 %; Neutrophils # 4.29 10^3/uL (1.8-7.7); Neutrophils % 59.9 %; Nucleated Red Blood Cells % 0 %; Platelet Count 289 10^3/cmm (130-400); Red Cell Distribution Width 11.5 % (12.1-15.1); White Blood Count 7.2 10^3/uL (4.0-10.0)
[2023-03-31] MEDS: LORazepam 1 mg Tablet PO (13:36)
[2023-03-31 13:47] LABS: Amphetamines Screen Urine Negative (Negative); Barbiturates Screen Urine Negative (Negative); Benzodiazepines Screen Urine Negative (Negative); Cocaine Screen Urine Negative (Negative); Opiate Screen Urine Negative (Negative); PCP Screen Urine Negative (Negative); THC Screen Urine Negative (Negative)
[2023-03-31 13:52] LABS: Bilirubin Urine Neg (Negative); Blood Urine Neg (Negative); Glucose Urine UA Norm (Normal); Ketones Urine Negative (Negative); Leukocyte Esterase Urine Negative (Negative); Nitrate Urine Negative (Negative); Protein Urine Neg (Negative); Urine Appearance Clear (CLEAR); Urine Color Yellow (Yellow); Urobilinogen Urine Neg (Negative); pH Urine 7 (5-7)
[2023-03-31 13:52] LABS: HCG Qualitative Urine. Negative (Negative)
--- NOTE | 2023-03-31 14:00 | CTR_ITS ---
PROCEDURE INFORMATION: Exam: CT Head Without Contrast Exam date and time: 03/31/2023 2:58 PM Age: 47 years old Clinical indication: Altered mental status/memory loss; Additional info: AMS TECHNIQUE: Imaging protocol: Computed tomography of the head without contrast. Radiation optimization: All CT scans at this facility use at least one of these dose optimization techniques: automated exposure control; mA and/or kV adjustment per patient size (includes targeted exams where dose is matched to clinical indication); or iterative reconstruction. REPORTING DATA: Count of CT and Cardiac NM exams in prior 12 months: This patient has received 2 known CTs and 0 known cardiac nuclear medicine studies in the 12 months prior to the current study. COMPARISON: CT head wo con* [id number] 02/03/2023 12:52 PM RADIATION DOSE METRICS: Total DLP (mGy-cm): 1051.38 FINDINGS: Brain: No acute intracranial hemorrhage. No edema. No mass effect. No focal abnormality in brain parenchyma. Cerebral ventricles: No hydrocephalus. The ventricles and sulci are mildly prominent in size in keeping with mild brain atrophy. Paranasal sinuses: Visualized sinuses are unremarkable. No fluid levels. Mastoid air cells: No mastoid effusion. Bones/joints: No acute fracture. No suspicious lytic or sclerotic bone lesions. Soft tissues: Unremarkable. CT/CT head wo con* [id number] IMPRESSION: No acute intracranial abnormality.
[2023-03-31 14:03] LABS: Alanine Aminotransferase 23 U/L (0-33); Albumin Level 4.7 g/dL (3.5-5.2); Alkaline Phosphatase 98 U/L (35-105); Anion Gap 14.9 (5-19); Aspartate Amino Transferase 28 U/L (0-32); Blood Urea Nitrogen 11 mg/dL (6-20); Calcium 9.6 mg/dL (8.5-10.5); Carbon Dioxide 25 mmol/L (22-29); Chloride 104 mmol/L (98-107); Globulin 2.6 g/dL (1.3-4.6); Glomerular Filtration Rate 89.7 mL/min (90-130); Glucose 93 mg/dL (65-115); Osmolality Calculated 289 mOsm/kg (285-295); Potassium 3.9 mmol/L (3.5-5.1); Sodium 140 mmol/L (136-145); Thyroid Stimulating Hormone 1.17 uIU/mL (0.27-4.20); Total Bilirubin 0.9 mg/dL (0.15-1.2); Total Protein 7.3 g/dL (6.6-8.7)
[2023-03-31 14:09] LABS: Acetaminophen < 5.0 ug/mL (10-30); Alcohol Level < 10 mg/dL (0-10); Salicylate < 0.3 mg/dL (3-10)
[2023-03-31 15:09] VITALS: BP 100/76; PULSE 90; RESP 16; O2SAT 95
== END 2023-03-31 15:48 | disposition home or self-care (01) ==
PROVIDERS: Emergency Provider Emergency Medicine; PCP Family Medicine Adult Medicine
DX: R41.82 Altered mental status, unspecified (principal); F48.1 Depersonalization-derealization syndrome; F99 Mental disorder, not otherwise specified
CPT/HCPCS: 70450; 80053; 80306; 80307; 81003; 81025; 84443; 85025; 99285

== ENCOUNTER 2023-05-02 13:14 | Inpatient (IN) | payer OTHER, MEDICAID, SELFPAY ==
[2023-05-02 13:25] VITALS: BP 131/97; PULSE 112; RESP 16; TEMP 36.8; O2SAT 98; BMI 21.9
--- NOTE | 2023-05-02 13:48 | ED.C_ITS ---
HPI - Psych General: Chief Complaint: Psychiatric Symptoms Stated Complaint: SI Time Seen by Provider: 05/02/23 13:17 Source: patient Mode of arrival: ambulatory History of Present Illness: 48-year-old female presents emergency room because he had [facility]. They were called for combative person. When they arrived that she was homicidal and suicidal having auditory and visual hallucinations she attempted to grab a knife threatened to grab a knife and hurt herself and kill her . After she was taken to custody she calm down she is now stating that she took an extra tablet or possibly 2 of her bupropion but that that has resolved and now she is feeling better that the extra medication is what caused the incident. Initially when I seen the patient she states she just got upset and denied the incident regarding the knife. MD complaint: suicidal ideation Onset (ago): hour(s) Duration: intermittent and changing over time History of same: Yes Relieving factors: none Exacerbating factors: none Associated psychiatric symptoms: suicidal ideation, homicidal ideation, auditory hallucinations and visual hallucinations Associated symptoms: Reports auditory hallucinations, visual hallucinations, homicidal ideation and suicidal ideation Treatments prior to arrival: physical restraints If self harm: admits thoughts of self harm and has plan Review of Systems Const: Denies: fever(s), chills, body aches, change in appetite, fatigue or malaise ENMT: Denies: throat pain, ear or mastoid pain, nasal discharge or nasal congestion Card: Denies: chest pain, palpitations, edema, dyspnea on exertion or orthopnea Resp: Denies: dyspnea, productive cough or non-productive cough GI: Denies: abdominal pain, nausea, vomiting, hematemesis, coffee ground emesis, diarrhea, constipation, bloating, hematochezia or melena : Denies: flank pain, difficulty voiding, dysuria, urinary frequency or urinary urgency Musc: Denies: neck pain or back pain Skin/Breast: Denies: rash or pruritus Psych: Reports: anxiety, mood swings, visual hallucinations, auditory hallucinations, suicidal ideation and homicidal ideation [facility] PFSH: Medical History Alcohol use disorder, severe, in early remission, dependence last documented use 11/20/22 Alterations of sensations Anxiety and depression Bipolar II disorder Mixed episodes with anxious distress Cellulitis of left breast Elevated liver enzymes Hearing voices History of actinic keratosis History of psoriasis Left ankle pain Psychiatric care Surgical History Status post incision and drainage Family History Other CAD (coronary artery disease) Cancer Social History Smoking and tobacco status: never smoked Alcohol intake: current Alcohol intake frequency: 3 or more drinks per day Alcohol type: wine Desire information about alcohol rehabilitation?: No Substance/Drug Use: never Desire information about substance/drug rehabilitation?: No Current occupational status: unemployed and student Physical Exam Const: GENERAL APPEARANCE: cooperative and comfortable ORIENTATI ON/CONSCIOUSNESS: Yes awake, Yes oriented to person, Yes oriented to place and Yes oriented to time HENMT: COMMON NORMALS: normocephalic, atraumatic and hearing grossly normal bilaterally HEAD & SCALP: normocephalic and atraumatic Eye: COMMON NORMALS: Equal, round and reactive pupils present, EOMs intact bilaterally, conjunctivae normal and no scleral icterus CONJUNCTIVA: Yes conjunctivae normal PUPIL: Yes Equal, round and reactive pupils present Neck/C-Spine: COMMON NORMALS: full ROM, no lymphadenopathy, supple and no JVD Lymph: LYMPHATIC: no lymphadenopathy noted and no lymphedema noted Resp: COMMON NORMALS: normal respiratory effort, No retractions, No use of accessory muscles and clear to auscultation bilaterally AUSCULTATION: clear to auscultation bilaterally Cardio: COMMON NORMALS: no JVD, regular rate, regular rhythm and No murmurs present (Cardio) RATE: regular rate RHYTHM: regular rhythm GI: COMMON NORMALS: Soft to palpation and No hepatosplenomegaly present AUSCULTATION: Yes normoactive bowel sounds PALPATION: Yes Soft to palpation, No Tenderness to palpation present (GI), No Guarding due to palpation present (GI) and Yes No hepatosplenomegaly present Extremity: COMMON NORMALS: normal to inspection, capillary refill normal, no clubbing, cyanosis or edema, no calf tenderness and no pedal edema Neuro: SENSORIUM/ORIENTATION: Yes oriented to person, Yes oriented to place and Yes oriented to time Skin: COMMON NORMALS: no rashes or lesions noted GENERAL SKIN EXAM: no rashes or lesions noted Course Vital Signs: Vital signs: Vital Signs Temperature 98.3 F 05/02/23 13:25 Pulse Rate 112 H 05/02/23 13:25 Respiratory Rate 16 05/02/23 13:25 Blood Pressure 131/97 05/02/23 13:25 Pulse Oximetry 98 05/02/23 13:25 Oxygen Delivery Me thod Room Air 05/02/23 13:25 MDM - Psych Medical Decision Making Affidavits from [facility] deputies on the chart. Patient be placed on a 96-hour hold for suicidal ideation. Discussed Dr. Meng orders written Medical Records I reviewed the patient's medical records. Lab Data I reviewed the patient's lab results. Laboratory Results Urine Color Yellow (Yellow) 05/02/23 13:40 Urine Appearance Clear (CLEAR) 05/02/23 13:40 Urine pH 5 (5-7) 05/02/23 13:40 Ur Specific [place] 1.015 (1.005-1.030) 05/02/23 13:40 Urine Protein Neg (Negative) 05/02/23 13:40 Urine Glucose (UA) Norm (Normal) 05/02/23 13:40 Urine Ketones Negative (Negative) 05/02/23 13:40 Urine Blood Neg (Negative) 05/02/23 13:40 Urine Nitrate Negative (Negative) 05/02/23 13:40 Urine Bilirubin Neg (Negative) 05/02/23 13:40 Urine Urobilinogen Norm mg/dL (Negative) 05/02/23 13:40 Ur Leukocyte Esterase Negative (Negative) 05/02/23 13:40 Urine Opiates Screen Negative ng/mL (Negative) 05/02/23 13:40 Ur Barbiturates Screen Negative ng/mL (Negative) 05/02/23 13:40 Ur Phencyclidine Scrn Negative ng/mL (Negative) 05/02/23 13:40 Ur Amphetamines Screen Negative ng/mL (Negative) 05/02/23 13:40 U Benzodiazepines Scrn Negative ng/mL (Negative) 05/02/23 13:40 Urine Cocaine Screen Negative ng/mL (Negative) 05/02/23 13:40 U Marijuana (THC) Screen Negative ng/mL (Negative) 05/02/23 13:40 Discharge Plan Discharge Patient Disposition: Admitted As Inpatient Clinical Impression: Suicidal ideation Condition: Stable Prescriptions: No Action bupropion HCl 100 mg tablet 200 mg PO BID@08,16 Qty: 120 4RF Rx Instructions: Take two tablets at 8 am and two tablets at 4 pm- must take 6 hours apart. gabapentin 100 mg capsule 100 mg PO TID PRN (Reason: Pain) Referrals: Gavin Yadav MD [Primary Care Provider] - Coding Level of Care Code ED Machine [employer] Etcher for Jazmyn Jc
[2023-05-02 14:02] LABS: Add Urine Microscopic? NO; Charge for UA Resulting for Rev
[2023-05-02 14:04] LABS: Bilirubin Urine Neg (Negative); Blood Urine Neg (Negative); Glucose Urine UA Norm (Normal); Ketones Urine Negative (Negative); Leukocyte Esterase Urine Negative (Negative); Nitrate Urine Negative (Negative); Protein Urine Neg (Negative); Specific Gravity, Urine 1.015 (1.005-1.030); Urine Appearance Clear (CLEAR); Urine Color Yellow (Yellow); Urobilinogen Urine Norm (Negative); pH Urine 5 (5-7)
[2023-05-02 14:12] LABS: Amphetamines Screen Urine Negative (Negative); Barbiturates Screen Urine Negative (Negative); Benzodiazepines Screen Urine Negative (Negative); Cocaine Screen Urine Negative (Negative); Opiate Screen Urine Negative (Negative); PCP Screen Urine Negative (Negative); THC Screen Urine Negative (Negative)
[2023-05-02 14:40] LABS: Basophils # 0.1 10^3/uL (0.0-0.1); Basophils % 1.2 %; Eosinophils # 0.2 10^3/uL (0.0-0.8); Eosinophils % 2.7 %; Hematocrit 40.5 % (37.0-47.0); Hemoglobin 13.2 g/dL (11.5-15.3); Lymphocytes # 1.6 10^3/uL (0.8-4.8); Lymphocytes % 22.8 %; Mean Corpuscular HGB Conc 32.6 g/dL (30.0-36.0); Mean Corpuscular Hemoglobin 32.7 pg (28.0-34.0); Mean Corpuscular Volume 100.2 fl (81-99); Mean Platelet Volume 10.1 fL (7.4-10.4); Monocytes # 0.5 10^3/uL (0.2-0.9); Monocytes % 6.6 %; Neutrophils # 4.51 10^3/uL (1.8-7.7); Neutrophils % 66.4 %; Nucleated Red Blood Cells % 0 %; Platelet Count 233 10^3/cmm (130-400); Red Blood Count 4.04 10^6/uL (4.1-5.3); Red Cell Distribution Width 11.2 % (12.1-15.1); White Blood Count 6.8 10^3/uL (4.0-10.0)
[2023-05-02 14:59] LABS: Alanine Aminotransferase 20 U/L (0-33); Albumin Level 4.5 g/dL (3.5-5.2); Alkaline Phosphatase 88 U/L (35-105); Aspartate Amino Transferase 24 U/L (0-32); Blood Urea Nitrogen 13 mg/dL (6-20); Carbon Dioxide 25 mmol/L (22-29); Chloride 101 mmol/L (98-107); Globulin 2.5 g/dL (1.3-4.6); Glomerular Filtration Rate 89.3 mL/min (90-130); Glucose 86 mg/dL (65-115); Osmolality Calculated 287 mOsm/kg (285-295); Sodium 139 mmol/L (136-145); Total Bilirubin 0.5 mg/dL (0.15-1.2)
[2023-05-02 15:00] LABS: Acetaminophen < 5.0 ug/mL (10-30); Alcohol Level < 10 mg/dL (0-10); Salicylate < 0.3 mg/dL (3-10)
[2023-05-02 17:58] VITALS: BP 93/58; PULSE 84; O2SAT 96
--- NOTE | 2023-05-02 19:10 | PC.NURSE ---
Pt Report received from Carlos ANTONIO. Pt resting in bed with eyes closed and even chest rise.
[2023-05-02 20:51] VITALS: BP 92/69; PULSE 83; RESP 16; O2SAT 96
[2023-05-02 20:55] VITALS: BP 104/72; PULSE 84; RESP 17; TEMP 36.7; O2SAT 97
--- NOTE | 2023-05-02 22:29 | PC.NURSE ---
Pt arrived to [facility] @ approximately 2054 w/security and RN at side. Pt is calm and cooperative. States she does not really know why she is here. Denies SI/HI. Denies [facility].
[2023-05-03 06:00] VITALS: BP 94/68; PULSE 86; RESP 15; O2SAT 97
[2023-05-03] MEDS: gabapentin 300 mg Capsule PO ×2 (10:01→17:56)
[2023-05-03] MEDS: buPROPion SR (12 HR) 100 mg Tablet 200 MG PO ×2 (12:31→17:56)
[2023-05-03 14:07] VITALS: BP 89/67; PULSE 120; RESP 18; TEMP 36.9; O2SAT 98
[2023-05-03] MEDS: acetaminophen 325 mg Tablet 650 MG PO (14:08)
[2023-05-03 15:50] LABS: Protein Urine Neg (Negative); Urine Appearance SL Hazy (CLEAR); Urine Color Yellow (Yellow); pH Urine 5 (5-7)
[2023-05-03 15:51] LABS: Add Urine Microscopic? YES; Bilirubin Urine Neg (Negative); Blood Urine Neg (Negative); Glucose Urine UA Norm (Normal); Ketones Urine 1+ (Negative); Leukocyte Esterase Urine 1+ (Negative); Nitrate Urine Negative (Negative); Urobilinogen Urine Norm (Negative)
[2023-05-03 16:04] LABS: Bacteria Urine 1+ /hpf; RBC Urine 0-4 /hpf (0-2)
[2023-05-03 16:05] LABS: Add Urine Culture? Yes
--- NOTE | 2023-05-03 16:08 | P.NPUHP_ITS ---
Providers/Chief Complaint Admitting Physician: Aman Meng MD Primary Care Provider: Gavin Yadav MD Chief Complaint: SI HPI NPU History of Present Illness Kalpana Godwin is a 48 year old female who presented to the emergency department with the following report: Chief Complaint: Psychiatric Symptoms Stated Complaint: SI Time Seen by Provider: 05/02/23 13:17 Source: patient Mode of arrival: ambulatory History of Present Illness: 48-year-old female presents emergency room because he had [facility]. They were called for combative person. When they arrived that she was homicidal and suicidal having auditory and visual hallucinations she attempted to grab a knife threatened to grab a knife and hurt herself and kill her . After she was taken to custody she calm down she is now stating that she took an extra tablet or possibly 2 of her bupropion but that that has resolved and now she is feeling better that the extra medication is what caused the incident. Initially when I seen the patient she states she just got upset and denied the incident regarding the knife. complaint: suicidal ideation Onset (ago): hour(s) Duration: intermittent and changing over time History of same: Yes Relieving factors: none Exacerbating factors: none Associated psychiatric symptoms: suicidal ideation, homicidal ideation, auditory hallucinations and visual hallucinations Associated symptoms: Reports auditory hallucinations, visual hallucinations, homicidal ideation and suicidal ideation Treatments prior to arrival: physical restraints If self harm: admits thoughts of self harm and has plan. She was admitted to the neuropsychiatric unit for definitive treatment of those issues. The patient presents today reporting that she is here secondary to having episodes where she is talking to herself, and she feels different, like it is not her voice. She denies previous psychiatric hospitalization. She denies psychiatric outpatient services other than alcohol abuse treatment. She reports that Dr. Yadav is her primary care physician and she has been seeing Clarice at [facility], for a couple years, for alcohol treatment. She reports that she takes Wellbutrin and Gabapentin. She has previously been on Naltrexone, Buspar, but nothing long-term. She endorses that when she drank she would also smoke. She reports that she has been sober for over a year. She reports that alcohol has been a challenge most of her life. She started drinking around age 21, and it really became a problem in her late twenties/early thirties. She denies marijuana use. She denies cocaine, methamphetamine, opiates or any other illicit drug use. She has been to rehab about three times, the last time was fifteen to twenty years ago. She endorses that she has had three DUI?s, the last time was around twenty years ago, and she reports that she was not driving but had possession of the keys. She denies other drug related charges. She denies any mental health issues when she was younger. She reports that yesterday her mom noticed that she was having odd behavior. She denies there being any major life events or issues that precipitated her drinking becoming problematic. She does endorse that she has anxiety and things have to be a certain way, stating she is very clean and things have to be in order. She reports that she recently had surgery on her hand, for carpel tunnel. She reports nerve issues. She reports they have been looking for a neurologist and psychiatrist. She reports that yesterday she got really angry at her mom because she was trying to get her to come to a psychiatrist but she states she does not remember any of that. She reports that she lost about two hours of time, other than bits and pieces. They tried to get an ambulance and she was fighting it. She reports that she understands she is on a 96-hour hold because her family was concerned with her behavior, which was very out of the ordinary. PSYCHIATRIC HISTORY: As above. Except in chart review 3 previous inpatient psychiatric hospitalizations here at the neuropsychiatric unit were discovered however they were all alcohol-related. SUBSTANCE ABUSE HISTORY: As above. FAMILY HISTORY: The patient reports that her brother has had addiction issues. She reports that she doesn?t know much about her father?s side of the family other than he was a drinker. She denies mental health and addiction issues on her mother?s side of the family. She denies any suicide attempts or completions. DEVELOPMENTAL HISTORY: The patient denies any issues with her mother?s , delivery was by section. She learned to walk and talk and met all developmental milestones on time. The patient denies speech therapy, learning support, emotional support, or special education classes. PSYCHOSOCIAL HISTORY: The patient reports that her mother and father were together when he was born and split up when she was around 3 years old. She reports that she has two older brothers who are also products of that union. She reports that there are no other children from her mother or biological father. She describes her childhood as good. She denies emotional, physical, or sexual abuse. She denies CYS involvement. She denies any major traumatic events that have had lasting effects. But she endorses that she is a sensitive person to other peoples? pain and experiences. She reports that she graduated from high school. 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 She endorses being heterosexual, with her longest relationship being six years, her current marriage. She has been once and has no children. She has not been in the . She endorses being Chr istian. 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 She has not worked for a couple years. LEGAL HISTORY: She endorses that she has been to skilled nursing a couple of times, the longest time being thirty days. MEDICAL HISTORY: Denied. She reports that she started her menses around 12 to 13 years old, and she always had bad cramps and physical symptoms. She reports that she does not think she has been through menopause but she had uterine fibroids removed and ablation and was on depo-provera, and quit taking that, and has not had a period since, so she has likely had menopause. Meds NPU Home Medications Medication Instructions Recorded Confirmed Last Taken Type bupropion HCl 100 mg tablet 200 mg PO BID@08,16 #120 tabs 04/17/23 05/02/23 05/02/23 Rx gabapentin 300 mg capsule 300 mg PO BID 05/02/23 05/02/23 Unknown History Allergies Allergy/AdvReac Type Severity Reaction Status Date / Time No Known Allergies Allergy Verified 05/02/23 14:42 PFS NPU PFS: Medical History Alcohol use disorder, severe, in early remission, dependence last documented use 11/20/22 Alterations of sensations Anxiety and depression Bipolar II disorder Mixed episodes with anxious distress Cellulitis of left breast Elevated liver enzymes Hearing voices History of actinic keratosis History of psoriasis Left ankle pain Psychiatric care Surgical History Status post incision and drainage Family History Other CAD (coronary artery disease) Cancer Social History Smoking and tobacco status: never smoked Alcohol intake: current Alcohol intake frequency: 3 or more drinks per day Alcohol type: wine Desire information about alcohol rehabilitation?: No Substance/Drug Use: never Desire information about substance/drug rehabilitation?: No Current occupational status: unemployed and student Mental Status Exam MSE Comments: This is a diminutive, white female, in hospital scrubs, with adequate grooming and eye contact. No abnormal movements except for mild psychomotor agitation. Cooperative with exam in mild distress. Speech was normal rate and volume, with pressured speech at times. Mood described as good; affect congruent and possibly elevated. Thought process, organized. Thought content: patient denied any suicidal or homicidal ideation, there were no delusions reported or noted, patient denied any auditory or visual hallucinations. Attention, concentration, and memory appeared intact, but none were formally tested. Alert and oriented times three. Insight and judgment are limited. Impulse control is limited. Vitals/I&O/Wt Last Vital Signs Temp 98.5 F 05/03/23 14:07 Pulse 120 H 05/03/23 14:07 Resp 18 05/03/23 14:07 BP 89/67 05/03/23 14:07 Pulse Ox 98 05/03/23 14:07 O2 Del Method Room Air 05/03/23 14:07 Weight last 48 hrs Weight 54.431 kg Data NPU 05/02/23 14:27 05/02/23 14:27 A&P Assessment and plan (1) Suicidal ideation: (2) Hearing voices: (3) Alcohol use disorder, severe, in early remission, dependence: (4) History of psoriasis: (5) Bipolar II disorder: Plan This is a 48-year-old female, who presents after being brought to the hospital after having an episode yesterday that prompted her family to call an ambulance and the police also responded, who is here on a 96-hour hold. 1. Continue current medication. 2. Encourage individual, group, and milieu therapy. 3. Continue q-15-minute checks for safety. 4. Recommend sober living treatment at the highest level of care to which the patient is willing to commit. 5. Get collateral information from significant others in outpatient team Involuntary Hold Information 96 Hour Hold: 96 Hour Involuntary Admission: Yes 96 Hour Hold Ending Date: 05/09/23 96 Hour Hold Ending Time: 14:00 Attestations NPU Medical Necessity Statement*: Inpatient hospitalization is medically necessary and the clinically appropriate intervention, at this time. We will monitor medications and make changes as indicated. Patient will be in the hospital for over two midnights. Likely length of stay is three to five days. Coding Level of Care Code Acute Code for g Fwd Diagnoses Suicidal ideation R45.851 Hearing voices R44.0 Alcohol use disorder, severe, in early remission, dependence F10.21 History of psoriasis Z87.2 Bipolar II disorder F31.81
[2023-05-03 21:27] VITALS: BP 92/67; PULSE 96; RESP 17; TEMP 36.6; O2SAT 96
[2023-05-04 06:00] VITALS: BP 93/67; PULSE 96; RESP 15; TEMP 36.5; O2SAT 96
[2023-05-04] MEDS: buPROPion SR (12 HR) 100 mg Tablet 200 MG PO ×2 (07:28→15:55)
[2023-05-04] MEDS: gabapentin 300 mg Capsule PO ×2 (08:11→18:17)
[2023-05-04] MEDS: alum-mag-hydroxide-sime 30 mL UDC 15 ML PO (08:13)
[2023-05-04] MEDS: alum-mag-hydroxide-sime 30 mL UDC PO (12:07)
[2023-05-04 14:00] VITALS: RESP 16
--- NOTE | 2023-05-04 16:47 | W.PM.NPUPNS ---
Subjective NPU Subjective: Patient in today reporting that she is doing okay. She seemed very resistant to acknowledging the behaviors that led to her hospitalization. She knowledges that she was around some knives or sharp objects but denies the behavior in the affidavits. She can short of calling her mother liar. We discussed the fact it is hard to report that one does not recall a period of time but then argue that one did not do something that someone who does recall that time is reporting. We discussed initiating a low-dose mood stabilizer and she reported that she does not like medications that decrease her energy. Mental Status Exam MSE Comments: This is a diminutive, white female, in hospital scrubs, with adequate grooming and eye contact. No abnormal movements except for mild psychomotor agitation. Cooperative with exam in mild distress. Speech was increased rate and normal volume, with pressured speech at times. Mood described as good; affect congruent and possibly elevated. Thought process, organized. Thought content: patient denied any suicidal or homicidal ideation, there were no delusions reported or noted, patient denied any auditory or visual hallucinations. Attention, concentration, and memory appeared intact, but none were formally tested. Alert and oriented times three. Insight and judgment are limited. Impulse control is limited. Vitals/I&O/Wt Last Vital Signs Temp 98.4 F 05/04/23 20:08 Pulse 103 H 05/04/23 20:08 Resp 12 05/04/23 20:08 BP 103/73 05/04/23 20:08 Pulse Ox 98 05/04/23 20:08 O2 Del Method Room Air 05/04/23 20:08 Data NPU 05/02/23 14:27 05/02/23 14:27 Micro: Microbiology 05/03/23 15:09 Urine Culture - Preliminary Urine,Clean Catch Microbiology 05/03/23 15:09 Urine,Clean Catch Urine Culture - Preliminary A&P Assessment and plan (1) Suicidal ideation: (2) Hearing voices: (3) Alcohol use disorder, severe, in early remission, dependence: (4) History of psoriasis: (5) Bipolar II disorder: Plan This is a 48-year-old female, who presents after being brought to the hospital after having an episode yesterday that prompted her family to call an ambulance and the police also responded, who is here on a 96-hour hold. 1. Continue current medication except he did switch her Wellbutrin to Wellbutrin SR 200 g p.o. twice daily. And recommend low-dose Abilify. 2. Encourage individual, group, and milieu therapy. 3. Continue q-15-minute checks for safety. 4. Recommend sober living treatment at the highest level of care to which the patient is willing to commit. 5. Get collateral information from significant others in outpatient team Involuntary Hold Information 96 Hour Hold: 96 Hour Involuntary Admission: Yes 96 Hour Hold Ending Date: 05/09/23 96 Hour Hold Ending Time: 14:00 Attestations NPU Medical Necessity Statement*: Inpatient hospitalization is medically necessary and the clinically appropriate intervention, at this time. We will monitor medications and make changes as indicated. Likely length of stay is three to five days. Coding Level of Care Code Acute Code for Chg Fwd Diagnoses Suicidal ideation R45.851 Hearing voices R44.0 Alcohol use disorder, severe, in early remission, dependence F10.21 History of psoriasis Z87.2 Bipolar II disorder F31.81
--- NOTE | 2023-05-04 18:59 | PC.NURSE ---
0840 pt complaining of abdominal pain do to inability to urinate. preformed bladder scan on patient 804ml, had patient sit on toilet ran warm water in sink and shower, had a conversation with patient with the goal of patient relaxing to see if she could urinate. pt started then stopped immediately stating it burned explained to pt that she will have to try and relax in order to urinate. finally pt stated oh I am peeing after patient was done re scanned patient with oml left in bladder after voiding.
[2023-05-04 20:08] VITALS: BP 103/73; PULSE 103; RESP 12; TEMP 36.9; O2SAT 98
[2023-05-05 06:00] VITALS: RESP 12
[2023-05-05] MEDS: gabapentin 300 mg Capsule PO ×2 (08:35→17:38)
[2023-05-05] MEDS: buPROPion SR (12 HR) 100 mg Tablet 200 MG PO ×2 (08:35→15:55)
[2023-05-05 14:00] VITALS: BP 98/69; PULSE 101; RESP 20; TEMP 37.2; O2SAT 95
[2023-05-05] MEDS: acetaminophen 325 mg Tablet 650 MG PO (15:56)
--- NOTE | 2023-05-05 18:03 | W.PM.NPUPNS ---
Subjective NPU Subjective: Patient is in today reporting that she is still struggling with the idea of what we discussed in regards to her behavior. We discussed however her appearing hypomanic and her considering whether a small dose of Abilify would not be helpful. We discussed the risks, benefits and alternatives and she understood and agreed to proceed as is documented in this note. Mental Status Exam MSE Comments: This is a diminutive, white female, in hospital scrubs, with adequate grooming and eye contact. No abnormal movements except for mild psychomotor agitation. Cooperative with exam in mild distress. Speech was increased rate and normal volume, with pressured speech at times. Mood described as good; affect congruent and possibly elevated. Thought process, organized. Thought content: patient denied any suicidal or homicidal ideation, there were no delusions reported or noted, patient denied any auditory or visual hallucinations. Attention, concentration, and memory appeared intact, but none were formally tested. Alert and oriented times three. Insight and judgment are limited. Impulse control is limited. Vitals/I&O/Wt Last Vital Signs Temp 98.3 F 05/05/23 21:29 Pulse 90 05/05/23 21:29 Resp 18 05/05/23 21:29 BP 98/69 05/05/23 14:00 Pulse Ox 99 05/05/23 21:29 O2 Del Method Room Air 05/05/23 14:00 Data NPU 05/02/23 14:27 05/02/23 14:27 Micro: Microbiology 05/03/23 15:09 Urine Culture - Final Urine,Clean Catch Microbiology 05/03/23 15:09 Urine,Clean Catch Urine Culture - Final A&P Assessment and plan (1) Suicidal ideation: (2) Hearing voices: (3) Alcohol use disorder, severe, in early remission, dependence: (4) History of psoriasis: (5) Bipolar II disorder: Plan This is a 48-year-old female, who presents after being brought to the hospital after having an episode yesterday that prompted her family to call an ambulance and the police also responded, who is here on a 96-hour hold. 1. Continue current medication except he did switch her Wellbutrin to Wellbutrin SR 200 g p.o. twice daily. Start Abilify 2 mg p.o. every morning with a plan to increase to 5mg or higher as indicated. 2. Encourage individual, group, and milieu therapy. 3. Continue q-15-minute checks for safety. 4. Recommend sober living treatment at the highest level of care to which the patient is willing to commit. 5. Get collateral information from significant others in outpatient team Involuntary Hold Information 96 Hour Hold: 96 Hour Involuntary Admission: Yes 96 Hour Hold Ending Date: 05/09/23 96 Hour Hold Ending Time: 14:00 Attestations NPU Medical Necessity Statement*: Inpatient hospitalization is medically necessary and the clinically appropriate intervention, at this time. We will monitor medications and make changes as indicated. Likely length of stay is 2-4 days. Coding Level of Care Code Acute Code for Chg Fwd Diagnoses Suicidal ideation R45.851 Hearing voices R44.0 Alcohol use disorder, severe, in early remission, dependence F10.21 History of psoriasis Z87.2 Bipolar II disorder F31.81
[2023-05-05 21:29] VITALS: PULSE 90; RESP 18; TEMP 36.8; O2SAT 99
[2023-05-06 06:00] VITALS: BP 83/65; PULSE 84; RESP 18; TEMP 36.4; O2SAT 97
[2023-05-06] MEDS: gabapentin 300 mg Capsule PO ×2 (08:13→17:30)
[2023-05-06] MEDS: ARIPiprazole 2 mg Tablet PO (08:13)
[2023-05-06] MEDS: alum-mag-hydroxide-sime 30 mL UDC PO (08:13)
[2023-05-06] MEDS: buPROPion SR (12 HR) 100 mg Tablet 200 MG PO ×2 (08:14→16:06)
--- NOTE | 2023-05-06 12:02 | W.PM.NPUPNS ---
Subjective NPU Subjective: Patient presented today reporting that she is bored. She continues to be fairly hyperkinetic per reports. She denies any side effects from the initiation of Abilify 2 mg. We discussed increasing it to 5 mg. After discussion of the risks, benefits and alternatives, she understood agreed to proceed as documented in this note. She denies any new issues but still was resistant to discussions about the knife wielding incidents. Mental Status Exam MSE Comments: This is a diminutive, white female, in hospital scrubs, with adequate grooming and eye contact. No abnormal movements except for mild psychomotor agitation. Cooperative with exam in mild distress. Speech was increased rate and normal volume, with pressured speech at times. Mood described as good; affect congruent and mildly elevated. Thought process, organized. Thought content: patient denied any suicidal or homicidal ideation, there were no delusions reported or noted, patient denied any auditory or visual hallucinations. Attention, concentration, and memory appeared intact, but none were formally tested. Alert and oriented times three. Insight and judgment are limited. Impulse control is limited. Vitals/I&O/Wt Last Vital Signs Temp 97.6 F 05/06/23 06:00 Pulse 84 05/06/23 06:00 Resp 18 05/06/23 06:00 BP 83/65 05/06/23 06:00 Pulse Ox 97 05/06/23 06:00 O2 Del Method Room Air 05/05/23 14:00 Data NPU 05/02/23 14:27 05/02/23 14:27 Micro: Microbiology 05/03/23 15:09 Urine Culture - Final Urine,Clean Catch Microbiology 05/03/23 15:09 Urine,Clean Catch Urine Culture - Final A&P Assessment and plan (1) Suicidal ideation: (2) Hearing voices: (3) Alcohol use disorder, severe, in early remission, dependence: (4) History of psoriasis: (5) Bipolar II disorder: Plan This is a 48-year-old female, who presents after being brought to the hospital after having an episode yesterday that prompted her family to call an ambulance and the police also responded, who is here on a 96-hour hold. 1. Continue current medication except he did switch her Wellbutrin to Wellbutrin SR 200 g p.o. twice daily. Started Abilify 2 mg p.o. every morning and increase to 5mg tomorrow with consideration of further titration as indicated. 2. Encourage individual, group, and milieu therapy. 3. Continue q-15-minute checks for safety. 4. Recommend sober living treatment at the highest level of care to which the patient is willing to commit. 5. Get collateral information from significant others in outpatient team Involuntary Hold Information 96 Hour Hold: 96 Hour Involuntary Admission: Yes 96 Hour Hold Ending Date: 05/09/23 96 Hour Hold Ending Time: 14:00 Attestations NPU Medical Necessity Statement*: Inpatient hospitalization is medically necessary and the clinically appropriate intervention, at this time. We will monitor medications and make changes as indicated. Likely length of stay is 2-4 days. Coding Level of Care Code Acute Code for [facility] Fwd Diagnoses Suicidal ideation R45.851 Hearing voices R44.0 Alcohol use disorder, severe, in early remission, dependence F10.21 History of psoriasis Z87.2 Bipolar II disorder F31.81
[2023-05-06 14:00] VITALS: BP 97/64; PULSE 127; RESP 16; TEMP 36.8; O2SAT 97
[2023-05-06 21:44] VITALS: BP 110/78; PULSE 97; RESP 16; TEMP 36.7; O2SAT 98
[2023-05-07 06:00] VITALS: BP 85/60; PULSE 91; RESP 16; TEMP 36.5; O2SAT 98
[2023-05-07] MEDS: ARIPiprazole 2 mg Tablet 5 MG PO (08:07)
[2023-05-07] MEDS: gabapentin 300 mg Capsule PO ×2 (08:08→18:24)
[2023-05-07] MEDS: buPROPion SR (12 HR) 100 mg Tablet 200 MG PO ×2 (08:08→16:12)
[2023-05-07] MEDS: alum-mag-hydroxide-sime 30 mL UDC PO (09:22)
--- NOTE | 2023-05-07 10:33 | W.PM.NPUPNS ---
Subjective NPU Subjective: Patient presented today that she doing okay with the increase to 5 mg of Abilify. She continued to be somewhat giddy per staff and we discussed the possibility of needing to go to 10 mg of Abilify. Otherwise she denied any issues and continued to exhibit hypomanic symptoms throughout the day. Mental Status Exam MSE Comments: This is a diminutive, white female, in hospital scrubs, with adequate grooming and eye contact. No abnormal movements except for mild psychomotor agitation. Cooperative with exam in mild distress. Speech was increased rate and normal volume, with pressured speech at times. Mood described as good; affect congruent and mildly elevated. Thought process, organized. Thought content: patient denied any suicidal or homicidal ideation, there were no delusions reported or noted, patient denied any auditory or visual hallucinations. Attention, concentration, and memory appeared intact, but none were formally tested. Alert and oriented times three. Insight and judgment are limited. Impulse control is limited. Vitals/I&O/Wt Last Vital Signs Temp 97.7 F 05/07/23 06:00 Pulse 91 05/07/23 06:00 Resp 16 05/07/23 06:00 BP 85/60 05/07/23 06:00 Pulse Ox 98 05/07/23 06:00 O2 Del Method Room Air 05/07/23 06:00 Weight last 48 hrs Weight 50.916 kg Data NPU 05/02/23 14:27 05/02/23 14:27 A&P Assessment and plan (1) Suicidal ideation: (2) Hearing voices: (3) Alcohol use disorder, severe, in early remission, dependence: (4) History of psoriasis: (5) Bipolar II disorder: Plan This is a 48-year-old female, who presents after being brought to the hospital after having an episode yesterday that prompted her family to call an ambulance and the police also responded, who is here on a 96-hour hold. 1. Continue current medication except he did switch her Wellbutrin to Wellbutrin SR 200 g p.o. twice daily. Started Abilify 2 mg p.o. every morning and increased to 5mg today 05/07/2023, with consideration of further titration as indicated. 2. Encourage individual, group, and milieu therapy. 3. Continue q-15-minute checks for safety. 4. Recommend sober living treatment at the highest level of care to which the patient is willing to commit. 5. Get collateral information from significant others in outpatient team Involuntary Hold Information 96 Hour Hold: 96 Hour Involuntary Admission: Yes 96 Hour Hold Ending Date: 05/09/23 96 Hour Hold Ending Time: 14:00 Attestations NPU Medical Necessity Statement*: Inpatient hospitalization is medically necessary and the clinically appropriate intervention, at this time. We will monitor medications and make changes as indicated. Likely length of stay is 2-4 days. Coding Level of Care Code Acute Code for Chg Fwd Diagnoses Suicidal ideation R45.851 Hearing voices R44.0 Alcohol use disorder, severe, in early remission, dependence F10.21 History of psoriasis Z87.2 Bipolar II disorder F31.81
[2023-05-07 14:00] VITALS: BP 109/76; PULSE 92; RESP 14; TEMP 36.4; O2SAT 97
[2023-05-07 20:29] VITALS: BP 106/74; PULSE 98; RESP 18; TEMP 36.5; O2SAT 98
[2023-05-08 06:00] VITALS: BP 99/69; PULSE 84; RESP 17; TEMP 36.6
[2023-05-08] MEDS: gabapentin 300 mg Capsule PO ×2 (08:03→17:39)
[2023-05-08] MEDS: buPROPion SR (12 HR) 100 mg Tablet 200 MG PO ×2 (08:03→15:08)
[2023-05-08] MEDS: ARIPiprazole 2 mg Tablet 5 MG PO (08:03)
[2023-05-08] MEDS: ARIPiprazole 10 mg Tablet 5 MG PO (11:59)
--- NOTE | 2023-05-08 13:42 | W.PM.NPUPNS ---
Vitals/I&O/Wt Last Vital Signs Temp 97.9 F 05/08/23 06:00 Pulse 84 05/08/23 06:00 Resp 17 05/08/23 06:00 BP 99/69 05/08/23 06:00 Pulse Ox 98 05/07/23 20:29 O2 Del Method Room Air 05/08/23 06:00 Weight last 48 hrs Weight 50.916 kg Data NPU 05/02/23 14:27 05/02/23 14:27 A&P Assessment and plan (1) Suicidal ideation: (2) Hearing voices: (3) Alcohol use disorder, severe, in early remission, dependence: (4) History of psoriasis: (5) Bipolar II disorder: Plan This is a 48-year-old female, who presents after being brought to the hospital after having an episode yesterday that prompted her family to call an ambulance and the police also responded, who is here on a 96-hour hold. 1. Continue current medication except he did switch her Wellbutrin to Wellbutrin SR 200 g p.o. twice daily. Started Abilify 2 mg p.o. every morning and increased to 5mg 05/07/2023. Increased to 10 mg p.o. daily today. 2. Encourage individual, group, and milieu therapy. 3. Continue q-15-minute checks for safety. 4. Recommend sober living treatment at the highest level of care to which the patient is willing to commit. 5. Get collateral information from significant others in outpatient team Involuntary Hold Information 96 Hour Hold: 96 Hour Involuntary Admission: Yes 96 Hour Hold Ending Date: 05/09/23 96 Hour Hold Ending Time: 14:00 Attestations NPU Medical Necessity Statement*: Inpatient hospitalization is medically necessary and the clinically appropriate intervention, at this time. We will monitor medications and make changes as indicated. Tentative plan for discharge in the morning. Coding Level of Care Code Acute Code for g Fwd Diagnoses Suicidal ideation R45.851 Hearing voices R44.0 Alcohol use disorder, severe, in early remission, dependence F10.21 History of psoriasis Z87.2 Bipolar II disorder F31.81
[2023-05-08 14:00] VITALS: BP 117/73; PULSE 90; RESP 16; TEMP 36.4; O2SAT 96
[2023-05-08 20:39] VITALS: BP 113/83; PULSE 104; RESP 16; TEMP 36.7; O2SAT 98
[2023-05-08] MEDS: OLANZapine 5 mg ODT PO (22:27)
--- NOTE | 2023-05-09 05:30 | P.NPUDS_ITS ---
Diagnoses at Discharge Discharge Diagnosis (1) Suicidal ideation: Status: Resolved (2) Hearing voices: Status: Resolved (3) Alcohol use disorder, severe, in early remission, dependence: Status: Chronic Permanent problem details: last documented use 11/20/22 (4) History of psoriasis: Status: Acute (5) Bipolar II disorder: Status: Suspected Permanent problem details: Mixed episodes with anxious distress Reason for Visit Reason for Visit: SI Brief History: History of Present Illness Kalpana Godwin is a 48 year old female who presented to the emergency department with the following report: Chief Complaint: Psychiatric Symptoms Stated Complaint: SI Time Seen by Provider: 05/02/23 13:17 Source: patient Mode of arrival: ambulatory History of Present Illness:?? 48-year-old female presents emergency room because he had [facility] department.? They were called for combative person.? When they arrived that she was homicidal and suicidal having auditory and visual hallucinations she attempted to grab a knife threatened to grab a knife and hurt herself and kill her .? After she was taken to custody she calm down she is now stating that she took an extra tablet or possibly 2 of her bupropion but that that has resolved and now she is feeling better that the extra medication is what caused the incident.? Initially when I seen the patient she states she just got upset and denied the incident regarding the knife. ? MD complaint: suicidal ideation Onset (ago): hour(s) Duration: intermittent and changing over time History of same: Yes Relieving factors: none Exacerbating factors: none Associated psychiatric symptoms: suicidal ideation, homicidal ideation, auditory hallucinations and visual hallucinations Associated symptoms: Reports auditory hallucinations, visual hallucinations, homicidal ideation and suicidal ideation Treatments prior to arrival: physical restraints If self harm: admits thoughts of self harm and has plan. She was admitted to the neuropsychiatric unit for definitive treatment of those issues.? The patient presents today reporting that she is here secondary to having episodes where she is talking to herself, and she feels different, like it is not her voice. She denies previous psychiatric hospitalization. She denies psychiatric outpatient services other than alcohol abuse treatment. She reports that Dr. Yadav is her primary care physician and she has been seeing Clarice at [facility], for a couple years, for alcohol treatment. She reports that she takes Wellbutrin and Gabapentin. She has previously been on Naltrexone, Buspar, but nothing long-term. She endorses that when she drank she would also smoke. She reports that she has been sober for over a year. She reports that alcohol has been a challenge most of her life. She started drinking around age 21, and it really became a problem in her late twenties/early thirties. She denies marijuana use. She denies cocaine, methamphetamine, opiates or any other illicit drug use. She has been to rehab about three times, the last time was fifteen to twenty years ago. She endorses that she has had three DUI?s, the last time was around twenty years ago, and she reports that she was not driving but had possession of the keys. She denies other drug related charges. She denies any mental health issues when she was younger. She reports that yesterday her mom noticed that she was having odd behavior. She denies there being any major life events or issues that precipitated her drinking becoming problematic. She does endorse that she has anxiety and things have to be a certain way, stating she is very clean and things have to be in order. She reports that she recently had keyur dariana on her hand, for carpel tunnel. She reports nerve issues. She reports they have been looking for a neurologist and psychiatrist. She reports that yesterday she got really angry at her mom because she was trying to get her to come to a psychiatrist but she states she does not remember any of that. She reports that she lost about two hours of time, other than bits and pieces. They tried to get an ambulance and she was fighting it. She reports that she understands she is on a 96-hour hold because her family was concerned with her behavior, which was very out of the ordinary.? PSYCHIATRIC HISTORY: As above.? Except in chart review 3 previous inpatient psychiatric hospitalizations here at the neuropsychiatric unit were discovered however they were all alcohol-related. SUBSTANCE ABUSE HISTORY: As above.? FAMILY HISTORY: The patient reports that her brother has had addiction issues. She reports that she doesn?t know much about her father?s side of the family other than he was a drinker. She denies mental health and addiction issues on her mother?s side of the family. She denies any suicide attempts or completions. DEVELOPMENTAL HISTORY: The patient denies any issues with her mother?s , delivery was by section. She learned to walk and talk and met all developmental milestones on time. The patient denies speech therapy, learning support, emotional support, or special education classes. PSYCHOSOCIAL HISTORY: The patient reports that her mother and father were together when he was born and split up when she was around 3 years old. She reports that she has two older brothers who are also products of that union. She reports that there are no other children from her mother or biological father. She describes her childhood as good. She denies emotional, physical, or sexual abuse. She denies CYS involvement. She denies any major traumatic events that have had lasting effects. But she endorses that she is a sensitive person to other peoples? pain and experiences. She reports that she graduated from high school. 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 She endorses being heterosexual, with her longest relationship being six years, her current marriage. She has been once and has no children. She has not been in the . She endorses being Pentecostalism. 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 She has not worked for a couple years. LEGAL HISTORY: She endorses that she has been to intermediate a couple of times, the longest time being thirty days. MEDICAL HISTORY: Denied. She reports that she started her menses around 12 to 13 years old, and she always had bad cramps and physical symptoms. She reports that she does not think she has been through menopause but she had uterine fibroids removed and ablation and was on depo-provera, and quit taking that, and has not had a period since, so she has likely had menopause. Hospital Course Hospital Course She slowly acclimated to the individual, group and milieu therapies provided. She presented with elevated mood and some irritability consistent with bipolar disorder. She had been on immediate release Wellbutrin. Her Wellbutrin was changed to Wellbutrin SR and increased to 200 mg p.o. twice daily and Abilify 10 mg was added for mood stabilization. She had significant improvement. She worked with the social work team on discharge planning and aftercare. She was able to contract for safety outside of the hospital prior to discharge. During the hospitalization, patient had routine laboratory studies which were within normal limits except for few outliers.? Additionally there was a general medical evaluation which was also within normal limits and revealed no new acute processes. At the time of discharge, she denied psychosis or lethality.? Mood and anxiety were well managed.? Patient endorsed a plan to avoid all drugs of abuse and follow-up with the aftercare recommendations of the treatment team.? Patient was evaluated and deemed to be absent credible lethality, and had achieved the maximum benefit from an inpatient hospitalization, so was discharged. Involuntary Hold Information 96 Hour Hold: 96 Hour Involuntary Admission: Yes 96 Hour Hold Ending Date: 05/09/23 96 Hour Hold Ending Time: 14:00 Mental Status Exam MSE Comments: This is a diminutive, white female, in hospital scrubs, with adequate grooming and eye contact. No abnormal movements except for mild psychomotor agitation. Cooperative with exam in mild distress. Speech was increased rate and normal volume, with pressured speech at times. Mood described as good; affect congruent and mildly elevated. Thought process, organized. Thought content: patient denied any suicidal or homicidal ideation, there were no delusions reported or noted, patient denied any auditory or visual hallucinations. Attention, concentration, and memory appeared intact, but none were formally tested. Alert and oriented times three. Insight and judgment are limited. Impulse control is limited. Discharge Data Studies Completed and Pending: Laboratory Results WBC 6.8 10^3/uL (4.0- 10.0) 05/02/23 14: RBC 4.04 10^6/uL (4.1 -5.3) L 05/02/23 14:27 Hgb 13.2 g/dL (11.5-1 5.3) 05/02/23 14:27 Hct 40.5 % (37.0-47.0 ) 05/02/23 14:27 MCV 100.2 fl (81-99) H 05/02/23 14:27 MCH 32.7 pg (28.0-34. 0) 05/02/23 14:27 MCHC 32.6 g/dL (30.0-3 6.0) 05/02/23 14:27 RDW 11.2 % (12.1-15.1 ) L 05/02/23 14:27 Plt Count 233 10^3/cmm (130 -400) 05/02/23 14:27 MPV 10.1 fL (7.4-10.4 ) 05/02/23 14:27 Neut % (Auto) 66.4 % 05/02/23 14:27 Lymph % (Auto) 22.8 % 05/02/23 14:27 [place] % (Auto) 6.6 % 05/02/23 14:27 Eos % (Auto) 2.7 % 05/02/23 14:27 Baso % (Auto) 1.2 % 05/02/23 14:27 Neut # (Auto) 4.51 10^3/uL (1.8 -7.7) 05/02/23 14:27 Lymph # (Auto) 1.6 10^3/uL (0.8- 4.8) 05/02/23 14:27 Charlotte # (Auto) 0.5 10^3/uL (0.2- 0.9) 05/02/23 14:27 Eos # (Auto) 0.2 10^3/uL (0.0- 0.8) 05/02/23 14:27 Baso # (Auto) 0.1 10^3/uL (0.0- 0.1) 05/02/23 14:27 Nucleated RBC % (a uto) 0 % 05/02/23 14:27 Nucleated RBCs # 0.0 /100WBC 05/02/23 14:27 Sodium 139 mmol/L (136-1 45) 05/02/23 14:27 Potassium 4.0 mmol/L (3.5-5 .1) 05/02/23 14:27 Chloride 101 mmol/L (98-10 7) 05/02/23 14:27 Carbon Dioxide 25 mmol/L (22-29) 05/02/23 14:27 Anion Gap 17.0 (5-19) 05/02/23 14:27 BUN 13 mg/dL (6-20) 05/02/23 14:27 Creatinine 0.7 mg/dL (0.5-0. 9) 05/02/23 14:27 GFR Calculation 89.3 mL/min (90-1 30) L 05/02/23 14:27 Glucose 86 mg/dL (65-115) 05/02/23 14:27 Calculated Osmolal ity 287 mOsm/kg (285- 295) 05/02/23 14:27 Calcium 10.0 mg/dL (8.5-1 0.5) 05/02/23 14:27 Total Bilirubin 0.5 mg/dL (0.15-1 .2) 05/02/23 14:27 AST 24 U/L (0-32) 05/02/23 14:27 ALT 20 U/L (0-33) 05/02/23 14:27 Alkaline Phosphata se 88 U/L (35-105) 05/02/23 14:27 Total Protein 7.0 g/dL (6.6-8.7 ) 05/02/23 14:27 Albumin 4.5 g/dL (3.5-5.2 ) 05/02/23 14:27 Globulin 2.5 g/dL (1.3-4.6 ) 05/02/23 14:27 Urine Color Yellow (Yellow) 05/03/23 15:09 Urine Appearance Sl hazy (CLEAR) A 05/03/23 15:09 Urine pH 5 (5-7) 05/03/23 15:09 Ur Specific Gravit y 1.030 (1.005-1.0 30) 05/03/23 15:09 Urine Protein Neg (Negative) 05/03/23 15:09 Urine Glucose (UA) Norm (Normal) 05/03/23 15:09 Urine Ketones 1+ (Negative) H 05/03/23 15:09 Urine Blood Neg (Negative) 05/03/23 15:09 Urine Nitrate Negative (Negati ve) 05/03/23 15:09 Urine Bilirubin Neg (Negative) 05/03/23 15:09 Urine Urobilinogen Norm mg/dL (Negat sudhir) 05/03/23 15:09 Ur Leukocyte Lisa ase 1+ (Negative) H 05/03/23 15:09 Urine RBC 0-4 /hpf (0-2) H 05/03/23 15:09 Urine WBC 5-10 /hpf (0-5) H 05/03/23 15:09 Ur Squamous Epith Cells 5-10 /hpf (0-5) H 05/03/23 15:09 Amorphous Sediment Not Reportable 05/03/23 15:09 Urine Bacteria 1+ /hpf (NONE) H 05/03/23 15:09 Urine Yeast Trace /hpf 05/03/23 15:09 Salicylates < 0.3 mg/dL (3-10 ) L 05/02/23 14:27 Urine Opiates Scre en Negative ng/mL (N egative) 05/02/23 13:40 Acetaminophen < 5.0 ug/mL (10-3 0) L 05/02/23 14:27 Ur Barbiturates Sc reen Negative ng/mL (N egative) 05/02/23 13:40 Ur Phencyclidine S crn Negative ng/mL (N egative) 05/02/23 13:40 Ur Amphetamines Sc reen Negative ng/mL (N egative) 05/02/23 13:40 U Benzodiazepines Scrn Negative ng/mL (N egative) 05/02/23 13:40 Urine Cocaine Scre en Negative ng/mL (N egative) 05/02/23 13:40 U Marijuana (THC) Screen Negative ng/mL (N egative) 05/02/23 13:40 Ethyl Alcohol < 10 mg/dL (0-10) 05/02/23 14:27 Vitals: Last Vital Signs Temp 98.0 F 05/08/23 20:39 Pulse 104 H 05/08/23 20:39 Resp 16 05/08/23 20:39 BP 113/83 05/08/23 20:39 Pulse Ox 98 05/08/23 20:39 O2 Del Method Room Air 05/08/23 06:00 Discharge Plan Discharge Patient Disposition: Home Condition: Stable Prescriptions: New aripiprazole 10 mg Tablet 10 mg PO DAILY 30 Days Qty: 30 1RF bupropion HCl 200 mg tablet sustained-release 12 hr 200 mg PO 0800,1600 30 Days Qty: 60 1RF Discontinued bupropion HCl 100 mg tablet 200 mg PO BID@08,16 Qty: 120 4RF Rx Instructions: must take 6 hours apart. gabapentin 300 mg capsule 300 mg PO BID No Action gabapentin 300 mg capsule 300 mg PO TID Qty: 90 3RF Discharge Orders: Discharge Order (Routine); Ordered 05/09/23 Ordered By: Aman Meng Referrals: [facility] [Outside] - 05/12/23 8:45 am (One time follow up appointment with Jose Yuen 05/12/23 at 08:45 am. ) Gee Hernández MD [Physician] - 06/19/23 8:30 am Gavin Yadav MD [Primary Care Provider] - Jonny Chavez MD [Physician] - 06/14/23 1:15 pm (Appointment with Dr. Chavez on 06/14/23 at 1:15 pm.) Discharge Diet: Regular Discharge Activity: Resume usual activity Patient Instructions: Bupropion (By mouth), Aripiprazole (By mouth), Suicide Prevention (GEN), Opioid Safety Discharge Attestations NPU Time Spent in Discharge Care*: less than 30 min Specific Discharge Activities: Specific discharge activities: educating patient, discussing with pillowcase cleaner/social workers/dc planners, documenting/other paperwork and evaluating patient/reviewing data Coding Level of Care Code Acute Chg DC note Diagnoses Suicidal ideation R45.851 Hearing voices R44.0 Alcohol use disorder, severe, in early remission, dependence F10.21 History of psoriasis Z87.2 Bipolar II disorder F31.81
[2023-05-09 06:00] VITALS: BP 88/59; PULSE 76; RESP 16; TEMP 36.5; O2SAT 96
[2023-05-09 06:32] VITALS: BP 100/68
[2023-05-09] MEDS: ARIPiprazole 10 mg Tablet PO (07:43)
[2023-05-09] MEDS: gabapentin 300 mg Capsule PO (07:43)
[2023-05-09] MEDS: buPROPion SR (12 HR) 100 mg Tablet 200 MG PO (07:44)
[2023-05-09] MEDS: alum-mag-hydroxide-sime 30 mL UDC PO (10:04)
[2023-05-09] MEDS: acetaminophen 325 mg Tablet 650 MG PO (10:04)
[2023-05-09 13:10] VITALS: BP 100/68
== END 2023-05-09 14:15 | disposition home or self-care (01) | DRG 885 ==
LOC: ER 14:36 → NP 20:45
PROVIDERS: Admitting Provider Psychiatry & Neurology Psychiatry; Emergency Provider Family Medicine; PCP Family Medicine Adult Medicine; Visit Provider Psychiatry & Neurology Psychiatry
DX: F31.81 Bipolar II disorder (principal); R45.851 Suicidal ideations; R44.0 Auditory hallucinations; R45.850 Homicidal ideations; F10.21 Alcohol dependence, in remission; F41.9 Anxiety disorder, unspecified; Z56.0 Unemployment, unspecified; L40.9 Psoriasis, unspecified; Z81.1 Family history of alcohol abuse and dependence; Z81.3 Family history of other psychoactive substance abuse and dependence
CPT/HCPCS: 36415; 80053; 80306; 80307; 81001; 81003; 85025; 87086; 97150; 97165; 99238; 99285

== ENCOUNTER 2023-05-20 19:25 | Emergency (ER) | payer OTHER, MEDICAID, SELFPAY ==
[2023-05-20 19:39] VITALS: BP 108/75; PULSE 102; RESP 14; TEMP 36.6; O2SAT 95; BMI 20.1
--- NOTE | 2023-05-20 20:04 | W.ED.EXTPRO ---
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 Patient reports pain to the dorsal foot on the left side. Incident occurred this afternoon. No signs of severe injury or deformity is noted. We are able to see a small abrasion with some surrounding swelling. Review of Systems General: Reports: 10 or more systems reviewed and unremarkable except in HPI and below Musc: Reports: extremity pain and extremity swelling [facility] PFS: Medical History (Updated 05/20/23 @ 20:26 by HOUSTON Gongora) Abdominal pain Alcohol use disorder, severe, in early remission, dependence last documented use 11/20/22 Alterations of sensations Anxiety and depression Bipolar II disorder Mixed episodes with anxious distress Cellulitis of left breast Elevated liver enzymes Hearing voices History of actinic keratosis History of psoriasis Left ankle pain Pelvic pain Psychiatric care Surgical History Status post incision and drainage Family History Other CAD (coronary artery disease) Cancer Social History Smoking and tobacco status: never smoked Alcohol intake: current Alcohol intake frequency: 3 or more drinks per day Alcohol type: wine Desire information about alcohol rehabilitation?: No Substance/Drug Use: never Desire information about substance/drug rehabilitation?: No Current occupational status: unemployed and student Physical Exam Const: COMMON NORMALS: alert HENMT: COMMON NORMALS: atraumatic HEAD & SCALP: atraumatic Neck/C-Spine: COMMON NORMALS: full ROM Cardio: COMMON NORMALS: regular rate RATE: regular rate GI: COMMON NORMALS: Normal to inspection, nondistended, normoactive bowel sounds present Extremity: LEFT LOWER EXTREMITY: Yes foot & digits (Mild swelling dorsal foot with a superficial abrasion) Neuro: SENSORIUM/ORIENTATION: Yes alert Skin: TRAUMA: abrasion Course Vital Signs: Vital signs: Vital Signs Temperature 97.9 F 05/20/23 19:39 Pulse Rate 102 H 05/20/23 19:39 Respiratory Rate 14 05/20/23 19:39 Blood Pressure 108/75 05/20/23 19:39 Pulse Oximetry 95 05/20/23 19:39 Oxygen Delivery Me thod Room Air 05/20/23 19:39 MDM - Extremity (Nontraumatic) Medical Decision Making 48-year-old female comes in today with injury to the dorsal left foot. Patient accidentally stepped through a open air event this afternoon. On exam there is a 1 cm area of abrasion to the dorsal foot with some surrounding swelling and mild ecchymosis. Differential diagnosis includes contusion, fracture, sprain, abrasion, malingering. X-ray noted no fracture. Patient has a superficial abrasion with some mild bruising. Recommend treatment for contusion and follow-up as needed. Patient was concerned about not being able to move her toes I believe this is probably secondary to malingering as there is no sign of severe injury or foreign body. Discharge Plan Discharge Patient Disposition: Home Clinical Impression: Contusion of foot Qualifiers: Encounter type: initial encounter Laterality: left Qualified Code(s): S90.32XA - Contusion of left foot, initial encounter Condition: Stable Prescriptions: No Action gabapentin 300 mg capsule See Rx Instructions .ROUTE .COMPLEX Qty: 60 0RF Dose Instruction: TAKE 1 CAPSULE BY MOUTH TWICE DAILY FOR CHRONIC PAIN Rx Instructions: TAKE 1 CAPSULE BY MOUTH TWICE DAILY FOR CHRONIC PAIN aripiprazole 10 mg Tablet 10 mg PO DAILY 30 Days Qty: 30 1RF bupropion HCl 200 mg tablet sustained-release 12 hr 200 mg PO 0800,1600 30 Days Qty: 60 1RF Discharge Orders: Discharge ED (Routine); Ordered 05/20/23 Ordered By: Ran Diaz Referrals: Gavin Yadav MD [Primary Care Provider] - Discharge Diet: Usual diet Discharge Activity: Increase activity as tolerated Patient Instructions: Foot Contusion (ED) Activity Restrictions/Additional Instructions: Use ice to the swelling of the foot for comfort and pain. Use acetaminophen and ibuprofen for further pain relief. Use an elastic bandage for further comfort. Follow-up with primary care for further instructions. Return to emergency department for new concerns. Coding Level of Care Code ED Physician Interventional Cardiologist for Jazmyn Jc
--- NOTE | 2023-05-20 20:05 | XRR_ITS ---
PROCEDURE INFORMATION: Exam: XR Left Foot Exam date and time: 05/20/2023 8:15 PM Age: 48 years old Clinical indication: Pain; Foot; Left; Additional info: Injury TECHNIQUE: Imaging protocol: Radiologic exam of the left foot. Views: 3 or more views. COMPARISON: No relevant prior studies available. FINDINGS: Bones/joints: No evidence of acute fracture or dislocation. No erosive disease. Mild midfoot degenerative change. Hallux valgus with metatarsus primus varus. Soft tissues: Normal. XR/XR foot LT min 3V* [id number] IMPRESSION: No acute bony injury.
[2023-05-20 20:35] VITALS: BP 124/87; PULSE 98; RESP 17
[2023-05-20 20:41] VITALS: BP 124/87; PULSE 98; RESP 17; O2SAT 95
== END 2023-05-20 20:41 | disposition home or self-care (01) ==
PROVIDERS: Emergency Provider Nurse Practitioner Family; PCP Family Medicine Adult Medicine
DX: S90.32XA Contusion of left foot, initial encounter (principal); W22.8XXA Striking against or struck by other objects, initial encounter
CPT/HCPCS: 73630; 99283

== ENCOUNTER → 2023-05-31 13:00 | Outpatient (BNVA) | payer OTHER, MEDICAID, SELFPAY | PROVIDERS: PCP Family Medicine Adult Medicine; Visit Provider Obstetrics & Gynecology | DX: R10.2 Pelvic and perineal pain (principal); Z12.4 Encounter for screening for malignant neoplasm of cervix | CPT/HCPCS: 84315; 87624 ==

== ENCOUNTER 2023-06-10 13:25 | Emergency (ER) | payer OTHER, MEDICAID, SELFPAY ==
--- NOTE | 2023-06-10 13:30 | ED_ITS ---
HPI - Extremity Problem General: Chief complaint: Extremity Problem,Nontraumatic Stated complaint: BC sent for poss. blood clot right leg Time Seen by Provider: 06/10/23 13:27 Source: patient Mode of arrival: ambulatory Limitations: no limitations History of Present Illness: Patient is a 48-year-old female presents to ED today stating that this morning when she awoke she noticed some mild edema to the lateral aspect of her right foot. Denies injury or trauma. She states she never had any pain or discomfort. She later began noticing a faint erythematous rash starting and feels like it is spreading up her leg. She states she was seen at a walk-in facility and referred to the ED for rule out DVT. Patient states she is not having any calf pain. She has no risk factors for DVT. Upon arrival to the ED the swelling is gone. She has now noticed that the rash seems to also affect the left lower leg as well. She had previously noted some right knee pain but states this seems chronic stating it feels like I don't have bursa in my knee and it is just rubbing . MD Complaint: extremity swelling and other (rash) Onset (ago): hour(s) Pain Consistency: now resolved Location: right and lower extremity Radiation: none Relieving factors: nothing Exacerbating factors: nothing Associated symptoms: Reports no associated symptoms and rash; Deny chest pain or fever(s) Review of Systems Const: Denies: fever(s), chills, body aches, fatigue or malaise Card: Denies: chest pain Resp: Denies: dyspnea Musc: Reports: extremity swelling (R foot this morning; subsided now); Denies: neck pain, back pain, extremity pain, joint pain, joint swelling, joint redness, joint warmth, limited range of motion or muscle cramps Skin/Breast: Reports: rash; Denies: pruritus Neuro: Denies: headache(s), numbness in extremities, weakness in extremities, sensory changes or difficulty walking [facility] ED PFSH: Medical History Abdominal pain Alcohol use disorder, severe, in early remission, dependence last documented use 11/20/22 Alterations of sensations Anxiety and depression Bipolar II disorder Mixed episodes with anxious distress Cellulitis of left breast Elevated liver enzymes Hearing voices History of actinic keratosis History of psoriasis Left ankle pain Pelvic pain Psychiatric care Surgical History Status post incision and drainage Family History Other CAD (coronary artery disease) Cancer Denies family history of Colon cancer Ovarian cancer Diabetes Heart disease Breast cancer Hypertension Uterine cancer Thyroid disease Stroke Social History Smoking and tobacco status: never smoked Alcohol intake: current Alcohol intake frequency: 3 or more drinks per day Alcohol type: wine Desire information about alcohol rehabilitation?: No Substance/Drug Use: never Desire information about substance/drug rehabilitation?: No Current occupational status: unemployed and student Physical Exam Const: COMMON NORMALS: no acute distress, average body habitus, patient oriented x3, no limitations, healthy appearing, alert and well nourished GENERAL APPEARANCE: cooperative and anxious ORIENTATION/CONSCIOUSNESS: Yes awake, Yes oriented to person, Yes oriented to place and Yes oriented to time HENMT: MOUTH: Normal oral and palatal mucosa present Resp: COMMON NORMALS: normal respiratory effort and clear to auscultation bilaterally AUSCULTATION: clear to auscultation bilaterally Cardio: COMMON NORMALS: regular rate and regular rhythm RATE: regular rate RHYTHM: regular rhythm Extremity: COMMON NORMALS: normal to inspection, full ROM, capillary refill normal, no joint enlargement, no clubbing, cyanosis or edema, no calf tenderness and no pedal edema NARRATIVE EXTREMITY EXAM: faint possible telangiectasia vs petechial rash noted to anteriolateral right lower extremity/foot; even more faint rash noted to similar area on left; non- blanching calf circumference equal bilaterally GENERAL: Yes normal exam except as noted Neuro: COMMON NORMALS: patient oriented x3, moves all extremities, no focal motor deficits, no sensory deficits noted and gait normal SENS ORIUM/ORIENTATION: Yes alert, Yes oriented to person, Yes oriented to place and Yes oriented to time Skin: RASHES: rashes noted (see above) Course Vital Signs: Vital signs: Vital Signs Temperature 98.7 F 06/10/23 13:32 Pulse Rate 87 06/10/23 14:56 Respiratory Rate 16 06/10/23 14:56 Blood Pressure 95/69 06/10/23 14:56 Pulse Oximetry 97 06/10/23 14:56 Oxygen Delivery Me thod Room Air 06/10/23 13:32 MDM - Extremity (Nontraumatic) Medical Decision Making Patient 48-year-old female here after she was referred here for evaluation for a DVT and possible ultrasound. On exam and at this time she has no swelling to her lower extremity. She has no calf pain. Calf circumference equal bilaterally. Negative [place]'s. No risk factors. I do not have any suspicion for DVT at this time. She does have faint rash to bilateral LEs. Blood work showing normal coags and platelets. She is stable to follow up with her PCP at this time. Lab Data 06/10/23 14:02 06/10/23 14:02 Laboratory Results WBC 5.7 10^3/uL (4.0-10.0) 06/10/23 14:02 RBC 3.92 10^6/uL (4.1-5.3) L 06/10/23 14:02 Hgb 12.6 g/dL (11.5-15.3) 06/10/23 14:02 Hct 38.8 % (37.0-47.0) 06/10/23 14:02 MCV 99.0 fl (81-99) 06/10/23 14:02 MCH 32.1 pg (28.0-34.0) 06/10/23 14:02 MCHC 32.5 g/dL (30.0-36.0) 06/10/23 14:02 RDW 11.5 % (12.1-15.1) L 06/10/23 14:02 Plt Count 239 10^3/cmm (130-400) 06/10/23 14:02 MPV 9.8 fL (7.4-10.4) 06/10/23 14:02 Neut % (Auto) 51.6 % 06/10/23 14:02 Lymph % (Auto) 36.3 % 06/10/23 14:02 [place] % (Auto) 7.7 % 06/10/23 14:02 Eos % (Auto) 3.0 % 06/10/23 14:02 Baso % (Auto) 1.2 % 06/10/23 14:02 Neut # (Auto) 2.96 10^3/uL (1.8-7.7) 06/10/23 14:02 Lymph # (Auto) 2.1 10^3/uL (0.8-4.8) 06/10/23 14:02 [place] # (Auto) 0.4 10^3/uL (0.2-0.9) 06/10/23 14:02 Eos # (Auto) 0.2 10^3/uL (0.0-0.8) 06/10/23 14:02 Baso # (Auto) 0.1 10^3/uL (0.0-0.1) 06/10/23 14:02 Nucleated RBC % (auto) 0 % 06/10/23 14:02 Nucleated RBCs # 0.0 /100WBC 06/10/23 14:02 PT 13.70 SECONDS (12.1-14.9) 06/10/23 14:02 INR 1.02 (0.8-1.2) 06/10/23 14:02 APTT 25.6 SECONDS (23.9-36.7) 06/10/23 14:02 Sodium 139 mmol/L (136-145) 06/10/23 14:02 Potassium 3.9 mmol/L (3.5-5.1) 06/10/23 14:02 Chloride 103 mmol/L (98-107) 06/10/23 14:02 Carbon Dioxide 30 mmol/L (22-29) H 06/10/23 14:02 Anion Gap 9.9 (5-19) 06/10/23 14:02 BUN 13 mg/dL (6-20) 06/10/23 14:02 Creatinine 0.6 mg/dL (0.5-0.9) 06/10/23 14:02 GFR Calculation 106.7 mL/min (90-130) 06/10/23 14:02 Glucose 111 mg/dL (65-115) 06/10/23 14:02 Calculated Osmolality 289 mOsm/kg (285-295) 06/10/23 14:02 Calcium 9.6 mg/dL (8.5-10.5) 06/10/23 14:02 Discharge Plan Discharge Patient Disposition: Home Clinical Impression: Rash and nonspecific skin eruption Condition: Stable Prescriptions: No Action gabapentin 300 mg capsule 300 mg PO TID Qty: 90 3RF aripiprazole 10 mg Tablet 10 mg PO DAILY 30 Days Qty: 30 1RF bupropion HCl 200 mg tablet sustained-release 12 hr 200 mg PO 0800,1600 30 Days Qty: 60 1RF Discharge Orders: Discharge ED (Routine); Ordered 06/10/23 Ordered By: Sachi Guadalupe Referrals: Gavin Yadav MD [Primary Care Provider] - Coding Level of Care Code ED [place] for Jazmyn Jc
[2023-06-10 13:32] VITALS: BP 101/80; PULSE 91; RESP 16; TEMP 37.1; O2SAT 98; BMI 20.1
[2023-06-10 13:42] VITALS: BP 101/80; PULSE 83; RESP 16; O2SAT 98
[2023-06-10 14:18] LABS: Basophils # 0.1 10^3/uL (0.0-0.1); Basophils % 1.2 %; Eosinophils # 0.2 10^3/uL (0.0-0.8); Hematocrit 38.8 % (37.0-47.0); Hemoglobin 12.6 g/dL (11.5-15.3); Lymphocytes # 2.1 10^3/uL (0.8-4.8); Lymphocytes % 36.3 %; Mean Corpuscular HGB Conc 32.5 g/dL (30.0-36.0); Mean Corpuscular Hemoglobin 32.1 pg (28.0-34.0); Mean Platelet Volume 9.8 fL (7.4-10.4); Monocytes # 0.4 10^3/uL (0.2-0.9); Monocytes % 7.7 %; Neutrophils # 2.96 10^3/uL (1.8-7.7); Neutrophils % 51.6 %; Nucleated Red Blood Cells % 0 %; Platelet Count 239 10^3/cmm (130-400); Red Blood Count 3.92 10^6/uL (4.1-5.3); Red Cell Distribution Width 11.5 % (12.1-15.1); White Blood Count 5.7 10^3/uL (4.0-10.0)
[2023-06-10 14:35] LABS: INR 1.02 (0.8-1.2)
[2023-06-10 14:36] LABS: Partial Thromboplastin Time 25.6 SECONDS (23.9-36.7)
[2023-06-10 14:47] LABS: Anion Gap 9.9 (5-19); Blood Urea Nitrogen 13 mg/dL (6-20); Calcium 9.6 mg/dL (8.5-10.5); Carbon Dioxide 30 mmol/L (22-29); Chloride 103 mmol/L (98-107); Creatinine Clr Calc Pharmacy 90.5418; Glomerular Filtration Rate 106.7 mL/min (90-130); Glucose 111 mg/dL (65-115); Osmolality Calculated 289 mOsm/kg (285-295); Potassium 3.9 mmol/L (3.5-5.1); Sodium 139 mmol/L (136-145)
[2023-06-10 14:56] VITALS: BP 95/69; PULSE 87; RESP 16; O2SAT 97
== END 2023-06-10 14:59 | disposition home or self-care (01) ==
PROVIDERS: Emergency Provider Physician Assistant; PCP Family Medicine Adult Medicine
DX: R21 Rash and other nonspecific skin eruption (principal)
CPT/HCPCS: 36415; 80048; 85025; 85610; 85730; 99283

== ENCOUNTER → 2023-06-19 08:23 | Outpatient (BNVA) | payer OTHER, MEDICAID, SELFPAY | PROVIDERS: PCP Family Medicine Adult Medicine; Visit Provider Psychiatry & Neurology Neurology | DX: R41.3 Other amnesia (principal) | CPT/HCPCS: 36415; 82607; 82746; 83735; 83921; 84207 ==

== ENCOUNTER → 2023-06-21 10:19 | Outpatient (BNVA) | payer OTHER, MEDICAID, SELFPAY | PROVIDERS: PCP Family Medicine Adult Medicine; Visit Provider Obstetrics & Gynecology | DX: R10.2 Pelvic and perineal pain (principal) | CPT/HCPCS: 76830 ==

== ENCOUNTER 2023-07-11 14:28 | Outpatient (CLI) | payer OTHER, MEDICAID, SELFPAY ==
--- NOTE | 2023-07-11 14:30 | MR_ITS ---
WS: [id number] MRI HEAD WITH CONTRAST TECHNIQUE: Sagittal T1, T2 axial, T2 axial FLAIR, axial susceptibility weighted imaging, axial diffus ion weighted images, and coronal T2 images were obtained. Pre and post-T1 axial and post T1 coronal i mages. ADC and FSPGR images. CLINICAL INFORMATION: R41.3 - Other amnesia COMPARISON: CT 03/31/2023 and MRI head 07/15/2022 FINDINGS: No evidence of restricted diffusion to suggest acute ischemia. Ventricular system and basal cisterns are patent. No suspicious intracranial signal abnormalities. Some images degraded by motion. Normal posterior fossa. Normal vascular flow voids at the skull base. No extra-axial fluid collection s. No evidence of mass or mass effect. Paranasal sinuses and mastoid air cells are well aerated. Mild mucosal thickening in the mastoid air cells. Mild spondylitic changes in the upper cervical spine. No hemosiderin on the susceptibility kell ghted images. Normal optic chiasm and pituitary infundibulum. Temporal lobes and hippocampal formations are normal in appearance. No abnormal gadolinium enhancement. Normal dural venous sinuses. IMPRESSION: 1. No evidence of restricted diffusion to suggest acute ischemia. 2. No suspicious intracranial signal normalities. 3. No abnormal gadolinium enhancement. 4. No hemosiderin on susceptibly weighted images.
== END 2023-07-11 14:29 | disposition home or self-care (01) ==
LOC: RAD 14:31
PROVIDERS: PCP Family Medicine Adult Medicine; Visit Provider Psychiatry & Neurology Neurology
DX: R41.3 Other amnesia (principal)
CPT/HCPCS: 36415; 70553; 82607; 82746; 83735; 83921; 84207; A9577

== ENCOUNTER → 2023-10-20 10:50 | Outpatient (BNVA) | payer OTHER, MEDICAID, SELFPAY | PROVIDERS: PCP Family Medicine Adult Medicine; Visit Provider Family Medicine Adult Medicine | DX: F10.20 Alcohol dependence, uncomplicated (principal) | CPT/HCPCS: 80053; 82105; 85025; 85610 ==

== ENCOUNTER 2023-12-25 19:05 | Emergency (ER) | payer OTHER, MEDICAID, SELFPAY ==
[2023-12-25 19:10] VITALS: BP 107/86; PULSE 99; RESP 18; TEMP 37.1; O2SAT 97; BMI 20.1
--- NOTE | 2023-12-25 19:24 | ED_ITS ---
HPI - Seizure 2 General: Chief Complaint: Seizure Stated Complaint: SEIZURE Time Seen by Provider: 12/25/23 19:23 History of Present Illness: HPI Narrative: 48-year-old female presents to the emerg ency department via EMS personnel. Patient is accompanied by her family members who stated that she was standing up and started having a shaking type seizure and then became unresponsive and collapsed. The patient's mother who was present and witnessed the seizure activity states that lasted for approximately 30 seconds. They state that the patient was not incontinent of bowel or bladder at the time of the seizure and the patient did not appear to be postictal as the family states that she was able to answer questions immediately after the seizure activity. Patient's mother states that the patient has had these type of episodes in the past, but has never had an episode like this. Review of Systems 2 General: Reports: 10 or more systems reviewed and unremarkable except in HPI and below Neuro: Reports: seizure-like activity PFS ED 2 PFSH: Medical History (Updated 12/25/23 @ 20:59 by Dinesh Teixeira MD) Pelvic pain Abdominal pain Hearing voices Alcohol use disorder, severe, in early remission, dependence last documented use 11/20/22 Alterations of sensations Cellulitis of left breast Bipolar II disorder Mixed episodes with anxious distress Psychiatric care History of actinic keratosis History of psoriasis Anxiety and depression Left ankle pain Elevated liver enzymes Surgical History (Updated 10/06/23 @ 09:54 by Gavin Yadav MD) History of ankle surgery Status post incision and drainage Family History Other CAD (coronary artery disease) Cancer Denies family history of Colon cancer Ovarian cancer Diabetes Heart disease Breast cancer Hypertension Uterine cancer Thyroid disease Stroke Social History Smoking and tobacco/nicotine status: never used tobacco/nicotine Alcohol intake: current Alcohol intake frequency: 3 or more drinks per day Alcohol type: wine Substance/Drug Use: never Current occupational status: unemployed and student Physical Exam 2 Narrative: EXAM NARRATIVE: Constitutional: the patient appears well nourished and with normal development. Vital signs reviewed as documented. HENMT: Normocephalic, atraumatic. External ears normal appearance without drainage. Nose without drainage, normal appearance. Mucus membranes moist. Neck is supple, No jugular venous distension, trachea is midline, no appreciable carotid bruits. No lymphadenopathy. No meningeal signs. Flexion, extension and lateral rotation is without pain. Eyes: Pupils are equal, round, reactive to light and accommodation. No scleral icterus. Extra-ocular movement are intact. Thorax is symmetrical and with equal rise and fall with respirations. Resp: Lungs are clear to auscultation. No wheezes, rales, crackles or ronchi at present. Cardio: Regular rate and rhythm. Positive S1, S2. No appreciable murmurs, rubs or gallops. GI: Abdominal exam reveals normal bowel sounds to all quadrants. No organomegaly. No obvious palpable masses noted. No hepatomegally appreciated. Soft, non-tender to palpation. Extremity: Extremities are non-edematous and both femoral and pedal pulses are 2+ and equal bilaterally. Moves all extremities well, sensation in all extremities. Neuro: Alert and oriented x4, person, place, time and situation. Cranial nerves II through XII are grossly intact, there is no focal neurological deficits that I can appreciate at present. Motor strength in the upper and lower extremities are equal and bilateral 5/5. Psych: Cooperative, calm, normal thought process, appropriate judgment. Skin: No lesions, rashes. No gross abnormalities noted. Back: Symmetrical, no obvious deformity, No CVA tenderness Course 2 Vital Signs: Vital signs: Vital Signs Temperature 98.7 F 12/25/23 19:10 Pulse Rate 90 12/25/23 23:30 Respiratory Rate 14 12/25/23 23:30 Blood Pressure 96/71 12/25/23 23:30 Pulse Oximetry 95 12/25/23 23:30 Oxygen Delivery Me thod Room Air 12/25/23 23:30 MDM - Seizure MDM Narrative Medical decision making narrative: Physical exam completed and documented, I will obtain a CT scan of the head without contrast to evaluate for intracranial hemorrhage, tumor, or other gross neurological abnormalities. I have reviewed previous and pertinent medical records to assist in obtaining beneficial medical information to improve the care and treatment of the patient. Medical Records Attestation: I reviewed the patient's medical records. Lab Data Attestation: I reviewed the patient's lab results. 12/25/23 19:31 12/25/23 19:31 Labs: Radiology Impressions Head CT 12/25/23 20:13 IMPRESSION: No acute intracranial findings. Laboratory Results WBC 6.85 10^3/uL (3.29-11.43) 12/25/23 19: RBC 4.27 10^6/uL (3.85-5.65) 12/25/23 19: Hgb 13.80 g/dL (11.27-16.99) 12/25/23 19: Hct 41.3 % (36-47) 12/25/23: MCV 96.7 fl (85-98) 12/25/23 19: MCH 32.3 pg (27-33) 12/25/23: MCHC 33.4 g/dL (30-55) 12/25/23: RDW 10.9 % (12.1-15.1) L 12/25/23: Plt Count 274 10^3/cmm (157-399) 12/25/23: MPV 10.1 fL (7.4-10.4) 12/25/23: Neut % (Auto) 63.2 % 12/25/23: Lymph % (Auto) 25.0 % 12/25/23: [place] % (Auto) 7.9 % 12/25/23: Eos % (Auto) 2.5 % 12/25/23: Baso % (Auto) 1.3 % 12/25/23: Neut # (Auto) 4.33 10^3/uL (1.8-7.7) 12/25/23: Lymph # (Auto) 1.7 10^3/uL (0.8-4.8) 12/25/23: [place] # (Auto) 0.5 10^3/uL (0.2-0.9) 12/25/23: Eos # (Auto) 0.2 10^3/uL (0.0-0.8) 12/25/23: Baso # (Auto) 0.1 10^3/uL (0.0-0.1) 12/25/23: Nucleated RBC % (auto) 0 % 12/25/23: Nucleated RBCs # 0.0 /100WBC 12/25/23 19: Sodium 136 mmol/L (136-145) 12/25/23 19: Potassium 3.6 mmol/L (3.5-5.1) 12/25/23 19: Chloride 101 mmol/L (98-107) 12/25/23 19: Carbon Dioxide 27 mmol/L (22-29) 12/25/23: Anion Gap 11.6 (5-19) 12/25/23: BUN 10 mg/dL (6-20) 12/25/23: Creatinine 0.7 mg/dL (0.5-0.9) 12/25/23 19: GFR Calculation 89.3 mL/min (90-130) L 12/25/23: Glucose 91 mg/dL (65-115) 12/25/23: Calculated Osmolality 281 mOsm/kg (285-295) L 12/25/23: Calcium 9.5 mg/dL (8.5-10.5) 12/25/23: Total Bilirubin 0.4 mg/dL (0.15-1.2) 12/25/23: AST 33 U/L (0-32) H 12/25/23: ALT 32 U/L (0-33) 12/25/23: Alkaline Phosphatase 87 U/L (35-105) 12/25/23: Total Protein 7.2 g/dL (6.6-8.7) 12/25/23: Albumin 4.4 g/dL (3.5-5.2) 12/25/23: Globulin 2.8 g/dL (1.3-4.6) 12/25/23: Prolactin 10.64 ng/mL (4.8-23.3) 12/25/23 19: Urine Color Yellow (Yellow) 12/25/23: Urine Appearance Clear (CLEAR) 12/25/23: Urine pH 7 (5-7) 12/25/23: Ur Specific [place] 1.005 (1.005-1.030) 12/25/23: Urine Protein Neg (Negative) 12/25/23: Urine Glucose (UA) Norm (Normal) 12/25/23: Urine Ketones Negative (Negative) 12/25/23 19:31 Urine Blood Trace (Negative) H 12/25/23 19:31 Urine Nitrate Negative (Negative) 12/25/23 19:31 Urine Bilirubin Neg (Negative) 12/25/23 19:31 Urine Urobilinogen Norm mg/dL (Negative) 12/25/23 19:31 Ur Leukocyte Esterase 1+ (Negative) H 12/25/23 19:31 Urine RBC 0-4 /hpf (0-2) H 12/25/23 19:31 Urine WBC 0-4 /hpf (0-5) H 12/25/23 19:31 Ur Squamous Epith Cells None /hpf (0-5) 12/25/23 19:31 Amorphous Sediment Trace /hpf 12/25/23 19:31 Urine Bacteria Trace /hpf (NONE) 12/25/23 19:31 All radiology interpretation(s) finalized by discharge Discharge Plan Discharge Patient Disposition: Home 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 Discharge Orders: Discharge ED (Routine); Ordered 12/26/23 Ordered By: Dinesh Teixeira Referrals: Lina Shaffer MD [Physician] - Gavin Yadav MD [Primary Care Provider] - Discharge Diet: Advance as tolerated Discharge Activity: Resume usual activity Patient Instructions: Opioid Safety, Pain Management Coding Level of Care Code ED [employer] [employer] [facility] for Jazmyn Jc
[2023-12-25 19:39] LABS: Basophils # 0.1 10^3/uL (0.0-0.1); Basophils % 1.3 %; Eosinophils # 0.2 10^3/uL (0.0-0.8); Eosinophils % 2.5 %; Hematocrit 41.3 % (36-47); Lymphocytes # 1.7 10^3/uL (0.8-4.8); Mean Corpuscular HGB Conc 33.4 g/dL (30-55); Mean Corpuscular Hemoglobin 32.3 pg (27-33); Mean Corpuscular Volume 96.7 fl (85-98); Mean Platelet Volume 10.1 fL (7.4-10.4); Monocytes # 0.5 10^3/uL (0.2-0.9); Monocytes % 7.9 %; Neutrophils # 4.33 10^3/uL (1.8-7.7); Neutrophils % 63.2 %; Nucleated Red Blood Cells % 0 %; Platelet Count 274 10^3/cmm (157-399); Red Blood Count 4.27 10^6/uL (3.85-5.65); Red Cell Distribution Width 10.9 % (12.1-15.1); White Blood Count 6.85 10^3/uL (3.29-11.43)
[2023-12-25 19:50] VITALS: BP 103/68; PULSE 95; RESP 16; O2SAT 93
[2023-12-25 19:58] LABS: Alanine Aminotransferase 32 U/L (0-33); Albumin Level 4.4 g/dL (3.5-5.2); Alkaline Phosphatase 87 U/L (35-105); Anion Gap 11.6 (5-19); Aspartate Amino Transferase 33 U/L (0-32); Blood Urea Nitrogen 10 mg/dL (6-20); Calcium 9.5 mg/dL (8.5-10.5); Carbon Dioxide 27 mmol/L (22-29); Chloride 101 mmol/L (98-107); Creatinine Clr Calc Pharmacy 77.6073; Globulin 2.8 g/dL (1.3-4.6); Glomerular Filtration Rate 89.3 mL/min (90-130); Glucose 91 mg/dL (65-115); Osmolality Calculated 281 mOsm/kg (285-295); Potassium 3.6 mmol/L (3.5-5.1); Sodium 136 mmol/L (136-145); Total Bilirubin 0.4 mg/dL (0.15-1.2); Total Protein 7.2 g/dL (6.6-8.7)
--- NOTE | 2023-12-25 20:02 | PC.NURSE ---
seizure pads placed on bed upon pt arrival
[2023-12-25 20:13] LABS: Add Urine Microscopic? YES; Bilirubin Urine Neg (Negative); Blood Urine Trace (Negative); Glucose Urine UA Norm (Normal); Ketones Urine Negative (Negative); Leukocyte Esterase Urine 1+ (Negative); Nitrate Urine Negative (Negative); Protein Urine Neg (Negative); Specific Gravity, Urine 1.005 (1.005-1.030); Urine Appearance Clear (CLEAR); Urine Color Yellow (Yellow); Urobilinogen Urine Norm (Negative); pH Urine 7 (5-7)
--- NOTE | 2023-12-25 20:13 | CTR_ITS ---
PROCEDURE INFORMATION: Exam: CT Head Without Contrast Exam date and time: 12/25/2023 8:22 PM Age: 48 years old Clinical indication: Other: Seizure TECHNIQUE: Imaging protocol: Computed tomography of the head without contrast. Radiation optimization: All CT scans at this facility use at least one of these dose optimization techniques: automated exposure control; mA and/or kV adjustment per patient size (includes targeted exams where dose is matched to clinical indication); or iterative reconstruction. COMPARISON: MR head wo/w con [id number] 07/11/2023 2:41 PM RADIATION DOSE METRICS: Total DLP (mGy-cm): 996.78 FINDINGS: Brain: Normal. No hemorrhage. Unremarkable white matter. No mass effect. Cerebral ventricles: No ventriculomegaly. Paranasal sinuses: Visualized sinuses are unremarkable. No fluid levels. Mastoid air cells: Visualized mastoid air cells are well aerated. Bones/joints: Unremarkable. No acute fracture. Soft tissues: Unremarkable. CT/CT head wo con* [id number] IMPRESSION: No acute intracranial findings.
[2023-12-25 20:21] LABS: Amorphous Sediment Urine TRACE /hpf; Bacteria Urine TRACE /hpf; RBC Urine 0-4 /hpf (0-2); WBC Urine 0-4 /hpf (0-5)
[2023-12-25 20:22] LABS: Add Urine Culture? No
[2023-12-25 22:00] VITALS: BP 109/79; PULSE 100; RESP 17; O2SAT 93
[2023-12-25 23:09] VITALS: BP 88/70; PULSE 97; O2SAT 95
[2023-12-25 23:30] VITALS: BP 96/71; PULSE 90; RESP 14; O2SAT 95
[2023-12-26 00:16] LABS: Prolactin 10.64 ng/mL (4.8-23.3)
--- NOTE | 2023-12-26 00:25 | PC.NURSE ---
pt update at approx midnight this nurse went into pt room for rounding. pt family concerned pt wasn't getting any medicine for a seizure. after some conversation, this nurse stated we would wait for dr river to return to address the concerns that they had.
== END 2023-12-26 00:50 | disposition home or self-care (01) ==
PROVIDERS: Emergency Provider Internal Medicine; PCP Family Medicine Adult Medicine
DX: R29.818 Other symptoms and signs involving the nervous system (principal)
CPT/HCPCS: 70450; 80053; 81001; 84146; 85025; 99284

== ENCOUNTER 2024-07-16 00:37 | Inpatient (IN) | payer OTHER, SELFPAY ==
[2024-07-16] VITALS (93 sets, daily range): BP systolic 80–155; BP diastolic 54–105; PULSE 63–132; RESP 8–38; TEMP 36.5–36.8; O2SAT 87–100; BMI 20.1
[2024-07-16 01:05] LABS: Charge for UA Resulting for Rev
--- NOTE | 2024-07-16 01:05 | CTR_ITS ---
PROCEDURE INFORMATION: Exam: CT Head Without Contrast Exam date and time: 07/16/2024 2:41 AM Age: 49 years old Clinical indication: Other: AMS TECHNIQUE: Imaging protocol: Computed tomography of the head without contrast. Radiation optimization: All CT scans at this facility use at least one of these dose optimization techniques: automated exposure control; mA and/or kV adjustment per patient size (includes targeted exams where dose is matched to clinical indication); or iterative reconstruction. COMPARISON: CT head wo con* [id number] 12/25/2023 8:22 PM RADIATION DOSE METRICS: Total DLP (mGy-cm): 1078.5 FINDINGS: Brain: There is no mass effect, midline shift, acute hemorrhage, extra-axial fluid collection or acute lobar infarct. There is a modicum of frontal volume loss for age. Cerebral ventricles: No ventriculomegaly. Paranasal sinuses: Visualized sinuses are unremarkable. No fluid levels. Mastoid air cells: Visualized mastoid air cells are well aerated. Bones: There is dehiscence of the right lamina papyracea, age indeterminate. Soft tissues: Unremarkable. CT/CT head wo con* [id number] IMPRESSION: No acute intracranial process.
--- NOTE | 2024-07-16 01:05 | XRR_ITS ---
PROCEDURE INFORMATION: Exam: XR Chest Exam date and time: 07/16/2024 2:29 AM Age: 49 years old Clinical indication: Shortness of breath; Additional info: AMS TECHNIQUE: Imaging protocol: Radiologic exam of the chest. Views: 1 view. COMPARISON: CR XR chest 1V portable [id number] 07/14/2022 2:18 PM FINDINGS: Lungs: Unremarkable. No consolidation. Pleural spaces: Unremarkable. No pleural effusion. No pneumothorax. Heart/Mediastinum: Unremarkable. No cardiomegaly. Bones/joints: The bones are osteopenic. XR/XR chest 1V portable [id number] IMPRESSION: No acute cardiopulmonary disease.
[2024-07-16 01:06] LABS: Basophils # 0.1 10^3/uL (0.0-0.1); Eosinophils # 0.2 10^3/uL (0.0-0.8); Eosinophils % 2.3 %; Hematocrit 40.2 % (36-47); Lymphocytes % 19.6 %; Mean Corpuscular HGB Conc 32.6 g/dL (30-55); Mean Corpuscular Hemoglobin 31.9 pg (27-33); Mean Corpuscular Volume 97.8 fl (85-98); Mean Platelet Volume 10.5 fL (7.4-10.4); Monocytes # 0.7 10^3/uL (0.2-0.9); Monocytes % 6.3 %; Neutrophils # 7.31 10^3/uL (1.8-7.7); Neutrophils % 70.6 %; Nucleated Red Blood Cells % 0 %; Platelet Count 255 10^3/cmm (157-399); Red Blood Count 4.11 10^6/uL (3.85-5.65); Red Cell Distribution Width 11.9 % (12.1-15.1); White Blood Count 10.35 10^3/uL (3.29-11.43)
[2024-07-16 01:10] LABS: Bilirubin Urine Negative (Negative); Blood Urine Negative (Negative); Glucose Urine UA Negative (Normal); Ketones Urine Negative (Negative); Leukocyte Esterase Urine Negative (Negative); Nitrate Urine Negative (Negative); Protein Urine Negative (Negative); Specific Gravity, Urine 1.022 (1.005-1.030); Urine Appearance Clear (CLEAR); Urine Color Yellow (Yellow); Urobilinogen Urine 0.2 mg/dL (Negative); pH Urine 5.5 (5-7)
[2024-07-16] MEDS: LORazepam 2 mg/mL INJ 1 mL IVP (01:12)
[2024-07-16] MEDS: diphenhydrAMINE 50 mg/mL SDV 1mL 25 MG IVP (01:12)
[2024-07-16] MEDS: haloperidol inj 5 mg/mL INJ 1 mL IVP (01:13)
[2024-07-16 01:16] LABS: Amphetamines Screen Urine Negative (Negative); Barbiturates Screen Urine Negative (Negative); Benzodiazepines Screen Urine Negative (Negative); Cocaine Screen Urine Negative (Negative); Opiate Screen Urine Negative (Negative); PCP Screen Urine Negative (Negative); THC Screen Urine Negative (Negative)
--- NOTE | 2024-07-16 01:23 | PC.NURSE ---
Pt was thrashing about in the bed during triage,VS, and getting a urine sample. pts clothes were removed and she was placed into a gown. Security was present and helped with a manual hold so the pt did not cause harm to herself.
[2024-07-16 01:24] LABS: Alanine Aminotransferase 136 U/L (0-33); Albumin Level 4.6 g/dL (3.5-5.2); Alkaline Phosphatase 83 U/L (35-105); Anion Gap 16.4 (5-19); Aspartate Amino Transferase 148 U/L (0-32); Blood Urea Nitrogen 14 mg/dL (6-20); Calcium 9.1 mg/dL (8.5-10.5); Carbon Dioxide 23 mmol/L (22-29); Chloride 103 mmol/L (98-107); Creatinine Clr Calc Pharmacy 59.7051; Globulin 2.7 g/dL (1.3-4.6); Glomerular Filtration Rate 66.5 mL/min (90-130); Glucose 105 mg/dL (65-115); Osmolality Calculated 289 mOsm/kg (285-295); Potassium 3.4 mmol/L (3.5-5.1); Sodium 139 mmol/L (136-145); Total Bilirubin 0.3 mg/dL (0.15-1.2); Total Protein 7.3 g/dL (6.6-8.7)
[2024-07-16 01:35] LABS: Magnesium 1.8 mg/dL (1.7-2.3); Prolactin 18.78 ng/mL (4.8-23.3)
--- NOTE | 2024-07-16 01:43 | ED_ITS ---
HPI - Altered Mental Status 2 General: Chief Complaint: Altered Mental Status Stated Complaint: AMS Time Seen by Provider: 07/16/24 00:48 Mode of arrival: EMS Limitations: altered mental status History of Present Illness: Patient arrived via EMS from home with complaints of a possible seizure. Patient is altered and acts like she is acutely psychotic at this moment. Her said that he found her on the floor having a seizure and foaming at the mouth and picked her up and sit on the bed and called 911. Patient does have a history of hearing voices, alcohol use disorder, bipolar, anxiety depression, elevated liver enzymes, when asked if she was using any drugs tonight her says no they were not. Related Data Previous Rx's Medication Instructions Recorded gabapentin 600 mg tablet 600 mg PO TID #90 tabs 06/19/24 Rt knee brace - small #1 ea 06/21/24 aripiprazole 5 mg tablet (Abilify) 5 mg PO DAILY mental health 30 06/21/24 days #30 tabs bupropion HCl 200 mg tablet,12 hr 200 mg PO BID #60 tabs 07/10/24 sustained-release (Wellbutrin SR) Allergies Allergy/AdvReac Type Severity Reaction Status Date / Time No Known Allergies Allergy Verified 07/16/24 00:58 Review of Systems 2 General: Reports: ROS unobtainable due to mental status PFSH ED 2 PFSH: Medical History Pelvic pain Chronic knee pain Right side Hiatal hernia with GERD Hearing voices Alcohol use disorder, severe, in early remission, dependence Bipolar II disorder Mixed episodes with anxious distress Psychiatric care History of actinic keratosis History of psoriasis Anxiety and depression Elevated liver enzymes Surgical History S/P endoscopy Dr. Bajwa, [place] [facility] 01/16/24 adenomatous polyp removed, 02/22/24 EGD with hiatal hernia and GERD History of ankle surgery Status post incision and drainage Family History Other CAD (coronary artery disease) Cancer Denies family history of Colon cancer Ovarian cancer Diabetes Heart disease Breast cancer Hypertension Uterine cancer Thyroid disease Stroke Social History Smoking and tobacco/nicotine status: never used tobacco/nicotine Alcohol intake: current Alcohol intake frequency: 3 or more drinks per day Alcohol type: wine Substance/Drug Use: never Current occupational status: unemployed and student Physical Exam 2 Const: COMMON NORMALS: average body habitus, healthy appearing, alert and well nourished; limitations (This exam limited by patient's acutely psychotic behavior) HENMT: COMMON NORMALS: normocephalic, atraumatic, hearing grossly normal bilaterally, external ears normal, Normal external nose present and moist oral mucous membranes HEAD & SCALP: normocephalic and atraumatic NOSE: Normal external nose present EXTERNAL EAR: Yes external ears normal Eye: COMMON NORMALS: Equal, round and reactive pupils present, EOMs intact bilaterally, conjunctivae normal and no scleral icterus CONJUNCTIVA: Yes conjunctivae normal PUPIL: Yes Equal, round and reactive pupils present Neck/C-Spine: COMMON NORMALS: full ROM, no lymphadenopathy, supple, no meningeal signs, no JVD and Thyroid normal THYROID: Thyroid normal Chest: COMMONS NORMALS: normal inspection of the chest and normal palpation of entire chest wall Resp: COMMON NORMALS: normal respiratory effort, No retractions, No use of accessory muscles and clear to auscultation bilaterally AUSCULTATION: clear to auscultation bilaterally Cardio: COMMON NORMALS: no JVD, regular rate, regular rhythm, S1 normal heart sound present, S2 normal heart sound present, No gallops present (Cardio), No clicks present (Cardio), No murmurs present (Cardio) and No rub (Cardio) R ATE: regular rate RHYTHM: regular rhythm HEART SOUNDS: S1 normal heart sound present and S2 normal heart sound present GI: COMMON NORMALS: Normal to inspection, nondistended, normoactive bowel sounds present, Soft to palpation, non-tender, No hepatosplenomegaly present and no masses PALPATION: Yes Soft to palpation and Yes No hepatosplenomegaly present Neuro: SENSORIUM/ORIENTATION: Yes alert MENINGEAL SIGNS: Yes no meningeal signs Psych: OTHER: Patient is picking at her head making no sense yelling will not follow commands but moves all extremities equally with no focal neurodeficit. Patient appears to be acutely psychotic or under the influence of drugs. Patient does not appear to be postictal at this time or sedate. Course 2 Vital Signs: Vital signs: Vital Signs Temperature 98.2 F 07/16/24 19:00 Pulse Rate 75 07/16/24 20:30 Respiratory Rate 17 07/16/24 20:30 Blood Pressure 104/75 07/16/24 20:30 Pulse Oximetry 97 07/16/24 20:30 Oxygen Delivery Me thod Room Air 07/16/24 19:00 MDM - Altered Mental Status Medical Decision Making Patient was talking nonsensical speech would not follow commands was yelling and not making any sense. Patient was given 5 of Haldol, 2 of Ativan and 25 of Benadryl. This calmed patient down. Lab work was obtained which showed an elevated CK of over 3000, otherwise most lab work was unremarkable. CT scans and chest x-ray was unremarkable. This patient was discussed with Dr. Duque who agreed to place patient ICU for further evaluation and treatment. Lab Data 07/16/24 00:50 07/16/24 00:50 Radiology Impressions Chest X-Ray 07/16/24 01:05 IMPRESSION: No acute cardiopulmonary disease. Head CT 07/16/24 01:05 IMPRESSION: No acute intracranial process. Head MRI 07/16/24 04:56 IMPRESSION: 1. No acute intracranial findings Laboratory Results WBC 10.35 10^3/uL (3.29-11.43) 07/16/24 00:50 RBC 4.11 10^6/uL (3.85-5.65) 07/16/24 00:50 Hgb 13.10 g/dL (11.27-16.99) 07/16/24 00:50 Hct 40.2 % (36-47) 07/16/24 00:50 MCV 97.8 fl (85-98) 07/16/24 00:50 MCH 31.9 pg (27-33) 07/16/24 00:50 MCHC 32.6 g/dL (30-55) 07/16/24 00:50 RDW 11.9 % (12.1-15.1) L 07/16/24 00:50 Plt Count 255 10^3/cmm (157-399) 07/16/24 00:50 MPV 10.5 fL (7.4-10.4) H 07/16/24 00:50 Neut % (Auto) 70.6 % 07/16/24 00:50 Lymph % (Auto) 19.6 % 07/16/24 00:50 [place] % (Auto) 6.3 % 07/16/24 00:50 Eos % (Auto) 2.3 % 07/16/24 00:50 Baso % (Auto) 1.0 % 07/16/24 00:50 Neut # (Auto) 7.31 10^3/uL (1.8-7.7) 07/16/24 00:50 Lymph # (Auto) 2.0 10^3/uL (0.8-4.8) 07/16/24 00:50 [place] # (Auto) 0.7 10^3/uL (0.2-0.9) 07/16/24 00:50 Eos # (Auto) 0.2 10^3/uL (0.0-0.8) 07/16/24 00:50 Baso # (Auto) 0.1 10^3/uL (0.0-0.1) 07/16/24 00:50 Nucleated RBC % (auto) 0 % 07/16/24 00:50 Nucleated RBCs # 0.0 /100WBC 07/16/24 00:50 Specimen Type Arterial 07/16/24 02:15 Sample Site Radial, right 07/16/24 02:15 ABG pH 7.36 (7.35-7.45) 07/16/24 02:15 ABG pCO2 44.4 mmHg (35-45) 07/16/24 02:15 ABG pO2 73.2 mmHg (80.0-100.0) L 07/16/24 02:15 ABG PO2/FiO2 Ratio 348 07/16/24 02:15 ABG HCO3 25.1 mmol/L (22-26) 07/16/24 02:15 ABG O2 Saturation 94.9 07/16/24 02:15 ABG Base Excess -0.6 mmol/L (-2.0-2.0) 07/16/24 02:15 Silverio Test Pos 07/16/24 02:15 A-a O2 Gradient 2.9 mmHg (5-10) L 07/16/24 02:15 Hematocrit 39.4 % (37-47) 07/16/24 02:15 Hgb O2 Saturation 93.3 % (95-100) L 07/16/24 02:15 Carboxyhemoglobin 0.6 %THgb (0.4-20.1) 07/16/24 02:15 Methemoglobin 1.1 % (0.4-1.5) 07/16/24 02:15 Total Hemoglobin 12.9 g/dL (12-16) 07/16/24 02:15 Sodium 142.0 mmol/L (131-143) 07/16/24 02:15 Potassium 3.2 mmol/L (3.5-5.0) L 07/16/24 02:15 Glucose 105.0 mg/dL (70-115) 07/16/24 02:15 Ionized Calcium 1.2 mmol/L (1.1-1.4) 07/16/24 02:15 O2 Delivery Device Room air 07/16/24 02:15 FiO2 21.0 % 07/16/24 02:15 Child [facility] Associate ID [id number] 07/16/24 02:15 Sodium 139 mmol/L (136-145) 07/16/24 00:50 Potassium 3.4 mmol/L (3.5-5.1) L 07/16/24 00:50 Chloride 103 mmol/L (98-107) 07/16/24 00:50 Carbon Dioxide 23 mmol/L (22-29) 07/16/24 00:50 Anion Gap 16.4 (5-19) 07/16/24 00:50 BUN 14 mg/dL (6-20) 07/16/24 00:50 Creatinine 0.9 mg/dL (0.5-0.9) 07/16/24 00:50 GFR Calculation 66.5 mL/min (90-130) L 07/16/24 00:50 Glucose 105 mg/dL (65-115) 07/16/24 00:50 Calculated Osmolality 289 mOsm/kg (285-295) 07/16/24 00:50 Calcium 9.1 mg/dL (8.5-10.5) 07/16/24 00:50 Magnesium 1.8 mg/dL (1.7-2.3) 07/16/24 00:50 Total Bilirubin 0.3 mg/dL (0.15-1.2) 07/16/24 00:50 AST 148 U/L (0-32) H 07/16/24 00:50 ALT 136 U/L (0-33) H 07/16/24 00:50 Alkaline Phosphatase 83 U/L (35-105) 07/16/24 00:50 Creatine Kinase 3538 U/L (26-192) H* 07/16/24 00:50 Troponin T Baseline 16 ng/L (0-10) H 07/16/24 00:50 Troponin T 120 Minute 24.54 ng/L (0-10) H 07/16/24 02:54 Delta Troponin T 8.54 ABS# (0-10) 07/16/24 02:54 Total Protein 7.3 g/dL (6.6-8.7) 07/16/24 00:50 Albumin 4.6 g/dL (3.5-5.2) 07/16/24 00:50 Globulin 2.7 g/dL (1.3-4.6) 07/16/24 00:50 Procalcitonin 0.04 ng/mL (0-0.5) 07/16/24 00:50 TSH 1.40 uIU/mL (0.27-4.20) 07/16/24 02:54 Prolactin 18.78 ng/mL (4.8-23.3) 07/16/24 00:50 Urine Color Yellow (Yellow) 07/16/24 00:55 Urine Appearance Clear (CLEAR) 07/16/24 00:55 Urine pH 5.5 (5-7) 07/16/24 00:55 Ur Specific [place] 1.022 (1.005-1.030) 07/16/24 00:55 Urine Protein Negative (Negative) 07/16/24 00:55 Urine Glucose (UA) Negative (Normal) 07/16/24 00:55 Urine Ketones Negative (Negative) 07/16/24 00:55 Urine Blood Negative (Negative) 07/16/24 00:55 Urine Nitrate Negative (Negative) 07/16/24 00:55 Urine Bilirubin Negative (Negative) 07/16/24 00:55 Urine Urobilinogen 0.2 mg/dL (Negative) 07/16/24 00:55 Ur Leukocyte Esterase Negative (Negative) 07/16/24 00:55 Amorphous Sediment Not Reportable 07/16/24 00:55 Salicylates < 0.3 mg/dL (3-10) L 07/16/24 00:50 Urine Opiates Screen Negative ng/mL (Negative) 07/16/24 00:55 Acetaminophen < 5.0 ug/mL (10-30) L 07/16/24 00:50 Ur Barbiturates Screen Negative ng/mL (Negative) 07/16/24 00:55 Ur Phencyclidine Scrn Negative ng/mL (Negative) 07/16/24 00:55 Ur Amphetamines Screen Negative ng/mL (Negative) 07/16/24 00:55 U Benzodiazepines Scrn Negative ng/mL (Negative) 07/16/24 00:55 Urine Cocaine Screen Negative ng/mL (Negative) 07/16/24 00:55 U Marijuana (THC) Screen Negative ng/mL (Negative) 07/16/24 00:55 Ethyl Alcohol < 10 mg/dL (0-10) 07/16/24 00:50 Hepatitis A IgM Ab Non-reactive (Nonreactive) 07/16/24 00:50 Hep Bs Antigen Non-reactive (Nonreactive) 07/16/24 00:50 Hep B Core IgM Ab Non-reactive (Nonreactive) 07/16/24 00:50 Hepatitis C Antibody Non-reactive (Nonreactive) 07/16/24 00:50 HIV 1&2 Ab & HIV 1 Ag Non-reactive (Non-Reactiv) 07/16/24 00:50 HIV 1&2 Antibody Non-reactive (Non-Reactiv) 07/16/24 00:50 All radiology interpretation(s) finalized by discharge Discharge Plan Discharge Patient Disposition: Admitted As Inpatient Admit Provider: Boubacar Alvarez Clinical Impression: Seizure Altered mental status Qualifiers: Altered mental status type: delirium Qualified Code(s): R41.0 - Disorientation, unspecified Rhabdomyolysis Qualifiers: Encounter type: initial encounter Condition: Stable Coding Level of Care Code ED Fiberglasser for Jazmyn Jc
[2024-07-16 01:51] LABS: Alcohol Level < 10 mg/dL (0-10)
--- NOTE | 2024-07-16 01:51 | ECG_ITS ---
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 Measurements Intervals [place] Rate: 113 P: 0 CT: 0 QRS: 14 QRSD: 100 T: 21 QT: 347 QTc: 477 Interpretive Statements SINUS TACHYCARDIA LOW QRS VOLTAGE IN PRECORDIAL LEADS [QRS DEFLECTION < 1.0 mV IN CHEST LEADS] Compared to ECG 02/03/2023 13:01:43 Sinus rhythm no longer present Electronically Signed On 07-16-2024 16:42:09 CDT by Venkat Benedict M.D. [id number]
[2024-07-16 01:52] LABS: Creatine Phosphokinase 3538 U/L (26-192)
[2024-07-16 02:03] LABS: Troponin(5th) Baseline 16 ng/L (0-10)
[2024-07-16 02:06] LABS: Acetaminophen < 5.0 ug/mL (10-30); Salicylate < 0.3 mg/dL (3-10)
[2024-07-16 02:16] LABS: ABG PCO2 44.4 mmHg (35-45); ABG PH Result 7.36 (7.35-7.45); Alveolar-Arterial Oxygen Gradi 2.9 mmHg (5-10); Arterial Blood Gas Hematocrit 39.4 % (37-47); Base Excess ABG -0.6 mmol/L (-2.0-2.0); Blood Gas Allen Test Pos; Blood Gas Operator Identificat 600455; Blood Gas Sample Site Radial, right; Blood Gas Sample Type Arterial; Carboxyhemoglobin 0.6 %THgb (0.4-20.1); HCO3 ABG 25.1 mmol/L (22-26); HGB O2 Sat 93.3 % (95-100); Ionized Calcium Level - ABG 1.2 mmol/L (1.1-1.4); Methemoglobin 1.1 % (0.4-1.5); Oxygen Device ROOM AIR; Oxygen Saturation ABG 94.9; PO2 ABG 73.2 mmHg (80.0-100.0); PO2 FiO2 Ratio Arterial Blood 348; Potassium Level - ABG 3.2 mmol/L (3.5-5.0); Total Hemoglobin 12.9 g/dL (12-16)
[2024-07-16] MEDS: sodium chloride 0.9% 1,000 ML 999 ML IV (02:23)
[2024-07-16 03:15] LABS: Troponin 5 2HR 24.54 ng/L (0-10); Troponin 5 2HR Delta 8.54 ABS# (0-10)
--- NOTE | 2024-07-16 03:15 | ECG_ITS ---
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 Measurements Intervals [place] Rate: 91 P: 57 HI: 156 QRS: 24 QRSD: 99 T: 39 QT: 414 QTc: 510 Interpretive Statements SINUS RHYTHM LOW QRS VOLTAGE IN PRECORDIAL LEADS [QRS DEFLECTION < 1.0 mV IN CHEST LEADS] Compared to ECG 07/16/2024 01:51:37 Atrial flutter no longer present Electronically Signed On 07-16-2024 16:45:39 CDT by Venkat Benedict M.D. [id number]
--- NOTE | 2024-07-16 04:56 | MR_ITS ---
WS: [id number] MRI HEAD WITHOUT CONTRAST TECHNIQUE: Sagittal T1, T2 axial, T2 axial FLAIR, axial and coronal T1 images, axial susceptibility w eighted imaging, axial diffusion weighted images, and coronal T2 images were obtained. CLINICAL INFORMATION: seizure, ams COMPARISON: CT 07/16/2024 and MRI 07/11/2023 FINDINGS: No evidence of restricted diffusion to suggest acute ischemia. Ventricular system and basal cisterns are patent. No suspicious intracranial signal abnormalities. Normal posterior fossa. Normal vascular flow voids at the skull base. No extra-axial fluid collections. No evidence of mass or mass effect. P aranasal sinuses and mastoid air cells well aerated. No hemosiderin on the susceptibly weighted image s. Normal optic chiasm and pituitary infundibulum. Temporal lobes and hippocampal formations appear n ormal. MR/MR head wo con* [id number] IMPRESSION: 1. No acute intracranial findings
--- NOTE | 2024-07-16 04:58 | P.HP_ITS ---
Providers/Chief Complaint 2 Primary Care Provider: Gavin Yadav MD Chief Complaint: AMS History of Present Illness Kalpana Godwin is a 49 year old female with a past medical history of bipolar disorder, major depressive disorder, alcohol use disorder, who presents to [facility] for seizure episode. Currently patient is alert to person, not to place, not to time, she awakens, but falls back asleep, she says some incomprehensible words, and goes back asleep, maintaining her airway, GCS is 10, I cannot get any history from her, no family members at bedside. According to ER provider, patient presented to the ER from home for complaints of a possible seizure, in addition altered mental status, there was concerns for acute psychosis in the emergency room. Patient was found on the floor having a seizure, foaming at the mouth, he picked her up and called 911. In the emergency room, patient had nonsensical speech, was not following commands, was agitated, given 5 of Haldol, 2 of Ativan, 25 Benadryl, CK 3538, CT head within normal limits Review of Systems 2 General: Reports: ROS unobtainable due to mental status Medications/Allergies Home Medications Medication Instructions Recorded Confirmed Last Taken Type gabapentin 600 mg tablet 600 mg PO TID #90 tabs 06/19/24 06/19/24 Unknown Rx Rt knee brace - small #1 ea 06/21/24 Unknown Rx aripiprazole 5 mg tablet (Abilify) 5 mg PO DAILY mental health 30 06/21/24 Unknown Rx days #30 tabs bupropion HCl 200 mg tablet,12 hr 200 mg PO BID #60 tabs 07/10/24 Unknown Rx sustained-release (Wellbutrin SR) Allergies Allergy/AdvReac Type Severity Reaction Status Date / Time No Known Allergies Allergy Verified 07/16/24 00:58 PFSH Acute 2 PFSH: Medical History Pelvic pain Chronic knee pain Right side Hiatal hernia with GERD Hearing voices Alcohol use disorder, severe, in early remission, dependence Bipolar II disorder Mixed episodes with anxious distress Psychiatric care History of actinic keratosis History of psoriasis Anxiety and depression Elevated liver enzymes Surgical History S/P endoscopy Dr. Bajwa, [facility] 01/16/24 adenomatous polyp removed, 02/22/24 EGD with hiatal hernia and GERD History of ankle surgery Status post incision and drainage Family History Other CAD (coronary artery disease) Cancer Denies family history of Colon cancer Ovarian cancer Diabetes Heart disease Breast cancer Hypertension Uterine cancer Thyroid disease Stroke Social History Smoking and tobacco/nicotine status: never used tobacco/nicotine Alcohol intake: current Alcohol intake frequency: 3 or more drinks per day Alcohol type: wine Substance/Drug Use: never Current occupational status: unemployed and student Vitals/I&O/Wt Last Vital Signs Temp 98.0 F 07/16/24 00:38 Pulse 94 07/16/24 04:45 Resp 15 07/16/24 04:45 BP 89/60 07/16/24 04:45 Pulse Ox 87 L 07/16/24 04:45 O2 Del Method Room Air 07/16/24 00:38 Weight last 48 hrs Weight 49.895 kg Physical Exam 2 Const: COMMON NORMALS: no acute distress EXAM LIMITATIONS: altered mental status ORIENTATION/CONSCIOUSNESS: Yes awake, Yes oriented to person and Yes confused; not oriented to place and not oriented to time HENMT: COMMON NORMALS: normocephalic HEAD & SCALP: normocephalic Neck/C-Spine: COMMON NORMALS: no JVD Resp: COMMON NORMALS: normal respiratory effort, No retractions, No use of accessory muscles and clear to auscultation bilaterally AUSCULTATION: clear to auscultation bilaterally Cardio: COMMON NORMALS: no JVD, regular rate, regular rhythm, S1 normal heart sound present and S2 normal heart sound present RATE: regular rate RHYTHM: regular rhythm HEART SOUNDS: S1 normal heart sound present and S2 normal heart sound present GI: COMMON NORMALS: Normal to inspection, nondistended, normoactive bowel sounds present, Soft to palpation and non-tender Extremity: COMMON NORMALS: no calf tenderness and no pedal edema Neuro: COMMON NORMALS: patient oriented x3 Psych: COMMON NORMALS: mental status grossly normal Data 07/16/24 00:50 07/16/24 00:50 A&P Assessment and plan (1) Seizure: (2) Altered mental status: Qualifiers: Altered mental status type: delirium Qualified Code(s): R41.0 - Disorientation, unspecified (3) Rhabdomyolysis: Qualifiers: Encounter type: initial encounter Plan Altered mental status ? Most likely postictal ? Likely from medication that she is received in the emergency room ? Neurochecks ? Aspiration precaution ? NIH stroke scale ? Monitor in ICU closely Seizure ? With history of seizures in the past ? She has had a outpatient EEG within normal limits ? Order MRI of the brain -Start Keppra Rhabdomyolysis ? IV fluids Transaminitis ? Acute hep panel ? HIV History of alcoholism, monitor for alcohol withdrawal History of bipolar disorder, manic episode, history of psychosis ? Monitor mentation closely Full code Lovenox for DVT prophylaxis Attestations 2 Medical Necessity Statement*: Patient requires hospitalization for altered mental status, seizure, rhabdomyolysis, inpatient, greater than 2 midnights Diagnoses Seizure R56.9 Altered mental status R41.0 Altered mental status type: delirium Rhabdomyolysis M62.82 Encounter type: initial encounter
[2024-07-16] MEDS: levETIRAcetam 1,000 MG/100 ML PREMIX 400 MG IV (05:18)
[2024-07-16 05:40] LABS: Procalcitonin 0.04 ng/mL (0-0.5)
[2024-07-16] MEDS: sodium chloride 0.9% 1,000 ML 125 ML IV ×3 (06:06→23:44)
[2024-07-16] MEDS: pantoprazole 40 mg SDV IVP (06:14)
[2024-07-16] MEDS: enoxaparin 40 mg/0.4 mL Syringe SUBCUT (06:14)
[2024-07-16 06:23] LABS: Hepatitis A Antibody IgM Non-Reactive (Nonreactive); Hepatitis B Core IgM Non-Reactive (Nonreactive); Hepatitis B Surface Antigen Non-Reactive (Nonreactive); Hepatitis C Virus Antibody Non-Reactive (Nonreactive)
[2024-07-16 06:25] LABS: HIV 1 & 2 Antibody Non-Reactive (Non-Reactiv); HIV 1 & 2 Antigen Non-Reactive (Non-Reactiv)
[2024-07-16 06:59] LABS: Lactic Sepsis W/Reflex 0.7 mmol/L (0.5-2.2); Troponin 5 6HR 19.49 ng/L (0-10); Troponin 5 6HR Delta 3.49 ng/L (0-12)
--- NOTE | 2024-07-16 07:42 | ECG_ITS ---
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 Measurements Intervals [place] Rate: 81 P: 48 AR: 170 QRS: 20 QRSD: 93 T: 30 QT: 405 QTc: 473 Interpretive Statements SINUS RHYTHM LOW QRS VOLTAGE IN PRECORDIAL LEADS [QRS DEFLECTION < 1.0 mV IN CHEST LEADS] Compared to ECG 07/16/2024 03:15:07 No significant changes Electronically Signed On 07-16-2024 16:45:31 CDT by Venkat Benedict M.D. [id number]
--- NOTE | 2024-07-16 09:09 | PC.NURSE ---
Patient is lethargic and hard to arouse. Patient was able to give name, date of and year but is unable to follow commands well. Patient was given a mouth swab to clean their moth but started coughing. Patient is unable to tolerate anything PO. Dr. Burton was notified about patient being unable to swallow right now and she stated to hold PO medication.
--- NOTE | 2024-07-16 11:55 | PM.MISC ---
Miscellaneous Note Purpose of Documentation: Overnight labs and H&P reviewed. Patient continues to be disoriented, lethargic. Hold gabapentin. contninue NPO as risk of aspiration. MRI brain is normal. Reviewed past neurology results. Patient has been undergoing evaluation for seizure-like episodes with neurology as an outpatient. Surface EEG from March 2024 for 52 minutes was unrevealing. Overall etiology remains unclear. Continue Keppra for now. Neurology consult. In reviewing outpatient notes it appears patient was started on thiamine supplementation but it is unsure if she was taking it. Start thiamine 100 mg IM now. Will transition to p.o. when able to tolerate If patient needs video EEG, we do not have the capability to perform at this institution and will likely need transfer to a higher facility.
--- NOTE | 2024-07-16 13:38 | P.CONIM_ITS ---
Providers/Reason For Consult 2 Consulting Physician/Specialty*: Gee Hernández MD neurology and epilepsy Reason for Consult*: Recurrent grand mal seizure requiring intensive care unit admission and administration of IV Keppra Attending Physician: Britany Burton MD Primary Care Provider: Gavin Yadav MD History of Present Illness History of Present Illness History of present illness: Kalpana Godwin is a 49 year old female with a history of major depressive disorder, alcohol use disorder, bipolar disorder type II, and unspecified psychosis. The patient was referred for neurological assessment secondary to the patient being witnessed by the mother to experience trancelike state followed by the patient displaying pressured speech and switching rapidly from 1 topic to another and then becoming frustrated with her mother regarding questions about topics they have never discussed during the conversations followed by lack of recall for the episodes. The patient also reported that she will experience episodes where she will feel strange and she will hear herself reminding her about things that she forgot such as sweeping the floor and putting away the broom and then forgetting that she swept the floor and having herself remind herself when she goes to sweep the floor again. The mother who was present during this neurological assessment and also stated that there is concerned that the patient may have alcohol related to memory issues or dementia and the mother wanted this addressed. The patient also stated that she was diagnosed with bilateral carpal tunnel syndrome after experiencing pain in one arm that radiated to the other arm and then into her fingers. The patient reported that she underwent right carpal tunnel release. But, sometime later the pains resolved in her upper extremities but she reported that she has continued to experience pain at the surgical site for right carpal tunnel release. During the patient's initial clinic visit on 06/19/2023 she was scheduled for head MRI without and with contrast. This study was obtained on 07/11/2023 and was reported to be within normal limits. Surface EEG recording was obtained on 06/26/2023. This was a normal awake, stage I and stage II sleep 42 minutes surface EEG recording and the patient did not experience any clinical events during the study. The patient was scheduled for lab for B12, folate, methylmalonic acid, vitamin B1, vitamin B6, and magnesium. Vitamin B1 was not performed but the other labs were unremarkable. The patient was also referred to orthopedics for right knee pain. It is not clear to me if the patient saw the orthopedic surgeon. The patient presented for reassessment accompanied by her mother. According to the mother the patient experienced a seizure on 12/27/2023. The patient was at home and was stressed and was talking irrationally followed by the patient becoming upset. The patient was also stating that she believes she can make things move with her eyes. This was followed by the patient yelling at her mother and when her mother attempted to leave the patient followed her mother and then suddenly the mother stated that the patient's body tensed up and the patient's eyes rolled up in her head and she lost consciousness and experience generalized tonic-clonic activity associated with drooling from her mouth and not responding. The mother stated that by the time the paramedics arrived the patient was postictal and was taken to [facility] emergency room. Noncontrast head CT and metabolic lab were obtained and reported to be unrevealing and the patient was released. The patient was not placed on any anticonvulsant medications. Patient was instructed to follow-up in the [facility] neurology clinic. I recommended that the patient be evaluated by psychiatrist to determine if her medication should be adjusted for her psychiatric disorder. Also recommended repeating the patient's sleep deprived surface EEG recording and since the patient continues to report chest pain I recommended that she be evaluated by food service worker and complete her GI workup in [place]. The patient reports that she has been having distal esophageal pain as well as chest pain and rib pain when she lies down at night. According to the patient's mother the patient's EGD performed in [place] was unrevealing. The mother stated the patient has been scheduled for CT imaging of her chest in [place] scheduled for 02/22/2024. The patient underwent surface EEG recording on 04/04/2024. Patient was recorded for 52 minutes. This was a normal awake surface EEG recording. During the recording the patient reported to the compliance field technician that the patient stated that her thoughts were shifting between bad Kalpana and good Kalpana . No EEG correlation was seen. The patient was referred to psychiatry for for medication adjustments as well as cardiology for complaints of chest pain. Patient presented for reassessment and stated that she never received an appointment. Therefore this will be rescheduled. Patient informed me that she will still have some intermittent chest pain with shortness of breath and trouble catching her breath on occasions. She also informed me that she has a hiatal hernia and has been scheduled to undergo hiatal hernia surgery on 07/23/[address] Jose Reeves at [facility]. I recommend the patient undergo the cardiac evaluation prior to her hiatal hernia surgery and to see psychiatry to determine if medication adjustments are warranted for her history of major depression and bipolar disorder. The patient reports that she was seen by Dr. Meng, psychiatry in the past and she has been receiving her Wellbutrin medications from [facility] ([facility]) every 3 months. The patient was accompanied by her mother and this information was relayed to the patient's mother as well. The patient was reported to be found down by her on the morning of 07/16/2024 unconscious and foaming at the mouth. It was reported that the patient had experienced a generalized tonic-clonic seizure. Exact duration unknown. In the emergency room the patient was reported to be agitated and was given an IV injection of Benadryl 25 mg with Ativan 2 mg and Haldol 5 mg x 1 dose. Patient was started on IV Keppra 1 g followed by 500 mg IV every 12 hours. Patient was reported to remain sedated with decreased level consciousness. Noncontrast head MRI was obtained on 07/16/2024 and revealed no acute findings. Neurology consult was requested. Upon examination the patient was sleepy but arousable to tactile and verbal stimuli. Patient was having trouble opening her eyes and keeping her eyes open as well as trouble with upward gaze suggestive of 3rd nerve dysfunction bilaterally. Pupils were reactive bilaterally and extraocular movements were intact in other anderson of gaze. Patient was alert and oriented to person and situation. Patient recognizes me as her neurologist at [facility] neurology clinic. The patient denied any pain. I informed the patient and the nurse caring for the patient that the patient's 3rd nerve dysfunction is most likely related to Haldol which can cause oculogyric crisis. The patient's symptoms appear to be improving. Neurological exam was nonfocal and patient was able to follow all commands. She was oriented to herself and cooperative. Patient denied any side effects from the Keppra. I recommend obtaining a bedside EEG today. Since the patient is stable I recommend the patient remain on IV Keppra 500 mg every 12 hours and changed to oral Keppra 500 mg p.o. twice daily when patient is able to take oral medications. I recommended patient remain on seizure precautions. This was discussed with Dr. Burton. Past medical history: Unspecified psychosis Major depressive disorder Alcohol use disorder Bipolar disorder type II Bilateral carpal tunnel syndrome, status post right carpal tunnel release Drug allergies: None Current Home medications: Wellbutrin SR 200 mg p.o. twice daily Neurontin 300 mg p.o. 3 times daily for nerve pain Past medications: Abilify 10 mg p.o. 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) Neuro: Reports: seizure-like activity Medications/Allergies Home Medications Medication Instructions Recorded Confirmed Last Taken Type gabapentin 600 mg tablet 600 mg PO TID #90 tabs 06/19/24 06/19/24 Unknown Rx Rt knee brace - small #1 ea 06/21/24 Unknown Rx aripiprazole 5 mg tablet (Abilify) 5 mg PO DAILY mental health 30 06/21/24 Unknown Rx days #30 tabs bupropion HCl 200 mg tablet,12 hr 200 mg PO BID #60 tabs 07/10/24 Unknown Rx sustained-release (Wellbutrin SR) Allergies Allergy/AdvReac Type Severity Reaction Status Date / Time No Known Allergies Allergy Verified 07/16/24 00:58 Current Medications Generic Name Dose Route Start Last Admin Trade Name Freq PRN Reason Stop Dose Admin Aripiprazole 5 mg 07/16/24 09:00 07/16/24 09:14 Aripiprazole 10 Mg Tablet PO Not Given DAILY NESS Bupropion HCl 200 mg 07/16/24 09:00 07/16/24 09:17 Bupropion Sr (12 Hr) 100 Mg Tablet PO Not Given BID NESS Enoxaparin Sodium 40 mg 07/16/24 06:00 07/16/24 06:14 Enoxaparin 40 Mg/0.4 Ml Syringe SUBCUT 40 mg Q24H NESS Administration Gabapentin 600 mg 07/16/24 09:00 07/16/24 09:19 Gabapentin 300 Mg Capsule PO Not Given TID NESS Sodium Chloride 1,000 mls @ 125 mls/hr 07/16/24 05:52 07/16/24 06:06 Sodium Chloride 0.9% IV 125 mls/hr .Q8H NESS Administration Pantoprazole Sodium 40 mg 07/16/24 05:52 07/16/24 06:14 Pantoprazole 40 Mg Sdv IVP 40 mg Q24H NESS Administration PFSH Acute 2 PFSH: Medical History Pelvic pain Chronic knee pain Right side Hiatal hernia with GERD Hearing voices Alcohol use disorder, severe, in early remission, dependence Bipolar II disorder Mixed episodes with anxious distress Psychiatric care History of actinic keratosis History of psoriasis Anxiety and depression Elevated liver enzymes Surgical History S/P endoscopy Dr. Bajwa, [facility] 01/16/24 adenomatous polyp removed, 02/22/24 EGD with hiatal hernia and GERD History of ankle surgery Status post incision and drainage Family History Other CAD (coronary artery disease) Cancer Denies family history of Colon cancer Ovarian cancer Diabetes Heart disease Breast cancer Hypertension Uterine cancer Thyroid disease Stroke Social History Smoking and tobacco/nicotine status: never used tobacco/nicotine Alcohol intake: current Alcohol intake frequency: 3 or more drinks per day Alcohol type: wine Substance/Drug Use: never Current occupational status: unemployed and student Vitals/I&O/Wt Last Vital Signs Temp 97.8 F 07/16/24 12:00 Pulse 77 07/16/24 12:00 Resp 17 07/16/24 12:00 BP 100/63 07/16/24 12:00 Pulse Ox 97 07/16/24 12:00 O2 Del Method Room Air 07/16/24 12:00 07/15/24 07/16/24 07/16/24 22:59 06:59 14:59 Intake Total 1100 / 1100 Output Total 300 / 300 Balance 1100 / 1100 -300 / -300 Weight last 48 hrs Weight 108 lb Weight 110 lb Physical Exam 2 Narrative: Blood pressure 103/70 heart rate 78 O2 saturation 98% on room air The patient is currently arousable to verbal stimuli and tactile stimuli. Patient was able to converse she is oriented to person place and situation. Head atraumatic. Neck supple. Cranial nerves II through XII revealed oculogyric crisis involving the 3rd nerves with inability to perform upward gaze and trouble keeping her eyes open. Pupils 3 to 4 mm reactive to light. Other extraocular movements were intact. Motor testing 5/5 bilaterally. Deep tendon reflexes 2+ bilaterally. Plantar responses flexor bilaterally. There was no clonus. Sensory examination was intact to touch. Throat clear. Lungs clear. Heart regular rhythm and rate. Extremities were negative for cyanosis or edema. Data 07/16/24 00:50 07/16/24 00:50 A&P Assessment and plan (1) Grand mal seizure: Impression: 1. Grand mal seizure associated with foaming at the mouth and prolonged decreased level consciousness witnessed by the patient's on 07/16/2024 2. History of grand mal seizures precipitated by the patient becoming upset, last reported seizure prior to admission on 07/16/2024 was 12/27/2023 3. Major depressive disorder 4. History of bipolar type II disorder 5. History of alcohol use disorder 6. 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 Agree with IV Keppra 500 mg p.o. twice daily and change to oral at the same dose when patient able to take oral medication 2. Bedside EEG ordered. [place] compliance field technician will plan to perform the study the evening of 07/16/2024 3. Continue seizure precautions per hospital protocol and per state law 4. Resume Neurontin when patient able to take oral medication (300 mg p.o. 3 times daily) 5. Recommend Ativan 1 mg IV every 6 hours as needed for any seizures lasting greater than 1 minutes or greater than 2 seizures in a 1 hour period of time. 6. Since patient is currently stable, will plan to schedule inpatient continuous video surface EEG monitoring at a later date 7. We will continue to follow 8. Please schedule patient for follow-up in the [facility] neurology clinic 1 week after discharge (2) Encephalopathy acute: (3) Altered mental status: Qualifiers: Altered mental status type: delirium Qualified Code(s): R41.0 - Disorientation, unspecified Consult Attestations 2 Medical Necessity Statement: The patient was evaluated by neurology for reports of generalized tonic-clonic seizure with continued decreased level consciousness as well as agitation Coding Level of Care Code 81910 Diagnoses Grand mal seizure G40.409 Encephalopathy acute G93.40 Altered mental status R41.0 Altered mental status type: delirium
--- NOTE | 2024-07-16 15:56 | PC.NURSE ---
Patient was given a swab with water to see if they would tolerate it and they were able to. Patient was given some ice chips but coughed. Dr. Burton was contacted to see if speech evaluation could be done by speech therapist.
[2024-07-16] MEDS: levETIRAcetam 500 MG/100 ML PREMIX 400 MG IV (17:50)
[2024-07-16] MEDS: acetaminophen 325 mg Tablet 650 MG PO (20:16)
[2024-07-17] VITALS (31 sets, daily range): BP systolic 93–120; BP diastolic 62–83; PULSE 67–96; RESP 11–28; TEMP 36.6–37; O2SAT 94–99
[2024-07-17 04:39] LABS: Basophils # 0.1 10^3/uL (0.0-0.1); Basophils % 1.3 %; Eosinophils # 0.3 10^3/uL (0.0-0.8); Eosinophils % 6.5 %; Hematocrit 35.9 % (36-47); Lymphocytes # 1.9 10^3/uL (0.8-4.8); Lymphocytes % 41.1 %; Mean Corpuscular HGB Conc 32.3 g/dL (30-55); Mean Corpuscular Hemoglobin 31.9 pg (27-33); Mean Corpuscular Volume 98.6 fl (85-98); Mean Platelet Volume 10.4 fL (7.4-10.4); Monocytes # 0.3 10^3/uL (0.2-0.9); Monocytes % 7.2 %; Neutrophils # 2.01 10^3/uL (1.8-7.7); Neutrophils % 43.7 %; Nucleated Red Blood Cells % 0 %; Platelet Count 173 10^3/cmm (157-399); Red Blood Count 3.64 10^6/uL (3.85-5.65); Red Cell Distribution Width 11.9 % (12.1-15.1)
[2024-07-17 05:05] LABS: Alanine Aminotransferase 77 U/L (0-33); Albumin Level 3.3 g/dL (3.5-5.2); Alkaline Phosphatase 61 U/L (35-105); Anion Gap 14.3 (5-19); Aspartate Amino Transferase 84 U/L (0-32); Blood Urea Nitrogen 8 mg/dL (6-20); Calcium 7.7 mg/dL (8.5-10.5); Carbon Dioxide 22 mmol/L (22-29); Chloride 113 mmol/L (98-107); Creatinine Clr Calc Pharmacy 76.2069; Globulin 1.8 g/dL (1.3-4.6); Glomerular Filtration Rate 88.9 mL/min (90-130); Glucose 73 mg/dL (65-115); Osmolality Calculated 299 mOsm/kg (285-295); Potassium 3.3 mmol/L (3.5-5.1); Sodium 146 mmol/L (136-145); Total Bilirubin 0.4 mg/dL (0.15-1.2); Total Protein 5.1 g/dL (6.6-8.7)
[2024-07-17] MEDS: enoxaparin 40 mg/0.4 mL Syringe SUBCUT (06:01)
[2024-07-17] MEDS: pantoprazole 40 mg SDV IVP (06:01)
[2024-07-17] MEDS: levETIRAcetam 500 MG/100 ML PREMIX 100 MG IV (06:01)
--- NOTE | 2024-07-17 07:52 | PM.PN ---
Subjective Subjective: Reason for follow-up visit: Grand mal seizure 07/16/2024 History of Present Illness History of present illness: Kalpana Godwin is a 49 year old female with a history of major depressive disorder, alcohol use disorder, bipolar disorder type II, and unspecified psychosis. The patient was referred for neurological assessment secondary to the patient being witnessed by the mother to experience trancelike state followed by the patient displaying pressured speech and switching rapidly from 1 topic to another and then becoming frustrated with her mother regarding questions about topics they have never discussed during the conversations followed by lack of recall for the episodes. The patient also reported that she will experience episodes where she will feel strange and she will hear herself reminding her about things that she forgot such as sweeping the floor and putting away the broom and then forgetting that she swept the floor and having herself remind herself when she goes to sweep the floor again. The mother who was present during this neurological assessment and also stated that there is concerned that the patient may have alcohol related to memory issues or dementia and the mother wanted this addressed. The patient also stated that she was diagnosed with bilateral carpal tunnel syndrome after experiencing pain in one arm that radiated to the other arm and then into her fingers. The patient reported that she underwent right carpal tunnel release. But, sometime later the pains resolved in her upper extremities but she reported that she has continued to experience pain at the surgical site for right carpal tunnel release. During the patient's initial clinic visit on 06/19/2023 she was scheduled for head MRI without and with contrast. This study was obtained on 07/11/2023 and was reported to be within normal limits. Surface EEG recording was obtained on 06/26/2023. This was a normal awake, stage I and stage II sleep 42 minutes surface EEG recording and the patient did not experience any clinical events during the study. The patient was scheduled for lab for B12, folate, methylmalonic acid, vitamin B1, vitamin B6, and magnesium. Vitamin B1 was not performed but the other labs were unremarkable. The patient was also referred to orthopedics for right knee pain. It is not clear to me if the patient saw the orthopedic surgeon. The patient presented for reassessment accompanied by her mother. According to the mother the patient experienced a seizure on 12/27/2023. The patient was at home and was stressed and was talking irrationally followed by the patient becoming upset. The patient was also stating that she believes she can make things move with her eyes. This was followed by the patient yelling at her mother and when her mother attempted to leave the patient followed her mother and then suddenly the mother stated that the patient's body tensed up and the patient's eyes rolled up in her head and she lost consciousness and experience generalized tonic-clonic activity associated with drooling from her mouth and not responding. The mother stated that by the time the paramedics arrived the patient was postictal and was taken to [facility] emergency room. Noncontrast head CT and metabolic lab were obtained and reported to be unrevealing and the patient was released. The patient was not placed on any anticonvulsant medications. Patient was instructed to follow-up in the [facility] neurology clinic. I recommended that the patient be evaluated by psychiatrist to determine if her medication should be adjusted for her psychiatric disorder. Also recommended repeating the patient's sleep deprived surface EEG recording and since the patient continues to report chest pain I recommended that she be evaluated by driller helper and complete her GI workup in [place]. The patient reports that she has been having distal esophageal pain as well as chest pain and rib pain when she lies down at night. According to the patient's mother the patient's EGD performed in [place] was unrevealing. The mother stated the patient has been scheduled for CT imaging of her chest in [place] scheduled for 02/22/2024. The patient underwent surface EEG recording on 04/04/2024. Patient was recorded for 52 minutes. This was a normal awake surface EEG recording. During the recording the patient reported to the log data technician that the patient stated that her thoughts were shifting between bad Kalpana and good Kalpana . No EEG correlation was seen. The patient was referred to psychiatry for for medication adjustments as well as cardiology for complaints of chest pain. Patient presented for reassessment and stated that she never received an appointment. Therefore this will be rescheduled. Patient informed me that she will still have some intermittent chest pain with shortness of breath and trouble catching her breath on occasions. She also informed me that she has a hiatal hernia and has been scheduled to undergo hiatal hernia surgery on 07/23/[address] Jose Reeves at [facility]. I recommend the patient undergo the cardiac evaluation prior to her hiatal hernia surgery and to see psychiatry to determine if medication adjustments are warranted for her history of major depression and bipolar disorder. The patient reports that she was seen by Dr. Meng, psychiatry in the past and she has been receiving her Wellbutrin medications from [facility] ([facility] [place]) every 3 months. The patient was accompanied by her mother and this information was relayed to the patient's mother as well. The patient was reported to be found down by her on the morning of 07/16/2024 unconscious and foaming at the mouth. It was reported that the patient had experienced a generalized tonic-clonic seizure. Exact duration unknown. In the emergency room the patient was reported to be agitated and was given an IV injection of Benadryl 25 mg with Ativan 2 mg and Haldol 5 mg x 1 dose. Patient was started on IV Keppra 1 g followed by 500 mg IV every 12 hours. Patient was reported to remain sedated with decreased level consciousness. Noncontrast head MRI was obtained on 07/16/2024 and revealed no acute findings. Neurology consult was requested. Upon examination the patient was sleepy but arousable to tactile and verbal stimuli. Patient was having trouble opening her eyes and keeping her eyes open as well as trouble with upward gaze suggestive of 3rd nerve dysfunction bilaterally. Pupils were reactive bilaterally and extraocular movements were intact in other anderson of gaze. Patient was alert and oriented to person and situation. Patient recognizes me as her neurologist at [facility] neurology clinic. The patient denied any pain. I informed the patient and the nurse caring for the patient that the patient's 3rd nerve dysfunction is most likely related to Haldol which can cause oculogyric crisis. The patient's symptoms appear to be improving. Neurological exam was nonfocal and patient was able to follow all commands. She was oriented to herself and cooperative. Patient denied any side effects from the Keppra. I recommend obtaining a bedside EEG today. Since the patient is stable I recommend the patient remain on IV Keppra 500 mg every 12 hours and changed to oral Keppra 500 mg p.o. twice daily when patient is able to take oral medications. I recommended patient remain on seizure precautions. This was discussed with Dr. Burton. This morning on 07/17/2024 the patient is alert. She was without complaints. She has not experience any further seizures since admission. The oculogyric crisis has resolved with full extraocular movements and ability for patient to keep her eyes open. Pupils round and reactive to light. Motor testing grossly nonfocal. According to the patient's nurse the patient has been able to ambulate to the bathroom. Labs performed on 07/17/2024 reveals hypokalemia with potassium of 3.3 (normal equals 3.5-5.1), elevated AST 84 (normal equals 0-32), elevated ALT 77 (normal 0-33), CBC revealed decreased RBC 3.64 (normal equals 3.85-5.65), and decreased hematocrit of 35.9 (normal equals 36-47), elevated MCV 98.6 (normal is 85-98). Past medical history: Unspecified psychosis Major depressive disorder Alcohol use disorder Bipolar disorder type II Bilateral carpal tunnel syndrome, status post right carpal tunnel release Drug allergies: None Current medications: Keppra 500 mg IV every 12 hours Abilify 5 mg p.o. daily Wellbutrin SR 200 mg p.o. twice daily Neurontin 300 mg p.o. 3 times daily for nerve pain (inpatient MAR reports patient on 600 mg p.o. 3 times daily) Past medications: Abilify 10 mg p.o. daily Protonix 40 mg Habits: Patient has history of heavy alcohol abuse but stated that she quit drinking and that her last binge drinking was December 2022 Family history: Remarkable for a brother with intractable epilepsy and history of alcohol abuse and a father with history of alcohol abuse and a maternal grandmother with dementia Review of Systems General: Reports: 10 or mor e systems reviewed and unremarkable except in HPI and below Eyes: Reports: other (Oc ulogyric crisis in volving the 3rd ne rves bilaterally) Neuro: Reports: no seizur e-like activity Vitals/I&O/Wt Last Vital Signs Temp 98.6 F 07/17/24 04:00 Pulse 76 07/17/24 06:00 Resp 13 07/17/24 05:00 BP 110/77 07/17/24 05:00 Pulse Ox 96 07/17/24 05:00 O2 Del Method Room Air 07/17/24 04:00 07/16/24 07/17/24 07/17/24 22:59 06:59 14:59 Intake Total 190 / 1190 1000 / 2190 Output Total 750 / 1050 Balance -560 / 140 1000 / 1140 Weight last 48 hrs Weight 107 lb Weight 108 lb Weight 110 lb Physical Exam Narrative: Blood pressure 110/77 heart rate 76 respirations 13 temperature 98.6 O2 saturation is 96% on room air The patient is alert she is oriented and in no apparent distress. Head atraumatic. Neck supple. Cranial nerves II through XII intact. Pupils 4 mm round reactive to light and accommodation. Extraocular movements intact. There were no nystagmus. Motor testing grossly nonfocal at 5/5 bilaterally. Throat clear. Lungs clear. Heart regular rhythm and rate. Extremities were negative for cyanosis. Data 07/17/24 03:57 07/17/24 03:57 A&P Assessment and plan (1) Grand mal seizure: Impression: 1. Grand mal seizure associated with foaming at the mouth and prolonged decreased level consciousness witnessed by the patient's on 07/16/2024, without recurrence 2. History of grand mal seizures precipitated by the patient becoming upset, last reported seizure prior to admission on 07/16/2024 was 12/27/2023 3. Major depressive disorder 4. History of bipolar type II disorder 5. History of alcohol use disorder 6. Oculogyric crisis most likely related to neuroleptic (Haldol given for acute agitation on 07/16/2024), resolved 7. Elevated AST and ALT 84 and 77 respectively 8. Hypokalemia potassium 3.3 on 07/17/2024 9. 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 Okay from neurological standpoint to change IV Keppra to oral Keppra 500 mg p.o. twice daily 2. Okay to resume Neurontin 3. Recommend continuing thiamine 100 mg p.o. daily 4. Recommend obtaining lab for B12, folate, methylmalonic acid, and homocystine and thiamine level 5. Address hypokalemia 6. Continue seizure precautions per state law 7. Patient stable from neurological standpoint for discharge planning 8. My nurse has contacted [facility] in [facility] for inpatient continuous video EEG monitoring, awaiting date for this procedure to be performed 9. Will also schedule patient for outpatient routine EEG recording after discharge since EEG was unable to be performed on an inpatient basis. 10. Please schedule patient for follow-up in the [facility] neurology clinic 1 week after discharge 11. Recommend monitoring liver enzymes (2) Oculogyric crisis: (3) Encephalopathy acute: Attestations Medical Necessity Statement*: The patient was evaluated by neurology secondary to generalized seizure with decreased level consciousness Coding Level of Care Code 00703 Diagnoses Grand mal seizure G40.409 Oculogyric crisis H51.8 Encephalopathy acute G93.40
[2024-07-17 09:36] LABS: Estmated Average Glucose 97
[2024-07-17 09:41] LABS: Iron 87 ug/dL (37-145); Total Iron Binding Capacity 164 mcg/dl; Unsaturated Iron Binding 77 ug/dL (112-347)
[2024-07-17] MEDS: ARIPiprazole 10 mg Tablet 5 MG PO (09:45)
[2024-07-17] MEDS: buPROPion SR (12 HR) 100 mg Tablet 200 MG PO ×2 (09:46→17:47)
[2024-07-17] MEDS: dextrose 5%-sod chloride 0.9% 1,000 ML 50 ML IV (09:48)
[2024-07-17 09:56] LABS: Procalcitonin 0.02 ng/mL (0-0.5); Vitamin B12 482 pg/mL (232-1245)
--- NOTE | 2024-07-17 10:17 | P.PN_ITS ---
Subjective 2 Subjective: No acute events overnight. Patient has remained hemodynamically stable and afebrile. Examination sleeping comfortably in bed. Wakes up to verbal and tactile stimulation. On waking up is AO x 3. Remains on room air. Vitals/I&O/Wt Last Vital Signs Temp 98.0 F 07/17/24 08:00 Pulse 73 07/17/24 09:30 Resp 17 07/17/24 09:30 BP 119/80 07/17/24 09:30 Pulse Ox 95 07/17/24 09:30 O2 Del Method Room Air 07/17/24 04:00 07/16/24 07/17/24 07/17/24 22:59 06:59 14:59 Intake Total 190 / 1190 1000 / 2190 100 / 100 Output Total 750 / 1050 Balance -560 / 140 1000 / 1140 100 / 100 Weight last 48 hrs Weight 48.534 kg Weight 48.988 kg Weight 49.895 kg Physical Exam 2 Const: COMMON NORMALS: no acute distress and patient oriented x3 EXAM LIMITATIONS: altered mental status ORIENTATION/CONSCIOUSNESS: Yes awake, Yes oriented to person and Yes confused; not oriented to place and not oriented to time HENMT: COMMON NORMALS: normocephalic HEAD & SCALP: normocephalic Neck/C-Spine: COMMON NORMALS: no JVD Resp: COMMON NORMALS: normal respiratory effort, No retractions, No use of accessory muscles and clear to auscultation bilaterally AUSCULTATION: clear to auscultation bilaterally Cardio: COMMON NORMALS: no JVD, regular rate, regular rhythm, S1 normal heart sound present and S2 normal heart sound present RATE: regular rate RHYTHM: regular rhythm HEART SOUNDS: S1 normal heart sound present and S2 normal heart sound present GI: COMMON NORMALS: Normal to inspection, nondistended, normoactive bowel sounds present, Soft to palpation and non-tender PALPATION: Yes Soft to palpation Extremity: COMMON NORMALS: no calf tenderness and no pedal edema Neuro: COMMON NORMALS: patient oriented x3 SENSORIUM/ORIENTATION: Yes oriented to person, No oriented to place and No oriented to time Psych: COMMON NORMALS: mental status grossly normal Data 07/17/24 03:57 07/17/24 03:57 A&P Assessment and plan (1) Seizure: (2) Altered mental status: Qualifiers: Altered mental status type: delirium Qualified Code(s): R41.0 - Disorientation, unspecified (3) Rhabdomyolysis: Qualifiers: Encounter type: initial encounter (4) Oculogyric crisis: (5) Hypokalemia: (6) Hypernatremia: Plan Altered mental status: Most likely postictal status. Improved. Appreciate neurology recommendations. Post EEG on 07/16. Switched Keppra to 5 mg oral twice daily. Out of bed to chair. Seizure precaution. Start on regular diet. Appreciate speech evaluation. Check Keppra levels. Check methylmalonic levels and homocystine level as per neurology. Seizure disorder: As above. Restart home dose of gabapentin. Hypokalemia: Replace with 40 mg oral. Hypernatremia: Sodium level up to 148. Most likely in setting of Keppra, IV fluids along with poor oral intake. Switch to D5 NS. Repeat BMP in evening. fluids Transaminitis ? Acute hep panel ? HIV History of alcoholism, monitor for alcohol withdrawal History of bipolar disorder, manic episode, history of psychosis ? Monitor mentation closely Full code Lovenox for DVT prophylaxis Start on regular diet. [facility] Discharge plan: Discharge planning within next 24 hours to home with caregiver if patient remains seizure-free while antiseizure medications are transitioned orally. Attestations 2 Medical Necessity Statement*: Requires further hospitalization for management of seizure disorder, acute metabolic and stillbirth in setting of postictal status, hypokalemia with hypernatremia Diagnoses Seizure R56.9 Altered mental status R41.0 Altered mental status type: delirium Rhabdomyolysis M62.82 Encounter type: initial encounter Oculogyric crisis H51.8 Hypokalemia E87.6 Hypernatremia E87.0
[2024-07-17] MEDS: potassium chloride ER 20 mEq Tablet 40 MEQ PO (12:27)
[2024-07-17 16:20] LABS: Anion Gap 14.5 (5-19); Blood Urea Nitrogen 8 mg/dL (6-20); Calcium 7.8 mg/dL (8.5-10.5); Carbon Dioxide 22 mmol/L (22-29); Chloride 110 mmol/L (98-107); Creatinine Clr Calc Pharmacy 88.5829; Glomerular Filtration Rate 106.3 mL/min (90-130); Glucose 108 mg/dL (65-115); Osmolality Calculated 295 mOsm/kg (285-295); Potassium 3.5 mmol/L (3.5-5.1); Sodium 143 mmol/L (136-145)
[2024-07-17] MEDS: levETIRAcetam 1,000 mg/10 mL UDC 500 MG PO (17:47)
[2024-07-17] MEDS: gabapentin 300 mg Capsule 600 MG PO (21:29)
[2024-07-18] VITALS: BP 101/66; PULSE 62; RESP 17; TEMP 36.6; O2SAT 96
[2024-07-18 04:00] VITALS: BP 106/75; PULSE 53; RESP 16; TEMP 36.9; O2SAT 98
[2024-07-18 05:23] LABS: Basophils # 0.1 10^3/uL (0.0-0.1); Basophils % 1.4 %; Eosinophils # 0.3 10^3/uL (0.0-0.8); Hematocrit 38.1 % (36-47); Lymphocytes # 1.9 10^3/uL (0.8-4.8); Lymphocytes % 37.7 %; Mean Corpuscular HGB Conc 32.8 g/dL (30-55); Mean Corpuscular Hemoglobin 32.4 pg (27-33); Mean Corpuscular Volume 98.7 fl (85-98); Mean Platelet Volume 10.2 fL (7.4-10.4); Monocytes # 0.4 10^3/uL (0.2-0.9); Monocytes % 7.8 %; Neutrophils # 2.35 10^3/uL (1.8-7.7); Neutrophils % 46.9 %; Nucleated Red Blood Cells % 0 %; Platelet Count 194 10^3/cmm (157-399); Red Blood Count 3.86 10^6/uL (3.85-5.65); Red Cell Distribution Width 11.8 % (12.1-15.1); White Blood Count 5.01 10^3/uL (3.29-11.43)
[2024-07-18 05:51] LABS: Anion Gap 14.3 (5-19); Blood Urea Nitrogen 8 mg/dL (6-20); Carbon Dioxide 23 mmol/L (22-29); Chloride 110 mmol/L (98-107); Glomerular Filtration Rate 131.1 mL/min (90-130); Potassium 3.3 mmol/L (3.5-5.1); Sodium 144 mmol/L (136-145)
[2024-07-18 05:52] LABS: Alanine Aminotransferase 67 U/L (0-33); Albumin Level 3.6 g/dL (3.5-5.2); Alkaline Phosphatase 65 U/L (35-105); Aspartate Amino Transferase 56 U/L (0-32); Creatinine Clr Calc Pharmacy 106.2995; Globulin 2.1 g/dL (1.3-4.6); Glucose 107 mg/dL (65-115); Osmolality Calculated 297 mOsm/kg (285-295); Total Bilirubin 0.2 mg/dL (0.15-1.2); Total Protein 5.7 g/dL (6.6-8.7)
[2024-07-18] MEDS: pantoprazole 40 mg SDV IVP (05:59)
[2024-07-18] MEDS: enoxaparin 40 mg/0.4 mL Syringe SUBCUT (05:59)
[2024-07-18 06:01] LABS: Chol HDL Ratio 2.76 mg/dL (0.0-4.40); Cholesterol 149 mg/dL (0-200); HDL Cholesterol 54 mg/dL (60-100); LDL Cholesterol Calculated 67 mg/dL (50-129); Magnesium 1.7 mg/dL (1.7-2.3); Triglycerides 141 mg/dL (0-150); VLDL Cholestrol Calculation 28 mg/dL (0-30)
[2024-07-18 06:09] LABS: Folate Level 18.7 ng/mL (4.8-37.3)
--- NOTE | 2024-07-18 07:17 | PM.PN ---
Subjective Subjective: Reason for follow-up visit: Grand mal seizure 07/16/2024 History of Present Illness History of present illness: Kalpana Godwin is a 49 year old female with a history of major depressive disorder, alcohol use disorder, bipolar disorder type II, and unspecified psychosis. The patient was referred for neurological assessment secondary to the patient being witnessed by the mother to experience trancelike state followed by the patient displaying pressured speech and switching rapidly from 1 topic to another and then becoming frustrated with her mother regarding questions about topics they have never discussed during the conversations followed by lack of recall for the episodes. The patient also reported that she will experience episodes where she will feel strange and she will hear herself reminding her about things that she forgot such as sweeping the floor and putting away the broom and then forgetting that she swept the floor and having herself remind herself when she goes to sweep the floor again. The mother who was present during this neurological assessment and also stated that there is concerned that the patient may have alcohol related to memory issues or dementia and the mother wanted this addressed. The patient also stated that she was diagnosed with bilateral carpal tunnel syndrome after experiencing pain in one arm that radiated to the other arm and then into her fingers. The patient reported that she underwent right carpal tunnel release. But, sometime later the pains resolved in her upper extremities but she reported that she has continued to experience pain at the surgical site for right carpal tunnel release. During the patient's initial clinic visit on 06/19/2023 she was scheduled for head MRI without and with contrast. This study was obtained on 07/11/2023 and was reported to be within normal limits. Surface EEG recording was obtained on 06/26/2023. This was a normal awake, stage I and stage II sleep 42 minutes surface EEG recording and the patient did not experience any clinical events during the study. The patient was scheduled for lab for B12, folate, methylmalonic acid, vitamin B1, vitamin B6, and magnesium. Vitamin B1 was not performed but the other labs were unremarkable. The patient was also referred to orthopedics for right knee pain. It is not clear to me if the patient saw the orthopedic surgeon. The patient presented for reassessment accompanied by her mother. According to the mother the patient experienced a seizure on 12/27/2023. The patient was at home and was stressed and was talking irrationally followed by the patient becoming upset. The patient was also stating that she believes she can make things move with her eyes. This was followed by the patient yelling at her mother and when her mother attempted to leave the patient followed her mother and then suddenly the mother stated that the patient's body tensed up and the patient's eyes rolled up in her head and she lost consciousness and experience generalized tonic-clonic activity associated with drooling from her mouth and not responding. The mother stated that by the time the paramedics arrived the patient was postictal and was taken to [facility] emergency room. Noncontrast head CT and metabolic lab were obtained and reported to be unrevealing and the patient was released. The patient was not placed on any anticonvulsant medications. Patient was instructed to follow-up in the [facility] neurology clinic. I recommended that the patient be evaluated by psychiatrist to determine if her medication should be adjusted for her psychiatric disorder. Also recommended repeating the patient's sleep deprived surface EEG recording and since the patient continues to report chest pain I recommended that she be evaluated by pattern changer and repairer and complete her GI workup in [place]. The patient reports that she has been having distal esophageal pain as well as chest pain and rib pain when she lies down at night. According to the patient's mother the patient's EGD performed in [place] was unrevealing. The mother stated the patient has been scheduled for CT imaging of her chest in [place] scheduled for 02/22/2024. The patient underwent surface EEG recording on 04/04/2024. Patient was recorded for 52 minutes. This was a normal awake surface EEG recording. During the recording the patient reported to the meter/relay technician that the patient stated that her thoughts were shifting between bad Kalpana and good Kalpana . No EEG correlation was seen. The patient was referred to psychiatry for for medication adjustments as well as cardiology for complaints of chest pain. Patient presented for reassessment and stated that she never received an appointment. Therefore this will be rescheduled. Patient informed me that she will still have some intermittent chest pain with shortness of breath and trouble catching her breath on occasions. She also informed me that she has a hiatal hernia and has been scheduled to undergo hiatal hernia surgery on 07/23/[address] Jose Reeves at [facility]. I recommend the patient undergo the cardiac evaluation prior to her hiatal hernia surgery and to see psychiatry to determine if medication adjustments are warranted for her history of major depression and bipolar disorder. The patient reports that she was seen by Dr. Meng, psychiatry in the past and she has been receiving her Wellbutrin medications from [facility] ([facility] [place]) every 3 months. The patient was accompanied by her mother and this information was relayed to the patient's mother as well. The patient was reported to be found down by her on the morning of 07/16/2024 unconscious and foaming at the mouth. It was reported that the patient had experienced a generalized tonic-clonic seizure. Exact duration unknown. In the emergency room the patient was reported to be agitated and was given an IV injection of Benadryl 25 mg with Ativan 2 mg and Haldol 5 mg x 1 dose. Patient was started on IV Keppra 1 g followed by 500 mg IV every 12 hours. Patient was reported to remain sedated with decreased level consciousness. Noncontrast head MRI was obtained on 07/16/2024 and revealed no acute findings. Neurology consult was requested. Upon examination the patient was sleepy but arousable to tactile and verbal stimuli. Patient was having trouble opening her eyes and keeping her eyes open as well as trouble with upward gaze suggestive of 3rd nerve dysfunction bilaterally. Pupils were reactive bilaterally and extraocular movements were intact in other anderson of gaze. Patient was alert and oriented to person and situation. Patient recognizes me as her neurologist at [facility] neurology clinic. The patient denied any pain. I informed the patient and the nurse caring for the patient that the patient's 3rd nerve dysfunction is most likely related to Haldol which can cause oculogyric crisis. The patient's symptoms appear to be improving. Neurological exam was nonfocal and patient was able to follow all commands. She was oriented to herself and cooperative. Patient denied any side effects from the Keppra. I recommend obtaining a bedside EEG today. Since the patient is stable I recommend the patient remain on IV Keppra 500 mg every 12 hours and changed to oral Keppra 500 mg p.o. twice daily when patient is able to take oral medications. I recommended patient remain on seizure precautions. This was discussed with Dr. Burton. This morning on 07/17/2024 the patient is alert. She was without complaints. She has not experience any further seizures since admission. The oculogyric crisis has resolved with full extraocular movements and ability for patient to keep her eyes open. Pupils round and reactive to light. Motor testing grossly nonfocal. According to the patient's nurse the patient has been able to ambulate to the bathroom. Labs performed on 07/17/2024 reveals hypokalemia with potassium of 3.3 (normal equals 3.5-5.1), elevated AST 84 (normal equals 0-32), elevated ALT 77 (normal 0-33), CBC revealed decreased RBC 3.64 (normal equals 3.85-5.65), and decreased hematocrit of 35.9 (normal equals 36-47), elevated MCV 98.6 (normal is 85-98). The patient is doing well this morning on 07/18/2024 and was without complaints. She was awake and sitting on the bedside of her bed this morning. According to the nurse the patient has not experienced any issues and denied any further seizures. The patient continues to tolerate the Keppra and gabapentin. Lab on 07/18/2024 continues to reveal decreased serum potassium of 3.3 although according to the nurse the patient was given potassium orally on 07/17/2024. Past medical history: Unspecified psychosis Major depressive disorder Alcohol use disorder Bipolar disorder type II Bilateral carpal tunnel syndrome, status post right carpal tunnel release Drug allergies: None Current medications: Keppra 500 mg IV every 12 hours Abilify 5 mg p.o. daily Wellbutrin SR 200 mg p.o. twice daily Neurontin 600 mg p.o. 3 times daily for nerve pain Past medications: Abilify 10 mg p.o. daily Protonix 40 mg Habits: Patient has history of heavy alcohol abuse but stated that she quit drinking and that her last binge drinking was December 2022 Family history: Remarkable for a brother with intractable epilepsy and history of alcohol abuse and a father with history of alcohol abuse and a maternal grandmother with dementia Vitals/I&O/Wt Last Vital Signs Temp 98.4 F 07/18/24 04:00 Pulse 53 L 07/18/24 04:00 Resp 16 07/18/24 04:00 BP 106/75 07/18/24 04:00 Pulse Ox 98 07/18/24 04:00 O2 Del Method Room Air 07/18/24 04:00 07/17/24 07/18/24 07/18/24 22:59 06:59 14:59 Intake Total 1000 / 1340 700 / 2040 Balance 1000 / 1340 700 / 2040 Weight last 48 hrs Weight 107 lb Weight 107 lb Physical Exam Narrative: The patient is alert she is oriented and in no apparent distress. Head atraumatic. Neck supple. Cranial nerves II through XII intact. Pupils 4 mm round reactive to light and accommodation. Extraocular movements intact. There were no nystagmus. Motor testing grossly nonfocal at 5/5 bilaterally. Throat clear. Lungs clear. Heart regular rhythm and rate. Extremities were negative for cyanosis. Data 07/18/24 04:51 07/18/24 04:51 A&P Assessment and plan (1) Grand mal seizure: Impression: 1. Grand mal seizure associated with foaming at the mouth and prolonged decreased level consciousness witnessed by the patient's on 07/16/2024, without recurrence 2. History of grand mal seizures precipitated by the patient becoming upset, last reported seizure prior to admission on 07/16/2024 was 12/27/2023 3. Major depressive disorder 4. History of bipolar type II disorder 5. History of alcohol use disorder 6. Oculogyric crisis most likely related to neuroleptic (Haldol given for acute agitation on 07/16/2024), resolved 7. Elevated AST and ALT 84 and 77 respectively 8. Hypokalemia potassium 3.3 on 07/17/2024 9. 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 Continue Keppra 500 mg p.o. twice daily 2. Continue Neurontin 600 mg p.o. 3 times daily 3. Continue Thiamine 100 mg p.o. daily 4. Recommend obtaining lab for B12, folate, methylmalonic acid, and homocystine and thiamine level 5. Address hypokalemia 6. Continue seizure precautions per state law 7. Patient stable from neurological standpoint for discharge planning 8. My nurse has contacted [facility] in [facility] for inpatient continuous video EEG monitoring, awaiting date for this procedure to be performed 9. Will also schedule patient for outpatient routine EEG recording after discharge since EEG was unable to be performed on an inpatient basis. 10. Please schedule patient for follow-up in the [facility] neurology clinic 1 week after discharge 11. Recommend monitoring liver enzymes Attestations Medical Necessity Statement*: The patient was evaluated by neurology secondary to reports of patient experiencing a grand mal seizure with prolonged decreased level consciousness Coding Level of Care Code Acute Code for Chg Fwd Diagnoses Grand mal seizure G40.409
[2024-07-18 07:33] VITALS: BP 113/70; PULSE 75; RESP 16; TEMP 36.4; O2SAT 99
--- NOTE | 2024-07-18 09:16 | PM.ACPR ---
Documented by User: Candelaria Robles 07/18/24 09:19 Procedure/Consent Procedure Narrative: ROUTINE EEG TO ASSESS FOR SUBCLINICAL SEIZURE ACTIVITY Reason for follow-up visit: Grand mal seizure 07/16/2024 History of Present Illness History of present illness: Kalpana Godwin is a 49 year old female with a history of major depressive disorder, alcohol use disorder, bipolar disorder type II, and unspecified psychosis. The patient was referred for neurological assessment secondary to the patient being witnessed by the mother to experience trancelike state followed by the patient displaying pressured speech and switching rapidly from 1 topic to another and then becoming frustrated with her mother regarding questions about topics they have never discussed during the conversations followed by lack of recall for the episodes. The patient also reported that she will experience episodes where she will feel strange and she will hear herself reminding her about things that she forgot such as sweeping the floor and putting away the broom and then forgetting that she swept the floor and having herself remind herself when she goes to sweep the floor again. The mother who was present during this neurological assessment and also stated that there is concerned that the patient may have alcohol related to memory issues or dementia and the mother wanted this addressed. The patient also stated that she was diagnosed with bilateral carpal tunnel syndrome after experiencing pain in one arm that radiated to the other arm and then into her fingers. The patient reported that she underwent right carpal tunnel release. But, sometime later the pains resolved in her upper extremities but she reported that she has continued to experience pain at the surgical site for right carpal tunnel release. During the patient's initial clinic visit on 06/19/2023 she was scheduled for head MRI without and with contrast. This study was obtained on 07/11/2023 and was reported to be within normal limits. Surface EEG recording was obtained on 06/26/2023. This was a normal awake, stage I and stage II sleep 42 minutes surface EEG recording and the patient did not experience any clinical events during the study. The patient was scheduled for lab for B12, folate, methylmalonic acid, vitamin B1, vitamin B6, and magnesium. Vitamin B1 was not performed but the other labs were unremarkable. The patient was also referred to orthopedics for right knee pain. It is not clear to me if the patient saw the orthopedic surgeon. The patient presented for reassessment accompanied by her mother. According to the mother the patient experienced a seizure on 12/27/2023. The patient was at home and was stressed and was talking irrationally followed by the patient becoming upset. The patient was also stating that she believes she can make things move with her eyes. This was followed by the patient yelling at her mother and when her mother attempted to leave the patient followed her mother and then suddenly the mother stated that the patient's body tensed up and the patient's eyes rolled up in her head and she lost consciousness and experience generalized tonic-clonic activity associated with drooling from her mouth and not responding. The mother stated that by the time the paramedics arrived the patient was postictal and was taken to [facility] emergency room. Noncontrast head CT and metabolic lab were obtained and reported to be unrevealing and the patient was released. The patient was not placed on any anticonvulsant medications. Patient was instructed to follow-up in the [facility] neurology clinic. I recommended that the patient be evaluated by psychiatrist to determine if her medication should be adjusted for her psychiatric disorder. Also recommended repeating the patient's sleep deprived surface EEG recording and since the patient continues to report chest pain I recommended that she be evaluated by senior biostatistician/group leader and complete her GI workup in [place]. The patient reports that she has been having distal esophageal pain as well as chest pain and rib pain when she lies down at night. According to the patient's mother the patient's EGD performed in [place] was unrevealing. The mother stated the patient has been scheduled for CT imaging of her chest in [place] scheduled for 02/22/2024. The patient underwent surface EEG recording on 04/04/2024. Patient was recorded for 52 minutes. This was a normal awake surface EEG recording. During the recording the patient reported to the machine shop repair technician that the patient stated that her thoughts were shifting between bad Kalpana and good Kalpana . No EEG correlation was seen. The patient was referred to psychiatry for for medication adjustments as well as cardiology for complaints of chest pain. Patient presented for reassessment and stated that she never received an appointment. Therefore this will be rescheduled. Patient informed me that she will still have some intermittent chest pain with shortness of breath and trouble catching her breath on occasions. She also informed me that she has a hiatal hernia and has been scheduled to undergo hiatal hernia surgery on 07/23/[address] Jose Reeves at [facility]. I recommend the patient undergo the cardiac evaluation prior to her hiatal hernia surgery and to see psychiatry to determine if medication adjustments are warranted for her history of major depression and bipolar disorder. The patient reports that she was seen by Dr. Meng, psychiatry in the past and she has been receiving her Wellbutrin medications from [facility] ([facility]) every 3 months. The patient was accompanied by her mother and this information was relayed to the patient's mother as well. The patient was reported to be found down by her on the morning of 07/16/2024 unconscious and foaming at the mouth. It was reported that the patient had experienced a generalized tonic-clonic seizure. Exact duration unknown. In the emergency room the patient was reported to be agitated and was given an IV injection of Benadryl 25 mg with Ativan 2 mg and Haldol 5 mg x 1 dose. Patient was started on IV Keppra 1 g followed by 500 mg IV every 12 hours. Patient was reported to remain sedated with decreased level consciousness. Noncontrast head MRI was obtained on 07/16/2024 and revealed no acute findings. Neurology consult was requested. Upon examination the patient was sleepy but arousable to tactile and verbal stimuli. Patient was having trouble opening her eyes and keeping her eyes open as well as trouble with upward gaze suggestive of 3rd nerve dysfunction bilaterally. Pupils were reactive bilaterally and extraocular movements were intact in other anderson of gaze. Patient was alert and oriented to person and situation. Patient recognizes me as her neurologist at [facility] neurology clinic. The patient denied any pain. I informed the patient and the nurse caring for the patient that the patient's 3rd nerve dysfunction is most likely related to Haldol which can cause oculogyric crisis. The patient's symptoms appear to be improving. Neurological exam was nonfocal and patient was able to follow all commands. She was oriented to herself and cooperative. Patient denied any side effects from the Keppra. I recommend obtaining a bedside EEG today. Since the patient is stable I recommend the patient remain on IV Keppra 500 mg every 12 hours and changed to oral Keppra 500 mg p.o. twice daily when patient is able to take oral medications. I recommended patient remain on seizure precautions. This was discussed with Dr. Burton. This morning on 07/17/2024 the patient is alert. She was without complaints. She has not experience any further seizures since admission. The oculogyric crisis has resolved with full extraocular movements and ability for patient to keep her eyes open. Pupils round and reactive to light. Motor testing grossly nonfocal. According to the patient's nurse the patient has been able to ambulate to the bathroom. Labs performed on 07/17/2024 reveals hypokalemia with potassium of 3.3 (normal equals 3.5-5.1), elevated AST 84 (normal equals 0-32), elevated ALT 77 (normal 0-33), CBC revealed decreased RBC 3.64 (normal equals 3.85-5.65), and decreased hematocrit of 35.9 (normal equals 36-47), elevated MCV 98.6 (normal is 85-98). The patient is doing well this morning on 07/18/2024 and was without complaints. She was awake and sitting on the bedside of her bed this morning. According to the nurse the patient has not experienced any issues and denied any further seizures. The patient continues to tolerate the Keppra and gabapentin. Lab on 07/18/2024 continues to reveal decreased serum potassium of 3.3 although according to the nurse the patient was given potassium orally on 07/17/2024. Past medical history: Unspecified psychosis Major depressive disorder Alcohol use disorder Bipolar disorder type II Bilateral carpal tunnel syndrome, status post right carpal tunnel release Drug allergies: None Current medications: Keppra 500 mg IV every 12 hours Abilify 5 mg p.o. daily Wellbutrin SR 200 mg p.o. twice daily Neurontin 600 mg p.o. 3 times daily for nerve pain Past medications: Abilify 10 mg p.o. daily Protonix 40 mg Habits: Patient has history of heavy alcohol abuse but stated that she quit drinking and that her last binge drinking was December 2022 EEG Routine Details of Procedure EEG Routine 24033- awake & drowsy: [id number] Documented by User: Gee Hernández MD 07/18/24 12:56 EEG Routine Details of Procedure Details/Comments: EEG TEMPLATE: This is a 19 channel routine video surface EEG recording utilizing the [employer] software with surface and EKG electrodes. The procedure was performed utilizing the international 10-20 system. Patient name: Kalpana Godwin Date of : 1975 Patient age [age] years old Identification number: [id number] Referring Physician: Gee Hernández MD EEG#: EEG Start time: 09:41:09 EEG End time: 10:11:31 Duration of study: 30 minutes Date of study: 07/18/2024 Reason for study: Seizure described as a generalized tonic-clonic seizure with prolonged postictal state. Surface EEG recording performed to assess for subclinical seizure activity and to assist in determining if additional or alternative anticonvulsant medications are required Skull defects: None Condition of recording: The patient was reported to be awake and later on drowsy Cooperation: Good Activation procedures: Photic stimulation ? Evoked potentials ? Photic driving Medications: Keppra 500 mg po every 12 hours Abilify 5 mg p.o. daily Wellbutrin SR 200 mg p.o. twice daily Neurontin 600 mg p.o. 3 times daily for nerve pain Background activity: Background activity during wakefulness consisted of poorly sustained 8 Hz low voltage alpha activity posteriorly penetrated by intermittent low voltage beta activity centrally and anteriorly. The alpha activity was symmetrical and reactive to eye opening. Intermittently during the recording the record was partially obscured by muscle and motion artifact. During periods of wakefulness intermittent burst of moderate voltage is 2-1/2 Hz frontally predominant delta activity was seen. Later during the recording the alpha activity dropped out in generalized 4 to 7 Hz theta activity was seen over the left and right hemispheres. Photic stimulation: Evoked potentials: No obvious evoked potentials were seen Photic driving: It was difficult to determine if intermittent photic driving was seen during this recording secondary to intermittent episodes of drowsiness. Interictal activity: None Ictal activity: None Impression: This is a mildly abnormal normal briefly awake and drowsy 30-minute surface EEG recording secondary to intermittent burst of frontally predominant generalized 2-1/2 Hz delta activity seen during wakefulness. Note: During the recording the patient informed the nurse that she was seeing [place]. No subclinical or clinical seizure activity was seen during the recording. Clinical correlation: The intermittent poorly sustained 8 Hz alpha background rhythm associated with intermittent burst frontally predominant generalized delta slowing seen during wakefulness is suggestive of a diffuse encephalopathic process, nonspecific with regards to etiology. Note: No seizure activity was seen. Note: The patient has been scheduled for inpatient continuous video surface EEG monitoring at a facility that has the capability to perform this procedure. Date of the procedure still pending at the time of this dictation. Physician name/Signature: Gee Hernández MD measurement specialist/Signature: Candelaria Hodges
[2024-07-18 10:39] LABS: Levetiracetam Immunoassy 15.9 mcg/mL (6.0-46.0)
--- NOTE | 2024-07-18 10:54 | PM.DCS ---
Discharge Providers Date of Admission: 07/16/24 05:23 Date of Discharge: July 18, 2024 Attending Provider at Admission: Boubacar Alvarez MD Attending Provider at Discharge: Henry Workman MD Primary Care Provider: Gavin Yadav MD Diagnoses at Discharge Discharge Diagnosis (1) Grand mal seizure: Status: Acute (2) Bipolar II disorder: Status: Suspected Permanent problem details: Mixed episodes with anxious distress (3) Major depressive disorder, recurrent severe without psychotic features: Status: Acute (4) Altered mental status: Status: Acute Qualifiers: Altered mental status type: delirium Qualified Code(s): R41.0 - Disorientation, unspecified (5) Encephalopathy acute: Status: Acute (6) Oculogyric crisis: Status: Acute Reason for Visit Reason for Visit: AMS Brief History: Kalpana Godwin is a 49 year old female with a past medical history of bipolar disorder, major depressive disorder, alcohol use disorder, who presents to [facility] for seizure episode. Currently patient is alert to person, not to place, not to time, she awakens, but falls back asleep, she says some incomprehensible words, and goes back asleep, maintaining her airway, GCS is 10, I cannot get any history from her, no family members at bedside. According to ER provider, patient presented to the ER from home for complaints of a possible seizure, in addition altered mental status, there was concerns for acute psychosis in the emergency room. Patient was found on the floor having a seizure, foaming at the mouth, he picked her up and called 911. In the emergency room, patient had nonsensical speech, was not following commands, was agitated, given 5 of Haldol, 2 of Ativan, 25 Benadryl, CK 3538, CT head within normal limits Hospital Course Hospital Course She was admitted to the hospital further evaluation and management of altered mental status in setting of seizure disorder. She was given a loading dose of Keppra and was continued on maintenance dose. Neurology was consulted. She underwent EEG. Gradually while being on Keppra patient did not have any further seizures and her altered mental status also improved. Altered mental status is thought to be in setting of postictal status along with oculogyric crisis related to neuroleptic which has resolved now. She has been discharged in hemodynamically stable condition on oral Keppra 500 mg twice daily with advised to follow-up with neurology within next 1 week. All other home medications have been continued as before. Physical Exam Const: COMMON NORMALS: no acute distress and patient oriented x3 EXAM LIMITATIONS: altered mental status ORIENTATION/CONSCIOUSNESS: Yes awake, Yes oriented to person and Yes confused; not oriented to place and not oriented to time HENMT: COMMON NORMALS: normocephalic HEAD & SCALP: normocephalic Neck/C-Spine: COMMON NORMALS: no JVD Resp: COMMON NORMALS: normal respiratory effort, No retractions, No use of accessory muscles and clear to auscultation bilaterally AUSCULTATION: clear to auscultation bilaterally Cardio: COMMON NORMALS: no JVD, regular rate, regular rhythm, S1 normal heart sound present and S2 normal heart sound present RATE: regular rate RHYTHM: regular rhythm HEART SOUNDS: S1 normal heart sound present and S2 normal heart sound present GI: COMMON NORMALS: Normal to inspection, nondistended, normoactive bowel sounds present, Soft to palpation and non-tender PALPATION: Yes Soft to palpation Extremity: COMMON NORMALS: no calf tenderness and no pedal edema Neuro: COMMON NORMALS: patient oriented x3 SENSORIUM/ORIENTATION: Yes oriented to person, No oriented to place and No oriented to time Psych: COMMON NORMALS: mental status grossly normal Discharge Data Studies Completed and Pending Completed Studies During Hospitalization Category Date Time Status CT head wo con* [id number] Stat Cat Scan 07/16/24 01:05 Completed XR chest 1V portable [id number] Stat Exams 07/16/24 01:05 Completed MR head wo con* [id number] Routine MRI 07/16/24 04:56 Completed Pending at discharge Category Date Time Status EEG electroencephalogram Routine Exams 07/18/24 09:15 Ordered MAG [Magnesium] AM LABS Lab 07/19/24 04:00 Ordered MAG [Magnesium] AM LABS Lab 07/20/24 04:00 Ordered Methylmalonic Acid Routine Lab 07/17/24 09:10 Received RPR with Reflex to Titer AM LABS Lab 07/17/24 03:57 Received Vitamin B1 (Thiamine),Blood Routine Lab 07/16/24 12:06 Received Radiology Impressions Chest X-Ray 07/16/24 01:05 IMPRESSION: No acute cardiopulmonary disease. Head CT 07/16/24 01:05 IMPRESSION: No acute intracranial process. Head MRI 07/16/24 04:56 IMPRESSION: 1. No acute intracranial findings Laboratory Results WBC 5.01 10^3/uL (3.29-11.43) 07/18/24 04:51 RBC 3.86 10^6/uL (3.85-5.65) 07/18/24 04:51 Hgb 12.50 g/dL (11.27-16.99) 07/18/24 04:51 Hct 38.1 % (36-47) 07/18/24 04:51 MCV 98.7 fl (85-98) H 07/18/24 04:51 MCH 32.4 pg (27-33) 07/18/24 04:51 MCHC 32.8 g/dL (30-55) 07/18/24 04:51 RDW 11.8 % (12.1-15.1) L 07/18/24 04:51 Plt Count 194 10^3/cmm (157-399) 07/18/24 04:51 MPV 10.2 fL (7.4-10.4) 07/18/24 04:51 Neut % (Auto) 46.9 % 07/18/24 04:51 Lymph % (Auto) 37.7 % 07/18/24 04:51 Crosby % (Auto) 7.8 % 07/18/24 04:51 Eos % (Auto) 6.0 % 07/18/24 04:51 Baso % (Auto) 1.4 % 07/18/24 04:51 Neut # (Auto) 2.35 10^3/uL (1.8-7.7) 07/18/24 04:51 Lymph # (Auto) 1.9 10^3/uL (0.8-4.8) 07/18/24 04:51 Crosby # (Auto) 0.4 10^3/uL (0.2-0.9) 07/18/24 04:51 Eos # (Auto) 0.3 10^3/uL (0.0-0.8) 07/18/24 04:51 Baso # (Auto) 0.1 10^3/uL (0.0-0.1) 07/18/24 04:51 Nucleated RBC % (auto) 0 % 07/18/24 04:51 Nucleated RBCs # 0.0 /100WBC 07/18/24 04:51 Specimen Type Arterial 07/16/24 02:15 Sample Site Radial, right 07/16/24 02:15 ABG pH 7.36 (7.35-7.45) 07/16/24 02:15 ABG pCO2 44.4 mmHg (35-45) 07/16/24 02:15 ABG pO2 73.2 mmHg (80.0-100.0) L 07/16/24 02:15 ABG PO2/FiO2 Ratio 348 07/16/24 02:15 ABG HCO3 25.1 mmol/L (22-26) 07/16/24 02:15 ABG O2 Saturation 94.9 07/16/24 02:15 ABG Base Excess -0.6 mmol/L (-2.0-2.0) 07/16/24 02:15 Silverio Test Pos 07/16/24 02:15 A-a O2 Gradient 2.9 mmHg (5-10) L 07/16/24 02:15 Hematocrit 39.4 % (37-47) 07/16/24 02:15 Hgb O2 Saturation 93.3 % (95-100) L 07/16/24 02:15 Carboxyhemoglobin 0.6 %THgb (0.4-20.1) 07/16/24 02:15 Methemoglobin 1.1 % (0.4-1.5) 07/16/24 02:15 Total Hemoglobin 12.9 g/dL (12-16) 07/16/24 02:15 Sodium 142.0 mmol/L (131-143) 07/16/24 02:15 Potassium 3.2 mmol/L (3.5-5.0) L 07/16/24 02:15 Glucose 105.0 mg/dL (70-115) 07/16/24 02:15 Ionized Calcium 1.2 mmol/L (1.1-1.4) 07/16/24 02:15 O2 Delivery Device Room air 07/16/24 02:15 FiO2 21.0 % 07/16/24 02:15 Top And Seat Cover Fitter ID [id number] 07/16/24 02:15 Sodium 144 mmol/L (136-145) 07/18/24 04:51 Potassium 3.3 mmol/L (3.5-5.1) L 07/18/24 04:51 Chloride 110 mmol/L (98-107) H 07/18/24 04:51 Carbon Dioxide 23 mmol/L (22-29) 07/18/24 04:51 Anion Gap 14.3 (5-19) 07/18/24 04:51 BUN 8 mg/dL (6-20) 07/18/24 04:51 Creatinine 0.5 mg/dL (0.5-0.9) 07/18/24 04:51 GFR Calculation 131.1 mL/min (90-130) H 07/18/24 04:51 Glucose 107 mg/dL (65-115) 07/18/24 04:51 Estimat Average Glucose 97 07/17/24 03:57 Hemoglobin A1c 5.0 % (4.0-6.0) 07/17/24 03:57 Calculated Osmolality 297 mOsm/kg (285-295) H 07/18/24 04:51 Lactic Acid 0.7 mmol/L (0.5-2.2) 07/16/24 06:34 Calcium 8.0 mg/dL (8.5-10.5) L 07/18/24 04:51 Magnesium 1.7 mg/dL (1.7-2.3) 07/18/24 04:51 Iron 87 ug/dL (37-145) 07/17/24 03:57 TIBC 164 mcg/dl 07/17/24 03:57 % Saturation 53.0 % (20-50) H 07/17/24 03:57 Unsat Iron Binding 77 ug/dL (112-347) L 07/17/24 03:57 Total Bilirubin 0.2 mg/dL (0.15-1.2) 07/18/24 04:51 AST 56 U/L (0-32) H 07/18/24 04:51 ALT 67 U/L (0-33) H 07/18/24 04:51 Alkaline Phosphatase 65 U/L (35-105) 07/18/24 04:51 Creatine Kinase 3538 U/L (26-192) H* 07/16/24 00:50 Troponin T Baseline 16 ng/L (0-10) H 07/16/24 00:50 Troponin T 120 Minute 24.54 ng/L (0-10) H 07/16/24 02:54 Delta Troponin T 8.54 ABS# (0-10) 07/16/24 02:54 Troponin T Hi Sens 6Hr 19.49 ng/L (0-10) H 07/16/24 06:34 Troponin T Hi Sens 6Hr Delta 3.49 ng/L (0-12) 07/16/24 06:34 Total Protein 5.7 g/dL (6.6-8.7) L 07/18/24 04:51 Albumin 3.6 g/dL (3.5-5.2) 07/18/24 04:51 Globulin 2.1 g/dL (1.3-4.6) 07/18/24 04:51 Triglycerides 141 mg/dL (0-150) 07/18/24 04:51 Cholesterol 149 mg/dL (0-200) 07/18/24 04:51 LDL Cholesterol, Calc 67 mg/dL (50-129) 07/18/24 04:51 Total VLDL Cholesterol 28 mg/dL (0-30) 07/18/24 04:51 HDL Cholesterol 54 mg/dL (60-100) L 07/18/24 04:51 Cholesterol/HDL Ratio 2.76 mg/dL (0.0-4.40) 07/18/24 04:51 Vitamin B12 482 pg/mL (232-1245) 07/17/24 03:57 Folate 18.7 ng/mL (4.8-37.3) 07/18/24 04:51 Homocysteine 5.20 umol/l (0-15) 07/17/24 03:57 Procalcitonin 0.02 ng/mL (0-0.5) 07/17/24 03:57 TSH 1.40 uIU/mL (0.27-4.20) 07/16/24 02:54 Prolactin 18.78 ng/mL (4.8-23.3) 07/16/24 00:50 Urine Color Yellow (Yellow) 07/16/24 00:55 Urine Appearance Clear (CLEAR) 07/16/24 00:55 Urine pH 5.5 (5-7) 07/16/24 00:55 Ur Specific [place] 1.022 (1.005-1.030) 07/16/24 00:55 Urine Protein Negative (Negative) 07/16/24 00:55 Urine Glucose (UA) Negative (Normal) 07/16/24 00:55 Urine Ketones Negative (Negative) 07/16/24 00:55 Urine Blood Negative (Negative) 07/16/24 00:55 Urine Nitrate Negative (Negative) 07/16/24 00:55 Urine Bilirubin Negative (Negative) 07/16/24 00:55 Urine Urobilinogen 0.2 mg/dL (Negative) 07/16/24 00:55 Ur Leukocyte Esterase Negative (Negative) 07/16/24 00:55 Amorphous Sediment Not Reportable 07/16/24 00:55 Salicylates < 0.3 mg/dL (3-10) L 07/16/24 00:50 Urine Opiates Screen Negative ng/mL (Negative) 07/16/24 00:55 Acetaminophen < 5.0 ug/mL (10-30) L 07/16/24 00:50 Ur Barbiturates Screen Negative ng/mL (Negative) 07/16/24 00:55 Levetiracetam 15.9 mcg/mL (6.0-46.0) 07/17/24 09:58 Ur Phencyclidine Scrn Negative ng/mL (Negative) 07/16/24 00:55 Ur Amphetamines Screen Negative ng/mL (Negative) 07/16/24 00:55 U Benzodiazepines Scrn Negative ng/mL (Negative) 07/16/24 00:55 Urine Cocaine Screen Negative ng/mL (Negative) 07/16/24 00:55 U Marijuana (THC) Screen Negative ng/mL (Negative) 07/16/24 00:55 Ethyl Alcohol < 10 mg/dL (0-10) 07/16/24 00:50 Hepatitis A IgM Ab Non-reactive (Nonreactive) 07/16/24 00:50 Hep Bs Antigen Non-reactive (Nonreactive) 07/16/24 00:50 Hep B Core IgM Ab Non-reactive (Nonreactive) 07/16/24 00:50 Hepatitis C Antibody Non-reactive (Nonreactive) 07/16/24 00:50 HIV 1&2 Ab & HIV 1 Ag Non-reactive (Non-Reactiv) 07/16/24 00:50 HIV 1&2 Antibody Non-reactive (Non-Reactiv) 07/16/24 00:50 Vitals Last Vital Signs Temp 97.5 F L 07/18/24 07:33 Pulse 75 07/18/24 07:33 Resp 16 07/18/24 07:33 BP 113/70 07/18/24 07:33 Pulse Ox 99 07/18/24 07:33 O2 Del Method Room Air 07/18/24 07:33 Discharge Plan Discharge Patient Disposition: Home Condition: Stable Prescriptions: New Keppra 500 mg tablet 500 mg PO BID Qty: 60 0RF Continued gabapentin 600 mg tablet 600 mg PO TID Qty: 90 5RF aripiprazole [Abilify] 5 mg tablet 5 mg PO DAILY 30 Days Qty: 30 5RF (DME) Rt knee brace - small See Rx Instructions .Route .MEDSUPPLY Qty: 1 0RF Rx Instructions: As directed bupropion HCl [Wellbutrin SR] 200 mg tablet sustained-release 12 hr 200 mg PO BID Qty: 60 2RF Discharge Orders: Discharge Order (Routine); Ordered 07/18/24 Ordered By: Henry Workman Referrals: Gee Hernández MD [Physician] - 1 week (We have notified your physician's clinic of the need for a follow-up appointment to be scheduled. If you have not heard from them within the next 2 business days, please call them directly. ) Gavin Yadav MD [Primary Care Provider] - 7-10 days (We have notified your physician's clinic of the need for a follow-up appointment to be scheduled. If you have not heard from them within the next 2 business days, please call them directly. ) Discharge Diet: Regular Discharge Activity: Resume usual activity and Increase activity as tolerated Patient Instructions: Levetiracetam (By mouth), Altered Mental Status (ED), Opioid Safety, Seizures Discharge Attestations Time Spent in Discharge Care*: greater than 30 min Specific Discharge Activities: educating patient, discussing with pcp/other providers, discussing with employment case manager/social workers/dc planners, documenting/other paperwork and evaluating patient/reviewing data Status at Discharge: Cognitive status at discharge: cognitively intact, Behavioral status at discharge: cooperative, Functional status at discharge: independent ambulation, Overall status at discharge: patient is back to baseline Quality Metrics Clinical Quality Measures [ No reported AMI, CVA or VTE this stay] Coding Level of Care Code 95891 Total time (in minutes) for Discharge: 50 Diagnoses Grand mal seizure G40.409 Bipolar II disorder F31.81 Major depressive disorder, recurrent severe without psychotic features F33.2 Altered mental status R41.0 Altered mental status type: delirium Encephalopathy acute G93.40 Oculogyric crisis H51.8
[2024-07-18] MEDS: levETIRAcetam 1,000 mg/10 mL UDC 500 MG PO (11:03)
[2024-07-18] MEDS: gabapentin 300 mg Capsule 600 MG PO (11:04)
[2024-07-18] MEDS: buPROPion SR (12 HR) 100 mg Tablet 200 MG PO (11:04)
[2024-07-18] MEDS: ARIPiprazole 10 mg Tablet 5 MG PO (11:04)
[2024-07-18 11:12] VITALS: BP 107/73; PULSE 89; RESP 16; TEMP 36.8; O2SAT 98
[2024-07-18 12:21] VITALS: BP 107/73; PULSE 89; RESP 16; TEMP 36.8; O2SAT 98
[2024-07-18 13:54] LABS: RPR w(Moniotor) w/REFL Titer NON-REACTIVE (NON-REACTIVE)
[2024-07-19 18:09] LABS: Vitamin B1 (Thiamine),Blood 124 nmol/L (78-185)
[2024-07-21 03:54] LABS: Methylmalonic Acid 167 nmol/L (55-335)
== END 2024-07-18 12:21 | disposition home or self-care (01) | DRG 101 ==
LOC: ER 04:54 → ICU 05:23 → MEDSURG 07-17 15:40
PROVIDERS: Student in an Organized Health Care Education/Training Program; Admitting Provider Family Medicine; Emergency Provider Emergency Medicine; PCP Family Medicine Adult Medicine; Visit Provider Student in an Organized Health Care Education/Training Program
DX: G40.409 Other generalized epilepsy and epileptic syndromes, not intractable, without status epilepticus (principal); M62.82 Rhabdomyolysis; F31.81 Bipolar II disorder; G93.40 Encephalopathy, unspecified; E87.0 Hyperosmolality and hypernatremia; Z79.899 Other long term (current) drug therapy; Z81.1 Family history of alcohol abuse and dependence; Z82.0 Family history of epilepsy and other diseases of the nervous system; E87.6 Hypokalemia; R53.83 Other fatigue; F10.21 Alcohol dependence, in remission; H51.8 Other specified disorders of binocular movement; R74.01 Elevation of levels of liver transaminase levels; T43.595A Adverse effect of other antipsychotics and neuroleptics, initial encounter
CPT/HCPCS: 36415; 51701; 70450; 70551; 71045; 80048; 80051; 80053; 80061; 80074; 80177; 80306; 80307; 81003; 81015; 82330; 82550; 82607; 82746; 82805; 83036; 83090; 83540; 83550; 83605; 83735; 83921; 84145; 84146; 84425; 84443; 84484; 85025; 86592; 87806; 92523; 92610; 93005; 95816; 96365; 96372; 96375; 99285; J1200; J1630; J1650; J1953; J2060; J2470; J3411; J7030; J7042

== ENCOUNTER → 2024-07-22 10:30 | Outpatient (BNVA) | payer OTHER, SELFPAY | PROVIDERS: PCP Family Medicine Adult Medicine; Visit Provider Obstetrics & Gynecology | DX: Z01.419 Encounter for gynecological examination (general) (routine) without abnormal findings (principal) | CPT/HCPCS: 87624 ==

== ENCOUNTER 2024-07-24 07:09 | Outpatient (CLI) | payer OTHER, SELFPAY ==
[2024-07-24 07:42] LABS: Potassium 3.8 mmol/L (3.5-5.1)
[2024-07-25 10:11] LABS: Levetiracetam Immunoassy 2.8 mcg/mL (6.0-46.0)
== END 2024-07-24 07:10 | disposition home or self-care (01) ==
LOC: LAB 07:11
PROVIDERS: PCP Family Medicine Adult Medicine; Visit Provider Psychiatry & Neurology Neurology
DX: E87.0 Hyperosmolality and hypernatremia (principal); E87.6 Hypokalemia; H51.8 Other specified disorders of binocular movement; G93.40 Encephalopathy, unspecified
CPT/HCPCS: 36415; 80177; 84132

== ENCOUNTER → 2024-07-29 14:36 | Outpatient (BNVA) | payer OTHER, SELFPAY | PROVIDERS: PCP Family Medicine Adult Medicine; Visit Provider Nurse Practitioner Family | DX: S92.535A Nondisplaced fracture of distal phalanx of left lesser toe(s), initial encounter for closed fracture (principal); X58.XXXA Exposure to other specified factors, initial encounter; M79.672 Pain in left foot; M79.89 Other specified soft tissue disorders | CPT/HCPCS: 73630 ==

== ENCOUNTER 2024-08-13 08:35 | Outpatient (CLI) | payer OTHER, SELFPAY | END 2024-08-13 08:36 | disposition home or self-care (01) | LOC: LAB 08:36 | PROVIDERS: PCP Family Medicine Adult Medicine; Visit Provider Psychiatry & Neurology Neurology | DX: M24.80 Other specific joint derangements of unspecified joint, not elsewhere classified (principal); F33.2 Major depressive disorder, recurrent severe without psychotic features; G40.409 Other generalized epilepsy and epileptic syndromes, not intractable, without status epilepticus | CPT/HCPCS: 36415; 80177 ==

== ENCOUNTER 2024-08-27 07:19 | Outpatient (CLI) | payer OTHER, SELFPAY ==
--- NOTE | 2024-08-27 | ECG_ITS ---
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 Interpretive Statements LEXISCAN SESTAMIBI STRESS TEST Procedure: At the baseline, the blood pressure was 129/83 mmHg with a heart rate of 79 bpm. The electrocardiogram showed normal sinus rhythm, normal axis with normal ST and T's. The Lexiscan was infused over a period of 20 seconds. A total of 0.4 mg of Lexiscan was infused. The stress phase was continued for a total of 5 minutes. Heart rate was at the end of stress phase was 99 bpm and a blood pressure of 93/60 mmHg. The EKG at the peak infusion revealed normal sinus rhythm with no significant ST-T wave changes. Sestamibi was injected 20 seconds after the Lexiscan infusion. Blood pressure at the end of recovery phase was 103/71 mmHg with a heart rate of 94 bpm. Conclusion: 1. Normal EKG response to Lexiscan infusion 2. No Lexiscan induced chest pain or cardiac arrhythmia. 3. Normal blood pressure and heart rate response. 4. Sestamibi/sestamibi perfusion scan pending; see separate report. Electronically Signed On 08-29-2024 10:37:41 CDT by Venkat Benedict M.D. [email or web address]
[2024-08-27 07:39] VITALS: BMI 19.2
--- NOTE | 2024-08-27 07:44 | NMCV_ITS ---
NM marielle perf SPECT r/s* [id number] Citlali Kalpana Age: 49 Gender: F : 1975 Exam Date: 08/27/2024 07:44 Ordering Phys: Venkat Benedict M.D ([email or web address]) Technologist: CAROLINE Pace Exam Location: [facility] Indications: CP STRESS TEST Please [facility] stress [facility] for full findings IMAGE PROTOCOL Rest/Stress 1 Lexiscan Day Radiopharmaceutical Dose (mCi) Administration Site Administered by Rest: Tc-99m 11 IV CAROLINE Pace Sestamibi Stress:Tc-99m 32.7 IV CAROLINE Pace Sestamibi Rest: 27-Aug-2024 60 Discovery 630 Stress: 27-Aug-2024 30 Discovery 630 0.4mg Lexiscan. Images obtained in supine and prone position. SPECT RESULTS Technical Quality: Good Raw Data Analysis: Normal Image Corrections: No attenuation or motion correction applied Summed Stress Score: 1 Summed Rest Score: 0 Summed Difference Score: 1 PERFUSION FINDINGS Small area of mild to moderate reversibility noted in the distal lateral wall in the absence of wall motion abnormality appeared to be an artifact. FUNCTIONAL RESULTS (calculated via Gated SPECT) Stress Image LV EF (%): 78 Stress EDV (mL):54 TID: 1.08 Stress ESV (mL):12 FUNCTIONAL FINDINGS: There is normal left ventricular systolic function. IMPRESSIONS This study is negative for ischemia. EKG segment will be documented separately. Left ventricular ejection fraction appeared to be normal with no wall motion abnormality. Justin Hernandez MD (Electronically Signed) Final Date: 27 August 2024 13:15 S
[2024-08-27] MEDS: regadenoson 0.4 Mg/5 ml Syringe IVP (09:16)
[2024-08-27 09:28] VITALS: BP 103/71; PULSE 94
== END 2024-08-27 07:20 | disposition home or self-care (01) ==
PROVIDERS: PCP Family Medicine Adult Medicine; Visit Provider Obstetrics & Gynecology
DX: R07.9 Chest pain, unspecified (principal); R06.02 Shortness of breath
CPT/HCPCS: 36415; 78452; 93017; 96374; A9500; J2785

== ENCOUNTER 2024-08-27 13:45 | Outpatient (CLI) | payer OTHER, SELFPAY ==
--- NOTE | 2024-08-27 16:06 | MM_ITS ---
WS: [id number] BILATERAL 3D TOMOSYNTHESIS DIGITAL SCREENING MAMMOGRAPHY WITH CAD CLINICAL INFORMATION: Z12.39 - Encounter for other screening for malignant neop... HISTORY: Screening mammogram. No current complaints. COMPARISON: 2021 TECHNIQUE: Bilateral CC and MLO views. FINDINGS: Scattered fibroglandular densities bilaterally. No suspicious focal mass, asymmetry, calcifications, or architectural distortion. No evidence of malignancy. Biopsy marker LEFT breast. MM/MM scr tomosynthesis [id number] IMPRESSION: DENSITY: There are scattered areas of fibroglandular density. BI-RADS: 2 - Benign. FOLLOW UP: 1 Year Follow-up Recommend return to annual screening mammography.
== END 2024-08-27 13:46 | disposition home or self-care (01) ==
LOC: RAD 13:46
PROVIDERS: PCP Family Medicine Adult Medicine; Visit Provider Obstetrics & Gynecology
DX: Z12.31 Encounter for screening mammogram for malignant neoplasm of breast (principal); R92.323 Mammographic fibroglandular density, bilateral breasts
CPT/HCPCS: 77063; 77067

== ENCOUNTER 2024-09-03 07:26 | Outpatient (CLI) | payer OTHER, SELFPAY ==
--- NOTE | 2024-09-03 07:45 | USCV_ITS ---
Kalpana Godwin Age: 49 Gender: F : 1975 Exam Date: 09/03/2024 08:03 Ordering Phys: Venkat Benedict M.D ([email or web address]) Technologist: TIA Exam Location: [facility] [place] Indication: CHEST PAIN AND SHORTNESS OF BREATH BP: 110 / 60 HR: 80 Rhythm: Sinus Technical Quality: Adequate MEASUREMENTS (Male / Female) Normal Values 2D ECHO LV Diastolic Diameter PLAX 3.6 cm 4.2 - 5.9 / 3.9 - 5.3 cm IVS Diastolic Thickness 0.9 cm 0.6 - 1.0 / 0.6 - 0.9 cm IVS Systolic Thickness 1.6 cm LVPW Diastolic Thickness 1.2 cm 0.6 - 1.0 / 0.6 - 0.9 cm LVPW Systolic Thickness 1.6 cm LVOT Diameter 2.0 cm LV Ejection Fraction 2D Teich 65.1 % LV Ejection Fraction MOD 4C 57.8 % LV Ejection Fraction MOD 2C 61.1 % LV Ejection Fraction 2C AL 63.0 % LA Diameter 2.0 cm RA Systolic Volume 4C AL 15.4 ml RA Systolic Volume 4C MOD 15.0 ml LA Sys Volume AL 15.5 cm cubed LA Sys Volume Index AL 10.5 cm cubed/m squared Aorta at Sinotubular Diameter 2.5 cm IVC Diameter 1.0 cm M-MODE LA Ao Ratio MM 0.8 AV Cusp Separation MM 1.4 cm DOPPLER AV Peak Velocity 125.0 cm/s LVOT Peak Velocity 96.0 cm/s AV Area Cont Eq vti 2.4 cm squared AV Area Cont Eq pk 2.5 cm squared MV Peak Velocity 64.0 cm/s MV Area PHT 4.4 cm squared Mitral E to A Ratio 1.0 TR Peak Velocity 197.0 cm/s TR Peak Gradient 15.5 mmHg TR Mean Velocity 160.0 cm/s TR Mean Gradient 11.3 mmHg TR Velocity Time Integral 49.1 cm TV Peak E Velocity 52.0 cm/s Right Atrial Pressure 3.0 mmHg Pulmonary Artery Systolic Pressu 18.5 mmHg PV Peak Velocity 93.0 cm/s RV Ejection Time 0.4 s FINDINGS Left Ventricle Normal left ventricular size and systolic function, EF 60%.no regional wall motion abnormalities. Right Ventricle The right ventricle is normal in size and function. Right Atrium The right atrium is normal in size. Left Atrium The left atrium is normal in size. Mitral Valve Trace mitral valve regurgitation. Aortic Valve No gross abnormalities noted Tricuspid Valve Mild tricuspid valve regurgitation. Pulmonic Valve No gross abnormalities noted Pericardium Normal pericardium without effusion. Aorta Normal ascending aorta dimension. IVC The inferior vena cava appears normal. CONCLUSIONS Normal left ventricular size and systolic function, EF 60%.no regional wall motion abnormalities. Trace of mitral and tricuspid regurgitation Normal cardiac chamber sizes. No intracardiac shunt by color-flow Doppler examination. There is no pericardial effusion. There are no intracardiac masses. No similar previous studies are available for comparison Dr Charla Meyer MD FACC (Electronically Signed) Final Date: 07 September 2024 17:13 S
== END 2024-09-03 07:27 | disposition home or self-care (01) ==
LOC: RAD 07:27
PROVIDERS: PCP Family Medicine Adult Medicine; Visit Provider Internal Medicine
DX: R07.9 Chest pain, unspecified (principal); R06.02 Shortness of breath
CPT/HCPCS: 93306

== ENCOUNTER 2024-12-13 23:04 | Inpatient (IN) | payer OTHER, SELFPAY ==
[2024-12-13 23:15] VITALS: PULSE 129; RESP 20; O2SAT 97
[2024-12-13 23:20] VITALS: BP 129/99; PULSE 119; RESP 20; TEMP 36.6; O2SAT 97; BMI 18.3
[2024-12-13 23:21] VITALS: BP 128/99
--- NOTE | 2024-12-13 23:23 | ED_ITS ---
Documented by User: Fabio Enamorado DO 12/14/24 01:18 HPI - General Adult 2 General: Chief complaint: Psychiatric Symptoms Stated complaint: MHE Time Seen by Provider: 12/13/24 23:07 History of Present Illness: Patient brought in for mental health exam by EMS. Patient is talking out of her head not making any sense. Patient cannot stay focused she jumps from topic to topic. She will not answer questions. EMS suspects she is high on amphetamines. Patient does have a history of alcohol use disorder, seizure, bipolar, patient has been inpatient in [facility] for acute psychosis before. Related Data Home Medications Medication Instructions Recorded Confirmed omeprazole 20 mg capsule,delayed See Rx Instructions .Route .COMPLEX 12/14/24 12/14/24 release Previous Rx's Medication Instructions Recorded gabapentin 600 mg tablet 600 mg PO TID #90 tabs 06/19/24 Rt knee brace - small #1 ea 06/21/24 bupropion HCl 200 mg tablet,12 hr 200 mg PO BID #60 tabs 10/31/24 sustained-release (Wellbutrin SR) levetiracetam 500 mg tablet See Rx Instructions .Route 11/21/24 .COMPLEX #60 tabs Allergies Allergy/AdvReac Type Severity Reaction Status Date / Time No Known Allergies Allergy Verified 10/31/24 14:48 Review of Systems 2 General: Reports: ROS unobtainable due to medical condition [facility] ED 2 PFS: Medical History Seizure hospitalized 08/06; seeing neurology now Abnormal liver function tests Pelvic pain Chronic knee pain Right side Hiatal hernia with GERD Hearing voices Alcohol use disorder, severe, in early remission, dependence Bipolar II disorder Mixed episodes with anxious distress Psychiatric care History of actinic keratosis History of psoriasis Anxiety and depression Elevated liver enzymes Surgical History S/P endoscopy Dr. Bajwa, [place] [facility] 01/16/24 adenomatous polyp removed, 02/22/24 EGD with hiatal hernia and GERD History of ankle surgery Status post incision and drainage Family History Other CAD (coronary artery disease) Cancer Denies family history of Colon cancer Ovarian cancer Diabetes Heart disease Breast cancer Hypertension Uterine cancer Thyroid disease Stroke Social History Smoking and tobacco/nicotine status: never used tobacco/nicotine Alcohol intake: former Year of sobriety/quit date alcohol: 2019 Former alcohol use details: heavy in past Physical Exam 2 Const: COMMON NORMALS: no acute distress, average body habitus, healthy appearing, alert and well nourished HENMT: COMMON NORMALS: normocephalic, atraumatic, hearing grossly normal bilaterally, external ears normal, Normal external nose present and moist oral mucous membranes HEAD & SCALP: normocephalic and atraumatic NOSE: Normal external nose present EXTERNAL EAR: Yes external ears normal Neck/C-Spine: COMMON NORMALS: no JVD Chest: COMMONS NORMALS: normal inspection of the chest and normal palpation of entire chest wall Resp: COMMON NORMALS: normal respiratory effort, No retractions, No use of accessory muscles and clear to auscultation bilaterally AUSCULTATION: clear to auscultation bilaterally Cardio: COMMON NORMALS: no JVD, regular rate, regular rhythm, S1 normal heart sound present, S2 normal heart sound present, No gallops present (Cardio), No clicks present (Cardio), No murmurs present (Cardio) and No rub (Cardio) R ATE: regular rate RHYTHM: regular rhythm HEART SOUNDS: S1 normal heart sound present and S2 normal heart sound present GI: COMMON NORMALS: Normal to inspection, nondistended, normoactive bowel sounds present, Soft to palpation, non-tender, No hepatosplenomegaly present and no masses PALPATION: Yes Soft to palpation and Yes No hepatosplenomegaly present Neuro: SENSORIUM/ORIENTATION: Yes alert Course 2 Vital Signs: Vital signs: Vital Signs Temperature 98 F 12/13/24 23:20 Pulse Rate 83 12/14/24 06:30 Respiratory Rate 20 H 12/13/24 23:20 Blood Pressure 82/59 12/14/24 06:30 Pulse Oximetry 95 12/14/24 06:30 Oxygen Delivery Me thod Room Air 12/13/24 23:15 MDM - General Adult Medical Decision Making During patient's ER stay she was getting belligerent and hostile not wanting to stay in her room when you leave the room walk the halls she even started to get hostile with the security field supervisor and scratched him on the neck. Patient was then given medication to calm her down. Once lab work was obtained patient was cleared medically. Medical Records I reviewed the patient's medical records. Lab Data I reviewed the patient's lab results. 12/13/24 00:19 12/14/24 11:52 Laboratory Results WBC 8.32 10^3/uL (3.29-11.43) 12/13/24 00:19 RBC 3.94 10^6/uL (3.85-5.65) 12/13/24 00:19 Hgb 12.20 g/dL (11.27-16.99) 12/13/24 00:19 Hct 38.6 % (36-47) 12/13/24 00:19 MCV 98.0 fl (85-98) 12/13/24 00:19 MCH 31.0 pg (27-33) 12/13/24 00:19 MCHC 31.6 g/dL (30-55) 12/13/24 00:19 RDW 11.9 % (12.1-15.1) L 12/13/24 00:19 Plt Count 276 10^3/cmm (157-399) 12/13/24 00:19 MPV 10.0 fL (7.4-10.4) 12/13/24 00:19 Neut % (Auto) 70.9 % 12/13/24 00:19 Lymph % (Auto) 18.5 % 12/13/24 00:19 Baker % (Auto) 8.2 % 12/13/24 00:19 Eos % (Auto) 1.0 % 12/13/24 00:19 Baso % (Auto) 1.2 % 12/13/24 00:19 Neut # (Auto) 5.90 10^3/uL (1.8-7.7) 12/13/24 00:19 Lymph # (Auto) 1.5 10^3/uL (0.8-4.8) 12/13/24 00:19 Baker # (Auto) 0.7 10^3/uL (0.2-0.9) 12/13/24 00:19 Eos # (Auto) 0.1 10^3/uL (0.0-0.8) 12/13/24 00:19 Baso # (Auto) 0.1 10^3/uL (0.0-0.1) 12/13/24 00:19 Nucleated RBC % (auto) 0 % 12/13/24 00:19 Nucleated RBCs # 0.0 /100WBC 12/13/24 00:19 Sodium 140 mmol/L (136-145) 12/14/24 11:52 Potassium 3.7 mmol/L (3.5-5.1) 12/14/24 11:52 Chloride 105 mmol/L (98-107) 12/14/24 11:52 Carbon Dioxide 28 mmol/L (22-29) 12/14/24 11:52 Anion Gap 10.7 (5-19) 12/14/24 11:52 BUN 8 mg/dL (6-20) 12/14/24 11:52 Creatinine 0.6 mg/dL (0.5-0.9) 12/14/24 11:52 GFR Calculation 106.3 mL/min (90-130) 12/14/24 11:52 Glucose 91 mg/dL (65-115) 12/14/24 11:52 Calculated Osmolality 288 mOsm/kg (285-295) 12/14/24 11:52 Calcium 8.5 mg/dL (8.5-10.5) 12/14/24 11:52 Total Bilirubin 0.4 mg/dL (0.15-1.2) 12/13/24 00:19 AST 29 U/L (0-32) 12/13/24 00:19 ALT 18 U/L (0-33) 12/13/24 00:19 Alkaline Phosphatase 95 U/L (35-105) 12/13/24 00:19 Creatine Kinase 430 U/L (26-192) H* 12/14/24 11:52 Total Protein 6.9 g/dL (6.6-8.7) 12/13/24 00:19 Albumin 4.3 g/dL (3.5-5.2) 12/13/24 00:19 Globulin 2.6 g/dL (1.3-4.6) 12/13/24 00:19 HCG, Qual Negative (Negative) 12/14/24 02:49 Urine Color Yellow (Yellow) 12/14/24 02:09 Urine Appearance Clear (CLEAR) 12/14/24 02:09 Urine pH 7.0 (5-7) 12/14/24 02:09 Ur Specific [place] 1.011 (1.005-1.030) 12/14/24 02:09 Urine Protein Negative (Negative) 12/14/24 02:09 Urine Glucose (UA) Negative (Normal) 12/14/24 02:09 Urine Ketones Negative (Negative) 12/14/24 02:09 Urine Blood Negative (Negative) 12/14/24 02:09 Urine Nitrate Negative (Negative) 12/14/24 02:09 Urine Bilirubin Negative (Negative) 12/14/24 02:09 Urine Urobilinogen 0.2 mg/dL (Negative) 12/14/24 02:09 Ur Leukocyte Esterase Negative (Negative) 12/14/24 02:09 Urine RBC 0-2 /hpf (0-2) 12/14/24 02:09 Urine WBC 0-5 /hpf (0-5) 12/14/24 02:09 Ur Squamous Epith Cells 0-5 /hpf (0-5) 12/14/24 02:09 Amorphous Sediment Not Reportable 12/14/24 02:09 Urine Bacteria None seen /hpf (NONE) 12/14/24 02:09 Hyaline Casts 0.40 /lpf 12/14/24 02:09 Salicylates 1.8 mg/dL (3-10) L 12/13/24 00:19 Urine Opiates Screen Negative ng/mL (Negative) 12/14/24 02:09 Acetaminophen < 5.0 ug/mL (10-30) L 12/13/24 00:19 Ur Barbiturates Screen Negative ng/mL (Negative) 12/14/24 02:09 Ur Phencyclidine Scrn Negative ng/mL (Negative) 12/14/24 02:09 Ur Amphetamines Screen Negative ng/mL (Negative) 12/14/24 02:09 U Benzodiazepines Scrn Negative ng/mL (Negative) 12/14/24 02:09 Urine Cocaine Screen Negative ng/mL (Negative) 12/14/24 02:09 U Marijuana (THC) Screen Negative ng/mL (Negative) 12/14/24 02:09 Ethyl Alcohol < 10 mg/dL (0-10) 12/13/24 00:19 All radiology interpretation(s) finalized by discharge Discharge Plan Discharge Patient Disposition: Admitted As Inpatient Clinical Impression: Acute psychosis Condition: Stable Coding Level of Care Code ED [employer] Documented by User: Elizabeth Hill MD 12/14/24 12:55 HPI - General Adult 2 General: Chief complaint: Psychiatric Symptoms Stated complaint: MHE Time Seen by Provider: 12/13/24 23:07 Related Data Home Medications Medication Instructions Recorded Confirmed omeprazole 20 mg capsule,delayed See Rx Instructions .Route .COMPLEX 12/14/24 12/14/24 release Previous Rx's Medication Instructions Recorded gabapentin 600 mg tablet 600 mg PO TID #90 tabs 06/19/24 Rt knee brace - small #1 ea 06/21/24 bupropion HCl 200 mg tablet,12 hr 200 mg PO BID #60 tabs 10/31/24 sustained-release (Wellbutrin SR) levetiracetam 500 mg tablet See Rx Instructions .Route 11/21/24 .COMPLEX #60 tabs Allergies Allergy/AdvReac Type Severity Reaction Status Date / Time No Known Allergies Allergy Verified 10/31/24 14:48 PFSH ED 2 PFSH: Medical History Seizure hospitalized 08/06; seeing neurology now Abnormal liver function tests Pelvic pain Chronic knee pain Right side Hiatal hernia with GERD Hearing voices Alcohol use disorder, severe, in early remission, dependence Bipolar II disorder Mixed episodes with anxious distress Psychiatric care History of actinic keratosis History of psoriasis Anxiety and depression Elevated liver enzymes Surgical History S/P endoscopy Dr. Bajwa[place] [facility] 01/16/24 adenomatous polyp removed, 02/22/24 EGD with hiatal hernia and GERD History of ankle surgery Status post incision and drainage Family History Other CAD (coronary artery disease) Cancer Denies family history of Colon cancer Ovarian cancer Diabetes Heart disease Breast cancer Hypertension Uterine cancer Thyroid disease Stroke Social History Smoking and tobacco/nicotine status: never used tobacco/nicotine Alcohol intake: former Year of sobriety/quit date alcohol: 2019 Former alcohol use details: heavy in past Course 2 Vital Signs: Vital signs: Vital Signs Temperature 98 F 12/13/24 23:20 Pulse Rate 83 12/14/24 06:30 Respiratory Rate 20 H 12/13/24 23:20 Blood Pressure 82/59 12/14/24 06:30 Pulse Oximetry 95 12/14/24 06:30 Oxygen Delivery Me thod Room Air 12/13/24 23:15 MDM - General Adult Medical Decision Making During patient's ER stay she was getting belligerent and hostile not wanting to stay in her room when you leave the room walk the halls she even started to get hostile with the security field supervisor and scratched him on the neck. Patient was then given medication to calm her down. Once lab work was obtained patient was cleared medically. Patient was still here in the emergency room and I came in for shift today. I spoke with Dr. Meng who is on-call for psychiatry who does recommend that she be admitted. She seems to be back to herself. I examined her. She says she has episodes like this . She had 1 previously and looking through the chart she was in rhabdo at that time and had had had a seizure possibly. Similar type psychosis afterwards. I am repeating labs and her CK is mildly elevated at 430 with no renal failure some giving a liter of fluid and she is okay to admit to the psychiatry floor at this time. 96-hour hold was placed. She does not really want to come in but she understands and complies. Lab Data 12/13/24 00:19 12/14/24 11:52 Laboratory Results WBC 8.32 10^3/uL (3.29-11.43) 12/13/24 00:19 RBC 3.94 10^6/uL (3.85-5.65) 12/13/24 00:19 Hgb 12.20 g/dL (11.27-16.99) 12/13/24 00:19 Hct 38.6 % (36-47) 12/13/24 00:19 MCV 98.0 fl (85-98) 12/13/24 00:19 MCH 31.0 pg (27-33) 12/13/24 00:19 MCHC 31.6 g/dL (30-55) 12/13/24 00:19 RDW 11.9 % (12.1-15.1) L 12/13/24 00:19 Plt Count 276 10^3/cmm (157-399) 12/13/24 00:19 MPV 10.0 fL (7.4-10.4) 12/13/24 00:19 Neut % (Auto) 70.9 % 12/13/24 00:19 Lymph % (Auto) 18.5 % 12/13/24 00:19 Baker % (Auto) 8.2 % 12/13/24 00:19 Eos % (Auto) 1.0 % 12/13/24 00:19 Baso % (Auto) 1.2 % 12/13/24 00:19 Neut # (Auto) 5.90 10^3/uL (1.8-7.7) 12/13/24 00:19 Lymph # (Auto) 1.5 10^3/uL (0.8-4.8) 12/13/24 00:19 Baker # (Auto) 0.7 10^3/uL (0.2-0.9) 12/13/24 00:19 Eos # (Auto) 0.1 10^3/uL (0.0-0.8) 12/13/24 00:19 Baso # (Auto) 0.1 10^3/uL (0.0-0.1) 12/13/24 00:19 Nucleated RBC % (auto) 0 % 12/13/24 00:19 Nucleated RBCs # 0.0 /100WBC 12/13/24 00:19 Sodium 140 mmol/L (136-145) 12/14/24 11:52 Potassium 3.7 mmol/L (3.5-5.1) 12/14/24 11:52 Chloride 105 mmol/L (98-107) 12/14/24 11:52 Carbon Dioxide 28 mmol/L (22-29) 12/14/24 11:52 Anion Gap 10.7 (5-19) 12/14/24 11:52 BUN 8 mg/dL (6-20) 12/14/24 11:52 Creatinine 0.6 mg/dL (0.5-0.9) 12/14/24 11:52 GFR Calculation 106.3 mL/min (90-130) 12/14/24 11:52 Glucose 91 mg/dL (65-115) 12/14/24 11:52 Calculated Osmolality 288 mOsm/kg (285-295) 12/14/24 11:52 Calcium 8.5 mg/dL (8.5-10.5) 12/14/24 11:52 Total Bilirubin 0.4 mg/dL (0.15-1.2) 12/13/24 00:19 AST 29 U/L (0-32) 12/13/24 00:19 ALT 18 U/L (0-33) 12/13/24 00:19 Alkaline Phosphatase 95 U/L (35-105) 12/13/24 00:19 Creatine Kinase 430 U/L (26-192) H* 12/14/24 11:52 Total Protein 6.9 g/dL (6.6-8.7) 12/13/24 00:19 Albumin 4.3 g/dL (3.5-5.2) 12/13/24 00:19 Globulin 2.6 g/dL (1.3-4.6) 12/13/24 00:19 HCG, Qual Negative (Negative) 12/14/24 02:49 Urine Color Yellow (Yellow) 12/14/24 02:09 Urine Appearance Clear (CLEAR) 12/14/24 02:09 Urine pH 7.0 (5-7) 12/14/24 02:09 Ur Specific [place] 1.011 (1.005-1.030) 12/14/24 02:09 Urine Protein Negative (Negative) 12/14/24 02:09 Urine Glucose (UA) Negative (Normal) 12/14/24 02:09 Urine Ketones Negative (Negative) 12/14/24 02:09 Urine Blood Negative (Negative) 12/14/24 02:09 Urine Nitrate Negative (Negative) 12/14/24 02:09 Urine Bilirubin Negative (Negative) 12/14/24 02:09 Urine Urobilinogen 0.2 mg/dL (Negative) 12/14/24 02:09 Ur Leukocyte Esterase Negative (Negative) 12/14/24 02:09 Urine RBC 0-2 /hpf (0-2) 12/14/24 02:09 Urine WBC 0-5 /hpf (0-5) 12/14/24 02:09 Ur Squamous Epith Cells 0-5 /hpf (0-5) 12/14/24 02:09 Amorphous Sediment Not Reportable 12/14/24 02:09 Urine Bacteria None seen /hpf (NONE) 12/14/24 02:09 Hyaline Casts 0.40 /lpf 12/14/24 02:09 Salicylates 1.8 mg/dL (3-10) L 12/13/24 00:19 Urine Opiates Screen Negative ng/mL (Negative) 12/14/24 02:09 Acetaminophen < 5.0 ug/mL (10-30) L 12/13/24 00:19 Ur Barbiturates Screen Negative ng/mL (Negative) 12/14/24 02:09 Ur Phencyclidine Scrn Negative ng/mL (Negative) 12/14/24 02:09 Ur Amphetamines Screen Negative ng/mL (Negative) 12/14/24 02:09 U Benzodiazepines Scrn Negative ng/mL (Negative) 12/14/24 02:09 Urine Cocaine Screen Negative ng/mL (Negative) 12/14/24 02:09 U Marijuana (THC) Screen Negative ng/mL (Negative) 12/14/24 02:09 Ethyl Alcohol < 10 mg/dL (0-10) 12/13/24 00:19 Discharge Plan Discharge Patient Disposition: Admitted As Inpatient Clinical Impression: Acute psychosis Condition: Stable Coding Level of Care Code ED [employer]
[2024-12-13] MEDS: haloperidol inj 5 mg/mL INJ 1 mL IM (23:42)
[2024-12-13] MEDS: LORazepam 2 mg/mL INJ 1 mL IM (23:43)
[2024-12-13] MEDS: diphenhydrAMINE 50 mg/mL SDV 1mL IM (23:44)
[2024-12-13 23:45] VITALS: PULSE 120
[2024-12-13 23:56] VITALS: BP 116/86; O2SAT 97
[2024-12-14] VITALS (31 sets, daily range): BP systolic 82–111; BP diastolic 59–81; PULSE 81–122; RESP 16; TEMP 36.9–37.1; O2SAT 94–100
[2024-12-14 00:28] LABS: Basophils # 0.1 10^3/uL (0.0-0.1); Basophils % 1.2 %; Eosinophils # 0.1 10^3/uL (0.0-0.8); Hematocrit 38.6 % (36-47); Lymphocytes # 1.5 10^3/uL (0.8-4.8); Lymphocytes % 18.5 %; Mean Corpuscular HGB Conc 31.6 g/dL (30-55); Monocytes # 0.7 10^3/uL (0.2-0.9); Monocytes % 8.2 %; Neutrophils % 70.9 %; Nucleated Red Blood Cells % 0 %; Platelet Count 276 10^3/cmm (157-399); Red Blood Count 3.94 10^6/uL (3.85-5.65); Red Cell Distribution Width 11.9 % (12.1-15.1); White Blood Count 8.32 10^3/uL (3.29-11.43)
[2024-12-14 00:47] LABS: Alanine Aminotransferase 18 U/L (0-33); Albumin Level 4.3 g/dL (3.5-5.2); Alkaline Phosphatase 95 U/L (35-105); Anion Gap 16.4 (5-19); Aspartate Amino Transferase 29 U/L (0-32); Blood Urea Nitrogen 12 mg/dL (6-20); Calcium 9.2 mg/dL (8.5-10.5); Carbon Dioxide 24 mmol/L (22-29); Chloride 93 mmol/L (98-107); Creatinine Clr Calc Pharmacy 64.7317; Globulin 2.6 g/dL (1.3-4.6); Glomerular Filtration Rate 76.2 mL/min (90-130); Glucose 110 mg/dL (65-115); Osmolality Calculated 268 mOsm/kg (285-295); Potassium 4.4 mmol/L (3.5-5.1); Salicylate 1.8 mg/dL (3-10); Sodium 129 mmol/L (136-145); Total Bilirubin 0.4 mg/dL (0.15-1.2); Total Protein 6.9 g/dL (6.6-8.7)
[2024-12-14 00:49] LABS: Acetaminophen < 5.0 ug/mL (10-30); Alcohol Level < 10 mg/dL (0-10)
[2024-12-14 03:13] LABS: HCG Qualitative Urine. Negative (Negative)
[2024-12-14 03:35] LABS: Bilirubin Urine Negative (Negative); Blood Urine Negative (Negative); Glucose Urine UA Negative (Normal); Ketones Urine Negative (Negative); Leukocyte Esterase Urine Negative (Negative); Nitrate Urine Negative (Negative); Protein Urine Negative (Negative); Specific Gravity, Urine 1.011 (1.005-1.030); Urine Appearance Clear (CLEAR); Urine Color Yellow (Yellow); Urobilinogen Urine 0.2 mg/dL (Negative)
[2024-12-14 03:40] LABS: Add Urine Microscopic? YES; Bacteria Urine None Seen /hpf; RBC Urine 0-2 /hpf (0-2); Squamous Epithelial Cell Urine 0-5 /hpf (0-5); Universal Test for UA Present (0); WBC Urine 0-5 /hpf (0-5)
[2024-12-14 03:42] LABS: Amphetamines Screen Urine Negative (Negative); Barbiturates Screen Urine Negative (Negative); Benzodiazepines Screen Urine Negative (Negative); Cocaine Screen Urine Negative (Negative); Opiate Screen Urine Negative (Negative); PCP Screen Urine Negative (Negative); THC Screen Urine Negative (Negative)
[2024-12-14 03:54] LABS: Add Urine Culture? No
[2024-12-14] MEDS: sodium chloride 0.9% 1,000 ML 999 ML IV (10:00)
--- NOTE | 2024-12-14 11:36 | PC.NURSE ---
96 hour hold rights read at 1132. Patient verbalized understanding.
[2024-12-14 12:16] LABS: Anion Gap 10.7 (5-19); Blood Urea Nitrogen 8 mg/dL (6-20); Calcium 8.5 mg/dL (8.5-10.5); Carbon Dioxide 28 mmol/L (22-29); Chloride 105 mmol/L (98-107); Glomerular Filtration Rate 106.3 mL/min (90-130); Glucose 91 mg/dL (65-115); Osmolality Calculated 288 mOsm/kg (285-295); Potassium 3.7 mmol/L (3.5-5.1); Sodium 140 mmol/L (136-145)
[2024-12-14 12:27] LABS: Creatine Phosphokinase 430 U/L (26-192)
--- NOTE | 2024-12-14 15:06 | PC.NURSE ---
Medications restarted: wellbutrin SR 200mg BID, Gabapentin 600mg TID, and pantoprazole, in place of omeprazole. Patient stated that she does not take the abilify or keppra any longer
[2024-12-14] MEDS: levETIRAcetam 500 mg Tablet PO (20:13)
[2024-12-14] MEDS: gabapentin 300 mg Capsule 600 MG PO (20:13)
[2024-12-14] MEDS: buPROPion SR (12 HR) 100 mg Tablet 200 MG PO (20:13)
[2024-12-14] MEDS: trazodone 50 mg Tablet PO (20:14)
[2024-12-14] MEDS: hyDROXYzine 25 mg Capsule 50 MG PO (20:14)
--- NOTE | 2024-12-14 20:38 | PC.NURSE ---
RESTING IN BED AROUSES TO TAKE HS MEDICATIONS. REPORTS ANXIETY AND TROUBLE SLEEPING VISTARIL 50 MG GIVEN ORDERED FOR ANXIETY AND TRAZODONE 50 MG GIVEN FOR INSOMNIA. DENIES PAIN. DENIES SI/BRIDGET AND AVH AT THIS TIME. PT IS EVASIVE WITH ASSESSMENT. SUPPORT VOICED.
[2024-12-15 06:00] VITALS: BP 90/55; PULSE 79; RESP 16; TEMP 36.9; O2SAT 95
[2024-12-15] MEDS: pantoprazole DR 40 mg Tablet PO (08:27)
[2024-12-15] MEDS: levETIRAcetam 500 mg Tablet PO ×2 (08:27→19:47)
[2024-12-15] MEDS: buPROPion SR (12 HR) 100 mg Tablet 200 MG PO ×2 (08:28→19:47)
--- NOTE | 2024-12-15 08:29 | W.PM.NPUH&PS ---
Providers/Chief Complaint Admitting Physician: Aman Meng MD Primary Care Provider: Gavin Yadav MD Chief Complaint: MHE HPI N[facility] History of Present Illness Kalpana Godwin is a 49 year old female who presented to the emergency department with the following report: Chief complaint: Psychiatric Symptoms Stated complaint: MHE Time Seen by Provider: 12/13/24 23:07 History of Present Illness: Patient brought in for mental health exam by EMS. Patient is talking out of her head not making any sense. Patient cannot stay focused she jumps from topic to topic. She will not answer questions. EMS suspects she is high on amphetamines. Patient does have a history of alcohol use disorder, seizure, bipolar, patient has been inpatient in [facility] for acute psychosis before. She was admitted to the neuropsychiatric unit for definitive treatment of those issues. She is known to [facility] through inpatient and outpatient services. She had her last outpatient med check in October of last year and her last inpatient stay was in April 2023 and an excerpt of that note is included below for context and the fact that there are no substantive changes. Despite the fact that there were suspicions of addiction or withdrawal playing a significant role in her presentation her UDS and BAL were unremarkable. She presents today reporting that this whole thing is a misunderstanding. She told some elaborate story about recent difficulties with some health problem where she is having episodes that are being identified were explored his seizures but she has had an EEG and cardiac evaluations and MRI and still no clear determination of what is going on has been forwarded. She is following with Dr. Hernández at this point and he is continuing to try to get to the bottom of what is going on. She reports that her episodes have never really had a psychiatric element to them but at this time it reportedly did but she does not have a recollection of it. She reports it was witnessed by her who she does not have much to say on the positive side. She reports that she does not believe him and did not want him to be used as a source of information. Her mother is reportedly coming later and she wants us to talk to her. However she reports she has been taking her medication as prescribed which is this Wellbutrin SR 200 mg p.o. twice daily. We discussed whether she should not try the Wellbutrin XL we may push the dose to 450 mg. She is also taking Neurontin and Keppra. We agreed we leave the medications where they are and try to get some collateral information and understand the situation better before we make any changes or any assumptions. She currently did not have anything in her UDS and denied any drug use reporting sobriety for the past 3 years. However EMS felt she was under the influence of something. We discussed the risks, benefits and alternatives of maintaining things as they are while we investigate and she understood and agreed to proceed as is documented in this note. An excerpt of Dr. Hernández's consult from 07/16/2024 is included below for context. Per her 07/16/2024 [facility] inpatient neurology consult: History of Present Illness History of present illness: Kalpana Godiwn is a 49 year old female with a history of major depressive disorder, alcohol use disorder, bipolar disorder type II, and unspecified psychosis. The patient was referred for neurological assessment secondary to the patient being witnessed by the mother to experience trancelike state followed by the patient displaying pressured speech and switching rapidly from 1 topic to another and then becoming frustrated with her mother regarding questions about topics they have never discussed during the conversations followed by lack of recall for the episodes. The patient also reported that she will experience episodes where she will feel strange and she will hear herself reminding her about things that she forgot such as sweeping the floor and putting away the broom and then forgetting that she swept the floor and having herself remind herself when she goes to sweep the floor again. The mother who was present during this neurological assessment and also stated that there is concerned that the patient may have alcohol related to memory issues or dementia and the mother wanted this addressed. The patient also stated that she was diagnosed with bilateral carpal tunnel syndrome after experiencing pain in one arm that radiated to the other arm and then into her fingers. The patient reported that she underwent right carpal tunnel release. But, sometime later the pains resolved in her upper extremities but she reported that she has continued to experience pain at the surgical site for right carpal tunnel release. During the patient's initial clinic visit on 06/19/2023 she was scheduled for head MRI without and with contrast. This study was obtained on 07/11/2023 and was reported to be within normal limits. Surface EEG recording was obtained on 06/26/2023. This was a normal awake, stage I and stage II sleep 42 minutes surface EEG recording and the patient did not experience any clinical events during the study. The patient was scheduled for lab for B12, folate, methylmalonic acid, vitamin B1, vitamin B6, and magnesium. Vitamin B1 was not performed but the other labs were unremarkable. The patient was also referred to orthopedics for right knee pain. It is not clear to me if the patient saw the orthopedic surgeon. The patient presented for reassessment accompanied by her mother. According to the mother the patient experienced a seizure on 12/27/2023. The patient was at home and was stressed and was talking irrationally followed by the patient becoming upset. The patient was also stating that she believes she can make things move with her eyes. This was followed by the patient yelling at her mother and when her mother attempted to leave the patient followed her mother and then suddenly the mother stated that the patient's body tensed up and the patient's eyes rolled up in her head and she lost consciousness and experience generalized tonic-clonic activity associated with drooling from her mouth and not responding. The mother stated that by the time the paramedics arrived the patient was postictal and was taken to [facility] emergency room. Noncontrast head CT and metabolic lab were obtained and reported to be unrevealing and the patient was released. The patient was not placed on any anticonvulsant medications. Patient was instructed to follow-up in the [facility] neurology clinic. I recommended that the patient be evaluated by psychiatrist to determine if her medication should be adjusted for her psychiatric disorder. Also recommended repeating the patient's sleep deprived surface EEG recording and since the patient continues to report chest pain I recommended that she be evaluated by delivery motorcycle driver and complete her GI workup in [place]. The patient reports that she has been having distal esophageal pain as well as chest pain and rib pain when she lies down at night. According to the patient's mother the patient's EGD performed in [place] was unrevealing. The mother stated the patient has been scheduled for CT imaging of her chest in [place] scheduled for 02/22/2024. The patient underwent surface EEG recording on 04/04/2024. Patient was recorded for 52 minutes. This was a normal awake surface EEG recording. During the recording the patient reported to the video surveillance technician that the patient stated that her thoughts were shifting between bad Kalpana and good Kalpana . No EEG correlation was seen. The patient was referred to psychiatry for for medication adjustments as well as cardiology for complaints of chest pain. Patient presented for reassessment and stated that she never received an appointment. Therefore this will be rescheduled. Patient informed me that she will still have some intermittent chest pain with shortness of breath and trouble catching her breath on occasions. She also informed me that she has a hiatal hernia and has been scheduled to undergo hiatal hernia surgery on 07/23/[address] Jose Reeves at [facility]. I recommend the patient undergo the cardiac evaluation prior to her hiatal hernia surgery and to see psychiatry to determine if medication adjustments are warranted for her history of major depression and bipolar disorder. The patient reports that she was seen by Dr. Meng, psychiatry in the past and she has been receiving her Wellbutrin medications from behavioral health clinic ([facility]) every 3 months. The patient was accompanied by her mother and this information was relayed to the patient's mother as well. Per her 05/09/2023 [facility] inpatient psychiatric discharge summary: Discharge Diagnosis (1) Suicidal ideation: Status: Resolved (2) Hearing voices: Status: Resolved (3) Alcohol use disorder, severe, in early remission, dependence: Status: Chronic Permanent problem details: last documented use 11/20/22 (4) History of psoriasis: Status: Acute (5) Bipolar II disorder: Status: Suspected Permanent problem details: Mixed episodes with anxious distress Reason for Visit Reason for Visit: SI Brief History: History of Present Illness Kalpana Godwin is a 48 year old female who presented to the emergency department with the following report: Chief Complaint: Psychiatric Symptoms Stated Complaint: SI Time Seen by Provider: 05/02/23 13:17 Source: patient Mode of arrival: ambulatory History of Present Illness: 48-year-old female presents emergency room because he had [facility]. They were called for combative person. When they arrived that she was homicidal and suicidal having auditory and visual hallucinations she attempted to grab a knife threatened to grab a knife and hurt herself and kill her . After she was taken to custody she calm down she is now stating that she took an extra tablet or possibly 2 of her bupropion but that that has resolved and now she is feeling better that the extra medication is what caused the incident. Initially when I seen the patient she states she just got upset and denied the incident regarding the knife. MD complaint: suicidal ideation Onset (ago): hour(s) Duration: intermittent and changing over time History of same: Yes Relieving factors: none Exacerbating factors: none Associated psychiatric symptoms: suicidal ideation, homicidal ideation, auditory hallucinations and visual hallucinations Associated symptoms: Reports auditory hallucinations, visual hallucinations, homicidal ideation and suicidal ideation Treatments prior to arrival: physical restraints If self harm: admits thoughts of self harm and has plan. She was admitted to the neuropsychiatric unit for definitive treatment of those issues. The patient presents today reporting that she is here secondary to having episodes where she is talking to herself, and she feels different, like it is not her voice. She denies previous psychiatric hospitalization. She denies psychiatric outpatient services other than alcohol abuse treatment. She reports that Dr. Yadav is her primary care physician and she has been seeing Clarice at [facility], for a couple years, for alcohol treatment. She reports that she takes Wellbutrin and Gabapentin. She has previously been on Naltrexone, Buspar, but nothing long-term. She endorses that when she drank she would also smoke. She reports that she has been sober for over a year. She reports that alcohol has been a challenge most of her life. She started drinking around age 21, and it really became a problem in her late twenties/early thirties. She denies marijuana use. She denies cocaine, methamphetamine, opiates or any other illicit drug use. She has been to rehab about three times, the last time was fifteen to twenty years ago. She endorses that she has had three DUI?s, the last time was around twenty years ago, and she reports that she was not driving but had possession of the keys. She denies other drug related charges. She denies any mental health issues when she was younger. She reports that yesterday her mom noticed that she was having odd behavior. She denies there being any major life events or issues that precipitated her drinking becoming problematic. She does endorse that she has anxiety and things have to be a certain way, stating she is very clean and things have to be in order. She reports that she recently had surgery on her hand, for carpel tunnel. She reports nerve issues. She reports they have been looking for a neurologist and psychiatrist. She reports that yesterday she got really angry at her mom because she was trying to get her to come to a psychiatrist but she states she does not remember any of that. She reports that she lost about two hours of time, other than bits and pieces. They tried to get an ambulance and she was fighting it. She reports that she understands she is on a 96-hour hold because her family was concerned with her behavior, which was very out of the ordinary. PSYCHIATRIC HISTORY: As above. Except in chart review 3 previous inpatient psychiatric hospitalizations here at the neuropsychiatric unit were discovered however they were all alcohol-related. SUBSTANCE ABUSE HISTORY: As above. FAMILY HISTORY: The patient reports that her brother has had addiction issues. She reports that she doesn?t know much about her father?s side of the family other than he was a drinker. She denies mental health and addiction issues on her mother?s side of the family. She denies any suicide attempts or completions. DEVELOPMENTAL HISTORY: The patient denies any issues with her mother?s , delivery was by section. She learned to walk and talk and met all developmental milestones on time. The patient denies speech therapy, learning support, emotional support, or special education classes. PSYCHOSOCIAL HISTORY: The patient reports that her mother and father were together when he was born and split up when she was around 3 years old. She reports that she has two older brothers who are also products of that union. She reports that there are no other children from her mother or biological father. She describes her childhood as good. She denies emotional, physical, or sexual abuse. She denies CYS involvement. She denies any major traumatic events that have had lasting effects. But she endorses that she is a sensitive person to other peoples? pain and experiences. She reports that she graduated from high school. 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 She endorses being heterosexual, with her longest relationship being six years, her current marriage. She has been once and has no children. She has not been in the . She endorses being Adventism. 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 She has not worked for a couple years. LEGAL HISTORY: She endorses that she has been to group home a couple of times, the longest time being thirty days. MEDICAL HISTORY: Denied. She reports that she started her menses around 12 to 13 years old, and she always had bad cramps and physical symptoms. She reports that she does not think she has been through menopause but she had uterine fibroids removed and ablation and was on depo-provera, and quit taking that, and has not had a period since, so she has likely had menopause. Hospital Course She slowly acclimated to the individual, group and milieu therapies provided. She presented with elevated mood and some irritability consistent with bipolar disorder. She had been on immediate release Wellbutrin. Her Wellbutrin was changed to Wellbutrin SR and increased to 200 mg p.o. twice daily and Abilify 10 mg was added for mood stabilization. She had significant improvement. She worked with the social work team on discharge planning and aftercare. She was able to contract for safety outside of the hospital prior to discharge. During the hospitalization, patient had routine laboratory studies which were within normal limits except for few outliers. Additionally there was a general medical evaluation which was also within normal limits and revealed no new acute processes. At the time of discharge, she denied psychosis or lethality. Mood and anxiety were well managed. Patient endorsed a plan to avoid all drugs of abuse and follow-up with the aftercare recommendations of the treatment team. Patient was evaluated and deemed to be absent credible lethality, and had achieved the maximum benefit from an inpatient hospitalization, so was discharged. Meds NPU Home Medications Medication Instructions Recorded Confirmed Last Taken Type gabapentin 600 mg tablet 600 mg PO TID #90 tabs 06/19/24 12/14/24 Unknown Rx Rt knee brace - small #1 ea 06/21/24 12/14/24 Unknown Rx bupropion HCl 200 mg tablet,12 hr 200 mg PO BID #60 tabs 10/31/24 12/14/24 Unknown Rx sustained-release (Wellbutrin SR) levetiracetam 500 mg tablet See Rx Instructions .Route 11/21/24 12/14/24 Unknown Rx .COMPLEX #60 tabs omeprazole 20 mg capsule,delayed See Rx Instructions .Route .COMPLEX 12/14/24 12/14/24 Unknown History release Allergies Allergy/AdvReac Type Severity Reaction Status Date / Time No Known Allergies Allergy Verified 10/31/24 14:48 PFS NPU PFSH: Medical History Seizure hospitalized 08/06; seeing neurology now Abnormal liver function tests Pelvic pain Chronic knee pain Right side Hiatal hernia with GERD Hearing voices Alcohol use disorder, severe, in early remission, dependence Bipolar II disorder Mixed episodes with anxious distress Psychiatric care History of actinic keratosis History of psoriasis Anxiety and depression Elevated liver enzymes Surgical History S/P endoscopy Dr. Bajwa, [facility] 01/16/24 adenomatous polyp removed, 02/22/24 EGD with hiatal hernia and GERD History of ankle surgery Status post incision and drainage Family History Other CAD (coronary artery disease) Cancer Denies family history of Colon cancer Ovarian cancer Diabetes Heart disease Breast cancer Hypertension Uterine cancer Thyroid disease Stroke Social History Smoking and tobacco/nicotine status: never used tobacco/nicotine Alcohol intake: former Year of sobriety/quit date alcohol: 2019 Former alcohol use details: heavy in past Mental Status Exam MSE Comments: This is a underweight versus malnourished , white female, in hospital scrubs, with adequate grooming and eye contact. No abnormal movements except for mild psychomotor agitation. Cooperative with exam in mild distress. Speech was increased rate and normal volume, near pressured speech at times. Mood described as good; affect congruent and mildly elevated. Thought process, organized. Thought content: patient denied any suicidal or homicidal ideation, there were no delusions reported or noted, patient denied any auditory or visual hallucinations. Attention, concentration, and memory appeared intact, but none were formally tested. Alert and oriented times three. Insight and judgment are limited. Impulse control is limited. Vitals/I&O/Wt Last Vital Signs Temp 98.4 F 12/15/24 06:00 Pulse 79 12/15/24 06:00 Resp 16 12/15/24 06:00 BP 90/55 12/15/24 06:00 Pulse Ox 95 12/15/24 06:00 O2 Del Method Room Air 12/15/24 06:00 Weight last 48 hrs Weight 47.809 kg Weight 45.359 kg Data NPU 12/13/24 00:19 12/14/24 11:52 A&P Assessment and plan (1) Suicidal ideation: (2) Hearing voices: (3) Alcohol use disorder, severe, in early remission, dependence: (4) History of psoriasis: (5) Bipolar II disorder: Plan This is a 49-year-old female, who presents after being brought to the hospital after having an episode yesterday that prompted her family to call an ambulance and the police also responded, who is here on a 96-hour hold. 1. Continue current medication. 2. Encourage individual, group, and milieu therapy. 3. Continue q-15-minute checks for safety. 4. Recommend sober living treatment at the highest level of care to which the patient is willing to commit. 5. Get collateral information from significant others in outpatient team Involuntary Hold Information 96 Hour Hold: 96 Hour Involuntary Admission: Yes 96 Hour Hold Ending Date: 12/20/24 96 Hour Hold Ending Time: 00:01 Attestations U Medical Necessity Statement*: Inpatient hospitalization is medically necessary and the clinically appropriate intervention, at this time. We will monitor medications and make changes as indicated. Patient will be in the hospital for over two midnights. Likely length of stay is three to five days. Coding Level of Care Code Acute Code for g Fwd Diagnoses Suicidal ideation R45.851 Hearing voices R44.0 Alcohol use disorder, severe, in early remission, dependence F10.21 History of psoriasis Z87.2 Bipolar II disorder F31.81
[2024-12-15] MEDS: gabapentin 300 mg Capsule 600 MG PO ×3 (08:30→19:47)
[2024-12-15 14:00] VITALS: BP 95/66; PULSE 94; RESP 16; TEMP 36.6; O2SAT 95
[2024-12-15 18:10] LABS: Anion Gap 14.1 (5-19); Blood Urea Nitrogen 18 mg/dL (6-20); Calcium 9.2 mg/dL (8.5-10.5); Carbon Dioxide 26 mmol/L (22-29); Chloride 98 mmol/L (98-107); Creatinine Clr Calc Pharmacy 75.4832; Glomerular Filtration Rate 88.9 mL/min (90-130); Glucose 161 mg/dL (65-115); Osmolality Calculated 283 mOsm/kg (285-295); Potassium 4.1 mmol/L (3.5-5.1); Sodium 134 mmol/L (136-145)
[2024-12-15 19:08] LABS: Creatine Phosphokinase 904 U/L (26-192)
[2024-12-15 20:32] VITALS: BP 108/64; PULSE 88; RESP 16; TEMP 37.1; O2SAT 97
[2024-12-16 06:00] VITALS: BP 96/56; PULSE 89; RESP 16; TEMP 36.4; O2SAT 96
[2024-12-16] MEDS: pantoprazole DR 40 mg Tablet PO (08:47)
[2024-12-16] MEDS: gabapentin 300 mg Capsule 600 MG PO ×3 (08:47→20:41)
[2024-12-16] MEDS: buPROPion SR (12 HR) 100 mg Tablet 200 MG PO ×2 (08:47→20:41)
[2024-12-16] MEDS: levETIRAcetam 500 mg Tablet PO ×2 (08:47→20:41)
[2024-12-16 14:00] VITALS: BP 111/62; PULSE 96; RESP 17; TEMP 36.6; O2SAT 96
[2024-12-16] MEDS: alum-mag-hydroxide-sime 30 mL UDC PO (15:32)
--- NOTE | 2024-12-16 15:32 | P.NPUPN_ITS ---
Subjective NPU 2 Subjective: Patient presented today reporting that she is doing okay. She reports that her mother came to visit her and that they talked about the possibility of her being a little more involved in things. She continues to deny any significant issues and that this was just 1 of these episodes. Mental Status Exam 2 MSE Comments: This is a underweight versus malnourished , white female, in hospital scrubs, with adequate grooming and eye contact. No abnormal movements except for mild psychomotor agitation. Cooperative with exam in mild distress. Speech was increased rate and normal volume, near pressured speech at times. Mood described as good; affect congruent and mildly elevated. Thought process, organized. Thought content: patient denied any suicidal or homicidal ideation, there were no delusions reported or noted, patient denied any auditory or visual hallucinations. Attention, concentration, and memory appeared intact, but none were formally tested. Alert and oriented times three. Insight and judgment are limited. Impulse control is limited. Vitals/I&O/Wt Last Vital Signs Temp 97.8 F 12/16/24 14:00 Pulse 96 12/16/24 14:00 Resp 17 12/16/24 14:00 BP 111/62 12/16/24 14:00 Pulse Ox 96 12/16/24 14:00 O2 Del Method Room Air 12/16/24 14:00 Data NPU 12/13/24 00:19 12/15/24 17:46 A&P Assessment and plan (1) Suicidal ideation: (2) Hearing voices: (3) Alcohol use disorder, severe, in early remission, dependence: (4) History of psoriasis: (5) Bipolar II disorder: Plan This is a 49-year-old female, who presents after being brought to the hospital after having an episode yesterday that prompted her family to call an ambulance and the police also responded, who is here on a 96-hour hold. 1. Continue current medication. 2. Encourage individual, group, and milieu therapy. 3. Continue q-15-minute checks for safety. 4. Recommend sober living treatment at the highest level of care to which the patient is willing to commit. 5. Get collateral information from significant others and outpatient team. 6. Her CK increased so we will continue to monitor and consider a hospitalist consult. PDMP PDMP Reviewed: Not Reviewed Involuntary Hold Information 2 96 Hour Hold: 96 Hour Involuntary Admission: Yes 96 Hour Hold Ending Date: 12/20/24 96 Hour Hold Ending Time: 00:01 Other Hold: Hold End Date: 12/20/24 Attestations NPU 2 Medical Necessity Statement*: Inpatient hospitalization is medically necessary and the clinically appropriate intervention, at this time. We will monitor medications and make changes as indicated. Likely length of stay is 2-4 days. Coding Level of Care Code Acute Code for Chg Fwd Diagnoses Suicidal ideation R45.851 Hearing voices R44.0 Alcohol use disorder, severe, in early remission, dependence F10.21 History of psoriasis Z87.2 Bipolar II disorder F31.81
--- NOTE | 2024-12-16 17:23 | PC.NURSE ---
pt complaining of right sided pain, pt refusing tylenol at this time.
[2024-12-16 21:11] VITALS: BP 89/67; PULSE 115; RESP 18; TEMP 37.1; O2SAT 99
[2024-12-17 06:15] VITALS: BP 86/63; PULSE 84; RESP 16; TEMP 36.6; O2SAT 99
[2024-12-17] MEDS: levETIRAcetam 500 mg Tablet PO (08:48)
[2024-12-17] MEDS: buPROPion SR (12 HR) 100 mg Tablet 200 MG PO (08:48)
[2024-12-17] MEDS: pantoprazole DR 40 mg Tablet PO (08:51)
[2024-12-17] MEDS: gabapentin 300 mg Capsule 600 MG PO (08:51)
[2024-12-17] MEDS: alum-mag-hydroxide-sime 30 mL UDC PO (08:51)
--- NOTE | 2024-12-17 10:49 | W.PM.NPUDCS ---
Diagnoses at Discharge Discharge Diagnosis (1) Suicidal ideation: Status: Resolved (2) Hearing voices: Status: Resolved (3) Alcohol use disorder, severe, in early remission, dependence: Status: Chronic (4) History of psoriasis: Status: Acute (5) Bipolar II disorder: Status: Suspected Permanent problem details: Mixed episodes with anxious distress Reason for Visit Reason for Visit: MHE Brief History: History of Present Illness Kalpana Godwin is a 49 year old female who presented to the emergency department with the following report: Chief complaint: Psychiatric Symptoms Stated complaint: MHE Time Seen by Provider: 12/13/24 23:07 History of Present Illness: Patient brought in for mental health exam by EMS. Patient is talking out of her head not making any sense. Patient cannot stay focused she jumps from topic to topic. She will not answer questions. EMS suspects she is high on amphetamines. Patient does have a history of alcohol use disorder, seizure, bipolar, patient has been inpatient in [facility] for acute psychosis before. She was admitted to the neuropsychiatric unit for definitive treatment of those issues. She is known to [facility] through inpatient and outpatient services. She had her last outpatient med check in October of last year and her last inpatient stay was in April 2023 and an excerpt of that note is included below for context and the fact that there are no substantive changes. Despite the fact that there were suspicions of addiction or withdrawal playing a significant role in her presentation her UDS and BAL were unremarkable. She presents today reporting that this whole thing is a misunderstanding. She told some elaborate story about recent difficulties with some health problem where she is having episodes that are being identified were explored his seizures but she has had an EEG and cardiac evaluations and MRI and still no clear determination of what is going on has been forwarded. She is following with Dr. Hernández at this point and he is continuing to try to get to the bottom of what is going on. She reports that her episodes have never really had a psychiatric element to them but at this time it reportedly did but she does not have a recollection of it. She reports it was witnessed by her who she does not have much to say on the positive side. She reports that she does not believe him and did not want him to be used as a source of information. Her mother is reportedly coming later and she wants us to talk to her. However she reports she has been taking her medication as prescribed which is this Wellbutrin SR 200 mg p.o. twice daily. We discussed whether she should not try the Wellbutrin XL we may push the dose to 450 mg. She is also taking Neurontin and Keppra. We agreed we leave the medications where they are and try to get some collateral information and understand the situation better before we make any changes or any assumptions. She currently did not have anything in her UDS and denied any drug use reporting sobriety for the past 3 years. However EMS felt she was under the influence of something. We discussed the risks, benefits and alternatives of maintaining things as they are while we investigate and she understood and agreed to proceed as is documented in this note. An excerpt of Dr. Hernández's consult from 07/16/2024 is included below for context. Per her 07/16/2024 [facility] inpatient neurology consult: History of Present Illness History of present illness: Kalpana Godwin is a 49 year old female with a history of major depressive disorder, alcohol use disorder, bipolar disorder type II, and unspecified psychosis. The patient was referred for neurological assessment secondary to the patient being witnessed by the mother to experience trancelike state followed by the patient displaying pressured speech and switching rapidly from 1 topic to another and then becoming frustrated with her mother regarding questions about topics they have never discussed during the conversations followed by lack of recall for the episodes. The patient also reported that she will experience episodes where she will feel strange and she will hear herself reminding her about things that she forgot such as sweeping the floor and putting away the broom and then forgetting that she swept the floor and having herself remind herself when she goes to sweep the floor again. The mother who was present during this neurological assessment and also stated that there is concerned that the patient may have alcohol related to memory issues or dementia and the mother wanted this addressed. The patient also stated that she was diagnosed with bilateral carpal tunnel syndrome after experiencing pain in one arm that radiated to the other arm and then into her fingers. The patient reported that she underwent right carpal tunnel release. But, sometime later the pains resolved in her upper extremities but she reported that she has continued to experience pain at the surgical site for right carpal tunnel release. During the patient's initial clinic visit on 06/19/2023 she was scheduled for head MRI without and with contrast. This study was obtained on 07/11/2023 and was reported to be within normal limits. Surface EEG recording was obtained on 06/26/2023. This was a normal awake, stage I and stage II sleep 42 minutes surface EEG recording and the patient did not experience any clinical events during the study. The patient was scheduled for lab for B12, folate, methylmalonic acid, vitamin B1, vitamin B6, and magnesium. Vitamin B1 was not performed but the other labs were unremarkable. The patient was also referred to orthopedics for right knee pain. It is not clear to me if the patient saw the orthopedic surgeon. The patient presented for reassessment accompanied by her mother. According to the mother the patient experienced a seizure on 12/27/2023. The patient was at home and was stressed and was talking irrationally followed by the patient becoming upset. The patient was also stating that she believes she can make things move with her eyes. This was followed by the patient yelling at her mother and when her mother attempted to leave the patient followed her mother and then suddenly the mother stated that the patient's body tensed up and the patient's eyes rolled up in her head and she lost consciousness and experience generalized tonic-clonic activity associated with drooling from her mouth and not responding. The mother stated that by the time the paramedics arrived the patient was postictal and was taken to [facility] emergency room. Noncontrast head CT and metabolic lab were obtained and reported to be unrevealing and the patient was released. The patient was not placed on any anticonvulsant medications. Patient was instructed to follow-up in the [facility] neurology clinic. I recommended that the patient be evaluated by psychiatrist to determine if her medication should be adjusted for her psychiatric disorder. Also recommended repeating the patient's sleep deprived surface EEG recording and since the patient continues to report chest pain I recommended that she be evaluated by cracking machine operator and complete her GI workup in [place]. The patient reports that she has been having distal esophageal pain as well as chest pain and rib pain when she lies down at night. According to the patient's mother the patient's EGD performed in [place] was unrevealing. The mother stated the patient has been scheduled for CT imaging of her chest in [place] scheduled for 02/22/2024. The patient underwent surface EEG recording on 04/04/2024. Patient was recorded for 52 minutes. This was a normal awake surface EEG recording. During the recording the patient reported to the roof technician that the patient stated that her thoughts were shifting between bad Kalpana and good Kalpana . No EEG correlation was seen. The patient was referred to psychiatry for for medication adjustments as well as cardiology for complaints of chest pain. Patient presented for reassessment and stated that she never received an appointment. Therefore this will be rescheduled. Patient informed me that she will still have some intermittent chest pain with shortness of breath and trouble catching her breath on occasions. She also informed me that she has a hiatal hernia and has been scheduled to undergo hiatal hernia surgery on 07/23/[address] Jose Reeves at [facility]. I recommend the patient undergo the cardiac evaluation prior to her hiatal hernia surgery and to see psychiatry to determine if medication adjustments are warranted for her history of major depression and bipolar disorder. The patient reports that she was seen by Dr. Meng, psychiatry in the past and she has been receiving her Wellbutrin medications from behavioral health clinic ([facility]) every 3 months. The patient was accompanied by her mother and this information was relayed to the patient's mother as well. Per her 05/09/2023 [facility] inpatient psychiatric discharge summary: Discharge Diagnosis (1) Suicidal ideation: Status: Resolved (2) Hearing voices: Status: Resolved (3) Alcohol use disorder, severe, in early remission, dependence: Status: Chronic Permanent problem details: last documented use 11/20/22 (4) History of psoriasis: Status: Acute (5) Bipolar II disorder: Status: Suspected Permanent problem details: Mixed episodes with anxious distress Reason for Visit Reason for Visit: SI Brief History: History of Present Illness Kalpana Godwin is a 48 year old female who presented to the emergency department with the following report: Chief Complaint: Psychiatric Symptoms Stated Complaint: SI Time Seen by Provider: 05/02/23 13:17 Source: patient Mode of arrival: ambulatory History of Present Illness: 48-year-old female presents emergency room because he had [facility]. They were called for combative person. When they arrived that she was homicidal and suicidal having auditory and visual hallucinations she attempted to grab a knife threatened to grab a knife and hurt herself and kill her . After she was taken to custody she calm down she is now stating that she took an extra tablet or possibly 2 of her bupropion but that that has resolved and now she is feeling better that the extra medication is what caused the incident. Initially when I seen the patient she states she just got upset and denied the incident regarding the knife. complaint: suicidal ideation Onset (ago): hour(s) Duration: intermittent and changing over time History of same: Yes Relieving factors: none Exacerbating factors: none Associated psychiatric symptoms: suicidal ideation, homicidal ideation, auditory hallucinations and visual hallucinations Associated symptoms: Reports auditory hallucinations, visual hallucinations, homicidal ideation and suicidal ideation Treatments prior to arrival: physical restraints If self harm: admits thoughts of self harm and has plan. She was admitted to the neuropsychiatric unit for definitive treatment of those issues. The patient presents today reporting that she is here secondary to having episodes where she is talking to herself, and she feels different, like it is not her voice. She denies previous psychiatric hospitalization. She denies psychiatric outpatient services other than alcohol abuse treatment. She reports that Dr. Yadav is her primary care physician and she has been seeing Clarice at [facility], for a couple years, for alcohol treatment. She reports that she takes Wellbutrin and Gabapentin. She has previously been on Naltrexone, Buspar, but nothing long-term. She endorses that when she drank she would also smoke. She reports that she has been sober for over a year. She reports that alcohol has been a challenge most of her life. She started drinking around age 21, and it really became a problem in her late twenties/early thirties. She denies marijuana use. She denies cocaine, methamphetamine, opiates or any other illicit drug use. She has been to rehab about three times, the last time was fifteen to twenty years ago. She endorses that she has had three DUI?s, the last time was around twenty years ago, and she reports that she was not driving but had possession of the keys. She denies other drug related charges. She denies any mental health issues when she was younger. She reports that yesterday her mom noticed that she was having odd behavior. She denies there being any major life events or issues that precipitated her drinking becoming problematic. She does endorse that she has anxiety and things have to be a certain way, stating she is very clean and things have to be in order. She reports that she recently had surgery on her hand, for carpel tunnel. She reports nerve issues. She reports they have been looking for a neurologist and psychiatrist. She reports that yesterday she got really angry at her mom because she was trying to get her to come to a psychiatrist but she states she does not remember any of that. She reports that she lost about two hours of time, other than bits and pieces. They tried to get an ambulance and she was fighting it. She reports that she understands she is on a 96-hour hold because her family was concerned with her behavior, which was very out of the ordinary. PSYCHIATRIC HISTORY: As above. Except in chart review 3 previous inpatient psychiatric hospitalizations here at the neuropsychiatric unit were discovered however they were all alcohol-related. SUBSTANCE ABUSE HISTORY: As above. FAMILY HISTORY: The patient reports that her brother has had addiction issues. She reports that she doesn?t know much about her father?s side of the family other than he was a drinker. She denies mental health and addiction issues on her mother?s side of the family. She denies any suicide attempts or completions. DEVELOPMENTAL HISTORY: The patient denies any issues with her mother?s , delivery was by section. She learned to walk and talk and met all developmental milestones on time. The patient denies speech therapy, learning support, emotional support, or special education classes. PSYCHOSOCIAL HISTORY: The patient reports that her mother and father were together when he was born and split up when she was around 3 years old. She reports that she has two older brothers who are also products of that union. She reports that there are no other children from her mother or biological father. She describes her childhood as good. She denies emotional, physical, or sexual abuse. She denies CYS involvement. She denies any major traumatic events that have had lasting effects. But she endorses that she is a sensitive person to other peoples? pain and experiences. She reports that she graduated from high school. 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 She endorses being heterosexual, with her longest relationship being six years, her current marriage. She has been once and has no children. She has not been in the . She endorses being [employer]. She reports that the longest job she had was five years at a [employer]. She has not worked for a couple years. LEGAL HISTORY: She endorses that she has been to skilled nursing a couple of times, the longest time being thirty days. MEDICAL HISTORY: Denied. She reports that she started her menses around 12 to 13 years old, and she always had bad cramps and physical symptoms. She reports that she does not think she has been through menopause but she had uterine fibroids removed and ablation and was on depo-provera, and quit taking that, and has not had a period since, so she has likely had menopause. Hospital Course Hospital Course She slowly acclimated to the individual, group and milieu therapies provided. She presented with elevated mood and some irritability consistent with bipolar disorder. She had been on immediate release Wellbutrin. Her Wellbutrin was changed to Wellbutrin SR and increased to 200 mg p.o. twice daily and Abilify 10 mg was added for mood stabilization. She had significant improvement. She worked with the social work team on discharge planning and aftercare. She was able to contract for safety outside of the hospital prior to discharge. During the hospitalization, patient had routine laboratory studies which were within normal limits except for few outliers. Additionally there was a general medical evaluation which was also within normal limits and revealed no new acute processes. At the time of discharge, she denied psychosis or lethality. Mood and anxiety were well managed. Patient endorsed a plan to avoid all drugs of abuse and follow-up with the aftercare recommendations of the treatment team. Patient was evaluated and deemed to be absent credible lethality, and had achieved the maximum benefit from an inpatient hospitalization, so was discharged. Involuntary Hold Information 96 Hour Hold: 96 Hour Involuntary Admission: Yes 96 Hour Hold Ending Date: 12/20/24 96 Hour Hold Ending Time: 00:01 Other Hold: Hold End Date: 12/20/24 Mental Status Exam MSE Comments: This is a underweight versus malnourished , white female, in hospital scrubs, with adequate grooming and eye contact. No abnormal movements except for mild psychomotor agitation. Cooperative with exam in mild distress. Speech was increased rate and normal volume, near pressured speech at times. Mood described as good; affect congruent and mildly elevated. Thought process, organized. Thought content: patient denied any suicidal or homicidal ideation, there were no delusions reported or noted, patient denied any auditory or visual hallucinations. Attention, concentration, and memory appeared intact, but none were formally tested. Alert and oriented times three. Insight and judgment are limited. Impulse control is limited. Discharge Data Studies Completed and Pending: Laboratory Results WBC 8.32 10^3/uL (3.2 9-11.43) 12/13/24 00:19 RBC 3.94 10^6/uL (3.8 5-5.65) 12/13/24 00:19 Hgb 12.20 g/dL (11.27 -16.99) 12/13/24 00:19 Hct 38.6 % (36-47) 12/13/24 00:19 MCV 98.0 fl (85-98) 12/13/24 00:19 MCH 31.0 pg (27-33) 12/13/24 00:19 MCHC 31.6 g/dL (30-55) 12/13/24 00:19 RDW 11.9 % (12.1-15.1 ) L 12/13/24 00:19 Plt Count 276 10^3/cmm (157 -399) 12/13/24 00:19 MPV 10.0 fL (7.4-10.4 ) 12/13/24 00:19 Neut % (Auto) 70.9 % 12/13/24 00:19 Lymph % (Auto) 18.5 % 12/13/24 00:19 Real % (Auto) 8.2 % 12/13/24 00:19 Eos % (Auto) 1.0 % 12/13/24 00:19 Baso % (Auto) 1.2 % 12/13/24 00:19 Neut # (Auto) 5.90 10^3/uL (1.8 -7.7) 12/13/24 00:19 Lymph # (Auto) 1.5 10^3/uL (0.8- 4.8) 12/13/24 00:19 Real # (Auto) 0.7 10^3/uL (0.2- 0.9) 12/13/24 00:19 Eos # (Auto) 0.1 10^3/uL (0.0- 0.8) 12/13/24 00:19 Baso # (Auto) 0.1 10^3/uL (0.0- 0.1) 12/13/24 00:19 Nucleated RBC % (a uto) 0 % 12/13/24 00:19 Nucleated RBCs # 0.0 /100WBC 12/13/24 00:19 Sodium 134 mmol/L (136-1 45) L 12/15/24 17:46 Potassium 4.1 mmol/L (3.5-5 .1) 12/15/24 17:46 Chloride 98 mmol/L (98-107 ) 12/15/24 17:46 Carbon Dioxide 26 mmol/L (22-29) 12/15/24 17:46 Anion Gap 14.1 (5-19) 12/15/24 17:46 BUN 18 mg/dL (6-20) 12/15/24 17:46 Creatinine 0.7 mg/dL (0.5-0. 9) 12/15/24 17:46 GFR Calculation 88.9 mL/min (90-1 30) L 12/15/24 17:46 Glucose 161 mg/dL (65-115 ) H 12/15/24 17:46 Calculated Osmolal ity 283 mOsm/kg (285- 295) L 12/15/24 17:46 Calcium 9.2 mg/dL (8.5-10 .5) 12/15/24 17:46 Total Bilirubin 0.4 mg/dL (0.15-1 .2) 12/13/24 00:19 AST 29 U/L (0-32) 12/13/24 00:19 ALT 18 U/L (0-33) 12/13/24 00:19 Alkaline Phosphata se 95 U/L (35-105) 12/13/24 00:19 Creatine Kinase 904 U/L (26-192) H* 12/15/24 17:46 CK-MB (CK-2) Cancelled 12/15/24 17:46 CK-MB (CK-2) Rel I ndex Cancelled 12/15/24 17:46 Total Protein 6.9 g/dL (6.6-8.7 ) 12/13/24 00:19 Albumin 4.3 g/dL (3.5-5.2 ) 12/13/24 00:19 Globulin 2.6 g/dL (1.3-4.6 ) 12/13/24 00:19 HCG, Qual Negative (Negati ve) 12/14/24 02:49 Urine Color Yellow (Yellow) 12/14/24 02:09 Urine Appearance Clear (CLEAR) 12/14/24 02:09 Urine pH 7.0 (5-7) 12/14/24 02:09 Ur Specific Gravit y 1.011 (1.005-1.0 30) 12/14/24 02:09 Urine Protein Negative (Negati ve) 12/14/24 02:09 Urine Glucose (UA) Negative (Normal ) 12/14/24 02:09 Urine Ketones Negative (Negati ve) 12/14/24 02:09 Urine Blood Negative (Negati ve) 12/14/24 02:09 Urine Nitrate Negative (Negati ve) 12/14/24 02:09 Urine Bilirubin Negative (Negati ve) 12/14/24 02:09 Urine Urobilinogen 0.2 mg/dL (Negati ve) 12/14/24 02:09 Ur Leukocyte Lisa ase Negative (Negati ve) 12/14/24 02:09 Urine RBC 0-2 /hpf (0-2) 12/14/24 02:09 Urine WBC 0-5 /hpf (0-5) 12/14/24 02:09 Ur Squamous Epith Cells 0-5 /hpf (0-5) 12/14/24 02:09 Amorphous Sediment Not Reportable 12/14/24 02:09 Urine Bacteria None seen /hpf (N ONE) 12/14/24 02:09 Hyaline Casts 0.40 /lpf 12/14/24 02:09 Salicylates 1.8 mg/dL (3-10) L 12/13/24 00:19 Urine Opiates Scre en Negative ng/mL (N egative) 12/14/24 02:09 Acetaminophen < 5.0 ug/mL (10-3 0) L 12/13/24 00:19 Ur Barbiturates Sc reen Negative ng/mL (N egative) 12/14/24 02:09 Ur Phencyclidine S crn Negative ng/mL (N egative) 12/14/24 02:09 Ur Amphetamines Sc reen Negative ng/mL (N egative) 12/14/24 02:09 U Benzodiazepines Scrn Negative ng/mL (N egative) 12/14/24 02:09 Urine Cocaine Scre en Negative ng/mL (N egative) 12/14/24 02:09 U Marijuana (THC) Screen Negative ng/mL (N egative) 12/14/24 02:09 Ethyl Alcohol < 10 mg/dL (0-10) 12/13/24 00:19 Vitals: Last Vital Signs Temp 97.9 F 12/17/24 06:15 Pulse 84 12/17/24 06:15 Resp 16 12/17/24 06:15 BP 86/63 12/17/24 06:15 Pulse Ox 99 12/17/24 06:15 O2 Del Method Room Air 12/17/24 06:15 Discharge Plan Discharge Patient Disposition: Home Condition: Stable Prescriptions: Continued gabapentin 600 mg tablet 600 mg PO TID Qty: 90 5RF bupropion HCl [Wellbutrin SR] 200 mg tablet sustained-release 12 hr 200 mg PO BID Qty: 60 2RF (DME) Rt knee brace - small See Rx Instructions .Route .MEDSUPPLY Qty: 1 0RF Rx Instructions: As directed levetiracetam 500 mg tablet See Rx Instructions .ROUTE .COMPLEX Qty: 60 3RF Dose Instruction: TAKE 1 TABLET BY MOUTH TWICE A DAY Rx Instructions: TAKE 1 TABLET BY MOUTH TWICE A DAY omeprazole 20 mg capsule,delayed release(DR/EC) See Rx Instructions .ROUTE .COMPLEX Rx Instructions: TAKE 1 CAPSULE BY MOUTH BEFORE BREAKFAST Discharge Orders: Discharge Order (Routine); Ordered 12/17/24 Ordered By: Aman Meng Referrals: Senia Reid PMHNP [Staff Physician] - Gavin Yadav MD [Primary Care Provider] - Discharge Diet: Regular Discharge Activity: Resume usual activity Patient Instructions: Opioid Safety, Pain Management Discharge Attestations [facility] Time Spent in Discharge Care*: less than 30 min Specific Discharge Activities: Specific discharge activities: educating patient, discussing with manager of case/social workers/dc planners, documenting/other paperwork and evaluating patient/reviewing data Status at Discharge: Cognitive status at discharge: cognitively intact, Behavioral status at discharge: cooperative, Coding Level of Care Code Acute Code for Chg Fwd Diagnoses Suicidal ideation R45.851 Hearing voices R44.0 Alcohol use disorder, severe, in early remission, dependence F10.21 History of psoriasis Z87.2 Bipolar II disorder F31.81
[2024-12-17 11:13] VITALS: BP 86/63; PULSE 84; RESP 16; TEMP 36.6; O2SAT 99
== END 2024-12-17 13:10 | disposition home or self-care (01) | DRG 885 ==
LOC: ER 12-14 12:54 → NP 12-14 12:58
PROVIDERS: Emergency Medicine; Admitting Provider Psychiatry & Neurology Psychiatry; Emergency Provider Emergency Medicine; PCP Family Medicine Adult Medicine; Visit Provider Psychiatry & Neurology Psychiatry
DX: F31.81 Bipolar II disorder (principal); E46 Unspecified protein-calorie malnutrition; Z68.1 Body mass index [BMI] 19.9 or less, adult; R45.851 Suicidal ideations; R44.0 Auditory hallucinations; F10.21 Alcohol dependence, in remission; L40.9 Psoriasis, unspecified; K21.9 Gastro-esophageal reflux disease without esophagitis
CPT/HCPCS: 36415; 51701; 80048; 80053; 80306; 80307; 81001; 81025; 82550; 85025; 96372; 97150; 97165; 99285; J1200; J1630; J2060; J7030

== ENCOUNTER 2025-09-03 09:18 | Outpatient (CLI) | payer OTHER, MEDICAID, BC, SELFPAY ==
--- NOTE | 2025-09-03 09:26 | MM_ITS ---
WS: [id number] BILATERAL SCREENING DIGITAL TOMOSYNTHESIS MAMMOGRAM WITH CAD HISTORY: SCREENING COMPARISON: 08/27/2024, 04/20/2022, Bilateral CC and MLO views with tomosynthesis and synthetic mammography submitted. Computer aided detection analyzed. Breast composition: There are scattered areas of fibroglandular density. No suspicious masses, microcalcifications or architectural distortion. Asymmetries in the anterior RIGHT breast, retroareolar are stable. MM/MM scr tomosynthesis [id number] IMPRESSION: BI-RADS: 2 - Benign. FOLLOW UP: 1 Year Follow-up
== END 2025-09-03 09:19 | disposition home or self-care (01) ==
LOC: RAD 09:21
PROVIDERS: PCP Family Medicine Adult Medicine; Visit Provider Family Medicine
DX: Z12.31 Encounter for screening mammogram for malignant neoplasm of breast (principal); R92.323 Mammographic fibroglandular density, bilateral breasts; N64.89 Other specified disorders of breast
CPT/HCPCS: 77063; 77067